=== PATIENT | male | born 1985 | race African-American/Black ===

== ENCOUNTER 2017-10-23 15:47 | Emergency (ER) | payer SELFPAY ==
[~2017-10-23] VITALS: Ht 177.8 cm; Wt 91.2 kg
[~2017-10-23 15:47] MED LIST: AMOXICILLIN500 MG ORAL; NKM; PROMETHAZINE-C118 M1 ORAL; PROMETHAZINE-D118 ML ORAL
[2017-10-23 16:15] VITALS: BP 130/87
[2017-10-23] MEDS ORDERED: COLACE100 MG ORAL (17:00)
[2017-10-23] MEDS ORDERED: FLEET ENEMA133 ML RECTAL (17:00)
[2017-10-23 17:07] VITALS: BP 130/87
--- NOTE | 2017-10-23 17:48 | Emergency Room Report ---
History of Present Illness General Chief Complaint: Abdominal Pain Source: Patient Present Illness HPI 32-year-old male presents ED complaining of abdominal pain. Started this morning. States that he has not been eating healthy for the last few days. 8. Take at carnival yesterday and then had pain takes this morning. States he has not had a bowel movement for the last few days. Pain is sharp, lower, 8 out of 10, nonradiating. Notes nausea, denies vomiting. Denies fevers or chills. No other aggravating relieving factors. Denies any other associated symptoms Allergies: Coded Allergies: No Known Allergies (Unverified , 04/25/16) Patient History Past Medical History: asthma Past Surgical History: none Pertinent Family History: none Social History: Denies: smoking, alcohol use, drug use Immunizations: UTD Reviewed Nursing Documentation: PMH: Agreed; PSxH: Agreed Nursing Documentation-PMH Past Medical History: No History, Except For Hx Asthma: Yes Review of Systems All Other Systems: negative except mentioned in HPI Physical Exam Vital Signs Date Time Temp Pulse Resp B/P (MAP) Pulse Ox O2 Delivery O2 Flow Rate FiO2 10/23/17 15:52 98.4 80 16 130/87 99 Room Air 98.4 Sp02 EP Interpretation: reviewed, normal General Appearance: no apparent distress, alert, GCS 15, non-toxic Head: normocephalic, atraumatic Eyes: bilateral eye normal inspection, bilateral eye PERRL ENT: hearing grossly normal, normal pharynx, no angioedema, normal voice Neck: full range of motion, supple/symm/no masses Respiratory: chest non-tender, lungs clear, normal breath sounds, speaking full sentences Cardiovascular #1: regular rate, rhythm, no edema Cardiovascular #2: 2+ carotid (R), 2+ carotid (L), 2+ radial (R), 2+ radial (L) , 2+ dorsalis pedis (R), 2+ dorsalis pedis (L) Gastrointestinal: normal bowel sounds, soft, non-distended, no guarding, no rebound, tenderness Rectal: deferred Genitourinary: normal inspection, no CVA tenderness Musculoskeletal: back normal, gait/station normal, normal range of motion, non- tender Neurologic: alert, oriented x3, responsive, motor strength/tone normal, sensory intact, speech normal Psychiatric: judgement/insight normal, memory normal, mood/affect normal, no suicidal/homicidal ideation Reflexes: 3+ bicep (R), 3+ bicep (L), 3+ tricep (R), 3+ tricep (L), 3+ knee (R) , 3+ knee (L) Skin: normal color, no rash, warm/dry, well hydrated Lymphatic: no adenopathy Medical Decision Making Diagnostic Impression: Primary Impression: Constipation Qualified Codes: K59.00 - Constipation, unspecified ER Course Hospital Course 32-year-old M presents to ED with abdominal pain Differential diagnosis includes-appendicitis, cholecystitis, small bowel obstruction, gastritis, Clinical course Patient placed on stretcher. After initial history, physical exam reveals male in no acute distress. Abdomen soft with some tenderness to lower abdomen. No guarding or rebound. KUB - copious stool noted Discussed findings with patient. Clinical presentation consistent with constipation. We'll prescribe stool softeners and enema I feel this is a highly complex case requiring extensive working including EKG/ Rhythm strip, Xray/CT/US, Blood/urine lab work, repeat exams while in ED, and administration of strong opiates/narcotics for pain control, admission to hospital or close patient follow up. Diagnosis - constipation Stable and discharged to home with Rx enema, Colace. instructed on high-fiber diet. Followup with PMD. Return to ED if symptoms recur or worsen Other X-Ray Diagnostic Results Other X-Ray Diagnostic Results : X-Ray ordered: KUB # of Views/Limited Vs Complete: 1 View Indication: Pain EP Interpretation: Yes Interpretation: nonspecific bowel gas, no sbo, other - fecal impaction Impression: Other - constipation Electronically Signed by: Electronically signed by Dionicio Hall MD Last Vital Signs Date Time Temp Pulse Resp B/P (MAP) Pulse Ox O2 Delivery O2 Flow Rate FiO2 10/23/17 17:07 98.4 89 16 130/87 99 Room Air 98.4 Status: improved Disposition: HOME, SELF-CARE Condition: Stable Scripts Na Phos,M-B/Na Phos,Di-Ba* (FLEET ENEMA*) 133 Ml Enema 133 ML RECTAL DAILY, #133 ML 0 Refills Prov: Dionicio Hall MD 10/23/17 Docusate Sodium* (COLACE*) 100 Mg Capsule 100 MG ORAL THREE TIMES A DAY, #30 CAP Prov: Dionicio Hall MD 10/23/17 Referrals: NOT CHOSEN IPA/,REFERRING (PCP) Patient Instructions: Constipation, Adult, [id number] Dionicio Hall MD October 23, 2017 17:48
--- NOTE | 2017-10-24 13:49 | Diagnostic Imaging Report ---
Indication: Abdominal pain Technique: XRAY Abdomen 1v Comparison: None Findings: Bowel gas pattern is nonobstructive. No evidence to suggest free intraperitoneal air. No acute osseous abnormality is seen. Imaged lung bases are clear. Impression: Nonobstructive bowel gas pattern.
== END 2017-10-23 17:15 | disposition home or self-care (01) ==
LOC: EMR 17:11
DX: K59.00 Constipation, unspecified (principal); R10.9 Unspecified abdominal pain; J45.909 Unspecified asthma, uncomplicated
CPT/HCPCS: 74018; 99284

== ENCOUNTER 2017-10-28 18:09 | Inpatient (IN) | payer MEDICAID ==
[~2017-10-28] VITALS: Ht 170.2 cm; Wt 84.8 kg
[~2017-10-28 18:09] MED LIST changes: +COLACE100 MG ORAL; +FLEET ENEMA133 ML RECTAL
[2017-10-28 18:27] VITALS: BP 127/82
[2017-10-28] MEDS ORDERED: Isovue-300 100ml vial INJ PRN (18:45)
[2017-10-28] MEDS ORDERED: Piperacillin/Tazobactam 3.375 GM in NS 110 ML IVPB ONE (18:45)
--- NOTE | 2017-10-28 18:56 | Emergency Room Report ---
History of Present Illness General Chief Complaint: Abdominal Pain Source: Patient Present Illness HPI Patient is a 32-year-old male who presented after increased abdominal pain. The patient reports having increased pain to the right lower abdomen. This had been present for approximately one week. The patient reports having initially been constipated. He had been using enemas without any improvement in the pain. The patient was noted to have onset of fever as well as worsening pain with ambulation. The patient also reported increased pain with cough. The patient was having decreased appetite as well as pain to the right side. The pain is constant and sharp in nature. The patient had previous epidural for lumbar disc disease Allergies: Coded Allergies: No Known Allergies (Unverified , 04/25/16) Patient History Past Medical History: see triage record Reviewed Nursing Documentation: PMH: Agreed; PSxH: Agreed Nursing Documentation-PMH Hx Asthma: Yes Review of Systems All Other Systems: negative except mentioned in HPI Physical Exam Vital Signs Date Time Temp Pulse Resp B/P (MAP) Pulse Ox O2 Delivery O2 Flow Rate FiO2 10/28/17 18:16 100.7 102 20 127/82 99 Room Air 100.8 Sp02 EP Interpretation: reviewed, normal General Appearance: normal inspection, well appearing, no apparent distress, alert, GCS 15 Head: atraumatic ENT: normal ENT inspection, hearing grossly normal, normal voice Neck: normal inspection, full range of motion, supple, no bony tend Respiratory: normal inspection, lungs clear, normal breath sounds, no respiratory distress, no retraction, no wheezing Cardiovascular #1: regular rate, rhythm, no edema Gastrointestinal: normal inspection, normal bowel sounds, soft, no hernia, guarding, rebound, tenderness - right lower abdomen Genitourinary: no CVA tenderness Musculoskeletal: normal inspection, back normal, normal range of motion Neurologic: normal inspection, alert, oriented x3, responsive, child care centre director III-XII nml as tested, motor strength/tone normal, speech normal Psychiatric: normal inspection, judgement/insight normal, mood/affect normal Skin: normal inspection, normal color, no rash Medical Decision Making Diagnostic Impression: Primary Impression: Acute abdominal pain Additional Impression: Intra-abdominal abscess ER Course Patient presented for abdominal pain. Differential diagnoses included ischemic bowel, appendicitis, perforated viscus, abdominal aortic aneurysm, inferior myocardial infarction, viral gastroenteritis Because of complexity of patient's case laboratory testing and imaging studies were ordered.The laboratory testing is notable for markedly elevated white blood count. The patient was started on IV antibiotics as well as IV fluids. CT imaging of the abdomen pelvis showed approximately 5.5 cm right lower quadrant fluid collection which could be from perforated appendicitis small amount of fluid was noted in the pelvis. Patient was given IV pain medications. Dr. Elías Seals was contacted for inpatient management. Labs Test 10/28/17 18:20 10/28/17 18:23 Urine Color Yellow Urine Appearance Clear Urine pH 6 (4.5-8.0) Urine Specific [place] 1.015 (1.005-1.035) Urine Protein 2+ (NEGATIVE) Urine Glucose (UA) Negative (NEGATIVE) Urine Ketones Negative (NEGATIVE) Urine Occult Blood 4+ (NEGATIVE) Urine Nitrite Negative (NEGATIVE) Urine Bilirubin Negative (NEGATIVE) Urine Urobilinogen Normal MG/DL (0.0-1.0) Urine Leukocyte Esterase 1+ (NEGATIVE) Urine RBC 10-15 /HPF (0 - 0) Urine WBC 2-4 /HPF (0 - 0) Urine Squamous Epithelial Cells None /LPF (NONE/OCC) Urine Amorphous Sediment Few /LPF (NONE) Urine Bacteria Few /HPF (NONE) White Blood Count 20.3 K/UL (4.8-10.8) Red Blood Count 5.44 M/UL (4.70-6.10) Hemoglobin 14.7 G/DL (14.2-18.0) Hematocrit 43.9 % (42.0-52.0) Mean Corpuscular Volume 81 FL (80-99) Mean Corpuscular Hemoglobin 27.1 PG (27.0-31.0) Mean Corpuscular Hemoglobin Concent 33.6 G/DL (32.0-36.0) Red Cell Distribution Width 12.2 % (11.6-14.8) Platelet Count 323 K/UL (150-450) Mean Platelet Volume 6.4 FL (6.5-10.1) Neutrophils (%) (Auto) % (45.0-75.0) Lymphocytes (%) (Auto) % (20.0-45.0) Monocytes (%) (Auto) % (1.0-10.0) Eosinophils (%) (Auto) % (0.0-3.0) Basophils (%) (Auto) % (0.0-2.0) Differential Total Cells Counted 100 Neutrophils % (Manual) 76 % (45-75) Lymphocytes % (Manual) 12 % (20-45) Monocytes % (Manual) 9 % (1-10) Eosinophils % (Manual) 0 % (0-3) Basophils % (Manual) 1 % (0-2) Band Neutrophils 2 % (0-8) Platelet Estimate Adequate Platelet Morphology Normal Red Blood Cell Morphology Normal Prothrombin Time 11.3 SEC (9.30-11.50) Prothromb Time International Ratio 1.1 (0.9-1.1) Activated Partial Thromboplast Time 27 SEC (23-33) Sodium Level 132 MMOL/L (136-145) Potassium Level 3.3 MMOL/L (3.5-5.1) Chloride Level 94 MMOL/L (98-107) Carbon Dioxide Level 28 MMOL/L (21-32) Anion Gap 10 mmol/L (5-15) Blood Urea Nitrogen 15 mg/dL (7-18) Creatinine 1.2 MG/DL (0.55-1.30) Estimat Glomerular Filtration Rate > 60 mL/min (>60) Glucose Level 129 MG/DL (74-106) Calcium Level 9.2 MG/DL (8.5-10.1) Total Bilirubin 0.5 MG/DL (0.2-1.0) Aspartate Amino Transf (AST/SGOT) 24 U/L (15-37) Alanine Aminotransferase (ALT/SGPT) 37 U/L (12-78) Alkaline Phosphatase 96 U/L (46-116) Total Protein 8.6 G/DL (6.4-8.2) Albumin 3.2 G/DL (3.4-5.0) Globulin 5.4 g/dL Albumin/Globulin Ratio 0.6 (1.0-2.7) Lipase 115 U/L (73-393) Last Vital Signs Date Time Temp Pulse Resp B/P (MAP) Pulse Ox O2 Delivery O2 Flow Rate FiO2 10/28/17 18:27 100.8 20 127/82 99 Room Air 100.8 10/28/17 18:16 102 Status: unchanged Disposition: ADMITTED INPATIENT Condition: Serious Referrals: NOT CHOSEN IPA/,REFERRING (PCP) Tyler Tang MD October 28, 2017 18:56
[2017-10-28 19:26] LABS: APPEARANCE,URINE CLEAR; BILIRUBIN, URINE NEGATIVE (NEGATIVE); GLUCOSE, URINE (UA) NEGATIVE (NEGATIVE); KETONES,URINE NEGATIVE (NEGATIVE); LEUKOCYTE ESTERASE ,URINE 1+ (NEGATIVE); NITRITE,URINE NEGATIVE (NEGATIVE); PH,URINE 6 (4.5-8.0); PROTEIN,URINE 2+ (NEGATIVE); UROBILINOGEN,URINE NORMAL MG/DL (0.0-1.0)
[2017-10-28 19:28] LABS: COLOR,URINE YELLOW
[2017-10-28 19:29] LABS: ANION GAP 10 mmol/L (5-15); BLOOD UREA NITROGEN 15 mg/dL (7-18); CALCIUM 9.2 MG/DL (8.5-10.1); CARBON DIOXIDE 28 MMOL/L (21-32); CHLORIDE 94 MMOL/L (98-107); CREATININE 1.2 MG/DL (0.55-1.30); HEMATOCRIT 43.9 % (42.0-52.0); HEMOGLOBIN 14.7 G/DL (14.2-18.0); MEAN CORPUSCULAR VOLUME 81 FL (80-99); PLATELET COUNT 323 K/UL (150-450); POTASSIUM 3.3 MMOL/L (3.5-5.1); RED BLOOD COUNT 5.44 M/UL (4.70-6.10); RED CELL DISTRIBUTION WIDTH 12.2 % (11.6-14.8); SODIUM 132 MMOL/L (136-145); WHITE BLOOD COUNT 20.3 K/UL (4.8-10.8)
[2017-10-28 19:31] LABS: INR 1.1 (0.9-1.1)
[2017-10-28 19:34] LABS: ALANINE AMINOTRANSFERASE 37 U/L (12-78); ALBUMIN 3.2 G/DL (3.4-5.0); ALBUMIN/GLOBULIN RATIO 0.6 (1.0-2.7); ALKALINE PHOSPHATASE 96 U/L (46-116); ASPARTATE AMINO TRANSFERASE 24 U/L (15-37); BILIRUBIN,TOTAL 0.5 MG/DL (0.2-1.0)
[2017-10-28 20:07] VITALS: BP 128/72
[2017-10-28] MEDS ORDERED: IBUPROFEN600 MG ORAL (20:21)
--- NOTE | 2017-10-28 20:37 | Diagnostic Imaging Report ---
EXAM: CT Abdomen and Pelvis With Intravenous Contrast CLINICAL HISTORY: PAIN TECHNIQUE: Axial computed tomography images of the abdomen and pelvis with intravenous contrast. CTDI is 0.15 + 12.57 mGy and DLP is 7.47 + 647.36 mGy-cm. One or more of the following dose reduction techniques were used: automated exposure control, adjustment of the mA and/or kV according to patient size, use of iterative reconstruction technique. COMPARISON: No relevant prior studies available. FINDINGS: Lung bases: Unremarkable. ABDOMEN: Liver: Unremarkable. Gallbladder and bile ducts: No calcified stones. No ductal dilation. Pancreas: Unremarkable. Spleen: Unremarkable. Adrenals: Unremarkable. Kidneys and ureters: Unremarkable. No hydronephrosis. Stomach and bowel: No shannan mural thickening. Nonobstructive bowel gas pattern. PELVIS: Appendix: Abscess in the right lower quadrant measuring approximately 5.5 cm. Could be from perforated to appendicitis. A normal appendix is not identified. Cannot exclude other etiologies for the abscess. Bladder: Unremarkable. Reproductive: Unremarkable. ABDOMEN and PELVIS: Intraperitoneal space: Small amount of fluid in the pelvis. Bones/joints: No acute fracture. Soft tissues: Unremarkable. Vasculature: Unremarkable. No abdominal aortic aneurysm. Lymph nodes: Mesenteric nodes. IMPRESSION: Abscess in the right lower quadrant measuring approximately 5.5 cm. Could be from perforated to appendicitis. A normal appendix is not identified. Cannot exclude other etiologies for the abscess. [employer] 10/28/17 20:40 Verify Receipt Verified receipt with TUCKER Dia in ER for [place] PATRICIA on 10/28 20:40 (-07:00)
[2017-10-28] MEDS ORDERED: Morphine Sulfate 4mg/ml Inj IVP ONE ×2 (21:15→23:00)
[2017-10-28 22:44] VITALS: BP 121/63
--- NOTE | 2017-10-28 22:45 | Diagnostic Imaging Report ---
EXAM: XR Chest, 1 View CLINICAL HISTORY: PREOP TECHNIQUE: Frontal view of the chest. COMPARISON: No relevant prior studies available. FINDINGS: Lungs: No consolidation. Pleural space: Unremarkable. No pneumothorax. Heart: Unremarkable. No cardiomegaly. Mediastinum: Unremarkable. Bones/joints: No acute fracture. IMPRESSION: No acute cardiopulmonary disease.
[2017-10-28] MEDS ORDERED: Ketorolac 30mg Inj IV ONE (23:00)
[2017-10-28] MEDS ORDERED: Propofol 200mg/20ml IV ONE ×2 (23:53→23:54)
[2017-10-28] MEDS ORDERED: fentaNYL 100 mcg/2 mL IV ONE (23:54)
[2017-10-28] MEDS ORDERED: Midazolam 2mg/2ml Inj ONE (23:54)
--- NOTE | 2017-10-28 23:54 | Pre-Procedure Note/Attestation ---
Pre-Procedure Note/Attestation Complete Prior to Procedure Planned Procedure: not applicable Procedure Narrative: laparoscopic appendectomy possible open appendectomy Indications for Procedure Pre-Operative Diagnosis: perfed appy with intra-abdominal abscess Attestation I attest that I discussed the nature of the procedure; its benefits; risks and complications; and alternatives (and the risks and benefits of such alternatives ), prior to the procedure, with the patient (or the patient's legal kiosk sales representative). I attest that, if there was a reasonable possibility of needing a blood transfusion, the patient (or the patient's legal kiosk sales representative) was given the [facility] standardized written summary, pursuant to the Alec Stephanie Blood Safety Act ([place] Health and Safety Code # 1645, as amended). I attest that I re-evaluated the patient just prior to the surgery and that there has been no change in the patient's H&P, except as documented below: Sarah Richardson MD October 28, 2017 23:54
[2017-10-28] MEDS ORDERED: Bupivacaine 0.25% Inj 30ml INJ ONE (23:57)
[2017-10-28] MEDS ORDERED: Bacitracin 50000 Units Vial ONE (23:57)
[2017-10-28] MEDS ORDERED: Zemuron 50mg/5ml Inj IV ONE (23:58)
[2017-10-28] MEDS ORDERED: Succinylcholine 20mg/ml 10ml vial ONE (23:58)
[2017-10-29] VITALS (11 sets, daily range): BP systolic 118–151; BP diastolic 63–87
[2017-10-29] MEDS ORDERED: Morphine Sulfate 10mg/ml Inj ONE (00:58)
[2017-10-29] MEDS ORDERED: Glycopyrrolate 0.2mg/ml 1ml Vial ONE (01:00)
[2017-10-29] MEDS ORDERED: Ketorolac 30mg Inj ONE (01:01)
--- NOTE | 2017-10-29 01:01 | Pre-op HX & Phy Repo 2 SIG ---
DATE OF ADMISSION: 10/28/2017 PREOPERATIVE CONSULTATION REASON FOR CONSULTATION: Abdominal pain. REQUESTING PHYSICIAN: Emergency room physician. HISTORY OF PRESENT ILLNESS: This is a 32-year-old male, who presented to emergency room complaining of abdominal pain. The pain is located at right lower quadrant and he stated that the pain started 1 week ago and was located at the same right lower quadrant. He stated that as the pain persisted, he was seen in our emergency room two to three days later, but apparently diagnosis of constipation was made. He was prescribed laxative and enema. He stated that the pain persisted and in the last two days, he had been having the fever and chills. He denies any cough, dysuria, or frequency. He denies any previous history of similar pain. PAST MEDICAL HISTORY: He denies allergies, diabetes, hypertension, cardiac and renal diseases. As a child, he had history of asthma but he did not have it in adulthood. SURGERIES: None. MEDICATIONS: None. SOCIAL HISTORY: The patient is a 32-year-old male, who is single with two children. Denies smoking and drinking. REVIEW OF SYSTEMS: He complains of back pain. PHYSICAL EXAMINATION: GENERAL: The patient appeared to be a well-developed, well-nourished, 32-year-old male, lying on the gurney, complaining of abdominal pain. HEENT: Head is normocephalic and atraumatic. Eyes, pupils are equal, round, and reactive to light. Mouth is clear but dry. NECK: There is no palpable thyromegaly or adenopathy. CHEST: Clear to auscultation and percussion. HEART: There is no gallop or murmur. S1 and S2 are within normal limits. ABDOMEN: Soft and flat with severe tenderness, rebound tenderness, and guarding at right lower quadrant and a mass can be felt in this area. GENITAL: Normal. EXTREMITIES: Within normal limits. LABORATORY DATA: CBC has shown WBC of 20,300 with left shift. Chemistry is within normal limits except for the creatinine which is 1.2. CAT scan of the abdomen as interpreted by the radiologist as a 5.5-cm abscess at the right lower quadrant of the abdomen and apparently the appendix had not been seen. ASSESSMENT: Acute abdomen due to the intra-abdominal abscess. PLAN: The patient requires an emergency surgery. It had been explained to the patient that there is a possibility of appendix. He has been scheduled for laparoscopy, appendectomy, possible open appendectomy, but the final decision is going to be with physical examination under general anesthesia. Sarah Richardson M.D. DR: Nima JOB#: [id number] CC: DASHA
[2017-10-29] MEDS ORDERED: LR 1000ml 1,000 ML IVLG SCH (01:10)
--- NOTE | 2017-10-29 01:10 | Anethesia Preoperative Eval ---
Anesthesia Pre-op PMH/ROS General Date of Evaluation: October 29, 2017 Time of Evaluation: 23:55 Anesthesiologist: Stanley ASA Score: ASA 2 Mallampati Score Class I : Soft palate, uvula, fauces, pillars visible Class II: Soft palate, uvula, fauces visible Class III: Soft palate, base of uvula visible Class IV: Only hard plate visible Mallampati Classification: Class II Surgeon: Debra Diagnosis: Intraabdominal abscess Surgical Procedure: Ex. laparotomy Anesthesia History: none Family History: no anesthesia problems Allergies: Coded Allergies: No Known Allergies (Unverified , 04/25/16) Medications: see eMAR Past Medical History Cardiovascular: Denies: HTN, CAD, ND, valve dz, arrhythmia, other Pulmonary: Denies: asthma, COPD, ALFREDA, other Gastrointestinal/Genitourinary: Reports: GERD - mild; Denies: CRI, ESRD, other Neurologic/Psychiatric: Denies: dementia, CVA, depression/anxiety, TIA, other Endocrine: Denies: DM, hypothyroidism, steroids, other HEENT: Denies: cataract (L), cataract (R), glaucoma, METLAKATLA (L), METLAKATLA (R), other Hematology/Immune: Denies: anemia, DVT, bleeding disorder, other Musculoskeletal/Integumentary: Denies: OA, RA, DJD, DDD, edema, other PMH Narrative: recurrent abdominal pain worth in last two days fever, N and V Intraabdominal abscess on CT scan. PSxH Narrative: Epidural injections Anesthesia Pre-op Phys. Exam Physician Exam Last Vital Signs Date Time Temp Pulse Resp B/P (MAP) Pulse Ox O2 Delivery O2 Flow Rate FiO2 10/29/17 00:10 98.7 90 16 121/63 100 Room Air 98.7 Constitutional: NAD Neurologic: CN 2-12 intact Cardiovascular: RRR, no M/R/G Respiratory: other - painfull and distended on palpation Airway Exam Mallampati Score: Class II MO: full Neck: flexible ROM: full Teeth: intact Dentures: no upper, no lower Anesthesia Pre-op A/P Labs Hematology Test 10/28/17 18:23 White Blood Count 20.3 K/UL (4.8-10.8) H Red Blood Count 5.44 M/UL (4.70-6.10) Hemoglobin 14.7 G/DL (14.2-18.0) Hematocrit 43.9 % (42.0-52.0) Mean Corpuscular Volume 81 FL (80-99) Mean Corpuscular Hemoglobin 27.1 PG (27.0-31.0) Mean Corpuscular Hemoglobin Concent 33.6 G/DL (32.0-36.0) Red Cell Distribution Width 12.2 % (11.6-14.8) Platelet Count 323 K/UL (150-450) Mean Platelet Volume 6.4 FL (6.5-10.1) L Neutrophils (%) (Auto) % (45.0-75.0) Lymphocytes (%) (Auto) % (20.0-45.0) Monocytes (%) (Auto) % (1.0-10.0) Eosinophils (%) (Auto) % (0.0-3.0) Basophils (%) (Auto) % (0.0-2.0) Differential Total Cells Counted 100 Neutrophils % (Manual) 76 % (45-75) H Lymphocytes % (Manual) 12 % (20-45) L Monocytes % (Manual) 9 % (1-10) Eosinophils % (Manual) 0 % (0-3) Basophils % (Manual) 1 % (0-2) Band Neutrophils 2 % (0-8) Platelet Estimate Adequate Platelet Morphology Normal Red Blood Cell Morphology Normal Coagulation Test 10/28/17 18:23 Prothrombin Time 11.3 SEC (9.30-11.50) Prothromb Time International Ratio 1.1 (0.9-1.1) Activated Partial Thromboplast Time 27 SEC (23-33) Chemistry Test 10/28/17 18:23 Sodium Level 132 MMOL/L (136-145) L Potassium Level 3.3 MMOL/L (3.5-5.1) L Chloride Level 94 MMOL/L (98-107) L Carbon Dioxide Level 28 MMOL/L (21-32) Anion Gap 10 mmol/L (5-15) Blood Urea Nitrogen 15 mg/dL (7-18) Creatinine 1.2 MG/DL (0.55-1.30) Estimat Glomerular Filtration Rate > 60 mL/min (>60) Glucose Level 129 MG/DL (74-106) H Calcium Level 9.2 MG/DL (8.5-10.1) Total Bilirubin 0.5 MG/DL (0.2-1.0) Aspartate Amino Transf (AST/SGOT) 24 U/L (15-37) Alanine Aminotransferase (ALT/SGPT) 37 U/L (12-78) Alkaline Phosphatase 96 U/L (46-116) Total Protein 8.6 G/DL (6.4-8.2) H Albumin 3.2 G/DL (3.4-5.0) L Globulin 5.4 g/dL Albumin/Globulin Ratio 0.6 (1.0-2.7) L Lipase 115 U/L (73-393) Risk Assessment & Plan Assessment: ASA 2 E Plan: GA with ETT Status Change Before Surgery: No Pre-Antibiotics Drug: as scheduled Trino Angel MD October 29, 2017 01:10
[2017-10-29] MEDS ORDERED: fentaNYL 100 mcg/2 mL IV PRN (01:15)
[2017-10-29] MEDS ORDERED: DiphenhydrAMINE 50mg/ml Inj IVP PRN (01:15)
[2017-10-29] MEDS ORDERED: Meperidine 50mg/ml Inj(FOR RIGORS ONLY) IV PRN (01:15)
[2017-10-29] MEDS ORDERED: Ketorolac 30mg Inj IV PRN (01:15)
[2017-10-29] MEDS ORDERED: Metoclopramide 10mg/2ml Inj IVP PRN ×2 (01:15→02:00)
[2017-10-29] MEDS ORDERED: Midazolam 2mg/2ml Inj IVP PRN (01:15)
[2017-10-29] MEDS ORDERED: Betadine 4oz Bottle TOPIC ONE (01:30)
--- NOTE | 2017-10-29 01:51 | Brief Operative Note ---
Immediate Post Operative Note Operative Note Pre-op Diagnosis: perfed appy with intra-abdominal abscess Procedure: open appendectomy , drainage of per-appendiceal abscess and partial omentectomy Post-op Diagnosis: perfed appy with abscess Post-op Diagnosis: same as pre-op Findings: consistent w/pre-op dx studies Surgeon: MD Neelam Hand I Thermal Cutter: none Anesthesiologist: Dr. Angel Anesthesia: general Specimen: yes Complications: none Condition: stable Fluids: per anesthesialogist Estimated Blood Loss: volume - 20 ml Drains: other - rukhsana Implant(s) used?: No Sarah Richardson MD October 29, 2017 01:51
[2017-10-29] MEDS ORDERED: Acetaminophen 650 MG SUPP RECTAL PRN (02:00)
--- NOTE | 2017-10-29 02:07 | Immediate Post-Op Evaluation ---
Immediate Post-Op Evalulation Immediate Post-Op Evalulation Procedure: Ex lap drainage of abscess appendectomy Date of Evaluation: October 29, 2017 Time of Evaluation: 02:06 IV Fluids: 1600 Blood Products: none Estimated Blood Loss: 50 Urinary Output: 100 Blood Pressure Systolic: 135 Blood Pressure Diastolic: 68 Pulse Rate: 86 Respiratory Rate: 22 O2 Sat by Pulse Oximetry: 99 Temperature (Fahrenheit): 98.6 Pain Score (1-10): 3 Nausea: No Vomiting: No Complications none Patient Status: awake, patent, extubated, none Hydration Status: adequate Trino Angel MD October 29, 2017 02:07
[2017-10-29] MEDS ORDERED: NS IVPB SCH (04:00)
[2017-10-29] MEDS ORDERED: GENTAMICIN IVPB SCH (04:00)
[2017-10-29] MEDS: Piperacillin/Tazobactam 4.5 GM in D5W 110 ML IVPB SCH ×3 (04:07→19:57)
[2017-10-29] MEDS: D5 1/2NS w/KCl 20mEq 1,000 ML IV SCH ×3 (04:07→20:05)
--- NOTE | 2017-10-29 05:16 | Operative Note - Dictated ---
DATE OF OPERATION: 10/29/2017 PREOPERATIVE DIAGNOSIS: Perforated appendicitis with abscess. POSTOPERATIVE DIAGNOSIS: Perforated appendicitis with abscess. OPERATION: 1. Open appendectomy and drainage of the periappendiceal abscess. 2. Partial omentectomy. COMPLICATIONS: None. SURGEON: Sarah Richardson M.D. NEEDLE PUNCH OPERATOR: None. ANESTHESIA: General with endotracheal tube. ANESTHESIOLOGIST: Trino Angel M.D. INDICATIONS: This is a 32-year-old -[place] male, who presented to emergency room complaining of one-week history of abdominal pain. The pain was located at the right lower quadrant and he had two to three episodes of vomiting. She stated that she was seen at our emergency room two to three days after the onset of the pain, but apparently was diagnosed with constipation and was discharged home with laxative. He stated the pain has increased and in the last two days he has been having fever and chills. Physical examination showed severe tenderness at the right lower quadrant of the abdomen and a large mass in this area. The patient had rebound tenderness and guarding. The CBC showed a WBC of 20,000 with a left shift. CT scan of the abdomen was interpreted as intraabdominal abscess about 5.5 cm in diameter in the right lower quadrant of the abdomen. DESCRIPTION OF PROCEDURE: The patient was placed supine on the operating table and after general anesthesia with endotracheal tube, initially a physical examination under general anesthesia was performed, which showed a very large mass at the right lower quadrant of the abdomen, which extended into the pelvis and obviously this was appendiceal abscess and I felt that the laparoscopy surgery will not be successful, so decision was made for an open appendectomy. A midline incision was given below the umbilicus and was carried sharply through subcutaneous tissue, fascia, and peritoneum. The intraperitoneal cavity was entered. Immediately, we were over the palpable mass. This mass was a combination of the cecum, small bowel, and omentum. Very gradually, the blunt dissection was performed and a very large abscess containing yellowish foul-smelling pus was drained. Large amount of pus was suctioned and culture was obtained. After the pus was completely drained and the adhesions were gradually released and the cavity of the abscess was entered, as I mentioned this cavity was between the cecum, small bowel, and the omentum. The omentum was gradually released and it was noticed that it had adhesion to the appendix. The appendix was basically evulsed from the proximal part, but then he still had the attachment with the mesoappendix, and so initially the mesoappendix was ligated with a stapler and the distal part of the appendix was removed. Further exploration was performed and the proximal part of the appendix was identified, which was attached to the cecum and this was gradually dissected and isolated and then it was ligated with #0 Vicryl suture and the distal part was transected and removed. At the next step, the attention was given to the omentum, which was very inflamed and contained abscess, so the decision was made for partial omentectomy. This was performed with multiple ligation of the area with 0 silk tie and the infected part of the omentum was resected and removed. After this, the lower abdomen was copiously irrigated with antibiotic solution and Betadine. The pelvis was irrigated. The area was completely irrigated and a Jimenez drain was placed at the abscess cavity and this was extended to the pelvis and then was brought out from a separate stab wound at the left lower quadrant of the abdomen. The incision was approximated with a running suture of 0 Vicryl for the posterior fascia and peritoneum, #1 Prolene for anterior fascia, and the skin berto for the skin. The wound was packed with iodoform new gauze in between the skin berto. The patient tolerated the procedure well and was transferred to recovery room in stable condition and extubated. The sponge and needle count correct. Estimated blood loss was 20 mL. Condition of the patient at the end of procedure is stable. Sarah Richardson M.D. DR: JORGE LUIS JOB#: [id number] CC: DASHA
[2017-10-29] MEDS ORDERED: Sterile Water Irrig 1000ml IRRIG ONE (08:00)
[2017-10-29] MEDS ORDERED: NS Irrig 1000ml ONE (08:00)
[2017-10-29] MEDS ORDERED: LR 1000ml ONE (08:00)
[2017-10-29] MEDS: Morphine Sulfate 4mg/ml Inj IVP PRN ×3 (08:25→21:37)
[2017-10-29] MEDS: Pantoprazole Inj IVP SCH (09:06)
[2017-10-29] MEDS: Enoxaparin 40mg Inj SUBQ SCH (09:08)
--- NOTE | 2017-10-29 10:41 | History & Physical ---
History and Physical History & Physicial 32-year-old male, who presented to emergency room complaining of abdominal pain. He stated that as the pain persisted, he was seen in our emergency room two to three days later, and was discharged with constipation. He was taken to the OR and I was called to assist PAST MEDICAL HISTORY: history of asthma as a child SURGERIES: None. MEDICATIONS: None. SOCIAL HISTORY: ; Denies smoking and drinking. REVIEW OF SYSTEMS: essentially negative PHYSICAL EXAMINATION: GENERAL: The patient appeared to be a well-developed, well-nourished, HEENT: Head is normocephalic and atraumatic. Eyes, pupils are equal, round, and reactive to light. Mouth is clear but dry. NECK: There is no palpable thyromegaly or adenopathy. CHEST: Clear to auscultation and percussion. HEART: RRR. S1 and S2 are within normal limits. ABDOMEN: tender EXTREMITIES: Within normal limits. LABORATORY DATA: Laboratory Tests Test 10/28/17 18:20 10/28/17 18:23 Urine Color Yellow Urine Appearance Clear Urine pH 6 (4.5-8.0) Urine Specific [place] 1.015 (1.005-1.035) Urine Protein 2+ (NEGATIVE) H Urine Glucose (UA) Negative (NEGATIVE) Urine Ketones Negative (NEGATIVE) Urine Occult Blood 4+ (NEGATIVE) H Urine Nitrite Negative (NEGATIVE) Urine Bilirubin Negative (NEGATIVE) Urine Urobilinogen Normal MG/DL (0.0-1.0) Urine Leukocyte Esterase 1+ (NEGATIVE) H Urine RBC 10-15 /HPF (0 - 0) H Urine WBC 2-4 /HPF (0 - 0) Urine Squamous Epithelial Cells None /LPF (NONE/OCC) Urine Amorphous Sediment Few /LPF (NONE) H Urine Bacteria Few /HPF (NONE) White Blood Count 20.3 K/UL (4.8-10.8) H Red Blood Count 5.44 M/UL (4.70-6.10) Hemoglobin 14.7 G/DL (14.2-18.0) Hematocrit 43.9 % (42.0-52.0) Mean Corpuscular Volume 81 FL (80-99) Mean Corpuscular Hemoglobin 27.1 PG (27.0-31.0) Mean Corpuscular Hemoglobin Concent 33.6 G/DL (32.0-36.0) Red Cell Distribution Width 12.2 % (11.6-14.8) Platelet Count 323 K/UL (150-450) Mean Platelet Volume 6.4 FL (6.5-10.1) L Neutrophils (%) (Auto) % (45.0-75.0) Lymphocytes (%) (Auto) % (20.0-45.0) Monocytes (%) (Auto) % (1.0-10.0) Eosinophils (%) (Auto) % (0.0-3.0) Basophils (%) (Auto) % (0.0-2.0) Differential Total Cells Counted 100 Neutrophils % (Manual) 76 % (45-75) H Lymphocytes % (Manual) 12 % (20-45) L Monocytes % (Manual) 9 % (1-10) Eosinophils % (Manual) 0 % (0-3) Basophils % (Manual) 1 % (0-2) Band Neutrophils 2 % (0-8) Platelet Estimate Adequate Platelet Morphology Normal Red Blood Cell Morphology Normal Prothrombin Time 11.3 SEC (9.30-11.50) Prothromb Time International Ratio 1.1 (0.9-1.1) Activated Partial Thromboplast Time 27 SEC (23-33) Sodium Level 132 MMOL/L (136-145) L Potassium Level 3.3 MMOL/L (3.5-5.1) L Chloride Level 94 MMOL/L (98-107) L Carbon Dioxide Level 28 MMOL/L (21-32) Anion Gap 10 mmol/L (5-15) Blood Urea Nitrogen 15 mg/dL (7-18) Creatinine 1.2 MG/DL (0.55-1.30) Estimat Glomerular Filtration Rate > 60 mL/min (>60) Glucose Level 129 MG/DL (74-106) H Calcium Level 9.2 MG/DL (8.5-10.1) Total Bilirubin 0.5 MG/DL (0.2-1.0) Aspartate Amino Transf (AST/SGOT) 24 U/L (15-37) Alanine Aminotransferase (ALT/SGPT) 37 U/L (12-78) Alkaline Phosphatase 96 U/L (46-116) Total Protein 8.6 G/DL (6.4-8.2) H Albumin 3.2 G/DL (3.4-5.0) L Globulin 5.4 g/dL Albumin/Globulin Ratio 0.6 (1.0-2.7) L Lipase 115 U/L (73-393) IMPRESSION appendicitis open appy leukocytosis postop PLAN iv hydration iv antibiotics post op care ID evaluation Elías Seals MD October 29, 2017 10:41
--- NOTE | 2017-10-29 10:42 | 48 Hour Post Anesthesia Eval ---
Post Anesthesia Evaluation Procedure: Ex lap drainage of abscess appendectomy Date of Evaluation: October 29, 2017 Time of Evaluation: 10:41 Blood Pressure Systolic: 124 0: 72 Pulse Rate: 86 Respiratory Rate: 22 Temperature (Fahrenheit): 97.6 O2 Sat by Pulse Oximetry: 98 Airway: patent Nausea: No Vomiting: No Pain Intensity: 3 Hydration Status: adequate Cardiopulmonary Status: stable Mental Status/LOC: patient returned to baseline Follow-up Care/Observations: n/a Post-Anesthesia Complications: none Follow-up care needed: N/A Trino Angel MD October 29, 2017 10:42
[2017-10-29 13:37] LABS: HEMATOCRIT 42.3 % (42.0-52.0); HEMOGLOBIN 13.7 G/DL (14.2-18.0); MEAN CORPUSCULAR VOLUME 82 FL (80-99); PLATELET COUNT 295 K/UL (150-450); RED BLOOD COUNT 5.17 M/UL (4.70-6.10); RED CELL DISTRIBUTION WIDTH 12.1 % (11.6-14.8); WHITE BLOOD COUNT 18.6 K/UL (4.8-10.8)
[2017-10-29 13:39] LABS: ANION GAP 8 mmol/L (5-15); BLOOD UREA NITROGEN 13 mg/dL (7-18); CARBON DIOXIDE 29 MMOL/L (21-32); CHLORIDE 98 MMOL/L (98-107); CREATININE 1.2 MG/DL (0.55-1.30); POTASSIUM 3.7 MMOL/L (3.5-5.1); SODIUM 134 MMOL/L (136-145)
--- NOTE | 2017-10-29 14:57 | General Surgery Progress Note ---
General Surgery-Progress Note Subjective Procedure Performed open appendectomy , drainage of per-appendiceal abscess and partial omentectomy Symptoms: improved Objective Last 24 Hour Vital Signs Date Time Temp Pulse Resp B/P (MAP) Pulse Ox O2 Delivery O2 Flow Rate FiO2 10/29/17 12:00 98.2 86 18 118/68 96 Room Air 98.2 10/29/17 10:42 207.7 86 22 98 10/29/17 09:37 98.6 10/29/17 09:07 101.7 10/29/17 08:00 101.7 104 18 124/78 97 Room Air 101.7 10/29/17 03:47 96.8 85 20 133/74 96 Nasal Cannula 3.0 96.8 10/29/17 02:32 70 22 127/63 100 Nasal Cannula 3.0 10/29/17 02:28 98.9 10/29/17 02:28 98.9 10/29/17 02:23 67 22 140/66 100 Nasal Cannula 3.0 10/29/17 02:23 98.9 10/29/17 02:12 98.9 10/29/17 02:12 74 22 149/73 100 Nasal Cannula 3.0 10/29/17 02:07 209.5 86 22 99 10/29/17 02:05 100 22 135/68 100 Simple Mask 8.0 10/29/17 02:00 89 22 151/72 100 Simple Mask 8.0 10/29/17 01:55 98.9 76 22 146/87 100 Simple Mask 8.0 98.9 10/29/17 00:10 98.7 90 16 121/63 100 Room Air 98.7 10/28/17 23:26 98.7 10/28/17 23:26 98.7 10/28/17 22:56 101.9 10/28/17 22:56 101.9 10/28/17 22:44 101.9 90 16 121/63 100 Room Air 101.9 10/28/17 21:47 99.3 10/28/17 21:17 99.3 10/28/17 20:07 99.3 86 16 128/72 100 Room Air 99.3 10/28/17 18:27 100.8 20 127/82 99 Room Air 100.8 10/28/17 18:16 100.7 102 20 127/82 99 Room Air 100.8 I&O Intake and Output 10/28/17 10/29/17 19:00 07:00 Intake Total 0 ml 2784.625 ml Output Total 320 ml Balance 0 ml 2464.625 ml Intake Oral 0 ml 0 ml IV Total 2784.625 ml Output Urine Total 100 ml Drainage Total 170 ml Estimated Blood Loss 50 ml # Voids 3 Drains: rukhsana Respiratory: clear Abdomen: soft, flat, tenderness, absent bowel sounds Extremities: no tenderness Laboratory Tests Test 10/28/17 18:20 10/28/17 18:23 10/29/17 13:15 Urine Color Yellow Urine Appearance Clear Urine pH 6 (4.5-8.0) Urine Specific [place] 1.015 (1.005-1.035) Urine Protein 2+ (NEGATIVE) H Urine Glucose (UA) Negative (NEGATIVE) Urine Ketones Negative (NEGATIVE) Urine Occult Blood 4+ (NEGATIVE) H Urine Nitrite Negative (NEGATIVE) Urine Bilirubin Negative (NEGATIVE) Urine Urobilinogen Normal MG/DL (0.0-1.0) Urine Leukocyte Esterase 1+ (NEGATIVE) H Urine RBC 10-15 /HPF (0 - 0) H Urine WBC 2-4 /HPF (0 - 0) Urine Squamous Epithelial Cells None /LPF (NONE/OCC) Urine Amorphous Sediment Few /LPF (NONE) H Urine Bacteria Few /HPF (NONE) White Blood Count 20.3 K/UL (4.8-10.8) H 18.6 K/UL (4.8-10.8) H Red Blood Count 5.44 M/UL (4.70-6.10) 5.17 M/UL (4.70-6.10) Hemoglobin 14.7 G/DL (14.2-18.0) 13.7 G/DL (14.2-18.0) L Hematocrit 43.9 % (42.0-52.0) 42.3 % (42.0-52.0) Mean Corpuscular Volume 81 FL (80-99) 82 FL (80-99) Mean Corpuscular Hemoglobin 27.1 PG (27.0-31.0) 26.6 PG (27.0-31.0) L Mean Corpuscular Hemoglobin Concent 33.6 G/DL (32.0-36.0) 32.4 G/DL (32.0-36.0) Red Cell Distribution Width 12.2 % (11.6-14.8) 12.1 % (11.6-14.8) Platelet Count 323 K/UL (150-450) 295 K/UL (150-450) Mean Platelet Volume 6.4 FL (6.5-10.1) L 6.3 FL (6.5-10.1) L Neutrophils (%) (Auto) % (45.0-75.0) % (45.0-75.0) Lymphocytes (%) (Auto) % (20.0-45.0) % (20.0-45.0) Monocytes (%) (Auto) % (1.0-10.0) % (1.0-10.0) Eosinophils (%) (Auto) % (0.0-3.0) % (0.0-3.0) Basophils (%) (Auto) % (0.0-2.0) % (0.0-2.0) Differential Total Cells Counted 100 100 Neutrophils % (Manual) 76 % (45-75) H 61 % (45-75) Lymphocytes % (Manual) 12 % (20-45) L 13 % (20-45) L Monocytes % (Manual) 9 % (1-10) 10 % (1-10) Eosinophils % (Manual) 0 % (0-3) 0 % (0-3) Basophils % (Manual) 1 % (0-2) 0 % (0-2) Band Neutrophils 2 % (0-8) 16 % (0-8) H Platelet Estimate Adequate Adequate Platelet Morphology Normal Normal Red Blood Cell Morphology Normal Normal Prothrombin Time 11.3 SEC (9.30-11.50) Prothromb Time International Ratio 1.1 (0.9-1.1) Activated Partial Thromboplast Time 27 SEC (23-33) Sodium Level 132 MMOL/L (136-145) L 134 MMOL/L (136-145) L Potassium Level 3.3 MMOL/L (3.5-5.1) L 3.7 MMOL/L (3.5-5.1) Chloride Level 94 MMOL/L (98-107) L 98 MMOL/L (98-107) Carbon Dioxide Level 28 MMOL/L (21-32) 29 MMOL/L (21-32) Anion Gap 10 mmol/L (5-15) 8 mmol/L (5-15) Blood Urea Nitrogen 15 mg/dL (7-18) 13 mg/dL (7-18) Creatinine 1.2 MG/DL (0.55-1.30) 1.2 MG/DL (0.55-1.30) Estimat Glomerular Filtration Rate > 60 mL/min (>60) > 60 mL/min (>60) Glucose Level 129 MG/DL (74-106) H 153 MG/DL (74-106) H Calcium Level 9.2 MG/DL (8.5-10.1) 9.0 MG/DL (8.5-10.1) Total Bilirubin 0.5 MG/DL (0.2-1.0) Aspartate Amino Transf (AST/SGOT) 24 U/L (15-37) Alanine Aminotransferase (ALT/SGPT) 37 U/L (12-78) Alkaline Phosphatase 96 U/L (46-116) Total Protein 8.6 G/DL (6.4-8.2) H Albumin 3.2 G/DL (3.4-5.0) L Globulin 5.4 g/dL Albumin/Globulin Ratio 0.6 (1.0-2.7) L Lipase 115 U/L (73-393) Assessment Post-op Diagnosis perfed appy with abscess Plan Additional Comments continue IV antibiotics ID consult Sarah Richardson MD October 29, 2017 14:57
[2017-10-29] MEDS: Norco 5mg/325mg tab ORAL PRN (19:56)
[2017-10-30 00:17] VITALS: BP 124/71
[2017-10-30] MEDS: Morphine Sulfate 4mg/ml Inj IVP PRN ×4 (02:43→17:48)
[2017-10-30 04:00] VITALS: BP 115/62
[2017-10-30] MEDS: D5 1/2NS w/KCl 20mEq 1,000 ML IV SCH ×3 (04:55→21:40)
[2017-10-30] MEDS: Piperacillin/Tazobactam 4.5 GM in D5W 110 ML IVPB SCH ×3 (04:55→21:40)
[2017-10-30] MEDS: Norco 5mg/325mg tab ORAL PRN (06:04)
--- NOTE | 2017-10-30 07:28 | General Progress Note ---
Assessment/Plan Assessment/Plan IMPRESSION appendicitis open appy leukocytosis postop PLAN iv hydration iv antibiotics post op care ID evaluation Subjective Allergies: Coded Allergies: No Known Allergies (Unverified , 04/25/16) Subjective care noted ID called Objective Last 24 Hour Vital Signs Date Time Temp Pulse Resp B/P (MAP) Pulse Ox O2 Delivery O2 Flow Rate FiO2 10/30/17 04:00 100.0 63 20 115/62 95 Room Air 100.0 10/30/17 00:17 97.9 93 20 124/71 99 Room Air 97.9 10/29/17 19:42 96.8 85 20 121/72 98 Room Air 96.8 10/29/17 16:02 98.4 84 18 119/71 99 Room Air 98.4 10/29/17 12:00 98.2 86 18 118/68 96 Room Air 98.2 10/29/17 10:42 207.7 86 22 98 10/29/17 09:37 98.6 10/29/17 09:07 101.7 10/29/17 08:00 101.7 104 18 124/78 97 Room Air 101.7 Intake and Output 10/29/17 10/30/17 19:00 07:00 Intake Total 790.0 ml 1040.0 ml Output Total 245 ml 380 ml Balance 545.0 ml 660.0 ml IV Total 790.0 ml 1040.0 ml Output Urine Total 120 ml 300 ml Drainage Total 125 ml 80 ml # Voids 3 4 Laboratory Tests 10/29/17 13:15: White Blood Count 18.6H, Red Blood Count 5.17, Hemoglobin 13.7L, Hematocrit 42.3 , Mean Corpuscular Volume 82, Mean Corpuscular Hemoglobin 26.6L, Mean Corpuscular Hemoglobin Concent 32.4, Red Cell Distribution Width 12.1, Platelet Count 295, Mean Platelet Volume 6.3L, Neutrophils (%) (Auto) , Lymphocytes (%) ( Auto) , Monocytes (%) (Auto) , Eosinophils (%) (Auto) , Basophils (%) (Auto) , Differential Total Cells Counted 100, Neutrophils % (Manual) 61, Lymphocytes % ( Manual) 13L, Monocytes % (Manual) 10, Eosinophils % (Manual) 0, Basophils % ( Manual) 0, Band Neutrophils 16H, Platelet Estimate Adequate, Platelet Morphology Normal, Red Blood Cell Morphology Normal, Sodium Level 134L, Potassium Level 3.7, Chloride Level 98, Carbon Dioxide Level 29, Anion Gap 8, Blood Urea Nitrogen 13, Creatinine 1.2, Estimat Glomerular Filtration Rate > 60 , Glucose Level 153H, Calcium Level 9.0 Height (Feet): 5 Height (Inches): 7.00 Weight (Pounds): 204 Objective WDWN NAD clear breath sounds bilaterally without rhonchi or wheeze [id number] without MRG tender abdomen no CCE nonfocal Elías Seals MD October 30, 2017 07:28
[2017-10-30] MEDS: Pantoprazole Inj IVP SCH (07:51)
[2017-10-30 08:00] VITALS: BP 113/64
[2017-10-30 08:39] LABS: HEMATOCRIT 37.1 % (42.0-52.0); HEMOGLOBIN 12.6 G/DL (14.2-18.0); MEAN CORPUSCULAR VOLUME 82 FL (80-99); PLATELET COUNT 279 K/UL (150-450); RED BLOOD COUNT 4.52 M/UL (4.70-6.10); WHITE BLOOD COUNT 18.5 K/UL (4.8-10.8)
[2017-10-30 09:04] LABS: ANION GAP 8 mmol/L (5-15); BLOOD UREA NITROGEN 12 mg/dL (7-18); CARBON DIOXIDE 29 MMOL/L (21-32); CHLORIDE 97 MMOL/L (98-107); CREATININE 1.1 MG/DL (0.55-1.30); POTASSIUM 3.4 MMOL/L (3.5-5.1); SODIUM 134 MMOL/L (136-145)
[2017-10-30] MEDS: Enoxaparin 40mg Inj SUBQ SCH (09:24)
[2017-10-30] MEDS ORDERED: Tubing IV Secondary IV ONE (09:54)
[2017-10-30] MEDS ORDERED: NS 500ML ONE (09:54)
[2017-10-30 12:00] VITALS: BP 122/71
--- NOTE | 2017-10-30 12:18 | General Surgery Progress Note ---
General Surgery-Progress Note Subjective Procedure Performed open appendectomy , drainage of per-appendiceal abscess and partial omentectomy Symptoms: passing flatus Objective Last 24 Hour Vital Signs Date Time Temp Pulse Resp B/P (MAP) Pulse Ox O2 Delivery O2 Flow Rate FiO2 10/30/17 12:14 97.9 10/30/17 08:21 97.9 10/30/17 08:00 97.9 87 18 113/64 97 Room Air 97.9 10/30/17 07:51 100.0 10/30/17 04:00 100.0 63 20 115/62 95 Room Air 100.0 10/30/17 00:17 97.9 93 20 124/71 99 Room Air 97.9 10/29/17 19:42 96.8 85 20 121/72 98 Room Air 96.8 10/29/17 16:02 98.4 84 18 119/71 99 Room Air 98.4 I&O Intake and Output 10/29/17 10/30/17 19:00 07:00 Intake Total 790.0 ml 1040.0 ml Output Total 245 ml 380 ml Balance 545.0 ml 660.0 ml IV Total 790.0 ml 1040.0 ml Output Urine Total 120 ml 300 ml Drainage Total 125 ml 80 ml # Voids 3 4 Wound: other - packing was removed Drains: rukhsana Respiratory: clear Abdomen: distended, tenderness, absent bowel sounds Extremities: no tenderness Laboratory Tests Test 10/29/17 13:15 10/30/17 06:28 White Blood Count 18.6 K/UL (4.8-10.8) H 18.5 K/UL (4.8-10.8) H Red Blood Count 5.17 M/UL (4.70-6.10) 4.52 M/UL (4.70-6.10) L Hemoglobin 13.7 G/DL (14.2-18.0) L 12.6 G/DL (14.2-18.0) L Hematocrit 42.3 % (42.0-52.0) 37.1 % (42.0-52.0) L Mean Corpuscular Volume 82 FL (80-99) 82 FL (80-99) Mean Corpuscular Hemoglobin 26.6 PG (27.0-31.0) L 28.0 PG (27.0-31.0) Mean Corpuscular Hemoglobin Concent 32.4 G/DL (32.0-36.0) 34.0 G/DL (32.0-36.0) Red Cell Distribution Width 12.1 % (11.6-14.8) 12.0 % (11.6-14.8) Platelet Count 295 K/UL (150-450) 279 K/UL (150-450) Mean Platelet Volume 6.3 FL (6.5-10.1) L 6.2 FL (6.5-10.1) L Neutrophils (%) (Auto) % (45.0-75.0) % (45.0-75.0) Lymphocytes (%) (Auto) % (20.0-45.0) % (20.0-45.0) Monocytes (%) (Auto) % (1.0-10.0) % (1.0-10.0) Eosinophils (%) (Auto) % (0.0-3.0) % (0.0-3.0) Basophils (%) (Auto) % (0.0-2.0) % (0.0-2.0) Differential Total Cells Counted 100 100 Neutrophils % (Manual) 61 % (45-75) 83 % (45-75) H Lymphocytes % (Manual) 13 % (20-45) L 10 % (20-45) L Monocytes % (Manual) 10 % (1-10) 6 % (1-10) Eosinophils % (Manual) 0 % (0-3) 1 % (0-3) Basophils % (Manual) 0 % (0-2) 0 % (0-2) Band Neutrophils 16 % (0-8) H 0 % (0-8) Platelet Estimate Adequate Adequate Platelet Morphology Normal Normal Red Blood Cell Morphology Normal Normal Sodium Level 134 MMOL/L (136-145) L 134 MMOL/L (136-145) L Potassium Level 3.7 MMOL/L (3.5-5.1) 3.4 MMOL/L (3.5-5.1) L Chloride Level 98 MMOL/L (98-107) 97 MMOL/L (98-107) L Carbon Dioxide Level 29 MMOL/L (21-32) 29 MMOL/L (21-32) Anion Gap 8 mmol/L (5-15) 8 mmol/L (5-15) Blood Urea Nitrogen 13 mg/dL (7-18) 12 mg/dL (7-18) Creatinine 1.2 MG/DL (0.55-1.30) 1.1 MG/DL (0.55-1.30) Estimat Glomerular Filtration Rate > 60 mL/min (>60) > 60 mL/min (>60) Glucose Level 153 MG/DL (74-106) H 123 MG/DL (74-106) H Calcium Level 9.0 MG/DL (8.5-10.1) 9.0 MG/DL (8.5-10.1) Assessment Post-op Diagnosis perfed appy with abscess Plan Additional Comments continue IV Antibiotics Sarah Richardson MD October 30, 2017 12:18
--- NOTE | 2017-10-30 16:30 | Consultation ---
DATE OF CONSULTATION: 10/30/2017 INFECTIOUS DISEASE CONSULTATION CONSULTING PHYSICIAN: Bartolome Schaefer M.D. REFERRING PHYSICIAN: Elías Seals M.D. REASON FOR CONSULTATION: Abdominal abscess. HISTORY OF PRESENTING ILLNESS: This is a 32-year-old gentleman with history of asthma as a child who came in with abdominal pain, fevers and chills. He was found to have a perforated appendicitis with intra-abdominal abscess. He underwent open appendectomy with drainage of the periappendiceal abscess and partial omentectomy and an Infectious Diseases consultation has been obtained for antibiotics. PAST MEDICAL HISTORY: History of asthma. MEDICATIONS: As an inpatient, he is on [place], Lovenox, Protonix, Zosyn, morphine, Zofran, Reglan and Tylenol. ALLERGIES: No known drug allergies. SOCIAL HISTORY: He does not smoke. He drinks alcohol. He has history of marijuana use. FAMILY HISTORY: Noncontributory. REVIEW OF SYSTEMS: RESPIRATORY: He had fever and chills. No cough or shortness of breath. No chest pain. CARDIAC: No chest pain. No palpitations. No dizziness. No syncope. GASTROINTESTINAL: He does have nausea. No vomiting. He does have some abdominal pain. No diarrhea. PHYSICAL EXAMINATION: VITAL SIGNS: Temperature of 97.9 degrees, T-max of 101.7 degrees, pulse of 87, respiratory rate of 18, blood pressure 113/64 and O2 saturation of 97%. HEENT: Pupils are equally reactive to light and accommodation. Mouth appears clean without thrush. NECK: Supple. No adenopathy. No JVD. CARDIOVASCULAR: Regular rate and rhythm. No murmurs. LUNGS: Clear to auscultation bilaterally. No crackles. No wheezes. ABDOMEN: Soft, is in dressing. RADHA drain noted with drainage. EXTREMITIES: No cyanosis. No clubbing. No edema. LABORATORY AND DIAGNOSTIC DATA: White count 18.5, hemoglobin 12.6, hematocrit 37.1, MCV 82 and platelet count of 279 with neutrophils of 83%. Sodium 134, potassium 3.4, chloride 97, bicarbonate 29, BUN 12, creatinine 1.1 and glucose 123. Calcium of 9. On 10/28/2017, total bilirubin 0.5, AST 24, ALT 37, alkaline phosphatase 96, total protein 8.6, albumin 3.2, lipase of 115. UA showing 2 to 4 white cells. Abdominal fluid growing gram-negative rods. Chest x-ray was unremarkable. CT abdomen and pelvis showing absence in the right lower quadrant measuring 5.5 cm could be from perforated appendicitis. ASSESSMENT: 1. This is a 32-year-old gentleman with history of asthma who comes in with abdominal pain, fever and chills and is found to have a perforated appendicitis with abscess. He underwent open appendectomy with drainage of the periappendiceal abscess with partial omentectomy. Cultures are growing E. coli, would suspect E. coli peritonitis. 2. History of asthma. 3. Leukocytosis. PLAN: 1. Continue Zosyn for now. 2. We will follow up cultures and adjust antibiotics accordingly. I would like to thank, Dr. Seals, for this consultation. Bartolome Schaefer M.D. DR: SCARLETT JOB#: [id number] CC:
[2017-10-30 17:48] VITALS: BP 130/71
[2017-10-30] MEDS ORDERED: Acetaminophen 650 MG SUPP RECTAL PRN (18:30)
[2017-10-30 19:52] VITALS: BP 124/76
[2017-10-31 00:35] VITALS: BP 134/82
[2017-10-31] MEDS: Morphine Sulfate 4mg/ml Inj IVP PRN ×4 (01:50→18:05)
[2017-10-31] MEDS: D5 1/2NS w/KCl 20mEq 1,000 ML IV SCH ×3 (03:31→20:03)
[2017-10-31] MEDS: Piperacillin/Tazobactam 4.5 GM in D5W 110 ML IVPB SCH ×3 (03:32→20:03)
[2017-10-31 04:00] VITALS: BP 127/78
[2017-10-31 08:00] VITALS: BP 142/77
--- NOTE | 2017-10-31 08:28 | General Progress Note ---
Assessment/Plan Assessment/Plan IMPRESSION appendicitis open appy leukocytosis postop PLAN iv hydration iv antibiotics per ID post op care pain management dc once cleared by ID and GS Subjective Allergies: Coded Allergies: No Known Allergies (Unverified , 04/25/16) Subjective care noted ID appreciated Objective Last 24 Hour Vital Signs Date Time Temp Pulse Resp B/P (MAP) Pulse Ox O2 Delivery O2 Flow Rate FiO2 10/31/17 07:41 98.2 10/31/17 04:00 98.2 87 22 127/78 96 98.2 10/31/17 02:20 97.3 10/31/17 01:50 97.3 10/31/17 00:35 97.3 86 20 134/82 98 Room Air 97.3 10/30/17 19:52 98.2 79 20 124/76 98 Room Air 98.2 10/30/17 19:22 98.2 10/30/17 18:23 100.4 10/30/17 17:48 97.9 10/30/17 17:48 100.4 77 18 130/71 99 Room Air 100.4 10/30/17 12:14 97.9 10/30/17 12:00 99.0 84 18 122/71 99 Room Air 99.0 Intake and Output 10/30/17 10/31/17 19:00 07:00 Intake Total 1535.0 ml 250 ml Output Total 200 ml 240 ml Balance 1335.0 ml 10 ml Intake Oral 120 ml IV Total 1415.0 ml 250 ml Output Urine Total 200 ml 200 ml Drainage Total 40 ml # Voids 1 2 Laboratory Tests 10/31/17 05:30: White Blood Count [Pending], Red Blood Count [Pending], Hemoglobin [Pending], Hematocrit [Pending], Mean Corpuscular Volume [Pending], Mean Corpuscular Hemoglobin [Pending], Mean Corpuscular Hemoglobin Concent [Pending], Red Cell Distribution Width [Pending], Platelet Count [Pending], Mean Platelet Volume [ Pending], Neutrophils (%) (Auto) [Pending], Lymphocytes (%) (Auto) [Pending], Monocytes (%) (Auto) [Pending], Eosinophils (%) (Auto) [Pending], Basophils (%) (Auto) [Pending], Sodium Level [Pending], Potassium Level [Pending], Chloride Level [Pending], Carbon Dioxide Level [Pending], Blood Urea Nitrogen [Pending], Creatinine [Pending], Estimat Glomerular Filtration Rate [Pending], Glucose Level [Pending], Calcium Level [Pending] Height (Feet): 5 Height (Inches): 7.00 Weight (Pounds): 204 Objective WDWN NAD clear breath sounds bilaterally without rhonchi or wheeze [id number] without MRG tender abdomen but better no CCE nonfocal Elías Seals MD October 31, 2017 08:28
[2017-10-31 08:30] LABS: HEMATOCRIT 36.6 % (42.0-52.0); HEMOGLOBIN 12.4 G/DL (14.2-18.0); MEAN CORPUSCULAR VOLUME 82 FL (80-99); PLATELET COUNT 319 K/UL (150-450); RED BLOOD COUNT 4.45 M/UL (4.70-6.10); RED CELL DISTRIBUTION WIDTH 12.6 % (11.6-14.8)
[2017-10-31] MEDS: Pantoprazole Inj IVP SCH (08:31)
[2017-10-31 08:39] LABS: WHITE BLOOD COUNT 22.6 K/UL (4.8-10.8)
[2017-10-31 08:40] LABS: ANION GAP 10 mmol/L (5-15); BLOOD UREA NITROGEN 12 mg/dL (7-18); CALCIUM 8.8 MG/DL (8.5-10.1); CARBON DIOXIDE 27 MMOL/L (21-32); CHLORIDE 97 MMOL/L (98-107); SODIUM 134 MMOL/L (136-145)
[2017-10-31] MEDS: Enoxaparin 40mg Inj SUBQ SCH (09:25)
[2017-10-31 12:00] VITALS: BP 140/73
--- NOTE | 2017-10-31 13:57 | Cardiology Report ---
APPROVED REPORT EKG Measurement Heart [id number] CT [id number] Normal sinus rhythm Normal ECG
[2017-10-31 15:57] VITALS: BP 151/87
--- NOTE | 2017-10-31 16:22 | General Surgery Progress Note ---
General Surgery-Progress Note Subjective Procedure Performed open appendectomy , drainage of per-appendiceal abscess and partial omentectomy Symptoms: passing flatus Objective Last 24 Hour Vital Signs Date Time Temp Pulse Resp B/P (MAP) Pulse Ox O2 Delivery O2 Flow Rate FiO2 10/31/17 15:57 99.3 83 18 151/87 98 99.3 10/31/17 12:24 99.5 10/31/17 12:00 99.5 74 18 140/73 96 99.5 10/31/17 11:54 98.4 10/31/17 08:00 98.4 71 18 142/77 97 98.4 10/31/17 07:41 98.2 10/31/17 04:00 98.2 87 22 127/78 96 98.2 10/31/17 01:50 97.3 10/31/17 00:35 97.3 86 20 134/82 98 Room Air 97.3 10/30/17 19:52 98.2 79 20 124/76 98 Room Air 98.2 10/30/17 19:22 98.2 10/30/17 18:23 100.4 10/30/17 17:48 97.9 10/30/17 17:48 100.4 77 18 130/71 99 Room Air 100.4 I&O Intake and Output 10/30/17 10/31/17 19:00 07:00 Intake Total 1535.0 ml 250 ml Output Total 200 ml 240 ml Balance 1335.0 ml 10 ml Intake Oral 120 ml IV Total 1415.0 ml 250 ml Output Urine Total 200 ml 200 ml Drainage Total 40 ml # Voids 1 2 Drains: rukhsana Respiratory: clear Abdomen: soft, flat, tenderness, absent bowel sounds Extremities: no tenderness Laboratory Tests Test 10/31/17 05:30 White Blood Count 22.6 K/UL (4.8-10.8) *H Red Blood Count 4.45 M/UL (4.70-6.10) L Hemoglobin 12.4 G/DL (14.2-18.0) L Hematocrit 36.6 % (42.0-52.0) L Mean Corpuscular Volume 82 FL (80-99) Mean Corpuscular Hemoglobin 27.8 PG (27.0-31.0) Mean Corpuscular Hemoglobin Concent 33.7 G/DL (32.0-36.0) Red Cell Distribution Width 12.6 % (11.6-14.8) Platelet Count 319 K/UL (150-450) Mean Platelet Volume 6.4 FL (6.5-10.1) L Neutrophils (%) (Auto) % (45.0-75.0) Lymphocytes (%) (Auto) % (20.0-45.0) Monocytes (%) (Auto) % (1.0-10.0) Eosinophils (%) (Auto) % (0.0-3.0) Basophils (%) (Auto) % (0.0-2.0) Differential Total Cells Counted 100 Neutrophils % (Manual) 79 % (45-75) H Lymphocytes % (Manual) 10 % (20-45) L Monocytes % (Manual) 10 % (1-10) Eosinophils % (Manual) 0 % (0-3) Basophils % (Manual) 0 % (0-2) Band Neutrophils 1 % (0-8) Platelet Estimate Adequate Platelet Morphology Normal Red Blood Cell Morphology Normal Sodium Level 134 MMOL/L (136-145) L Potassium Level 4.0 MMOL/L (3.5-5.1) Chloride Level 97 MMOL/L (98-107) L Carbon Dioxide Level 27 MMOL/L (21-32) Anion Gap 10 mmol/L (5-15) Blood Urea Nitrogen 12 mg/dL (7-18) Creatinine 1.0 MG/DL (0.55-1.30) Estimat Glomerular Filtration Rate > 60 mL/min (>60) Glucose Level 92 MG/DL (74-106) Calcium Level 8.8 MG/DL (8.5-10.1) Assessment Post-op Diagnosis perfed appy with abscess Plan Additional Comments continue IV Antibiotics Sarah Richardson MD October 31, 2017 16:22
[2017-10-31] MEDS: Docusate Sod/Senna tab ORAL SCH (17:33)
[2017-10-31 19:51] VITALS: BP 138/84
[2017-11-01] MEDS: Norco 5mg/325mg tab ORAL PRN ×4 (01:22→18:30)
[2017-11-01] MEDS: Piperacillin/Tazobactam 4.5 GM in D5W 110 ML IVPB SCH ×3 (03:57→19:55)
[2017-11-01] MEDS: D5 1/2NS w/KCl 20mEq 1,000 ML IV SCH ×3 (03:57→19:55)
[2017-11-01 04:00] VITALS: BP 136/82
--- NOTE | 2017-11-01 07:48 | General Progress Note ---
Assessment/Plan Assessment/Plan IMPRESSION appendicitis open appy leukocytosis postop PLAN iv hydration iv antibiotics per ID and follow up on sensitivities post op care pain management as needed dc once cleared by ID and GS still requires acute care Subjective Allergies: Coded Allergies: No Known Allergies (Unverified , 04/25/16) Subjective care noted ID appreciated wbc rising Objective Last 24 Hour Vital Signs Date Time Temp Pulse Resp B/P (MAP) Pulse Ox O2 Delivery O2 Flow Rate FiO2 11/01/17 04:00 98.9 88 136/82 97 Room Air 98.9 11/01/17 02:21 99.0 11/01/17 01:22 99.0 10/31/17 19:51 99.0 76 18 138/84 98 Room Air 99.0 10/31/17 18:35 99.3 10/31/17 18:05 99.3 10/31/17 15:57 99.3 83 18 151/87 98 99.3 10/31/17 12:00 99.5 74 18 140/73 96 99.5 10/31/17 11:54 98.4 10/31/17 08:00 98.4 71 18 142/77 97 98.4 Intake and Output 10/31/17 11/01/17 19:00 07:00 Intake Total 1390.0 ml 1117.5 ml Output Total 550 ml 30 ml Balance 840.0 ml 1087.5 ml Intake Oral 520 ml 300 ml IV Total 870.0 ml 817.5 ml Output Urine Total 550 ml Drainage Total 30 ml # Voids 2 3 Height (Feet): 5 Height (Inches): 7.00 Weight (Pounds): 204 Objective WDWN NAD clear breath sounds bilaterally without rhonchi or wheeze [id number] without MRG tender abdomen but better no CCE nonfocal Elías Seals MD November 01, 2017 07:48
[2017-11-01 08:00] VITALS: BP 129/77
[2017-11-01] MEDS: Enoxaparin 40mg Inj SUBQ SCH (09:00)
[2017-11-01] MEDS: Pantoprazole Inj IVP SCH (09:00)
[2017-11-01] MEDS: Docusate Sod/Senna tab ORAL SCH ×2 (09:00→18:30)
[2017-11-01 12:00] VITALS: BP 132/84
--- NOTE | 2017-11-01 12:27 | Infectious Diseases Prog Note ---
Assessment/Plan Assessment/Plan A: Perforated appendicitis Intra abdominal abscess s/p open Appendectomy P: Continue Zosyn in hospital At time of discharge PO antibiotic Subjective ROS Limited/Unobtainable: Yes Constitutional: Reports: anorexia Respiratory: Reports: no symptoms Gastrointestinal/Abdominal: Reports: no symptoms Genitourinary: Reports: no symptoms Allergies: Coded Allergies: No Known Allergies (Unverified , 04/25/16) Objective Vital Signs Last 24 Hour Vital Signs Date Time Temp Pulse Resp B/P (MAP) Pulse Ox O2 Delivery O2 Flow Rate FiO2 11/01/17 04:00 98.9 88 136/82 97 Room Air 98.9 11/01/17 02:21 99.0 11/01/17 01:22 99.0 10/31/17 19:51 99.0 76 18 138/84 98 Room Air 99.0 10/31/17 18:35 99.3 10/31/17 18:05 99.3 10/31/17 15:57 99.3 83 18 151/87 98 99.3 Height (Feet): 5 Height (Inches): 7.00 Weight (Pounds): 204 General Appearance: no acute distress HEENT: mucous membranes moist Respiratory/Chest: lungs clear Cardiovascular: normal rate Abdomen: soft, non tender, other - midline surgical dressing, LLQ surgical drain Extremities: no edema Neurologic/Psychiatric: alert, oriented x 3, responsive Current Medications Medications (Trade) Dose Ordered Sig/Kelsea Route PRN Reason Start Time Stop Time Status Last Admin Dose Admin Acetaminophen (Tylenol) 650 mg Q4H PRN ORAL Mild Pain/Temp > 100.5 10/30/17 18:30 11/29/17 18:29 10/30/17 18:23 Acetaminophen (Tylenol) 650 mg Q4H PRN RECTAL Mild Pain/Temp > 100.5 10/30/17 18:30 11/28/17 18:29 Acetaminophen/ Hydrocodone Bitart ([place] 5/325) 1 tab Q4H PRN ORAL For Pain 10/29/17 19:45 11/05/17 19:44 11/01/17 10:35 Dextrose/ Electrolytes 1,000 ml @ 125 mls/hr Q8H IV 10/29/17 04:00 11/28/17 03:59 10/31/17 20:03 Enoxaparin Sodium (Lovenox) 40 mg DAILY SUBQ 10/29/17 09:00 11/28/17 08:59 10/31/17 09:25 Metoclopramide HCl (Reglan) 10 mg Q6H PRN IVP Nausea & Vomiting 10/29/17 02:00 11/28/17 01:59 Morphine Sulfate (Morphine Sulfate) 4 mg Q4H PRN IVP pain score 7-10 10/29/17 02:00 11/05/17 01:59 10/31/17 18:05 Ondansetron HCl (Zofran) 4 mg Q6H PRN IVP Nausea & Vomiting 10/29/17 02:00 11/28/17 01:59 11/01/17 10:35 Pantoprazole (Protonix) 40 mg DAILY IVP 10/29/17 09:00 11/28/17 08:59 10/31/17 08:31 Piperacillin Sod/ Tazobactam Sod 4.5 gm/Dextrose 110 ml @ 27.5 mls/hr Q8H IVPB 10/29/17 04:00 11/05/17 03:59 11/01/17 03:57 Senna/Docusate Sodium ([place]-Colace) 1 tab TWICE A DAY ORAL 10/31/17 18:00 11/30/17 17:59 10/31/17 17:33 GENET GUADARRAMA November 01, 2017 12:26
[2017-11-01 12:56] LABS: BASOPHILS % (AUTO) 0.4 % (0.0-2.0); EOSINOPHILS % (AUTO) 0.4 % (0.0-3.0); HEMATOCRIT 41.5 % (42.0-52.0); HEMOGLOBIN 13.3 G/DL (14.2-18.0); LYMPHOCYTES % (AUTO) 9.8 % (20.0-45.0); MEAN CORPUSCULAR VOLUME 83 FL (80-99); MONOCYTES % (AUTO) 7.1 % (1.0-10.0); NEUTROPHILS % (AUTO) 82.3 % (45.0-75.0); PLATELET COUNT 437 K/UL (150-450); RED BLOOD COUNT 5.01 M/UL (4.70-6.10); RED CELL DISTRIBUTION WIDTH 12.4 % (11.6-14.8); WHITE BLOOD COUNT 16.2 K/UL (4.8-10.8)
[2017-11-01 13:30] LABS: ANION GAP 7 mmol/L (5-15); BLOOD UREA NITROGEN 10 mg/dL (7-18); CALCIUM 8.9 MG/DL (8.5-10.1); CARBON DIOXIDE 31 MMOL/L (21-32); CHLORIDE 97 MMOL/L (98-107); CREATININE 0.9 MG/DL (0.55-1.30); SODIUM 135 MMOL/L (136-145)
--- NOTE | 2017-11-01 14:53 | General Surgery Progress Note ---
General Surgery-Progress Note Subjective Procedure Performed open appendectomy , drainage of per-appendiceal abscess and partial omentectomy Symptoms: improved, passing flatus Objective Last 24 Hour Vital Signs Date Time Temp Pulse Resp B/P (MAP) Pulse Ox O2 Delivery O2 Flow Rate FiO2 11/01/17 04:00 98.9 88 136/82 97 Room Air 98.9 11/01/17 02:21 99.0 11/01/17 01:22 99.0 10/31/17 19:51 99.0 76 18 138/84 98 Room Air 99.0 10/31/17 18:35 99.3 10/31/17 18:05 99.3 10/31/17 15:57 99.3 83 18 151/87 98 99.3 I&O Intake and Output 10/31/17 11/01/17 19:00 07:00 Intake Total 1390.0 ml 1117.5 ml Output Total 550 ml 30 ml Balance 840.0 ml 1087.5 ml Intake Oral 520 ml 300 ml IV Total 870.0 ml 817.5 ml Output Urine Total 550 ml Drainage Total 30 ml # Voids 2 3 Respiratory: clear Abdomen: soft, flat, tenderness, absent bowel sounds Extremities: no tenderness Laboratory Tests Test 11/01/17 12:40 White Blood Count 16.2 K/UL (4.8-10.8) H Red Blood Count 5.01 M/UL (4.70-6.10) Hemoglobin 13.3 G/DL (14.2-18.0) L Hematocrit 41.5 % (42.0-52.0) L Mean Corpuscular Volume 83 FL (80-99) Mean Corpuscular Hemoglobin 26.6 PG (27.0-31.0) L Mean Corpuscular Hemoglobin Concent 32.1 G/DL (32.0-36.0) Red Cell Distribution Width 12.4 % (11.6-14.8) Platelet Count 437 K/UL (150-450) Mean Platelet Volume 6.0 FL (6.5-10.1) L Neutrophils (%) (Auto) 82.3 % (45.0-75.0) H Lymphocytes (%) (Auto) 9.8 % (20.0-45.0) L Monocytes (%) (Auto) 7.1 % (1.0-10.0) Eosinophils (%) (Auto) 0.4 % (0.0-3.0) Basophils (%) (Auto) 0.4 % (0.0-2.0) Sodium Level 135 MMOL/L (136-145) L Potassium Level 4.0 MMOL/L (3.5-5.1) Chloride Level 97 MMOL/L (98-107) L Carbon Dioxide Level 31 MMOL/L (21-32) Anion Gap 7 mmol/L (5-15) Blood Urea Nitrogen 10 mg/dL (7-18) Creatinine 0.9 MG/DL (0.55-1.30) Estimat Glomerular Filtration Rate > 60 mL/min (>60) Glucose Level 123 MG/DL (74-106) H Calcium Level 8.9 MG/DL (8.5-10.1) Assessment Post-op Diagnosis perfed appy with abscess Plan Additional Comments continue IV antibiotics Sarah Richardson MD November 01, 2017 14:53
[2017-11-01 16:01] VITALS: BP 128/96
[2017-11-01 20:27] VITALS: BP 131/81
[2017-11-02 04:00] VITALS: BP 138/79
[2017-11-02] MEDS: D5 1/2NS w/KCl 20mEq 1,000 ML IV SCH (04:00)
[2017-11-02] MEDS: Piperacillin/Tazobactam 4.5 GM in D5W 110 ML IVPB SCH (04:01)
[2017-11-02 08:00] VITALS: BP 142/90
[2017-11-02] MEDS: Pantoprazole Inj IVP SCH (08:38)
[2017-11-02] MEDS: Docusate Sod/Senna tab ORAL SCH ×2 (08:53→18:00)
[2017-11-02] MEDS: Enoxaparin 40mg Inj SUBQ SCH (08:54)
--- NOTE | 2017-11-02 09:51 | General Progress Note ---
Assessment/Plan Assessment/Plan IMPRESSION appendicitis open appy leukocytosis postop PLAN iv hydration- dc iv antibiotics per ID and follow up for PO post op care increase diet pain management as needed dc once cleared by ID and GS still requires acute care Subjective Allergies: Coded Allergies: No Known Allergies (Unverified , 04/25/16) Subjective care noted ID appreciated wbc improved patient wants to go home Objective Last 24 Hour Vital Signs Date Time Temp Pulse Resp B/P (MAP) Pulse Ox O2 Delivery O2 Flow Rate FiO2 11/02/17 08:00 98.4 68 16 142/90 100 Room Air 98.4 11/02/17 04:00 98.9 85 18 138/79 99 98.9 11/01/17 20:27 99.4 75 18 131/81 98 99.4 11/01/17 20:27 98 Room Air 11/01/17 19:37 98.6 11/01/17 16:01 98.6 83 20 128/96 98 98.6 11/01/17 12:00 98.8 73 18 132/84 96 Room Air 98.8 Intake and Output 11/01/17 11/02/17 19:00 07:00 Intake Total 1570.0 ml 1297.5 ml Balance 1570.0 ml 1297.5 ml Intake Oral 960 ml 480 ml IV Total 610.0 ml 817.5 ml # Voids 2 2 Laboratory Tests 11/01/17 12:40: White Blood Count 16.2H, Red Blood Count 5.01, Hemoglobin 13.3L, Hematocrit 41.5L, Mean Corpuscular Volume 83, Mean Corpuscular Hemoglobin 26.6L, Mean Corpuscular Hemoglobin Concent 32.1, Red Cell Distribution Width 12.4, Platelet Count 437, Mean Platelet Volume 6.0L, Neutrophils (%) (Auto) 82.3H, Lymphocytes (%) (Auto) 9.8L, Monocytes (%) (Auto) 7.1, Eosinophils (%) (Auto) 0.4, Basophils (%) (Auto) 0.4, Sodium Level 135L, Potassium Level 4.0, Chloride Level 97L, Carbon Dioxide Level 31, Anion Gap 7, Blood Urea Nitrogen 10, Creatinine 0.9, Estimat Glomerular Filtration Rate > 60, Glucose Level 123H, Calcium Level 8.9 Height (Feet): 5 Height (Inches): 7.00 Weight (Pounds): 207 Objective WDWN NAD clear breath sounds bilaterally without rhonchi or wheeze [id number] without MRG improved exam of abdomen no CCE nonfocal Elías Seals MD November 02, 2017 09:51
[2017-11-02 10:55] LABS: BASOPHILS % (AUTO) 0.6 % (0.0-2.0); EOSINOPHILS % (AUTO) 0.6 % (0.0-3.0); HEMATOCRIT 39.4 % (42.0-52.0); HEMOGLOBIN 12.9 G/DL (14.2-18.0); LYMPHOCYTES % (AUTO) 9.5 % (20.0-45.0); MEAN CORPUSCULAR VOLUME 82 FL (80-99); MONOCYTES % (AUTO) 8.6 % (1.0-10.0); NEUTROPHILS % (AUTO) 80.7 % (45.0-75.0); PLATELET COUNT 432 K/UL (150-450); RED BLOOD COUNT 4.78 M/UL (4.70-6.10); RED CELL DISTRIBUTION WIDTH 12.3 % (11.6-14.8); WHITE BLOOD COUNT 17.1 K/UL (4.8-10.8)
--- NOTE | 2017-11-02 11:24 | Infectious Diseases Prog Note ---
"Assessment/Plan Assessment/Plan antibiotics : zosyn A 1. perforated appendicitis with abscess s/p appendectomy | drainage with e.coli | streptococcus 2. leucocytosis P 1. d/c zosyn 2. start ceftriaxone, flagyl 3. will follow up cultures Subjective Constitutional: Denies: fever, chills Respiratory: Denies: shortness of breath, dry cough Gastrointestinal/Abdominal: Reports: nausea; Denies: vomiting, diarrhea Musculoskeletal: Reports: pain - decreased pain Allergies: Coded Allergies: No Known Allergies (Unverified , 04/25/16) Objective Vital Signs Last 24 Hour Vital Signs Date Time Temp Pulse Resp B/P (MAP) Pulse Ox O2 Delivery O2 Flow Rate FiO2 11/02/17 08:00 98.4 68 16 142/90 100 Room Air 98.4 11/02/17 04:00 98.9 85 18 138/79 99 98.9 11/01/17 20:27 99.4 75 18 131/81 98 99.4 11/01/17 20:27 98 Room Air 11/01/17 19:37 98.6 11/01/17 16:01 98.6 83 20 128/96 98 98.6 11/01/17 12:00 98.8 73 18 132/84 96 Room Air 98.8 Height (Feet): 5 Height (Inches): 7.00 Weight (Pounds): 207 Respiratory/Chest: lungs clear Cardiovascular: normal rate, regular rhythm, no gallop/murmur Abdomen: soft, non tender, other - RADHA drain with drainage, wound clean Extremities: no edema Laboratory Tests Test 11/01/17 12:40 11/02/17 10:00 White Blood Count 16.2 K/UL (4.8-10.8) H 17.1 K/UL (4.8-10.8) H Red Blood Count 5.01 M/UL (4.70-6.10) 4.78 M/UL (4.70-6.10) Hemoglobin 13.3 G/DL (14.2-18.0) L 12.9 G/DL (14.2-18.0) L Hematocrit 41.5 % (42.0-52.0) L 39.4 % (42.0-52.0) L Mean Corpuscular Volume 83 FL (80-99) 82 FL (80-99) Mean Corpuscular Hemoglobin 26.6 PG (27.0-31.0) L 27.0 PG (27.0-31.0) Mean Corpuscular Hemoglobin Concent 32.1 G/DL (32.0-36.0) 32.8 G/DL (32.0-36.0) Red Cell Distribution Width 12.4 % (11.6-14.8) 12.3 % (11.6-14.8) Platelet Count 437 K/UL (150-450) 432 K/UL (150-450) Mean Platelet Volume 6.0 FL (6.5-10.1) L 5.7 FL (6.5-10.1) L Neutrophils (%) (Auto) 82.3 % (45.0-75.0) H 80.7 % (45.0-75.0) H Lymphocytes (%) (Auto) 9.8 % (20.0-45.0) L 9.5 % (20.0-45.0) L Monocytes (%) (Auto) 7.1 % (1.0-10.0) 8.6 % (1.0-10.0) Eosinophils (%) (Auto) 0.4 % (0.0-3.0) 0.6 % (0.0-3.0) Basophils (%) (Auto) 0.4 % (0.0-2.0) 0.6 % (0.0-2.0) Sodium Level 135 MMOL/L (136-145) L Potassium Level 4.0 MMOL/L (3.5-5.1) Chloride Level 97 MMOL/L (98-107) L Carbon Dioxide Level 31 MMOL/L (21-32) Anion Gap 7 mmol/L (5-15) Blood Urea Nitrogen 10 mg/dL (7-18) Creatinine 0.9 MG/DL (0.55-1.30) Estimat Glomerular Filtration Rate > 60 mL/min (>60) Glucose Level 123 MG/DL (74-106) H Calcium Level 8.9 MG/DL (8.5-10.1) Current Medications Medications (Trade) Dose Ordered Sig/Kelsea Route PRN Reason Start Time Stop Time Status Last Admin Dose Admin Acetaminophen (Tylenol) 650 mg Q4H PRN ORAL Mild Pain/Temp > 100.5 10/30/17 18:30 11/29/17 18:29 10/30/17 18:23 Acetaminophen (Tylenol) 650 mg Q4H PRN RECTAL Mild Pain/Temp > 100.5 10/30/17 18:30 11/28/17 18:29 Acetaminophen/ Hydrocodone Bitart ([place] 5/325) 1 tab Q4H PRN ORAL For Pain 10/29/17 19:45 11/05/17 19:44 11/01/17 18:30 Enoxaparin Sodium (Lovenox) 40 mg DAILY SUBQ 10/29/17 09:00 11/28/17 08:59 11/02/17 08:54 Metoclopramide HCl (Reglan) 10 mg Q6H PRN IVP Nausea & Vomiting 10/29/17 02:00 11/28/17 01:59 Morphine Sulfate (Morphine Sulfate) 4 mg Q4H PRN IVP pain score 7-10 10/29/17 02:00 11/05/17 01:59 10/31/17 18:05 Ondansetron HCl (Zofran) 4 mg Q6H PRN IVP Nausea & Vomiting 10/29/17 02:00 11/28/17 01:59 11/01/17 10:35 Pantoprazole (Protonix) 40 mg DAILY IVP 10/29/17 09:00 11/28/17 08:59 11/02/17 08:38 Piperacillin Sod/ Tazobactam Sod 4.5 gm/Dextrose 110 ml @ 27.5 mls/hr Q8H IVPB 10/29/17 04:00 11/05/17 03:59 11/02/17 04:01 Senna/Docusate Sodium ([place]-Colace) 1 tab TWICE A DAY ORAL 10/31/17 18:00 11/30/17 17:59 11/02/17 08:53 CHIDI GOLDSMITH November 02, 2017 11:24"
[2017-11-02 12:20] VITALS: BP 121/73
--- NOTE | 2017-11-02 12:52 | General Surgery Progress Note ---
General Surgery-Progress Note Subjective Procedure Performed open appendectomy , drainage of per-appendiceal abscess and partial omentectomy Symptoms: BM Additional Comments WBC is still high Objective Last 24 Hour Vital Signs Date Time Temp Pulse Resp B/P (MAP) Pulse Ox O2 Delivery O2 Flow Rate FiO2 11/02/17 08:00 98.4 68 16 142/90 100 Room Air 98.4 11/02/17 04:00 98.9 85 18 138/79 99 98.9 11/01/17 20:27 99.4 75 18 131/81 98 99.4 11/01/17 20:27 98 Room Air 11/01/17 19:37 98.6 11/01/17 16:01 98.6 83 20 128/96 98 98.6 I&O Intake and Output 11/01/17 11/02/17 19:00 07:00 Intake Total 1570.0 ml 1297.5 ml Balance 1570.0 ml 1297.5 ml Intake Oral 960 ml 480 ml IV Total 610.0 ml 817.5 ml # Voids 2 2 Wound: clean, intact Drains: rukhsana Respiratory: clear Abdomen: soft, flat, tenderness, present bowel sounds Extremities: no tenderness Laboratory Tests Test 11/02/17 10:00 White Blood Count 17.1 K/UL (4.8-10.8) H Red Blood Count 4.78 M/UL (4.70-6.10) Hemoglobin 12.9 G/DL (14.2-18.0) L Hematocrit 39.4 % (42.0-52.0) L Mean Corpuscular Volume 82 FL (80-99) Mean Corpuscular Hemoglobin 27.0 PG (27.0-31.0) Mean Corpuscular Hemoglobin Concent 32.8 G/DL (32.0-36.0) Red Cell Distribution Width 12.3 % (11.6-14.8) Platelet Count 432 K/UL (150-450) Mean Platelet Volume 5.7 FL (6.5-10.1) L Neutrophils (%) (Auto) 80.7 % (45.0-75.0) H Lymphocytes (%) (Auto) 9.5 % (20.0-45.0) L Monocytes (%) (Auto) 8.6 % (1.0-10.0) Eosinophils (%) (Auto) 0.6 % (0.0-3.0) Basophils (%) (Auto) 0.6 % (0.0-2.0) Assessment Post-op Diagnosis perfed appy with abscess Plan Additional Comments CT scan of abdomen & pelvis Sarah Richardson MD November 02, 2017 12:52
[2017-11-02] MEDS ORDERED: Gastrograffin 30ml ORAL PRN (13:00)
[2017-11-02] MEDS ORDERED: Isovue-300 100ml vial INJ PRN (13:00)
[2017-11-02] MEDS ORDERED: cefTRIAXone 1 GM in D5W 110 ML IVPB SCH (13:00)
[2017-11-02] MEDS: metroNIDAZOLE 500mg tab ORAL SCH ×2 (14:24→20:34)
[2017-11-02] MEDS: Norco 5mg/325mg tab ORAL PRN ×2 (14:39→22:53)
[2017-11-02 16:00] VITALS: BP 139/79
[2017-11-02 20:00] VITALS: BP 142/81
[2017-11-03] VITALS: BP 143/78
[2017-11-03 04:00] VITALS: BP 137/74
[2017-11-03] MEDS: metroNIDAZOLE 500mg tab ORAL SCH ×3 (05:51→21:01)
[2017-11-03 08:00] VITALS: BP 132/77
--- NOTE | 2017-11-03 08:20 | General Progress Note ---
Assessment/Plan Assessment/Plan IMPRESSION appendicitis open appy leukocytosis postop PLAN await CT abdomen repeat surgical follow up iv antibiotics per ID and follow up for PO post op care advance diet if able pain management as needed dc once cleared by ID and GS Subjective Allergies: Coded Allergies: No Known Allergies (Unverified , 04/25/16) Subjective care noted ID noted wbc improved CT abdomen pending Objective Last 24 Hour Vital Signs Date Time Temp Pulse Resp B/P (MAP) Pulse Ox O2 Delivery O2 Flow Rate FiO2 11/03/17 08:00 98.0 67 19 132/77 98 98.0 11/03/17 04:00 99 Room Air 11/03/17 04:00 98.4 70 17 137/74 99 Room Air 98.4 11/03/17 00:00 100.4 80 17 143/78 99 Room Air 100.4 11/03/17 00:00 99 Room Air 11/02/17 23:52 99.0 11/02/17 22:53 99.0 11/02/17 20:00 99 Room Air 11/02/17 20:00 99.0 74 19 142/81 99 Room Air 99.0 11/02/17 16:00 97.4 73 18 139/79 98 Room Air 97.4 11/02/17 12:20 96.2 77 16 121/73 Room Air 96.2 Intake and Output 11/02/17 11/03/17 19:00 07:00 Output Total 750 ml Balance -750 ml Output Urine Total 740 ml Drainage Total 10 ml # Voids 3 # Bowel Movements 2 1 Laboratory Tests 11/02/17 10:00: White Blood Count 17.1H, Red Blood Count 4.78, Hemoglobin 12.9L, Hematocrit 39.4L, Mean Corpuscular Volume 82, Mean Corpuscular Hemoglobin 27.0, Mean Corpuscular Hemoglobin Concent 32.8, Red Cell Distribution Width 12.3, Platelet Count 432, Mean Platelet Volume 5.7L, Neutrophils (%) (Auto) 80.7H, Lymphocytes (%) (Auto) 9.5L, Monocytes (%) (Auto) 8.6, Eosinophils (%) (Auto) 0.6, Basophils (%) (Auto) 0.6 Height (Feet): 5 Height (Inches): 7.00 Weight (Pounds): 207 Objective WDWN NAD clear breath sounds bilaterally without rhonchi or wheeze [id number] without MRG improved exam of abdomen no CCE nonfocal Elías Seals MD November 03, 2017 08:20
[2017-11-03] MEDS: Docusate Sod/Senna tab ORAL SCH ×2 (09:00→19:09)
[2017-11-03 09:05] LABS: BASOPHILS % (AUTO) 0.6 % (0.0-2.0); EOSINOPHILS % (AUTO) 0.8 % (0.0-3.0); HEMATOCRIT 40.8 % (42.0-52.0); HEMOGLOBIN 13.9 G/DL (14.2-18.0); LYMPHOCYTES % (AUTO) 12.1 % (20.0-45.0); MEAN CORPUSCULAR VOLUME 82 FL (80-99); NEUTROPHILS % (AUTO) 77.6 % (45.0-75.0); PLATELET COUNT 459 K/UL (150-450); RED BLOOD COUNT 4.97 M/UL (4.70-6.10); WHITE BLOOD COUNT 16.8 K/UL (4.8-10.8)
[2017-11-03] MEDS: Pantoprazole Inj IVP SCH (11:12)
[2017-11-03] MEDS: Enoxaparin 40mg Inj SUBQ SCH (11:13)
[2017-11-03 12:00] VITALS: BP 126/80
--- NOTE | 2017-11-03 12:17 | Infectious Diseases Prog Note ---
Assessment/Plan Assessment/Plan A: Perforated appendicitis Intra abdominal abscess s/p open Appendectomy P: Continue Levaquin & Flagyl will f/u CT scan of abdomen Case was D/W surgeon Subjective ROS Limited/Unobtainable: No Constitutional: Reports: fever, other - Msdo=[id number] Respiratory: Reports: no symptoms Cardiovascular: Reports: no symptoms Gastrointestinal/Abdominal: Reports: no symptoms, other - feels hungry Genitourinary: Reports: no symptoms Allergies: Coded Allergies: No Known Allergies (Unverified , 04/25/16) Objective Vital Signs Last 24 Hour Vital Signs Date Time Temp Pulse Resp B/P (MAP) Pulse Ox O2 Delivery O2 Flow Rate FiO2 11/03/17 08:00 98.0 67 19 132/77 98 98.0 11/03/17 04:00 99 Room Air 11/03/17 04:00 98.4 70 17 137/74 99 Room Air 98.4 11/03/17 00:00 100.4 80 17 143/78 99 Room Air 100.4 11/03/17 00:00 99 Room Air 11/02/17 23:52 99.0 11/02/17 22:53 99.0 11/02/17 20:00 99 Room Air 11/02/17 20:00 99.0 74 19 142/81 99 Room Air 99.0 11/02/17 16:00 97.4 73 18 139/79 98 Room Air 97.4 11/02/17 12:20 96.2 77 16 121/73 Room Air 96.2 Height (Feet): 5 Height (Inches): 7.00 Weight (Pounds): 207 General Appearance: no acute distress HEENT: mucous membranes moist Respiratory/Chest: lungs clear Cardiovascular: normal rate Abdomen: soft, non tender, other - LLQ drain Extremities: no edema Neurologic/Psychiatric: alert, oriented x 3, responsive Laboratory Tests Test 11/03/17 08:05 White Blood Count 16.8 K/UL (4.8-10.8) H Red Blood Count 4.97 M/UL (4.70-6.10) Hemoglobin 13.9 G/DL (14.2-18.0) L Hematocrit 40.8 % (42.0-52.0) L Mean Corpuscular Volume 82 FL (80-99) Mean Corpuscular Hemoglobin 27.9 PG (27.0-31.0) Mean Corpuscular Hemoglobin Concent 33.9 G/DL (32.0-36.0) Red Cell Distribution Width 12.0 % (11.6-14.8) Platelet Count 459 K/UL (150-450) H Mean Platelet Volume 5.5 FL (6.5-10.1) L Neutrophils (%) (Auto) 77.6 % (45.0-75.0) H Lymphocytes (%) (Auto) 12.1 % (20.0-45.0) L Monocytes (%) (Auto) 9.0 % (1.0-10.0) Eosinophils (%) (Auto) 0.8 % (0.0-3.0) Basophils (%) (Auto) 0.6 % (0.0-2.0) Current Medications Medications (Trade) Dose Ordered Sig/Kelsea Route PRN Reason Start Time Stop Time Status Last Admin Dose Admin Acetaminophen (Tylenol) 650 mg Q4H PRN ORAL Mild Pain/Temp > 100.5 10/30/17 18:30 11/29/17 18:29 10/30/17 18:23 Acetaminophen (Tylenol) 650 mg Q4H PRN RECTAL Mild Pain/Temp > 100.5 10/30/17 18:30 11/28/17 18:29 Acetaminophen/ Hydrocodone Bitart ([place] 5/325) 1 tab Q4H PRN ORAL For Pain 10/29/17 19:45 11/05/17 19:44 11/02/17 22:53 Diatrizoate Meglum/ Diatrizoate Sod (Gastrografin) 30 ml NOW PRN ORAL Radiology Procedure 11/02/17 13:00 11/04/17 12:59 Enoxaparin Sodium (Lovenox) 40 mg DAILY SUBQ 10/29/17 09:00 11/28/17 08:59 11/03/17 11:13 Iopamidol (Isovue-300 100ml) 100 ml NOW PRN INJ Radiology Procedure 11/02/17 13:00 11/04/17 12:59 Levofloxacin 150 ml @ 100 mls/hr Q24H IVPB 11/02/17 15:00 11/09/17 14:59 11/02/17 14:24 Metoclopramide HCl (Reglan) 10 mg Q6H PRN IVP Nausea & Vomiting 10/29/17 02:00 11/28/17 01:59 Metronidazole (Flagyl) 500 mg Q8HR ORAL 11/02/17 14:00 11/09/17 13:59 11/03/17 05:51 Morphine Sulfate (Morphine Sulfate) 4 mg Q4H PRN IVP pain score 7-10 10/29/17 02:00 11/05/17 01:59 10/31/17 18:05 Ondansetron HCl (Zofran) 4 mg Q6H PRN IVP Nausea & Vomiting 10/29/17 02:00 11/28/17 01:59 11/01/17 10:35 Pantoprazole (Protonix) 40 mg DAILY IVP 10/29/17 09:00 11/28/17 08:59 11/03/17 11:12 Senna/Docusate Sodium ([place]-Colace) 1 tab TWICE A DAY ORAL 10/31/17 18:00 11/30/17 17:59 11/02/17 08:53 GENET GUADARRAMA November 03, 2017 12:17
--- NOTE | 2017-11-03 12:18 | General Surgery Progress Note ---
General Surgery-Progress Note Subjective Procedure Performed open appendectomy , drainage of per-appendiceal abscess and partial omentectomy Symptoms: BM Objective Last 24 Hour Vital Signs Date Time Temp Pulse Resp B/P (MAP) Pulse Ox O2 Delivery O2 Flow Rate FiO2 11/03/17 08:00 98.0 67 19 132/77 98 98.0 11/03/17 04:00 99 Room Air 11/03/17 04:00 98.4 70 17 137/74 99 Room Air 98.4 11/03/17 00:00 100.4 80 17 143/78 99 Room Air 100.4 11/03/17 00:00 99 Room Air 11/02/17 23:52 99.0 11/02/17 22:53 99.0 11/02/17 20:00 99 Room Air 11/02/17 20:00 99.0 74 19 142/81 99 Room Air 99.0 11/02/17 16:00 97.4 73 18 139/79 98 Room Air 97.4 11/02/17 12:20 96.2 77 16 121/73 Room Air 96.2 I&O Intake and Output 11/02/17 11/03/17 19:00 07:00 Output Total 750 ml Balance -750 ml Output Urine Total 740 ml Drainage Total 10 ml # Voids 3 # Bowel Movements 2 1 Wound: clean, intact Drains: rukhsana Respiratory: clear Abdomen: soft, flat, tenderness, present bowel sounds Extremities: no tenderness Laboratory Tests Test 11/03/17 08:05 White Blood Count 16.8 K/UL (4.8-10.8) H Red Blood Count 4.97 M/UL (4.70-6.10) Hemoglobin 13.9 G/DL (14.2-18.0) L Hematocrit 40.8 % (42.0-52.0) L Mean Corpuscular Volume 82 FL (80-99) Mean Corpuscular Hemoglobin 27.9 PG (27.0-31.0) Mean Corpuscular Hemoglobin Concent 33.9 G/DL (32.0-36.0) Red Cell Distribution Width 12.0 % (11.6-14.8) Platelet Count 459 K/UL (150-450) H Mean Platelet Volume 5.5 FL (6.5-10.1) L Neutrophils (%) (Auto) 77.6 % (45.0-75.0) H Lymphocytes (%) (Auto) 12.1 % (20.0-45.0) L Monocytes (%) (Auto) 9.0 % (1.0-10.0) Eosinophils (%) (Auto) 0.8 % (0.0-3.0) Basophils (%) (Auto) 0.6 % (0.0-2.0) Assessment Post-op Diagnosis perfed appy with abscess Plan Additional Comments CT scan Sarah Richardson MD November 03, 2017 12:18
--- NOTE | 2017-11-03 14:17 | Diagnostic Imaging Report ---
Indication: Abdominal pain Technique: Continuous helical transaxial imaging of the abdomen and pelvis was obtained from the lung bases to the pubic symphysis during intravenous contrast administration. Coronal 2-D reformats were also obtained. Study obtained in a Siemens sensation [address] Automatic Exposure Control was utilized. Total Dose length Product (DLP): 922.[address] Dose Index Volume (CTDIvol): 16.58 mGy Comparison: 10/28/2017 Findings: Patient has had interval abdominal surgery for evacuation of a right lower quadrant abscess. Skin berto noted below the umbilicus. There is a drain placed within the pelvis with the tip situated in the right lower quadrant. There is a small residual pocket of fluid in the right lower quadrant measuring about 3.5 x 3.0 x 2.8 cm. This is consistent with a postoperative fluid collection. Obviously abscess is not excluded but this could be a seroma. Correlate clinically. Suggest follow-up. Mild distention of fluid-filled small bowel likely reactive ileus noted. Inflammatory changes from the recent surgery demonstrated in the right lower quadrant. Urinary bladder is nondistended. Solid organs appear normal. Trace basilar pleural effusions and atelectasis demonstrated. IMPRESSION: Status post recent appendectomy and evacuation of a right lower quadrant abscess. 3.5 x 3 x 2.8 cm residual fluid collection in the right lower quadrant noted. This may be a postoperative seroma. Infection/abscess are not excluded. Follow-up recommended. Drain noted in place. Trace basilar pleural effusions and atelectasis The CT scanner at [facility] is accredited by the [employer] and the scans are performed using dose optimization techniques as appropriate to a performed exam including Automatic Exposure control.
[2017-11-03 16:00] VITALS: BP 136/66
[2017-11-03 20:00] VITALS: BP 134/59
[2017-11-03] MEDS: Norco 5mg/325mg tab ORAL PRN (21:05)
[2017-11-04 04:00] VITALS: BP 127/73
[2017-11-04] MEDS: metroNIDAZOLE 500mg tab ORAL SCH ×3 (05:10→20:59)
[2017-11-04 08:00] VITALS: BP 129/69
--- NOTE | 2017-11-04 08:27 | General Progress Note ---
Assessment/Plan Assessment/Plan IMPRESSION appendicitis open appy leukocytosis postop seroma PLAN surgical follow up iv antibiotics per ID post op care advance diet to regular pain management as needed dc once cleared by ID and GS Subjective Allergies: Coded Allergies: No Known Allergies (Unverified , 04/25/16) Subjective care noted ID noted CT abdomen with seroma? Objective Last 24 Hour Vital Signs Date Time Temp Pulse Resp B/P (MAP) Pulse Ox O2 Delivery O2 Flow Rate FiO2 11/04/17 04:00 98.2 62 18 127/73 99 Room Air 98.2 11/03/17 22:04 99.3 11/03/17 21:05 99.3 11/03/17 20:00 99.3 73 18 134/59 97 Room Air 99.3 11/03/17 16:00 98.0 82 19 136/66 97 98.0 11/03/17 16:00 Room Air 11/03/17 12:00 97.8 71 19 126/80 97 97.8 11/03/17 12:00 Room Air Intake and Output 11/03/17 11/04/17 19:00 07:00 Intake Total 300 ml 300 ml Output Total 5 ml 365 ml Balance 295 ml -65 ml Intake Oral 300 ml 300 ml Output Urine Total 350 ml Drainage Total 5 ml 15 ml # Voids 3 # Bowel Movements 1 2 Height (Feet): 5 Height (Inches): 7.00 Weight (Pounds): 207 Objective WDWN NAD clear breath sounds bilaterally without rhonchi or wheeze [id number] without MRG improved exam of abdomen no CCE nonfocal Eílas Seals MD November 04, 2017 08:27
[2017-11-04] MEDS: Pantoprazole Inj IVP SCH (09:00)
[2017-11-04] MEDS: Docusate Sod/Senna tab ORAL SCH ×2 (09:00→18:00)
[2017-11-04] MEDS: Enoxaparin 40mg Inj SUBQ SCH (09:00)
[2017-11-04 10:05] LABS: HEMOGLOBIN 13.3 G/DL (14.2-18.0); MEAN CORPUSCULAR VOLUME 82 FL (80-99); PLATELET COUNT 491 K/UL (150-450); RED BLOOD COUNT 4.87 M/UL (4.70-6.10); WHITE BLOOD COUNT 18.2 K/UL (4.8-10.8)
[2017-11-04 11:06] LABS: ANION GAP 10 mmol/L (5-15); BLOOD UREA NITROGEN 13 mg/dL (7-18); CARBON DIOXIDE 26 MMOL/L (21-32); CHLORIDE 97 MMOL/L (98-107); CREATININE 0.9 MG/DL (0.55-1.30); POTASSIUM 4.2 MMOL/L (3.5-5.1); SODIUM 133 MMOL/L (136-145)
--- NOTE | 2017-11-04 11:22 | Infectious Diseases Prog Note ---
"Assessment/Plan Assessment/Plan antibiotics : levoquin, flagy; A 1. perforated appendicitis with abscess s/p appendectomy | drainage with e.coli | streptococcus | bacteroides | fusobacterium 2. leucocytosis P 1. continue levoquin, flagyl 2. will follow up cultures Subjective Constitutional: Denies: fever, chills Respiratory: Denies: shortness of breath, dry cough Gastrointestinal/Abdominal: Reports: nausea; Denies: vomiting, diarrhea Musculoskeletal: Reports: pain Allergies: Coded Allergies: No Known Allergies (Unverified , 04/25/16) Objective Vital Signs Last 24 Hour Vital Signs Date Time Temp Pulse Resp B/P (MAP) Pulse Ox O2 Delivery O2 Flow Rate FiO2 11/04/17 08:00 98.0 68 20 129/69 98 98.0 11/04/17 04:00 98.2 62 18 127/73 99 Room Air 98.2 11/03/17 22:04 99.3 11/03/17 21:05 99.3 11/03/17 20:00 99.3 73 18 134/59 97 Room Air 99.3 11/03/17 16:00 98.0 82 19 136/66 97 98.0 11/03/17 16:00 Room Air 11/03/17 12:00 97.8 71 19 126/80 97 97.8 11/03/17 12:00 Room Air Height (Feet): 5 Height (Inches): 7.00 Weight (Pounds): 207 Respiratory/Chest: lungs clear Cardiovascular: normal rate, regular rhythm, no gallop/murmur Abdomen: other - wound clean, RADHA drain Extremities: no edema Laboratory Tests Test 11/04/17 09:40 White Blood Count 18.2 K/UL (4.8-10.8) H Red Blood Count 4.87 M/UL (4.70-6.10) Hemoglobin 13.3 G/DL (14.2-18.0) L Hematocrit 40.0 % (42.0-52.0) L Mean Corpuscular Volume 82 FL (80-99) Mean Corpuscular Hemoglobin 27.4 PG (27.0-31.0) Mean Corpuscular Hemoglobin Concent 33.3 G/DL (32.0-36.0) Red Cell Distribution Width 12.0 % (11.6-14.8) Platelet Count 491 K/UL (150-450) H Mean Platelet Volume 5.2 FL (6.5-10.1) L Neutrophils (%) (Auto) % (45.0-75.0) Lymphocytes (%) (Auto) % (20.0-45.0) Monocytes (%) (Auto) % (1.0-10.0) Eosinophils (%) (Auto) % (0.0-3.0) Basophils (%) (Auto) % (0.0-2.0) Differential Total Cells Counted 100 Neutrophils % (Manual) 84 % (45-75) H Lymphocytes % (Manual) 9 % (20-45) L Monocytes % (Manual) 5 % (1-10) Eosinophils % (Manual) 0 % (0-3) Basophils % (Manual) 1 % (0-2) Band Neutrophils 1 % (0-8) Platelet Estimate Increased H Platelet Morphology Normal Hypochromasia 1+ Sodium Level 133 MMOL/L (136-145) L Potassium Level 4.2 MMOL/L (3.5-5.1) Chloride Level 97 MMOL/L (98-107) L Carbon Dioxide Level 26 MMOL/L (21-32) Anion Gap 10 mmol/L (5-15) Blood Urea Nitrogen 13 mg/dL (7-18) Creatinine 0.9 MG/DL (0.55-1.30) Estimat Glomerular Filtration Rate > 60 mL/min (>60) Glucose Level 117 MG/DL (74-106) H Calcium Level 9.0 MG/DL (8.5-10.1) Current Medications Medications (Trade) Dose Ordered Sig/Kelsea Route PRN Reason Start Time Stop Time Status Last Admin Dose Admin Acetaminophen (Tylenol) 650 mg Q4H PRN ORAL Mild Pain/Temp > 100.5 10/30/17 18:30 11/29/17 18:29 10/30/17 18:23 Acetaminophen (Tylenol) 650 mg Q4H PRN RECTAL Mild Pain/Temp > 100.5 10/30/17 18:30 11/28/17 18:29 Acetaminophen/ Hydrocodone Bitart ([place] 5/325) 1 tab Q4H PRN ORAL For Pain 10/29/17 19:45 11/05/17 19:44 11/03/17 21:05 Diatrizoate Meglum/ Diatrizoate Sod (Gastrografin) 30 ml NOW PRN ORAL Radiology Procedure 11/02/17 13:00 11/04/17 12:59 Enoxaparin Sodium (Lovenox) 40 mg DAILY SUBQ 10/29/17 09:00 11/28/17 08:59 11/03/17 11:13 Iopamidol (Isovue-300 100ml) 100 ml NOW PRN INJ Radiology Procedure 11/02/17 13:00 11/04/17 12:59 Levofloxacin 150 ml @ 100 mls/hr Q24H IVPB 11/02/17 15:00 11/09/17 14:59 11/03/17 17:03 Metoclopramide HCl (Reglan) 10 mg Q6H PRN IVP Nausea & Vomiting 10/29/17 02:00 11/28/17 01:59 Metronidazole (Flagyl) 500 mg Q8HR ORAL 11/02/17 14:00 11/09/17 13:59 11/04/17 05:10 Morphine Sulfate (Morphine Sulfate) 4 mg Q4H PRN IVP pain score 7-10 10/29/17 02:00 11/05/17 01:59 10/31/17 18:05 Ondansetron HCl (Zofran) 4 mg Q6H PRN IVP Nausea & Vomiting 10/29/17 02:00 11/28/17 01:59 11/01/17 10:35 Pantoprazole (Protonix) 40 mg DAILY IVP 10/29/17 09:00 11/28/17 08:59 11/03/17 11:12 Senna/Docusate Sodium ([place]-Colace) 1 tab TWICE A DAY ORAL 10/31/17 18:00 11/30/17 17:59 11/03/17 19:09 CHIDI GOLDSMITH November 04, 2017 11:22"
[2017-11-04 11:58] VITALS: BP 130/70
--- NOTE | 2017-11-04 13:52 | General Surgery Progress Note ---
General Surgery-Progress Note Subjective Procedure Performed open appendectomy , drainage of per-appendiceal abscess and partial omentectomy Additional Comments Ct scan has shown fluid collection next to cecum. With elevated WBC and pain this collection is probably an abscess Objective Last 24 Hour Vital Signs Date Time Temp Pulse Resp B/P (MAP) Pulse Ox O2 Delivery O2 Flow Rate FiO2 11/04/17 11:58 98.0 70 20 130/70 98 98.0 11/04/17 08:00 98.0 68 20 129/69 98 98.0 11/04/17 04:00 98.2 62 18 127/73 99 Room Air 98.2 11/03/17 22:04 99.3 11/03/17 21:05 99.3 11/03/17 20:00 99.3 73 18 134/59 97 Room Air 99.3 11/03/17 16:00 98.0 82 19 136/66 97 98.0 11/03/17 16:00 Room Air I&O Intake and Output 11/03/17 11/04/17 19:00 07:00 Intake Total 300 ml 300 ml Output Total 5 ml 365 ml Balance 295 ml -65 ml Intake Oral 300 ml 300 ml Output Urine Total 350 ml Drainage Total 5 ml 15 ml # Voids 3 # Bowel Movements 1 2 Wound: clean, intact Drains: rukhsana Respiratory: clear Abdomen: soft, flat, tenderness, present bowel sounds Extremities: no tenderness Laboratory Tests Test 11/04/17 09:40 White Blood Count 18.2 K/UL (4.8-10.8) H Red Blood Count 4.87 M/UL (4.70-6.10) Hemoglobin 13.3 G/DL (14.2-18.0) L Hematocrit 40.0 % (42.0-52.0) L Mean Corpuscular Volume 82 FL (80-99) Mean Corpuscular Hemoglobin 27.4 PG (27.0-31.0) Mean Corpuscular Hemoglobin Concent 33.3 G/DL (32.0-36.0) Red Cell Distribution Width 12.0 % (11.6-14.8) Platelet Count 491 K/UL (150-450) H Mean Platelet Volume 5.2 FL (6.5-10.1) L Neutrophils (%) (Auto) % (45.0-75.0) Lymphocytes (%) (Auto) % (20.0-45.0) Monocytes (%) (Auto) % (1.0-10.0) Eosinophils (%) (Auto) % (0.0-3.0) Basophils (%) (Auto) % (0.0-2.0) Differential Total Cells Counted 100 Neutrophils % (Manual) 84 % (45-75) H Lymphocytes % (Manual) 9 % (20-45) L Monocytes % (Manual) 5 % (1-10) Eosinophils % (Manual) 0 % (0-3) Basophils % (Manual) 1 % (0-2) Band Neutrophils 1 % (0-8) Platelet Estimate Increased H Platelet Morphology Normal Hypochromasia 1+ Sodium Level 133 MMOL/L (136-145) L Potassium Level 4.2 MMOL/L (3.5-5.1) Chloride Level 97 MMOL/L (98-107) L Carbon Dioxide Level 26 MMOL/L (21-32) Anion Gap 10 mmol/L (5-15) Blood Urea Nitrogen 13 mg/dL (7-18) Creatinine 0.9 MG/DL (0.55-1.30) Estimat Glomerular Filtration Rate > 60 mL/min (>60) Glucose Level 117 MG/DL (74-106) H Calcium Level 9.0 MG/DL (8.5-10.1) Assessment Post-op Diagnosis perfed appy with abscess Plan Additional Comments Drainage of collection by radiologist Sarah Richardson MD November 04, 2017 13:52
[2017-11-04] MEDS: Norco 5mg/325mg tab ORAL PRN ×2 (14:07→20:59)
[2017-11-04] MEDS ORDERED: Lidocaine 1% Plain 30 ml INJ SCH (14:30)
--- NOTE | 2017-11-04 15:49 | Pre-Procedure Note/Attestation ---
Pre-Procedure Note/Attestation Complete Prior to Procedure Planned Procedure: not applicable Procedure Narrative: CT guided aspiration and drainage abdominal collection Indications for Procedure Pre-Operative Diagnosis: abscess Attestation I attest that I discussed the nature of the procedure; its benefits; risks and complications; and alternatives (and the risks and benefits of such alternatives ), prior to the procedure, with the patient (or the patient's legal labor service representative). I attest that, if there was a reasonable possibility of needing a blood transfusion, the patient (or the patient's legal labor service representative) was given the [facility] standardized written summary, pursuant to the Alec Stephanie Blood Safety Act ([place] Health and Safety Code # 1645, as amended). I attest that I re-evaluated the patient just prior to the surgery and that there has been no change in the patient's H&P, except as documented below: KEITH VELASQUEZ M.D. November 04, 2017 15:49
--- NOTE | 2017-11-04 15:50 | Brief Operative Note ---
Immediate Post Operative Note Operative Note Pre-op Diagnosis: abscess Procedure: CT guided drainage Post-op Diagnosis: same as pre-op Findings: consistent w/pre-op dx studies Surgeon: Tacho VELASQUEZ Anesthesia: local Specimen: yes - 15 ml thin purulent fluid Complications: none Condition: stable Fluids: none Drains: other - 8F pigtail Implant(s) used?: No KEITH VELASQUEZ M.D. November 04, 2017 15:50
[2017-11-04 16:00] VITALS: BP 127/51
--- NOTE | 2017-11-04 16:20 | Diagnostic Imaging Report ---
Indication: Suspected pelvic abscess demonstrated on previous CT scan, postoperative patient status post appendectomy Technique: Informed consent obtained prior to commencement of the procedure. Prior imaging studies reviewed. Procedural timeout performed. Localizing acquisitions obtained through the upper pelvis. In venipuncture site sterilely prepped and draped. Local anesthesia with 1% lidocaine. A Yueh needle was directed into the targeted collection. Aspiration of the Yueh needle demonstrated thin but grossly purulent appearing fluid. A guidewire was inserted, over which was passed a dilator and then an 8 [place] pigtail catheter. This was placed to UreSil bag drainage. Total of about 15 mL of material aspirated. Specimen was sent to the lab for microbial analysis. The patient tolerated the procedure well, without immediate complication. Total dose length product 911 mGycm. CTDIvol(s) 13, 12 x 4 mGy. Radiation dose was minimized using automated exposure control Comparison: Reference made to abdomen pelvis CT 11/03/2017 Findings: As above Impression: Successful aspiration and drainage of small postoperative right lower quadrant abscess, as described. Procedure and findings discussed by phone with Dr. Richardson The CT scanner at [facility] is accredited by the [employer] and the scans are performed using protocols designed to limit radiation exposure to as low as reasonably achievable to attain images of sufficient resolution adequate for diagnostic evaluation.
[2017-11-04] MEDS ORDERED: NS 500ML ONE (17:48)
[2017-11-04] MEDS ORDERED: Tubing IV Secondary IV ONE (17:48)
[2017-11-04 20:06] VITALS: BP 153/78
[2017-11-05] VITALS: BP 131/81
[2017-11-05] MEDS: Norco 5mg/325mg tab ORAL PRN ×4 (03:04→22:26)
[2017-11-05 04:00] VITALS: BP 131/70
[2017-11-05] MEDS: metroNIDAZOLE 500mg tab ORAL SCH ×3 (05:10→20:39)
[2017-11-05 08:00] VITALS: BP 138/66
[2017-11-05] MEDS: Pantoprazole Inj IVP SCH (09:00)
[2017-11-05] MEDS: Enoxaparin 40mg Inj SUBQ SCH (09:00)
[2017-11-05] MEDS: Docusate Sod/Senna tab ORAL SCH ×2 (09:04→17:20)
[2017-11-05] MEDS ORDERED: Tubing IV Secondary IV ONE (10:48)
[2017-11-05 12:00] VITALS: BP 127/75
--- NOTE | 2017-11-05 14:24 | General Surgery Progress Note ---
General Surgery-Progress Note Subjective Procedure Performed open appendectomy , drainage of per-appendiceal abscess and partial omentectomy Symptoms: improved, BM Objective Last 24 Hour Vital Signs Date Time Temp Pulse Resp B/P (MAP) Pulse Ox O2 Delivery O2 Flow Rate FiO2 11/05/17 12:00 97.7 62 16 127/75 100 Room Air 97.7 11/05/17 08:00 97.9 65 20 138/66 98 Room Air 97.9 11/05/17 06:40 Room Air 11/05/17 06:05 98.2 11/05/17 05:06 100.2 11/05/17 04:03 99.0 11/05/17 04:00 98.2 71 18 131/70 98 98.2 11/05/17 03:04 99.0 11/05/17 00:48 Room Air 11/05/17 00:00 99.0 68 17 131/81 98 99.0 11/04/17 20:59 99.5 11/04/17 20:39 Room Air 11/04/17 20:06 99.5 67 20 153/78 96 99.5 11/04/17 16:00 97.8 69 19 127/51 98 Room Air 97.8 I&O Intake and Output 11/04/17 11/05/17 19:00 07:00 Intake Total 500 ml 360 ml Output Total 315 ml 408 ml Balance 185 ml -48 ml Intake Oral 500 ml 360 ml Output Urine Total 300 ml 400 ml Drainage Total 15 ml 8 ml Other 0 ml # Voids 3 2 # Bowel Movements 3 Respiratory: clear Abdomen: soft, flat, tenderness, present bowel sounds Assessment Post-op Diagnosis perfed appy with abscess Plan Additional Comments continue antibiotics Sarah Richardson MD November 05, 2017 14:24
[2017-11-05] MEDS: Levofloxacin 500mg tab ORAL SCH (15:31)
[2017-11-05 15:56] LABS: HEMATOCRIT 41.7 % (42.0-52.0); HEMOGLOBIN 13.9 G/DL (14.2-18.0); MEAN CORPUSCULAR VOLUME 82 FL (80-99); PLATELET COUNT 528 K/UL (150-450); RED CELL DISTRIBUTION WIDTH 12.4 % (11.6-14.8); WHITE BLOOD COUNT 18.8 K/UL (4.8-10.8)
[2017-11-05 16:00] VITALS: BP 126/81
--- NOTE | 2017-11-05 16:01 | General Progress Note ---
Assessment/Plan Assessment/Plan IMPRESSION appendicitis open appy leukocytosis postop seroma abcess PLAN surgical follow up drain iv antibiotics per ID post op care advance diet to regular pain management as needed dc once cleared by ID and GS Subjective Allergies: Coded Allergies: No Known Allergies (Unverified , 04/25/16) Subjective care noted ID noted CT abdomen with abcess and drain Objective Last 24 Hour Vital Signs Date Time Temp Pulse Resp B/P (MAP) Pulse Ox O2 Delivery O2 Flow Rate FiO2 11/05/17 12:00 97.7 62 16 127/75 100 Room Air 97.7 11/05/17 08:00 97.9 65 20 138/66 98 Room Air 97.9 11/05/17 06:40 Room Air 11/05/17 06:05 98.2 11/05/17 05:06 100.2 11/05/17 04:03 99.0 11/05/17 04:00 98.2 71 18 131/70 98 98.2 11/05/17 03:04 99.0 11/05/17 00:48 Room Air 11/05/17 00:00 99.0 68 17 131/81 98 99.0 11/04/17 20:59 99.5 11/04/17 20:39 Room Air 11/04/17 20:06 99.5 67 20 153/78 96 99.5 Intake and Output 11/04/17 11/05/17 19:00 07:00 Intake Total 500 ml 360 ml Output Total 315 ml 408 ml Balance 185 ml -48 ml Intake Oral 500 ml 360 ml Output Urine Total 300 ml 400 ml Drainage Total 15 ml 8 ml Other 0 ml # Voids 3 2 # Bowel Movements 3 Laboratory Tests 11/05/17 15:40: White Blood Count [Pending], Red Blood Count [Pending], Hemoglobin [Pending], Hematocrit [Pending], Mean Corpuscular Volume [Pending], Mean Corpuscular Hemoglobin [Pending], Mean Corpuscular Hemoglobin Concent [Pending], Red Cell Distribution Width [Pending], Platelet Count [Pending], Mean Platelet Volume [ Pending], Neutrophils (%) (Auto) [Pending], Lymphocytes (%) (Auto) [Pending], Monocytes (%) (Auto) [Pending], Eosinophils (%) (Auto) [Pending], Basophils (%) (Auto) [Pending], Sodium Level [Pending], Potassium Level [Pending], Chloride Level [Pending], Carbon Dioxide Level [Pending], Blood Urea Nitrogen [Pending], Creatinine [Pending], Estimat Glomerular Filtration Rate [Pending], Glucose Level [Pending], Calcium Level [Pending] Height (Feet): 5 Height (Inches): 7.00 Weight (Pounds): 207 Objective WDWN NAD clear breath sounds bilaterally without rhonchi or wheeze [id number] without MRG improved exam of abdomen no CCE nonfocal drain in place Elías Seals MD November 05, 2017 16:01
[2017-11-05 16:11] LABS: ANION GAP 10 mmol/L (5-15); BLOOD UREA NITROGEN 13 mg/dL (7-18); CALCIUM 9.3 MG/DL (8.5-10.1); CARBON DIOXIDE 26 MMOL/L (21-32); CHLORIDE 96 MMOL/L (98-107); SODIUM 132 MMOL/L (136-145)
[2017-11-05 20:00] VITALS: BP 123/65
[2017-11-05] MEDS ORDERED: Zolpidem 5mg tab ORAL PRN (22:00)
[2017-11-06 04:00] VITALS: BP 128/75
[2017-11-06] MEDS: metroNIDAZOLE 500mg tab ORAL SCH ×3 (05:42→21:09)
--- NOTE | 2017-11-06 07:03 | General Progress Note ---
Assessment/Plan Assessment/Plan IMPRESSION appendicitis open appy leukocytosis postop seroma abcess PLAN surgical follow up drain po antibiotics post op care diet to regular pain management as needed dc once cleared by ID and GS Subjective Allergies: Coded Allergies: No Known Allergies (Unverified , 04/25/16) Subjective care noted CT abdomen with abcess and drain in place Objective Last 24 Hour Vital Signs Date Time Temp Pulse Resp B/P (MAP) Pulse Ox O2 Delivery O2 Flow Rate FiO2 11/06/17 04:00 98 Room Air 11/06/17 04:00 97.8 62 20 128/75 98 97.8 11/05/17 23:25 98.2 11/05/17 22:26 98.2 11/05/17 20:00 98.2 89 19 123/65 98 98.2 11/05/17 20:00 98 Room Air 11/05/17 16:00 97.2 68 18 126/81 98 Room Air 97.2 11/05/17 12:00 97.7 62 16 127/75 100 Room Air 97.7 11/05/17 08:00 97.9 65 20 138/66 98 Room Air 97.9 Intake and Output 11/05/17 11/06/17 19:00 07:00 Intake Total 560 ml 800 ml Output Total 40 ml Balance 520 ml 800 ml Intake Oral 560 ml 800 ml Drainage Total 40 ml # Voids 4 3 # Bowel Movements 1 Laboratory Tests 11/05/17 15:40: White Blood Count 18.8H, Red Blood Count 5.10, Hemoglobin 13.9L, Hematocrit 41.7L, Mean Corpuscular Volume 82, Mean Corpuscular Hemoglobin 27.2, Mean Corpuscular Hemoglobin Concent 33.2, Red Cell Distribution Width 12.4, Platelet Count 528H, Mean Platelet Volume 4.9L, Neutrophils (%) (Auto) , Lymphocytes (%) (Auto) , Monocytes (%) (Auto) , Eosinophils (%) (Auto) , Basophils (%) (Auto) , Differential Total Cells Counted 100, Neutrophils % (Manual) 76H, Lymphocytes % (Manual) 17L, Monocytes % (Manual) 3, Eosinophils % (Manual) 1, Basophils % ( Manual) 2, Band Neutrophils 1, Platelet Estimate IncreasedH, Platelet Morphology Normal, Red Blood Cell Morphology Normal, Sodium Level 132L, Potassium Level 4.0, Chloride Level 96L, Carbon Dioxide Level 26, Anion Gap 10, Blood Urea Nitrogen 13, Creatinine 1.0, Estimat Glomerular Filtration Rate > 60 , Glucose Level 106, Calcium Level 9.3 Height (Feet): 5 Height (Inches): 7.00 Weight (Pounds): 207 Objective WDWN NAD clear breath sounds bilaterally without rhonchi or wheeze [id number] without MRG improved exam of abdomen no CCE nonfocal drain in place Elías Seals MD November 06, 2017 07:03
[2017-11-06 08:37] VITALS: BP 143/86
[2017-11-06] MEDS: Enoxaparin 40mg Inj SUBQ SCH ×3 (09:00→09:17)
[2017-11-06] MEDS: Levofloxacin 500mg tab ORAL SCH (09:10)
[2017-11-06] MEDS: Docusate Sod/Senna tab ORAL SCH ×2 (09:11→18:00)
[2017-11-06 09:14] LABS: EOSINOPHILS % (AUTO) 0.7 % (0.0-3.0); HEMATOCRIT 43.5 % (42.0-52.0); HEMOGLOBIN 14.1 G/DL (14.2-18.0); LYMPHOCYTES % (AUTO) 15.4 % (20.0-45.0); MEAN CORPUSCULAR VOLUME 81 FL (80-99); MONOCYTES % (AUTO) 5.7 % (1.0-10.0); NEUTROPHILS % (AUTO) 77.3 % (45.0-75.0); PLATELET COUNT 575 K/UL (150-450); RED BLOOD COUNT 5.39 M/UL (4.70-6.10); RED CELL DISTRIBUTION WIDTH 12.2 % (11.6-14.8); WHITE BLOOD COUNT 15.3 K/UL (4.8-10.8)
[2017-11-06 12:28] VITALS: BP 138/73
--- NOTE | 2017-11-06 12:33 | Infectious Diseases Prog Note ---
Assessment/Plan Assessment/Plan A: Perforated appendicitis Intra abdominal abscess s/p open Appendectomy s/p CT guided drainage of residual abscess P: Continue Levaquin & Flagyl X 5 days Clear for discharge Case was D/W RN Subjective ROS Limited/Unobtainable: No Constitutional: Reports: no symptoms Respiratory: Reports: no symptoms Cardiovascular: Reports: no symptoms Gastrointestinal/Abdominal: Reports: no symptoms Musculoskeletal: Reports: pain, other - in surgical site Allergies: Coded Allergies: No Known Allergies (Unverified , 04/25/16) Objective Vital Signs Last 24 Hour Vital Signs Date Time Temp Pulse Resp B/P (MAP) Pulse Ox O2 Delivery O2 Flow Rate FiO2 11/06/17 12:28 97.8 77 18 138/73 97 97.8 11/06/17 08:37 97.9 72 16 143/86 99 97.9 11/06/17 04:00 98 Room Air 11/06/17 04:00 97.8 62 20 128/75 98 97.8 11/05/17 23:25 98.2 11/05/17 22:26 98.2 11/05/17 20:00 98.2 89 19 123/65 98 98.2 11/05/17 20:00 98 Room Air 11/05/17 16:00 97.2 68 18 126/81 98 Room Air 97.2 Height (Feet): 5 Height (Inches): 7.00 Weight (Pounds): 207 General Appearance: no acute distress HEENT: mucous membranes moist Respiratory/Chest: lungs clear Cardiovascular: normal rate Abdomen: soft, non tender, other - midline surgical wound, bilateral lower quadrant drains Extremities: no edema Neurologic/Psychiatric: alert, oriented x 3, responsive Laboratory Tests Test 11/05/17 15:40 11/06/17 08:50 White Blood Count 18.8 K/UL (4.8-10.8) H 15.3 K/UL (4.8-10.8) H Red Blood Count 5.10 M/UL (4.70-6.10) 5.39 M/UL (4.70-6.10) Hemoglobin 13.9 G/DL (14.2-18.0) L 14.1 G/DL (14.2-18.0) L Hematocrit 41.7 % (42.0-52.0) L 43.5 % (42.0-52.0) Mean Corpuscular Volume 82 FL (80-99) 81 FL (80-99) Mean Corpuscular Hemoglobin 27.2 PG (27.0-31.0) 26.2 PG (27.0-31.0) L Mean Corpuscular Hemoglobin Concent 33.2 G/DL (32.0-36.0) 32.4 G/DL (32.0-36.0) Red Cell Distribution Width 12.4 % (11.6-14.8) 12.2 % (11.6-14.8) Platelet Count 528 K/UL (150-450) H 575 K/UL (150-450) H Mean Platelet Volume 4.9 FL (6.5-10.1) L 4.9 FL (6.5-10.1) L Neutrophils (%) (Auto) % (45.0-75.0) 77.3 % (45.0-75.0) H Lymphocytes (%) (Auto) % (20.0-45.0) 15.4 % (20.0-45.0) L Monocytes (%) (Auto) % (1.0-10.0) 5.7 % (1.0-10.0) Eosinophils (%) (Auto) % (0.0-3.0) 0.7 % (0.0-3.0) Basophils (%) (Auto) % (0.0-2.0) 1.0 % (0.0-2.0) Differential Total Cells Counted 100 Neutrophils % (Manual) 76 % (45-75) H Lymphocytes % (Manual) 17 % (20-45) L Monocytes % (Manual) 3 % (1-10) Eosinophils % (Manual) 1 % (0-3) Basophils % (Manual) 2 % (0-2) Band Neutrophils 1 % (0-8) Platelet Estimate Increased H Platelet Morphology Normal Red Blood Cell Morphology Normal Sodium Level 132 MMOL/L (136-145) L Potassium Level 4.0 MMOL/L (3.5-5.1) Chloride Level 96 MMOL/L (98-107) L Carbon Dioxide Level 26 MMOL/L (21-32) Anion Gap 10 mmol/L (5-15) Blood Urea Nitrogen 13 mg/dL (7-18) Creatinine 1.0 MG/DL (0.55-1.30) Estimat Glomerular Filtration Rate > 60 mL/min (>60) Glucose Level 106 MG/DL (74-106) Calcium Level 9.3 MG/DL (8.5-10.1) Current Medications Medications (Trade) Dose Ordered Sig/Kelsea Route PRN Reason Start Time Stop Time Status Last Admin Dose Admin Acetaminophen (Tylenol) 650 mg Q4H PRN ORAL Mild Pain/Temp > 100.5 10/30/17 18:30 11/29/17 18:29 11/05/17 05:06 Acetaminophen/ Hydrocodone Bitart ([place] 5/325) 1 tab Q4H PRN ORAL Moderate Pain (Pain Scale 4-6) 11/05/17 22:00 11/12/17 21:59 11/05/17 22:26 Enoxaparin Sodium (Lovenox) 40 mg DAILY SUBQ 10/29/17 09:00 11/28/17 08:59 11/03/17 11:13 Levofloxacin (Levaquin) 500 mg DAILY ORAL 11/05/17 16:00 11/12/17 15:59 11/06/17 09:10 Metronidazole (Flagyl) 500 mg Q8HR ORAL 11/02/17 14:00 11/09/17 13:59 11/06/17 05:42 Ondansetron HCl (Zofran ODT) 4 mg Q6H PRN ORAL Nausea & Vomiting 11/05/17 16:00 12/05/17 15:59 11/05/17 17:21 Pantoprazole (Protonix) 40 mg DAILY ORAL 11/06/17 09:00 12/06/17 08:59 11/06/17 09:10 Senna/Docusate Sodium ([place]-Colace) 1 tab TWICE A DAY ORAL 10/31/17 18:00 11/30/17 17:59 11/06/17 09:11 Zolpidem Tartrate (Ambien) 5 mg HSPRN PRN ORAL Insomnia 11/05/17 22:00 11/12/17 21:59 GENET GUADARRAMA November 06, 2017 12:33
--- NOTE | 2017-11-06 12:47 | General Surgery Progress Note ---
General Surgery-Progress Note Subjective Procedure Performed open appendectomy , drainage of per-appendiceal abscess and partial omentectomy Symptoms: improved, BM Objective Last 24 Hour Vital Signs Date Time Temp Pulse Resp B/P (MAP) Pulse Ox O2 Delivery O2 Flow Rate FiO2 11/06/17 12:28 97.8 77 18 138/73 97 97.8 11/06/17 08:37 97.9 72 16 143/86 99 97.9 11/06/17 04:00 98 Room Air 11/06/17 04:00 97.8 62 20 128/75 98 97.8 11/05/17 23:25 98.2 11/05/17 22:26 98.2 11/05/17 20:00 98.2 89 19 123/65 98 98.2 11/05/17 20:00 98 Room Air 11/05/17 16:00 97.2 68 18 126/81 98 Room Air 97.2 I&O Intake and Output 11/05/17 11/06/17 19:00 07:00 Intake Total 560 ml 800 ml Output Total 40 ml 35 ml Balance 520 ml 765 ml Intake Oral 560 ml 800 ml Drainage Total 40 ml 35 ml # Voids 4 3 # Bowel Movements 1 Wound: clean Drains: other - pig-tail Abdomen: soft, flat, non-tender, present bowel sounds Extremities: no tenderness Laboratory Tests Test 11/05/17 15:40 11/06/17 08:50 White Blood Count 18.8 K/UL (4.8-10.8) H 15.3 K/UL (4.8-10.8) H Red Blood Count 5.10 M/UL (4.70-6.10) 5.39 M/UL (4.70-6.10) Hemoglobin 13.9 G/DL (14.2-18.0) L 14.1 G/DL (14.2-18.0) L Hematocrit 41.7 % (42.0-52.0) L 43.5 % (42.0-52.0) Mean Corpuscular Volume 82 FL (80-99) 81 FL (80-99) Mean Corpuscular Hemoglobin 27.2 PG (27.0-31.0) 26.2 PG (27.0-31.0) L Mean Corpuscular Hemoglobin Concent 33.2 G/DL (32.0-36.0) 32.4 G/DL (32.0-36.0) Red Cell Distribution Width 12.4 % (11.6-14.8) 12.2 % (11.6-14.8) Platelet Count 528 K/UL (150-450) H 575 K/UL (150-450) H Mean Platelet Volume 4.9 FL (6.5-10.1) L 4.9 FL (6.5-10.1) L Neutrophils (%) (Auto) % (45.0-75.0) 77.3 % (45.0-75.0) H Lymphocytes (%) (Auto) % (20.0-45.0) 15.4 % (20.0-45.0) L Monocytes (%) (Auto) % (1.0-10.0) 5.7 % (1.0-10.0) Eosinophils (%) (Auto) % (0.0-3.0) 0.7 % (0.0-3.0) Basophils (%) (Auto) % (0.0-2.0) 1.0 % (0.0-2.0) Differential Total Cells Counted 100 Neutrophils % (Manual) 76 % (45-75) H Lymphocytes % (Manual) 17 % (20-45) L Monocytes % (Manual) 3 % (1-10) Eosinophils % (Manual) 1 % (0-3) Basophils % (Manual) 2 % (0-2) Band Neutrophils 1 % (0-8) Platelet Estimate Increased H Platelet Morphology Normal Red Blood Cell Morphology Normal Sodium Level 132 MMOL/L (136-145) L Potassium Level 4.0 MMOL/L (3.5-5.1) Chloride Level 96 MMOL/L (98-107) L Carbon Dioxide Level 26 MMOL/L (21-32) Anion Gap 10 mmol/L (5-15) Blood Urea Nitrogen 13 mg/dL (7-18) Creatinine 1.0 MG/DL (0.55-1.30) Estimat Glomerular Filtration Rate > 60 mL/min (>60) Glucose Level 106 MG/DL (74-106) Calcium Level 9.3 MG/DL (8.5-10.1) Assessment Post-op Diagnosis perfed appy with abscess Plan Additional Comments continue antibiotics Sarah Richardson MD November 06, 2017 12:47
[2017-11-06] MEDS: Norco 5mg/325mg tab ORAL PRN ×2 (15:11→21:09)
[2017-11-06 16:15] VITALS: BP 151/76
[2017-11-06 20:00] VITALS: BP 133/80
[2017-11-07] VITALS: BP 130/76
[2017-11-07] MEDS: metroNIDAZOLE 500mg tab ORAL SCH ×3 (05:33→21:45)
[2017-11-07 08:00] VITALS: BP 125/79
--- NOTE | 2017-11-07 08:26 | General Progress Note ---
Assessment/Plan Assessment/Plan IMPRESSION appendicitis open appy leukocytosis postop seroma abcess PLAN surgical follow up drain po antibiotics post op care diet to regular pain management as needed dc once cleared by GS cleared by ID Subjective Allergies: Coded Allergies: No Known Allergies (Unverified , 04/25/16) Subjective care noted CT abdomen with abcess and drain in place Objective Last 24 Hour Vital Signs Date Time Temp Pulse Resp B/P (MAP) Pulse Ox O2 Delivery O2 Flow Rate FiO2 11/07/17 08:00 97.8 71 19 125/79 97 97.8 11/07/17 00:31 Room Air 11/07/17 00:00 98.1 81 19 130/76 98 98.1 11/06/17 22:08 98.1 11/06/17 21:35 Room Air 11/06/17 21:09 98.1 11/06/17 20:00 98.1 78 18 133/80 97 98.1 11/06/17 16:15 98.2 71 18 151/76 98 98.2 11/06/17 16:15 Room Air 11/06/17 12:30 Room Air 11/06/17 12:28 97.8 77 18 138/73 97 97.8 11/06/17 08:40 Room Air 11/06/17 08:37 97.9 72 16 143/86 99 97.9 Intake and Output 11/06/17 11/07/17 19:00 07:00 Intake Total 360 ml Output Total 40 ml 9 ml Balance 320 ml -9 ml Intake Oral 360 ml Drainage Total 40 ml 9 ml # Voids 3 2 # Bowel Movements 1 Laboratory Tests 11/06/17 08:50: White Blood Count 15.3H, Red Blood Count 5.39, Hemoglobin 14.1L, Hematocrit 43.5 , Mean Corpuscular Volume 81, Mean Corpuscular Hemoglobin 26.2L, Mean Corpuscular Hemoglobin Concent 32.4, Red Cell Distribution Width 12.2, Platelet Count 575H, Mean Platelet Volume 4.9L, Neutrophils (%) (Auto) 77.3H, Lymphocytes (%) (Auto) 15.4L, Monocytes (%) (Auto) 5.7, Eosinophils (%) (Auto) 0.7, Basophils (%) (Auto) 1.0 Height (Feet): 5 Height (Inches): 7.00 Weight (Pounds): 207 Objective WDWN NAD clear breath sounds bilaterally without rhonchi or wheeze [id number] without MRG improved exam of abdomen no CCE nonfocal drain in place Elías Seals MD November 07, 2017 08:26
[2017-11-07] MEDS: Levofloxacin 500mg tab ORAL SCH (08:53)
[2017-11-07] MEDS: Docusate Sod/Senna tab ORAL SCH ×2 (08:57→18:00)
[2017-11-07] MEDS: Enoxaparin 40mg Inj SUBQ SCH (09:00)
[2017-11-07 09:32] LABS: BASOPHILS % (AUTO) 1.4 % (0.0-2.0); EOSINOPHILS % (AUTO) 1.4 % (0.0-3.0); HEMATOCRIT 42.8 % (42.0-52.0); LYMPHOCYTES % (AUTO) 21.3 % (20.0-45.0); MEAN CORPUSCULAR VOLUME 82 FL (80-99); MONOCYTES % (AUTO) 6.6 % (1.0-10.0); NEUTROPHILS % (AUTO) 69.3 % (45.0-75.0); PLATELET COUNT 597 K/UL (150-450); RED BLOOD COUNT 5.21 M/UL (4.70-6.10); RED CELL DISTRIBUTION WIDTH 12.5 % (11.6-14.8); WHITE BLOOD COUNT 14.6 K/UL (4.8-10.8)
[2017-11-07 12:00] VITALS: BP 135/71
--- NOTE | 2017-11-07 12:34 | Infectious Diseases Prog Note ---
Assessment/Plan Assessment/Plan A: Perforated appendicitis Intra abdominal abscess s/p open Appendectomy s/p CT guided drainage of residual abscess P: Continue Levaquin & Flagyl X 4 days Clear for discharge Subjective ROS Limited/Unobtainable: No Constitutional: Reports: no symptoms Respiratory: Reports: no symptoms Gastrointestinal/Abdominal: Reports: no symptoms Genitourinary: Reports: no symptoms Musculoskeletal: Reports: no symptoms Allergies: Coded Allergies: No Known Allergies (Unverified , 04/25/16) Objective Vital Signs Last 24 Hour Vital Signs Date Time Temp Pulse Resp B/P (MAP) Pulse Ox O2 Delivery O2 Flow Rate FiO2 11/07/17 12:00 98.0 79 19 135/71 97 98.0 11/07/17 08:00 97.8 71 19 125/79 97 97.8 11/07/17 00:31 Room Air 11/07/17 00:00 98.1 81 19 130/76 98 98.1 11/06/17 22:08 98.1 11/06/17 21:35 Room Air 11/06/17 21:09 98.1 11/06/17 20:00 98.1 78 18 133/80 97 98.1 11/06/17 16:15 98.2 71 18 151/76 98 98.2 11/06/17 16:15 Room Air Height (Feet): 5 Height (Inches): 7.00 Weight (Pounds): 207 General Appearance: no acute distress HEENT: mucous membranes moist Respiratory/Chest: lungs clear Cardiovascular: normal rate Abdomen: soft, non tender, other - drains in lower quadrants Extremities: no edema Neurologic/Psychiatric: alert, oriented x 3, responsive Laboratory Tests Test 11/07/17 09:05 White Blood Count 14.6 K/UL (4.8-10.8) H Red Blood Count 5.21 M/UL (4.70-6.10) Hemoglobin 14.0 G/DL (14.2-18.0) L Hematocrit 42.8 % (42.0-52.0) Mean Corpuscular Volume 82 FL (80-99) Mean Corpuscular Hemoglobin 26.9 PG (27.0-31.0) L Mean Corpuscular Hemoglobin Concent 32.8 G/DL (32.0-36.0) Red Cell Distribution Width 12.5 % (11.6-14.8) Platelet Count 597 K/UL (150-450) H Mean Platelet Volume 4.9 FL (6.5-10.1) L Neutrophils (%) (Auto) 69.3 % (45.0-75.0) Lymphocytes (%) (Auto) 21.3 % (20.0-45.0) Monocytes (%) (Auto) 6.6 % (1.0-10.0) Eosinophils (%) (Auto) 1.4 % (0.0-3.0) Basophils (%) (Auto) 1.4 % (0.0-2.0) Current Medications Medications (Trade) Dose Ordered Sig/Kelsea Route PRN Reason Start Time Stop Time Status Last Admin Dose Admin Acetaminophen (Tylenol) 650 mg Q4H PRN ORAL Mild Pain/Temp > 100.5 10/30/17 18:30 11/29/17 18:29 11/07/17 08:53 Acetaminophen/ Hydrocodone Bitart ([place] 5/325) 1 tab Q4H PRN ORAL Moderate Pain (Pain Scale 4-6) 11/05/17 22:00 11/12/17 21:59 11/06/17 21:09 Enoxaparin Sodium (Lovenox) 40 mg DAILY SUBQ 10/29/17 09:00 11/28/17 08:59 11/03/17 11:13 Levofloxacin (Levaquin) 500 mg DAILY ORAL 11/05/17 16:00 11/12/17 15:59 11/07/17 08:53 Metronidazole (Flagyl) 500 mg Q8HR ORAL 11/02/17 14:00 11/09/17 13:59 11/07/17 05:33 Ondansetron HCl (Zofran ODT) 4 mg Q6H PRN ORAL Nausea & Vomiting 11/05/17 16:00 12/05/17 15:59 11/06/17 15:11 Pantoprazole (Protonix) 40 mg DAILY ORAL 11/06/17 09:00 12/06/17 08:59 11/07/17 08:53 Senna/Docusate Sodium ([place]-Colace) 1 tab TWICE A DAY ORAL 10/31/17 18:00 11/30/17 17:59 11/06/17 09:11 Zolpidem Tartrate (Ambien) 5 mg HSPRN PRN ORAL Insomnia 11/05/17 22:00 11/12/17 21:59 11/07/17 01:30 GENET GUADARRAMA November 07, 2017 12:34
--- NOTE | 2017-11-07 13:17 | General Surgery Progress Note ---
General Surgery-Progress Note Subjective Procedure Performed open appendectomy , drainage of per-appendiceal abscess and partial omentectomy Symptoms: improved, BM Objective Last 24 Hour Vital Signs Date Time Temp Pulse Resp B/P (MAP) Pulse Ox O2 Delivery O2 Flow Rate FiO2 11/07/17 12:00 98.0 79 19 135/71 97 98.0 11/07/17 08:00 97.8 71 19 125/79 97 97.8 11/07/17 00:31 Room Air 11/07/17 00:00 98.1 81 19 130/76 98 98.1 11/06/17 22:08 98.1 11/06/17 21:35 Room Air 11/06/17 21:09 98.1 11/06/17 20:00 98.1 78 18 133/80 97 98.1 11/06/17 16:15 98.2 71 18 151/76 98 98.2 11/06/17 16:15 Room Air I&O Intake and Output 11/06/17 11/07/17 19:00 07:00 Intake Total 360 ml Output Total 40 ml 9 ml Balance 320 ml -9 ml Intake Oral 360 ml Drainage Total 40 ml 9 ml # Voids 3 2 # Bowel Movements 1 Wound: intact Respiratory: clear Abdomen: soft, flat, non-tender, present bowel sounds Extremities: no tenderness Laboratory Tests Test 11/07/17 09:05 White Blood Count 14.6 K/UL (4.8-10.8) H Red Blood Count 5.21 M/UL (4.70-6.10) Hemoglobin 14.0 G/DL (14.2-18.0) L Hematocrit 42.8 % (42.0-52.0) Mean Corpuscular Volume 82 FL (80-99) Mean Corpuscular Hemoglobin 26.9 PG (27.0-31.0) L Mean Corpuscular Hemoglobin Concent 32.8 G/DL (32.0-36.0) Red Cell Distribution Width 12.5 % (11.6-14.8) Platelet Count 597 K/UL (150-450) H Mean Platelet Volume 4.9 FL (6.5-10.1) L Neutrophils (%) (Auto) 69.3 % (45.0-75.0) Lymphocytes (%) (Auto) 21.3 % (20.0-45.0) Monocytes (%) (Auto) 6.6 % (1.0-10.0) Eosinophils (%) (Auto) 1.4 % (0.0-3.0) Basophils (%) (Auto) 1.4 % (0.0-2.0) Assessment Post-op Diagnosis perfed appy with abscess Plan Additional Comments continue antibiotics Sarah Richardson MD November 07, 2017 13:17
[2017-11-07 16:00] VITALS: BP 131/73
[2017-11-07] MEDS: Norco 5mg/325mg tab ORAL PRN (18:54)
[2017-11-07 20:00] VITALS: BP 139/82
[2017-11-08 04:00] VITALS: BP 116/75
[2017-11-08] MEDS: Norco 5mg/325mg tab ORAL PRN (05:07)
[2017-11-08] MEDS: metroNIDAZOLE 500mg tab ORAL SCH ×3 (05:52→22:00)
[2017-11-08] MEDS: Levofloxacin 500mg tab ORAL SCH (08:02)
[2017-11-08] MEDS: Docusate Sod/Senna tab ORAL SCH ×2 (08:03→17:02)
[2017-11-08] MEDS: Enoxaparin 40mg Inj SUBQ SCH (08:03)
[2017-11-08 08:10] VITALS: BP 130/82
--- NOTE | 2017-11-08 11:38 | Infectious Diseases Prog Note ---
"Assessment/Plan Assessment/Plan antibiotics : levoquin, flagy; A 1. perforated appendicitis with abscess s/p appendectomy | drainage with e.coli | streptococcus | bacteroides | fusobacterium 2. leucocytosis improving P 1. continue levoquin, flagyl 10 more days po 2. will follow up cultures Subjective Constitutional: Denies: fever, chills Respiratory: Denies: shortness of breath, dry cough Gastrointestinal/Abdominal: Denies: nausea, vomiting, diarrhea Musculoskeletal: Denies: pain Allergies: Coded Allergies: No Known Allergies (Unverified , 04/25/16) Objective Vital Signs Last 24 Hour Vital Signs Date Time Temp Pulse Resp B/P (MAP) Pulse Ox O2 Delivery O2 Flow Rate FiO2 11/08/17 08:10 98.2 83 18 130/82 97 98.2 11/08/17 04:00 98.8 79 18 116/75 100 Room Air 98.8 11/07/17 20:00 98.9 87 18 139/82 99 98.9 11/07/17 16:01 Room Air 11/07/17 16:00 98.6 75 19 131/73 99 98.6 11/07/17 12:01 Room Air 11/07/17 12:00 98.0 79 19 135/71 97 98.0 Height (Feet): 5 Height (Inches): 7.00 Weight (Pounds): 207 Respiratory/Chest: lungs clear Cardiovascular: normal rate, regular rhythm, no gallop/murmur Abdomen: other - wound in dressings, 2 RADHA drains Current Medications Medications (Trade) Dose Ordered Sig/Kelsea Route PRN Reason Start Time Stop Time Status Last Admin Dose Admin Acetaminophen (Tylenol) 650 mg Q4H PRN ORAL Mild Pain/Temp > 100.5 10/30/17 18:30 11/29/17 18:29 11/07/17 08:53 Acetaminophen/ Hydrocodone Bitart ([place] 5/325) 1 tab Q4H PRN ORAL Moderate Pain (Pain Scale 4-6) 11/05/17 22:00 11/12/17 21:59 11/08/17 05:07 Enoxaparin Sodium (Lovenox) 40 mg DAILY SUBQ 10/29/17 09:00 11/28/17 08:59 11/03/17 11:13 Levofloxacin (Levaquin) 500 mg DAILY ORAL 11/05/17 16:00 11/12/17 15:59 11/08/17 08:02 Metronidazole (Flagyl) 500 mg Q8HR ORAL 11/02/17 14:00 11/09/17 13:59 11/08/17 05:52 Ondansetron HCl (Zofran ODT) 4 mg Q6H PRN ORAL Nausea & Vomiting 11/05/17 16:00 12/05/17 15:59 11/06/17 15:11 Pantoprazole (Protonix) 40 mg DAILY ORAL 11/06/17 09:00 12/06/17 08:59 11/08/17 08:02 Senna/Docusate Sodium ([place]-Colace) 1 tab TWICE A DAY ORAL 10/31/17 18:00 11/30/17 17:59 11/06/17 09:11 Zolpidem Tartrate (Ambien) 5 mg HSPRN PRN ORAL Insomnia 11/05/17 22:00 11/12/17 21:59 11/07/17 01:30 CHIDI GOLDSMITH November 08, 2017 11:38"
[2017-11-08 11:49] VITALS: BP 124/68
--- NOTE | 2017-11-08 12:22 | General Progress Note ---
Assessment/Plan Assessment/Plan IMPRESSION appendicitis open appy leukocytosis postop seroma abcess PLAN surgical follow up drain ?dc po antibiotics post op care diet regular pain management as needed dc once cleared by GS cleared by ID Subjective Allergies: Coded Allergies: No Known Allergies (Unverified , 04/25/16) Subjective care noted drain in eating well Objective Last 24 Hour Vital Signs Date Time Temp Pulse Resp B/P (MAP) Pulse Ox O2 Delivery O2 Flow Rate FiO2 11/08/17 11:49 97.9 71 18 124/68 100 97.9 11/08/17 08:10 98.2 83 18 130/82 97 98.2 11/08/17 04:00 98.8 79 18 116/75 100 Room Air 98.8 11/07/17 20:00 98.9 87 18 139/82 99 98.9 11/07/17 16:01 Room Air 11/07/17 16:00 98.6 75 19 131/73 99 98.6 Intake and Output 11/07/17 11/08/17 19:00 07:00 Intake Total 200 ml Output Total 12 ml 10 ml Balance -12 ml 190 ml Intake Oral 200 ml Drainage Total 12 ml 10 ml # Voids 2 Height (Feet): 5 Height (Inches): 7.00 Weight (Pounds): 207 Objective WDWN NAD clear breath sounds bilaterally without rhonchi or wheeze [id number] without MRG improved exam of abdomen no CCE nonfocal drain in place Elías Seals MD November 08, 2017 12:22
--- NOTE | 2017-11-08 12:38 | General Surgery Progress Note ---
General Surgery-Progress Note Subjective Procedure Performed open appendectomy , drainage of per-appendiceal abscess and partial omentectomy Symptoms: improved, BM Objective Last 24 Hour Vital Signs Date Time Temp Pulse Resp B/P (MAP) Pulse Ox O2 Delivery O2 Flow Rate FiO2 11/08/17 11:49 97.9 71 18 124/68 100 97.9 11/08/17 08:10 98.2 83 18 130/82 97 98.2 11/08/17 04:00 98.8 79 18 116/75 100 Room Air 98.8 11/07/17 20:00 98.9 87 18 139/82 99 98.9 11/07/17 16:01 Room Air 11/07/17 16:00 98.6 75 19 131/73 99 98.6 I&O Intake and Output 11/07/17 11/08/17 19:00 07:00 Intake Total 200 ml Output Total 12 ml 10 ml Balance -12 ml 190 ml Intake Oral 200 ml Drainage Total 12 ml 10 ml # Voids 2 Wound: clean, intact Drains: other - pigtail Respiratory: clear Abdomen: soft, flat, non-tender, present bowel sounds Extremities: no tenderness Assessment Post-op Diagnosis perfed appy with abscess Plan Additional Comments CT scan in AM Sarah Richardson MD November 08, 2017 12:38
[2017-11-08] MEDS ORDERED: Gastrograffin 30ml ORAL PRN (12:45)
[2017-11-08] MEDS ORDERED: Isovue-300 100ml vial INJ PRN ×2 (12:45)
[2017-11-08 14:32] LABS: BASOPHILS % (AUTO) 1.4 % (0.0-2.0); EOSINOPHILS % (AUTO) 2.3 % (0.0-3.0); HEMATOCRIT 41.8 % (42.0-52.0); LYMPHOCYTES % (AUTO) 21.9 % (20.0-45.0); MEAN CORPUSCULAR VOLUME 83 FL (80-99); NEUTROPHILS % (AUTO) 70.4 % (45.0-75.0); PLATELET COUNT 558 K/UL (150-450); RED BLOOD COUNT 5.06 M/UL (4.70-6.10); RED CELL DISTRIBUTION WIDTH 12.9 % (11.6-14.8); WHITE BLOOD COUNT 14.7 K/UL (4.8-10.8)
[2017-11-08 15:53] VITALS: BP 119/68
[2017-11-08 20:00] VITALS: BP 133/66
[2017-11-09] VITALS: BP 126/72
[2017-11-09 04:00] VITALS: BP 126/70
[2017-11-09] MEDS: metroNIDAZOLE 500mg tab ORAL SCH ×2 (05:26→14:33)
[2017-11-09] MEDS: Norco 5mg/325mg tab ORAL PRN (05:27)
[2017-11-09 07:14] LABS: BASOPHILS % (AUTO) 1.2 % (0.0-2.0); EOSINOPHILS % (AUTO) 2.1 % (0.0-3.0); HEMATOCRIT 41.3 % (42.0-52.0); HEMOGLOBIN 13.7 G/DL (14.2-18.0); LYMPHOCYTES % (AUTO) 21.8 % (20.0-45.0); MEAN CORPUSCULAR VOLUME 83 FL (80-99); MONOCYTES % (AUTO) 6.4 % (1.0-10.0); NEUTROPHILS % (AUTO) 68.6 % (45.0-75.0); PLATELET COUNT 568 K/UL (150-450); RED BLOOD COUNT 4.98 M/UL (4.70-6.10); RED CELL DISTRIBUTION WIDTH 12.8 % (11.6-14.8); WHITE BLOOD COUNT 14.6 K/UL (4.8-10.8)
[2017-11-09 07:20] LABS: ANION GAP 9 mmol/L (5-15); BLOOD UREA NITROGEN 14 mg/dL (7-18); CALCIUM 9.1 MG/DL (8.5-10.1); CARBON DIOXIDE 26 MMOL/L (21-32); CHLORIDE 100 MMOL/L (98-107); CREATININE 1.2 MG/DL (0.55-1.30); POTASSIUM 4.4 MMOL/L (3.5-5.1); SODIUM 135 MMOL/L (136-145)
[2017-11-09 08:00] VITALS: BP 127/95
[2017-11-09] MEDS: Docusate Sod/Senna tab ORAL SCH ×2 (09:00→18:00)
[2017-11-09] MEDS: Enoxaparin 40mg Inj SUBQ SCH (09:00)
[2017-11-09] MEDS: Levofloxacin 500mg tab ORAL SCH (09:06)
--- NOTE | 2017-11-09 09:28 | General Progress Note ---
Assessment/Plan Assessment/Plan IMPRESSION appendicitis open appy leukocytosis postop seroma abcess PLAN surgical follow up after CT drain per GS po antibiotics x 9 more days post op care diet regular pain management as needed dc once cleared by GS wbc improving Subjective Allergies: Coded Allergies: No Known Allergies (Unverified , 04/25/16) Subjective care noted drain in eating well CT today Objective Last 24 Hour Vital Signs Date Time Temp Pulse Resp B/P (MAP) Pulse Ox O2 Delivery O2 Flow Rate FiO2 11/09/17 08:00 98.2 83 18 127/95 100 98.2 11/09/17 04:00 98.1 73 20 126/70 100 Room Air 98.1 11/09/17 00:00 98.6 81 19 126/72 98 Room Air 98.6 11/08/17 20:00 98.4 75 18 133/66 99 Room Air 98.4 11/08/17 15:53 98.2 71 18 119/68 99 98.2 11/08/17 11:49 97.9 71 18 124/68 100 97.9 Intake and Output 11/08/17 11/09/17 19:00 07:00 Intake Total 480 ml Balance 480 ml Intake Oral 480 ml # Voids 2 2 # Bowel Movements 1 Laboratory Tests 11/08/17 14:00: White Blood Count 14.7H, Red Blood Count 5.06, Hemoglobin 14.0L, Hematocrit 41.8L, Mean Corpuscular Volume 83, Mean Corpuscular Hemoglobin 27.7, Mean Corpuscular Hemoglobin Concent 33.5, Red Cell Distribution Width 12.9, Platelet Count 558H, Mean Platelet Volume 5.2L, Neutrophils (%) (Auto) 70.4, Lymphocytes (%) (Auto) 21.9, Monocytes (%) (Auto) 4.0, Eosinophils (%) (Auto) 2.3, Basophils (%) (Auto) 1.4 11/09/17 05:25: White Blood Count 14.6H, Red Blood Count 4.98, Hemoglobin 13.7L, Hematocrit 41.3L, Mean Corpuscular Volume 83, Mean Corpuscular Hemoglobin 27.6, Mean Corpuscular Hemoglobin Concent 33.3, Red Cell Distribution Width 12.8, Platelet Count 568H, Mean Platelet Volume 5.1L, Neutrophils (%) (Auto) 68.6, Lymphocytes (%) (Auto) 21.8, Monocytes (%) (Auto) 6.4, Eosinophils (%) (Auto) 2.1, Basophils (%) (Auto) 1.2, Sodium Level 135L, Potassium Level 4.4, Chloride Level 100, Carbon Dioxide Level 26, Anion Gap 9, Blood Urea Nitrogen 14, Creatinine 1.2, Estimat Glomerular Filtration Rate > 60, Glucose Level 118H, Calcium Level 9.1 Height (Feet): 5 Height (Inches): 7.00 Weight (Pounds): 187 Objective WDWN NAD clear breath sounds bilaterally without rhonchi or wheeze [id number] without MRG improved exam of abdomen no CCE nonfocal drain in place Elías Seals MD November 09, 2017 09:28
[2017-11-09 11:48] VITALS: BP 127/66
--- NOTE | 2017-11-09 12:48 | General Surgery Progress Note ---
General Surgery-Progress Note Subjective Procedure Performed open appendectomy , drainage of per-appendiceal abscess and partial omentectomy Objective Last 24 Hour Vital Signs Date Time Temp Pulse Resp B/P (MAP) Pulse Ox O2 Delivery O2 Flow Rate FiO2 11/09/17 11:48 96.3 82 18 127/66 100 96.3 11/09/17 08:00 98.2 83 18 127/95 100 98.2 11/09/17 04:00 98.1 73 20 126/70 100 Room Air 98.1 11/09/17 00:00 98.6 81 19 126/72 98 Room Air 98.6 11/08/17 20:00 98.4 75 18 133/66 99 Room Air 98.4 11/08/17 15:53 98.2 71 18 119/68 99 98.2 I&O Intake and Output 11/08/17 11/09/17 19:00 07:00 Intake Total 480 ml Balance 480 ml Intake Oral 480 ml # Voids 2 2 # Bowel Movements 1 Wound: clean, intact Drains: other - pigtail Respiratory: clear Abdomen: soft, flat, non-tender, present bowel sounds Laboratory Tests Test 11/08/17 14:00 11/09/17 05:25 White Blood Count 14.7 K/UL (4.8-10.8) H 14.6 K/UL (4.8-10.8) H Red Blood Count 5.06 M/UL (4.70-6.10) 4.98 M/UL (4.70-6.10) Hemoglobin 14.0 G/DL (14.2-18.0) L 13.7 G/DL (14.2-18.0) L Hematocrit 41.8 % (42.0-52.0) L 41.3 % (42.0-52.0) L Mean Corpuscular Volume 83 FL (80-99) 83 FL (80-99) Mean Corpuscular Hemoglobin 27.7 PG (27.0-31.0) 27.6 PG (27.0-31.0) Mean Corpuscular Hemoglobin Concent 33.5 G/DL (32.0-36.0) 33.3 G/DL (32.0-36.0) Red Cell Distribution Width 12.9 % (11.6-14.8) 12.8 % (11.6-14.8) Platelet Count 558 K/UL (150-450) H 568 K/UL (150-450) H Mean Platelet Volume 5.2 FL (6.5-10.1) L 5.1 FL (6.5-10.1) L Neutrophils (%) (Auto) 70.4 % (45.0-75.0) 68.6 % (45.0-75.0) Lymphocytes (%) (Auto) 21.9 % (20.0-45.0) 21.8 % (20.0-45.0) Monocytes (%) (Auto) 4.0 % (1.0-10.0) 6.4 % (1.0-10.0) Eosinophils (%) (Auto) 2.3 % (0.0-3.0) 2.1 % (0.0-3.0) Basophils (%) (Auto) 1.4 % (0.0-2.0) 1.2 % (0.0-2.0) Sodium Level 135 MMOL/L (136-145) L Potassium Level 4.4 MMOL/L (3.5-5.1) Chloride Level 100 MMOL/L (98-107) Carbon Dioxide Level 26 MMOL/L (21-32) Anion Gap 9 mmol/L (5-15) Blood Urea Nitrogen 14 mg/dL (7-18) Creatinine 1.2 MG/DL (0.55-1.30) Estimat Glomerular Filtration Rate > 60 mL/min (>60) Glucose Level 118 MG/DL (74-106) H Calcium Level 9.1 MG/DL (8.5-10.1) Assessment Post-op Diagnosis perfed appy with abscess Plan Additional Comments continue Antibiotics Sarah Richardson MD November 09, 2017 12:48
--- NOTE | 2017-11-09 13:50 | Diagnostic Imaging Report ---
Indication: Abdominal pain. History of abscess right lower quadrant status post percutaneous drain Technique: Continuous helical transaxial imaging of the abdomen and pelvis was obtained from the lung bases to the pubic symphysis during intravenous contrast administration. Coronal 2-D reformats were also obtained. Study obtained in a Siemens sensation [address] Automatic Exposure Control was utilized. Total Dose length Product (DLP): 770.[address] Dose Index Volume (CTDIvol): 13.68 mGy Comparison: 11/03/2017 CT Findings: Minimal atelectasis at the left lung base demonstrated. There is trace pericardial fluid present. The liver is unremarkable. The gallbladder is distended but unremarkable otherwise. There is nonspecific mesenteric stranding within the central part of the mesentery. Previous abscess collection in the right lower quadrant is resolved following percutaneous drainage. No residual abscess seen. The pigtail catheter is noted in good position. There is also a surgical drain present within the pelvis. Skin berto still present. No evidence of bowel obstruction, residual or new abscess. Urinary bladder is unremarkable. IMPRESSION: Interval resolution of right lower quadrant fluid collection presumably abscess. Percutaneous drain may be removed. Otherwise no change The CT scanner at [facility] is accredited by the [employer] and the scans are performed using dose optimization techniques as appropriate to a performed exam including Automatic Exposure control.
[2017-11-09 15:50] VITALS: BP 118/69
[2017-11-09] MEDS ORDERED: METRONIDAZOLE500 MG ORAL (17:28)
[2017-11-09] MEDS ORDERED: LEVAQUIN750 MG ORAL (17:28)
--- NOTE | 2017-11-10 18:30 | Discharge Summary ---
Discharge Summary Discharge Summary _ DATE OF ADMISSION: 10/28/2017 DATE OF DISCHARGE: 11/09/2017 CONSULTANTS: Dr. Sarah Schaefer BRIEF HOSPITAL COURSE: Patient is a 32-year-old -[place] male, who presented to ED complaining of abdominal pain. He was seen at the emergency room 2-3 days prior for constipation and was discharged home. He presented back to ED where he was noted to be febrile, WBC was elevated to 20 , CT imaging of the abdomen and pelvis showed 5.5 cm right lower quadrant fluid collection, possible perforated appendicitis. He was admitted for acute appendicitis. He was given pain management and was started on IV fluids and antibiotics. Surgical consultation was done. Patient required emergency surgery. He then underwent open appendectomy with drainage of periappendiceal abscess and partial omentectomy. He tolerated procedure well and postoperatively was given pain management and IV hydration. He was placed on Zosyn. He was passing flatus, awaiting return of bowel function. He had worsening leukocytosis. Repeat CT scan of the abdomen showed residual fluid collection in the right lower quadrant possible postoperative seroma. On 11/04/2017, he underwent successful aspiration and drainage of small postoperative right lower quadrant abscess. Abdominal fluid with growth of Escherichia coli, Streptococcus, bacteroid Branden , Fusobacterium. Antibiotic was switched to Levaquin and Flagyl. Diet was eventually advanced. Repeat CT scan on 11/09/2017 showed resolution of right lower quadrant fluid collection. Patient was eventually cleared for discharge. FINAL DIAGNOSES: Acute ruptured appendicitis status post open appendectomy Leukocytosis Postop seroma/abscess DISPOSITION: Patient was discharged home. DISCHARGE MEDICATIONS: Refer to Discharge Medication List. DISCHARGE INSTRUCTIONS: Follow up with in a week. I have been assigned to dictate discharge summary on this account, and I was not involved in the patient's management. Cris Jeffrey NP November 10, 2017 18:30
== END 2017-11-09 19:30 | disposition home or self-care (01) | DRG 225 ==
LOC: EMR 18:45 → 4W 20:52 → EDBEDREQ 22:10 → 4W 10-29 03:16
PROC: 0DTJ0ZZ Resection of Appendix, Open Approach (ICD-10-PCS; principal; 2017-10-29 23:45)
PROC: 0DBU0ZZ Excision of Omentum, Open Approach (ICD-10-PCS; principal; 2017-10-29 23:45)
PROC: 0W9G3ZZ Drainage of Peritoneal Cavity, Percutaneous Approach (ICD-10-PCS; 2017-11-04)
DX: K35.3 Acute appendicitis with localized peritonitis (principal); K91.872 Postprocedural seroma of a digestive system organ or structure following a digestive system procedure
CPT/HCPCS: 36415; 71045; 74177; 75989; 80048; 80053; 81003; 82962; 83690; 85007; 85025; 85610; 85730; 86850; 86900; 86901; 87070; 87075; 87181; 87205; 93005; 94003; 94150; 99285; A4246; C9399; J2250; J2405; J2765

== ENCOUNTER 2017-11-17 19:00 | Inpatient (IN) | payer MEDICAID ==
[~2017-11-17] VITALS: Ht 167.6 cm; Wt 83.5 kg
[~2017-11-17 19:00] MED LIST changes: +IBUPROFEN600 MG ORAL; +LEVAQUIN750 MG ORAL; +METRONIDAZOLE500 MG ORAL
[2017-11-17] MEDS ORDERED: Isovue-300 100ml vial INJ PRN (19:15)
[2017-11-17] MEDS ORDERED: Morphine Sulfate 4mg/ml Inj IVP ONE (19:15)
--- NOTE | 2017-11-17 19:20 | Emergency Room Report ---
History of Present Illness General Chief Complaint: To Be Triaged Source: Patient Present Illness HPI Patient present with complaints of lower abdominal pain reports that the pain started earlier today Patient has had vomiting and diarrhea Patient had appendectomy here on October 28 It appears that the patient also required tubes to be placed with abscess formation Patient had been doing well and again the symptoms started just recently unknown regarding fevers denies any rash Allergies: Coded Allergies: No Known Allergies (Unverified , 04/25/16) Patient History Past Medical History: see triage record Pertinent Family History: none Reviewed Nursing Documentation: PMH: Agreed; PSxH: Agreed Nursing Documentation-PMH Hx Asthma: Yes Review of Systems All Other Systems: negative except mentioned in HPI Physical Exam Sp02 EP Interpretation: reviewed, normal General Appearance: mild distress - Anxious Head: normocephalic, atraumatic Eyes: bilateral eye PERRL, bilateral eye EOMI ENT: hearing grossly normal, normal pharynx, TMs + canals normal, uvula midline Neck: full range of motion, supple, no meningismus, no bony tend Respiratory: lungs clear, normal breath sounds, no rhonchi, no respiratory distress, no retraction, no accessory muscle use Cardiovascular #1: normal peripheral pulses, regular rate, rhythm, no edema, no gallop, no JVD, no murmur Gastrointestinal: normal bowel sounds, soft, no mass, no organomegaly, non- distended, no guarding, no hernia, no pulsatile mass, no rebound, tenderness - Diffusely, difficult to obtain any appropriate examination Genitourinary: no CVA tenderness Musculoskeletal: normal inspection Neurologic: oriented x3, responsive, heading matcher and assembler III-XII nml as tested, motor strength/ tone normal, sensory intact Psychiatric: mood/affect normal Skin: other - Bandage in place in the lower abdomen initially the patient was in too much discomfort and very anxious did not allow evaluation Lymphatic: normal inspection, no adenopathy Medical Decision Making Diagnostic Impression: Primary Impression: Abdominal pain Additional Impressions: Vomiting Diarrhea ER Course With the history exam and presentation, multiple differentials considered, including but not limited to appendicitis, gastritis, cholecystitis, diverticulitis Patient had continued discomfort throughout his stay At this time has evidence of enteritis however given the recent antibiotic use increased concern for possible C. difficile colitis Patient initiated on antibiotics here cultures were ordered and patient admitted for further care Labs Test 11/17/17 19:35 11/19/17 09:15 White Blood Count 11.1 K/UL (4.8-10.8) 5.4 K/UL (4.8-10.8) Red Blood Count 5.10 M/UL (4.70-6.10) 4.91 M/UL (4.70-6.10) Hemoglobin 13.6 G/DL (14.2-18.0) 13.8 G/DL (14.2-18.0) Hematocrit 41.3 % (42.0-52.0) 40.4 % (42.0-52.0) Mean Corpuscular Volume 81 FL (80-99) 82 FL (80-99) Mean Corpuscular Hemoglobin 26.7 PG (27.0-31.0) 28.1 PG (27.0-31.0) Mean Corpuscular Hemoglobin Concent 32.9 G/DL (32.0-36.0) 34.1 G/DL (32.0-36.0) Red Cell Distribution Width 12.9 % (11.6-14.8) 12.9 % (11.6-14.8) Platelet Count 338 K/UL (150-450) 273 K/UL (150-450) Mean Platelet Volume 5.8 FL (6.5-10.1) 6.0 FL (6.5-10.1) Neutrophils (%) (Auto) 79.4 % (45.0-75.0) 47.1 % (45.0-75.0) Lymphocytes (%) (Auto) 14.5 % (20.0-45.0) 35.1 % (20.0-45.0) Monocytes (%) (Auto) 5.0 % (1.0-10.0) 12.2 % (1.0-10.0) Eosinophils (%) (Auto) 0.3 % (0.0-3.0) 4.2 % (0.0-3.0) Basophils (%) (Auto) 0.8 % (0.0-2.0) 1.3 % (0.0-2.0) Sodium Level 137 MMOL/L (136-145) 137 MMOL/L (136-145) Potassium Level 3.7 MMOL/L (3.5-5.1) 3.9 MMOL/L (3.5-5.1) Chloride Level 101 MMOL/L (98-107) 102 MMOL/L (98-107) Carbon Dioxide Level 27 MMOL/L (21-32) 25 MMOL/L (21-32) Anion Gap 9 mmol/L (5-15) 10 mmol/L (5-15) Blood Urea Nitrogen 10 mg/dL (7-18) 10 mg/dL (7-18) Creatinine 0.9 MG/DL (0.55-1.30) 0.9 MG/DL (0.55-1.30) Estimat Glomerular Filtration Rate > 60 mL/min (>60) > 60 mL/min (>60) Glucose Level 109 MG/DL (74-106) 105 MG/DL (74-106) Calcium Level 9.3 MG/DL (8.5-10.1) 9.3 MG/DL (8.5-10.1) Total Bilirubin 0.5 MG/DL (0.2-1.0) 0.3 MG/DL (0.2-1.0) Aspartate Amino Transf (AST/SGOT) 28 U/L (15-37) 26 U/L (15-37) Alanine Aminotransferase (ALT/SGPT) 44 U/L (12-78) 49 U/L (12-78) Alkaline Phosphatase 53 U/L (46-116) 52 U/L (46-116) Total Protein 7.9 G/DL (6.4-8.2) 7.7 G/DL (6.4-8.2) Albumin 3.3 G/DL (3.4-5.0) 3.1 G/DL (3.4-5.0) Globulin 4.6 g/dL 4.6 g/dL Albumin/Globulin Ratio 0.7 (1.0-2.7) 0.7 (1.0-2.7) Lipase 226 U/L (73-393) 333 U/L (73-393) Activated Partial Thromboplast Time 25 SEC (23-33) Amylase Level 80 U/L (25-115) CT/MRI/US Diagnostic Results CT/MRI/US Diagnostic Results : Impression CT abdomen pelvisIMPRESSION: Enterocolitis. No abscess. [facility] has communicated the preliminary results to the Emergency Department. Their findings are largely concordant with this report. Status: improved Disposition: ADMITTED INPATIENT Condition: Serious Hang Richardson DO Nov 17, 2017 19:20
[2017-11-17] MEDS ORDERED: LORazepam Inj 2mg/ml 1ml IV ONE (19:30)
[2017-11-17 19:51] LABS: BASOPHILS % (AUTO) 0.8 % (0.0-2.0); EOSINOPHILS % (AUTO) 0.3 % (0.0-3.0); HEMATOCRIT 41.3 % (42.0-52.0); HEMOGLOBIN 13.6 G/DL (14.2-18.0); LYMPHOCYTES % (AUTO) 14.5 % (20.0-45.0); MEAN CORPUSCULAR VOLUME 81 FL (80-99); NEUTROPHILS % (AUTO) 79.4 % (45.0-75.0); PLATELET COUNT 338 K/UL (150-450); RED CELL DISTRIBUTION WIDTH 12.9 % (11.6-14.8); WHITE BLOOD COUNT 11.1 K/UL (4.8-10.8)
[2017-11-17 20:00] LABS: ANION GAP 9 mmol/L (5-15); BLOOD UREA NITROGEN 10 mg/dL (7-18); CALCIUM 9.3 MG/DL (8.5-10.1); CARBON DIOXIDE 27 MMOL/L (21-32); CHLORIDE 101 MMOL/L (98-107); CREATININE 0.9 MG/DL (0.55-1.30); POTASSIUM 3.7 MMOL/L (3.5-5.1); SODIUM 137 MMOL/L (136-145)
[2017-11-17 20:05] LABS: ALANINE AMINOTRANSFERASE 44 U/L (12-78); ALBUMIN 3.3 G/DL (3.4-5.0); ALBUMIN/GLOBULIN RATIO 0.7 (1.0-2.7); ALKALINE PHOSPHATASE 53 U/L (46-116); ASPARTATE AMINO TRANSFERASE 28 U/L (15-37); BILIRUBIN,TOTAL 0.5 MG/DL (0.2-1.0)
[2017-11-17 22:16] VITALS: BP 133/74
[2017-11-18] VITALS (7 sets, daily range): BP systolic 118–136; BP diastolic 77–82
[2017-11-18] MEDS ORDERED: D5 1/2NS 1,000 ML IV SCH (07:26)
[2017-11-18] MEDS ORDERED: Nitroglycerin Subl 0.4mg tab SL PRN (07:30)
[2017-11-18] MEDS ORDERED: Mylanta II UD 30ml ORAL PRN (07:30)
[2017-11-18] MEDS ORDERED: LORazepam Inj 2mg/ml 1ml IV PRN (07:30)
[2017-11-18] MEDS ORDERED: Promethazine HCl 12.5 MG in NS 55 ML IV PRN (07:30)
[2017-11-18] MEDS ORDERED: Metoclopramide 10mg/2ml Inj IVP PRN (07:30)
[2017-11-18] MEDS ORDERED: Miralax 17gm pkt ORAL PRN (07:30)
[2017-11-18] MEDS: Pantoprazole Inj IV SCH (08:34)
[2017-11-18] MEDS: Heparin 5000 units/ml inj SUBQ SCH ×2 (08:35→20:44)
--- NOTE | 2017-11-18 09:10 | Diagnostic Imaging Report ---
Indication: Abdominal pain Technique: Continuous helical transaxial imaging of the abdomen and pelvis was obtained from the lung bases to the pubic symphysis during intravenous contrast administration. Coronal 2-D reformats were also obtained. Study obtained in a Siemens sensation [address] Automatic Exposure Control was utilized. Total Dose length Product (DLP): 895.[address] Dose Index Volume (CTDIvol): 15.91 mGy Comparison: None Findings: There is a thickening of the wall of multiple loops of small bowel which are also slightly distended and fluid-filled. This is most likely due to enteritis that is nonspecific. There is liquefied stool in the colon as well which shows mild thickening of the wall. There is no abscess or free fluid. There is no free air or evidence of a bowel obstruction. Appendectomy noted. Mild atelectasis noted at the left lung base. The gallbladder is unremarkable. Solid organs appear unremarkable. There is no hydronephrosis. IMPRESSION: Enterocolitis. No abscess. [facility] has communicated the preliminary results to the Emergency Department. Their findings are largely concordant with this report. The CT scanner at [facility] is accredited by the [employer] and the scans are performed using dose optimization techniques as appropriate to a performed exam including Automatic Exposure control.
--- NOTE | 2017-11-18 11:18 | Consultation ---
History of Present Illness General Date patient seen: Nov 18, 2017 Chief Complaint: Abdominal Pain Present Illness HPI 32 y/o M with hx of asthma as a child and recent rupture appendicitis and abscess formation s/p appendectomy 10/28 presents now to ED on 11/17 with 1 day lower abd pain, vomiting and diarrhea. Patietnt refers that after stopping abx he felt RUQ cramping abd discomfort, nausea. Vomiting and diarrhea starting yesterday. Has ahd several episodes of foul-smelling diarrhea since yesterday. Prior admission 10/28-11/09- perforated appendix with 5.5 cm right lower quadrant fluid collection -s/p emergent open appendectomy , I+D abscess and partial omentectomy 10/29; cx Chase S E.coli, Group C Strep; BACTEROIDES THETAIOTAOMICRON and FUSOBACTERIUM NECROPHORUM (both S to Unasyn and CLinda) -Repeat CT 11/04- residual fluid collection RLQ and s/p IR guided drainage -Treated with Zosyn x 6 days> Levaquin and Flagyl x 12 days (end date due to ) Tm 99.9, WBC 11.1 CT abd no abscess CDiff neg Allergies: Coded Allergies: No Known Allergies (Unverified , 04/25/16) Medication History Scheduled Levofloxacin* (Levaquin*), 750 MG ORAL DAILY, (Reported) Metronidazole* (Flagyl*), 500 MG ORAL EVERY 8 HOURS, (Reported) Na Phos,M-B/Na Phos,Di-Ba* (Fleet Enema*), 133 ML RECTAL DAILY Scheduled PRN Ibuprofen* (Motrin*), 600 MG ORAL Q8H PRN for For Pain, (Reported) Patient History Healthcare decision maker Resuscitation status Advanced Directive on File Patient History Narrative Pmhx: as above Shx: reviewed FHx: non contributory Review of Systems All Other Systems: negative except mentioned in HPI Physical Exam Physical Exam Narrative General Appearance: mild distress - Anxious HEENT: normocephalic, atraumatic, PERRL, normal pharynx Neck: full range of motion, supple, no meningismus, no bony tend Respiratory: lungs clear, normal breath sounds, no rhonchi, no respiratory distress, no retraction, no accessory muscle use Cardiovascular regular rate, rhythm, no edema, no gallop, no JVD, no murmur Gastrointestinal: normal bowel sounds, soft, no mass, no organomegaly, non- distended, no guarding, no hernia, no pulsatile mass, no rebound, tenderness - Diffusely,surgical incision healed, no signs of infection Genitourinary: no CVA tenderness Musculoskeletal: normal inspection Neurologic: oriented x3, responsive, core cutter and reamer III-XII nml as tested, motor strength/ tone normal, sensory intact SKIN: no cellulitis or rash Last 24 Hour Vital Signs Date Time Temp Pulse Resp B/P (MAP) Pulse Ox O2 Delivery O2 Flow Rate FiO2 11/18/17 09:00 98.2 80 18 130/77 98 98.2 11/18/17 08:00 98.2 80 18 130/77 98 Room Air 98.2 11/18/17 04:00 97.7 77 18 133/82 100 Room Air 97.7 11/18/17 00:50 98 11/18/17 00:50 99.9 84 18 136/80 Room Air 99.9 11/17/17 23:50 99.7 96 18 133/74 99 Room Air 99.7 11/17/17 22:16 99.7 96 18 133/74 99 Room Air 99.7 11/17/17 19:18 99.8 114 18 134/81 98 Room Air 99.9 Intake and Output 11/17/17 11/18/17 19:00 07:00 Intake Total 1200 ml Balance 1200 ml Intake Oral 200 ml IV Total 1000 ml # Voids 3 # Bowel Movements 7 Laboratory Tests Test 11/17/17 19:35 White Blood Count 11.1 K/UL (4.8-10.8) H Red Blood Count 5.10 M/UL (4.70-6.10) Hemoglobin 13.6 G/DL (14.2-18.0) L Hematocrit 41.3 % (42.0-52.0) L Mean Corpuscular Volume 81 FL (80-99) Mean Corpuscular Hemoglobin 26.7 PG (27.0-31.0) L Mean Corpuscular Hemoglobin Concent 32.9 G/DL (32.0-36.0) Red Cell Distribution Width 12.9 % (11.6-14.8) Platelet Count 338 K/UL (150-450) Mean Platelet Volume 5.8 FL (6.5-10.1) L Neutrophils (%) (Auto) 79.4 % (45.0-75.0) H Lymphocytes (%) (Auto) 14.5 % (20.0-45.0) L Monocytes (%) (Auto) 5.0 % (1.0-10.0) Eosinophils (%) (Auto) 0.3 % (0.0-3.0) Basophils (%) (Auto) 0.8 % (0.0-2.0) Sodium Level 137 MMOL/L (136-145) Potassium Level 3.7 MMOL/L (3.5-5.1) Chloride Level 101 MMOL/L (98-107) Carbon Dioxide Level 27 MMOL/L (21-32) Anion Gap 9 mmol/L (5-15) Blood Urea Nitrogen 10 mg/dL (7-18) Creatinine 0.9 MG/DL (0.55-1.30) Estimat Glomerular Filtration Rate > 60 mL/min (>60) Glucose Level 109 MG/DL (74-106) H Calcium Level 9.3 MG/DL (8.5-10.1) Total Bilirubin 0.5 MG/DL (0.2-1.0) Aspartate Amino Transf (AST/SGOT) 28 U/L (15-37) Alanine Aminotransferase (ALT/SGPT) 44 U/L (12-78) Alkaline Phosphatase 53 U/L (46-116) Total Protein 7.9 G/DL (6.4-8.2) Albumin 3.3 G/DL (3.4-5.0) L Globulin 4.6 g/dL Albumin/Globulin Ratio 0.7 (1.0-2.7) L Lipase 226 U/L (73-393) Microbiology Date/Time Source Procedure Growth Status 11/17/17 21:20 Stool Clostridium difficile Toxin Assay - Final Complete Height (Feet): 5 Height (Inches): 6.00 Weight (Pounds): 184 Medications Current Medications Medications (Trade) Dose Ordered Sig/Kelsea Route PRN Reason Start Time Stop Time Status Last Admin Dose Admin Acetaminophen (Tylenol) 650 mg Q4H PRN ORAL fever 11/18/17 07:30 12/18/17 07:29 Al Hydroxide/Mg Hydroxide (Mylanta II) 30 ml Q6H PRN ORAL dyspepsia 11/18/17 07:30 12/18/17 07:29 Dextrose (Dextrose 50%) 25 ml STAT PRN IV BS 60-69mg/dl 11/18/17 08:00 12/18/17 07:59 Dextrose (Dextrose 50%) 50 ml STAT PRN IV BS less than 60mg/dl 11/18/17 07:30 12/18/17 07:29 Dextrose/Sodium Chloride 1,000 ml @ 75 mls/hr [id number] IV 11/18/17 07:26 12/18/17 07:25 11/18/17 08:35 Diphenhydramine HCl (Benadryl) 25 mg Q6H PRN ORAL Itching/Pruritis 11/18/17 07:30 12/18/17 07:29 Heparin Sodium (Porcine) (Heparin 5000 units/ml) 5,000 units EVERY 12 HOURS SUBQ 11/18/17 09:00 12/18/17 08:59 Iopamidol (Isovue-300 100ml) 100 ml NOW PRN INJ Radiology Procedure 11/17/17 19:15 Lorazepam (Ativan 2mg/ml 1ml) 1 mg EVERY 4 HOURS PRN IV agitation 11/18/17 07:30 11/25/17 07:29 Metoclopramide HCl (Reglan) 10 mg EVERY 6 HOURS PRN IVP servere nauasea 11/18/17 07:30 12/18/17 07:29 Metronidazole (Flagyl) 500 mg EVERY 8 HOURS ORAL 11/18/17 14:00 11/25/17 23:59 Nitroglycerin (Ntg) 0.4 mg Q5M X 3 DOSES PRN SL Prn Chest Pain 11/18/17 07:30 12/18/17 07:29 Ondansetron HCl (Zofran) 4 mg Q6H PRN IVP Nausea & Vomiting 11/18/17 07:30 12/18/17 07:29 Pantoprazole (Protonix) 40 mg DAILY IV 11/18/17 09:00 12/18/17 08:59 11/18/17 08:34 Polyethylene Glycol (Miralax) 17 gm HSPRN PRN ORAL Constipation 11/18/17 07:30 12/18/17 07:29 Promethazine HCl 12.5 mg/Sodium Chloride 55.5 ml @ 110 mls/hr Q6H PRN IV Refractory N/V 11/18/17 07:30 12/18/17 07:29 UNV Promethazine HCl 25 mg/Sodium Chloride 56 ml @ 110 mls/hr Q6H PRN IV Refractory N/V 11/18/17 07:30 12/18/17 07:29 UNV Temazepam (Restoril) 15 mg HSPRN PRN ORAL Insomnia 11/18/17 07:30 11/25/17 07:29 Assessment/Plan Assessment/Plan Abx: Flagyl 11/17- Assessment: Likely Cdiff colitis ( despite neg test; this is Toxin A/B EIA which as poor sensitivity)- +recent abx and hospital admission, colitis in CT, multiple episodes of foul smelling diarrhea, leukocytosis Abd pain/n/v -CT abd/p w/: Enterocolitis. No abscess. Thickening of the wall of multiple loops of small bowel which are also slightly distended and fluid-filled. This is most likely due to enteritis that is nonspecific. There is liquefied stool in the colon as well which shows mild thickening of the wall. -C diff neg Leukocytosis, mild -afebrile Recent perforated appendix c/w RLQ abscess -s/p emergent open appendectomy , I+D abscess and partial omentectomy 10/29; cx Chase S E.coli, Group C Strep; BACTEROIDES THETAIOTAOMICRON and FUSOBACTERIUM NECROPHORUM (both S to Unasyn and CLinda) -Repeat CT 11/04- residual fluid collection RLQ and s/p IR guided drainage -Treated with Zosyn x 6 days> Levaquin and Flagyl x 17 days (end date due to ) Childhood Asthma NKDA Plan: -Switch Flagyl #07/27 to PO Vancomycin 125mg qid -stool cx -f/u cx -Monitor CBC/BMP, temperatures -f/u ABD us -wound care per hosp protocol -Cdiff precautions Thank you for this consultation. Will continue to follow along with you. Discussed with Manuela Cárdeans M.D. Nov 18, 2017 11:18
--- NOTE | 2017-11-18 11:34 | GI Initial Consult Note ---
History of Present Illness General Date patient seen: Nov 18, 2017 Time patient seen: 13:00 Reason for Hospitalization: Abdominal Pain Referring physician: MARLO HAINES Reason for Consultation: COLITIS Present Illness HPI Patient present with complaints of lower abdominal pain reports that the pain started earlier today Patient has had vomiting and diarrhea Patient had appendectomy here on October 28 It appears that the patient also required tubes to be placed with abscess formation Patient had been doing well and again the symptoms started just recently unknown regarding fevers denies any rash GI consulted for enterocolitis. Pt seen, awake A&Ox4 NAD with no active s/sx of N/V. Currently has complaint of diarrhea. States it is watery and very foul smelling. Had recently finished his course of abx for s/p appendectomy here at [place] last week. No history of endoscopy / colonoscopy. Home Meds Active Scripts Na Phos,M-B/Na Phos,Di-Ba* (FLEET ENEMA*) 133 Ml Enema, 133 ML RECTAL DAILY, # 133 ML 0 Refills Prov:Dionicio Hall MD 10/23/17 Reported Medications Metronidazole* (FLAGYL*) 500 Mg Tablet, 500 MG ORAL EVERY 8 HOURS, TAB 11/09/17 Levofloxacin* (LEVAQUIN*) 750 Mg Tablet, 750 MG ORAL DAILY, TAB 11/09/17 Ibuprofen* (MOTRIN*) 600 Mg Tablet, 600 MG ORAL Q8H PRN for For Pain, #30 TAB 0 Refills 10/28/17 Med list reviewed/reconciled: Yes Allergies: Coded Allergies: No Known Allergies (Unverified , 04/25/16) Patient History History Provided By: Patient, Medical Record PMH Narrative Past Medical History: see triage record Pertinent Family History: none Reviewed Nursing Documentation: PMH: Agreed; PSxH: Agreed Nursing Documentation-PMH Hx Asthma: Yes Social History: Denies: smoking, alcohol use, drug use, other Review of Systems All Other Systems: negative except mentioned in HPI Physical Exam Vital Signs Date Time Temp Pulse Resp B/P (MAP) Pulse Ox O2 Delivery O2 Flow Rate FiO2 11/17/17 19:18 99.8 114 18 134/81 98 Room Air 99.9 Sp02 EP Interpretation: reviewed, normal Labs Laboratory Tests Test 11/17/17 19:35 White Blood Count 11.1 K/UL (4.8-10.8) H Red Blood Count 5.10 M/UL (4.70-6.10) Hemoglobin 13.6 G/DL (14.2-18.0) L Hematocrit 41.3 % (42.0-52.0) L Mean Corpuscular Volume 81 FL (80-99) Mean Corpuscular Hemoglobin 26.7 PG (27.0-31.0) L Mean Corpuscular Hemoglobin Concent 32.9 G/DL (32.0-36.0) Red Cell Distribution Width 12.9 % (11.6-14.8) Platelet Count 338 K/UL (150-450) Mean Platelet Volume 5.8 FL (6.5-10.1) L Neutrophils (%) (Auto) 79.4 % (45.0-75.0) H Lymphocytes (%) (Auto) 14.5 % (20.0-45.0) L Monocytes (%) (Auto) 5.0 % (1.0-10.0) Eosinophils (%) (Auto) 0.3 % (0.0-3.0) Basophils (%) (Auto) 0.8 % (0.0-2.0) Sodium Level 137 MMOL/L (136-145) Potassium Level 3.7 MMOL/L (3.5-5.1) Chloride Level 101 MMOL/L (98-107) Carbon Dioxide Level 27 MMOL/L (21-32) Anion Gap 9 mmol/L (5-15) Blood Urea Nitrogen 10 mg/dL (7-18) Creatinine 0.9 MG/DL (0.55-1.30) Estimat Glomerular Filtration Rate > 60 mL/min (>60) Glucose Level 109 MG/DL (74-106) H Calcium Level 9.3 MG/DL (8.5-10.1) Total Bilirubin 0.5 MG/DL (0.2-1.0) Aspartate Amino Transf (AST/SGOT) 28 U/L (15-37) Alanine Aminotransferase (ALT/SGPT) 44 U/L (12-78) Alkaline Phosphatase 53 U/L (46-116) Total Protein 7.9 G/DL (6.4-8.2) Albumin 3.3 G/DL (3.4-5.0) L Globulin 4.6 g/dL Albumin/Globulin Ratio 0.7 (1.0-2.7) L Lipase 226 U/L (73-393) General Appearance: well appearing, no apparent distress, alert Head: normocephalic EENT: PERRL/EOMI, normal ENT inspection Neck: supple Respiratory: normal breath sounds, no respiratory distress Cardiovascular: normal rate Gastrointestinal: normal inspection, non tender, soft, normal bowel sounds, non -distended Rectal: deferred Genitourinary: deferred Musculoskeletal: normal inspection, back normal Neurologic: normal inspection, alert, oriented x3, responsive Psychiatric: normal inspection, judgement/insight normal, memory normal Skin: normal inspection, normal color, no rash, warm/dry, palpation normal, well hydrated Lymphatic: normal inspection, no adenopathy Current Medications Current Medications Medications (Trade) Dose Ordered Sig/Kelsea Route PRN Reason Start Time Stop Time Status Last Admin Dose Admin Acetaminophen (Tylenol) 650 mg Q4H PRN ORAL fever 11/18/17 07:30 12/18/17 07:29 Al Hydroxide/Mg Hydroxide (Mylanta II) 30 ml Q6H PRN ORAL dyspepsia 11/18/17 07:30 12/18/17 07:29 Dextrose (Dextrose 50%) 25 ml STAT PRN IV BS 60-69mg/dl 11/18/17 08:00 12/18/17 07:59 Dextrose (Dextrose 50%) 50 ml STAT PRN IV BS less than 60mg/dl 11/18/17 07:30 12/18/17 07:29 Dextrose/Sodium Chloride 1,000 ml @ 75 mls/hr [id number] IV 11/18/17 07:26 12/18/17 07:25 11/18/17 08:35 Diphenhydramine HCl (Benadryl) 25 mg Q6H PRN ORAL Itching/Pruritis 11/18/17 07:30 12/18/17 07:29 Heparin Sodium (Porcine) (Heparin 5000 units/ml) 5,000 units EVERY 12 HOURS SUBQ 11/18/17 09:00 12/18/17 08:59 Iopamidol (Isovue-300 100ml) 100 ml NOW PRN INJ Radiology Procedure 11/17/17 19:15 Lorazepam (Ativan 2mg/ml 1ml) 1 mg EVERY 4 HOURS PRN IV agitation 11/18/17 07:30 11/25/17 07:29 Metoclopramide HCl (Reglan) 10 mg EVERY 6 HOURS PRN IVP servere nauasea 11/18/17 07:30 12/18/17 07:29 Metronidazole (Flagyl) 500 mg EVERY 8 HOURS ORAL 11/18/17 14:00 11/25/17 23:59 Nitroglycerin (Ntg) 0.4 mg Q5M X 3 DOSES PRN SL Prn Chest Pain 11/18/17 07:30 12/18/17 07:29 Ondansetron HCl (Zofran) 4 mg Q6H PRN IVP Nausea & Vomiting 11/18/17 07:30 12/18/17 07:29 Pantoprazole (Protonix) 40 mg DAILY IV 11/18/17 09:00 12/18/17 08:59 11/18/17 08:34 Polyethylene Glycol (Miralax) 17 gm HSPRN PRN ORAL Constipation 11/18/17 07:30 12/18/17 07:29 Promethazine HCl 12.5 mg/Sodium Chloride 55.5 ml @ 110 mls/hr Q6H PRN IV Refractory N/V 11/18/17 07:30 12/18/17 07:29 UNV Promethazine HCl 25 mg/Sodium Chloride 56 ml @ 110 mls/hr Q6H PRN IV Refractory N/V 11/18/17 07:30 12/18/17 07:29 UNV Temazepam (Restoril) 15 mg HSPRN PRN ORAL Insomnia 11/18/17 07:30 11/25/17 07:29 GI: Plan Problems: (1) Colitis Plan CT AP reviewed >> enterocolitis cdiff negative CLD, adv as tolerated pain mgmt zofran prn abx fu labs Discussed with Dr. Goddard. Thank you for this patient referral, we will follow. The patient was seen and examined at bedside and all new and available data was reviewed in the patients chart. I agree with the above findings, impression and plan. (Patient seen earlier today. Signature stamp does not reflect patient encounter time.). - MD Elham Seo,[facility] DREDGE Nov 18, 2017 11:34
--- NOTE | 2017-11-18 11:49 | Consultation ---
History of Present Illness General Date patient seen: Nov 18, 2017 Chief Complaint: Abdominal Pain Reason for Consultation: abdominal pain, nausea, emesis, diarrhea Present Illness HPI 32 year old male with who was recently discharged 1 week ago after treatment for rupture appendicitis and abscess formation s/p appendectomy who returns to ED with 1 day lower abd pain, nausea, emesis and diarrhea. As per patient, he was doing well after discharge and completed his oral course of ABX yesterday when he began to have abdominal discomfort (ruq cramping), nausea, emesis, and episodes of foul smelling non bloody diarrhea. In ED found to have slight leukocytosis and CT with likely colitis. surgery called to evaluate for abdominal pain. Prior admission 10/28-11/09- perforated appendix with 5.5 cm right lower quadrant fluid collection -s/p emergent open appendectomy , I+D abscess and partial omentectomy 10/29; cx Chase S E.coli, Group C Strep; BACTEROIDES THETAIOTAOMICRON and FUSOBACTERIUM NECROPHORUM (both S to Unasyn and CLinda) -Repeat CT 11/04- residual fluid collection RLQ and s/p IR guided drainage -Treated with Zosyn x 6 days> Levaquin and Flagyl x 17 days (end date due to ) Allergies: Coded Allergies: No Known Allergies (Unverified , 04/25/16) Medication History Scheduled Levofloxacin* (Levaquin*), 750 MG ORAL DAILY, (Reported) Metronidazole* (Flagyl*), 500 MG ORAL EVERY 8 HOURS, (Reported) Na Phos,M-B/Na Phos,Di-Ba* (Fleet Enema*), 133 ML RECTAL DAILY Scheduled PRN Ibuprofen* (Motrin*), 600 MG ORAL Q8H PRN for For Pain, (Reported) Patient History History Provided By: Patient, Medical Record, PMD Healthcare decision maker Resuscitation status Advanced Directive on File Past Medical/Surgical History Past Medical/Surgical History: (1) H/O appendicitis (2) Pharyngitis (3) Constipation (4) Colitis Review of Systems All Other Systems: negative except mentioned in HPI Physical Exam General Appearance: no apparent distress Lines, tubes and drains: peripheral HEENT: atraumatic Neck: normal inspection Respiratory/Chest: normal breath sounds Cardiovascular/Chest: normal rate Abdomen: normal bowel sounds, soft, no organomegaly, no mass, tender - mild discomfort in RUQ Skin Exam: normal pigmentation Neurologic: alert, oriented x 3 Last 24 Hour Vital Signs Date Time Temp Pulse Resp B/P (MAP) Pulse Ox O2 Delivery O2 Flow Rate FiO2 11/18/17 09:00 98.2 80 18 130/77 98 98.2 11/18/17 08:00 98.2 80 18 130/77 98 Room Air 98.2 11/18/17 04:00 97.7 77 18 133/82 100 Room Air 97.7 11/18/17 00:50 98 11/18/17 00:50 99.9 84 18 136/80 Room Air 99.9 11/17/17 23:50 99.7 96 18 133/74 99 Room Air 99.7 11/17/17 22:16 99.7 96 18 133/74 99 Room Air 99.7 11/17/17 19:18 99.8 114 18 134/81 98 Room Air 99.9 Intake and Output 11/17/17 11/18/17 19:00 07:00 Intake Total 1200 ml Balance 1200 ml Intake Oral 200 ml IV Total 1000 ml # Voids 3 # Bowel Movements 7 Laboratory Tests Test 11/17/17 19:35 White Blood Count 11.1 K/UL (4.8-10.8) H Red Blood Count 5.10 M/UL (4.70-6.10) Hemoglobin 13.6 G/DL (14.2-18.0) L Hematocrit 41.3 % (42.0-52.0) L Mean Corpuscular Volume 81 FL (80-99) Mean Corpuscular Hemoglobin 26.7 PG (27.0-31.0) L Mean Corpuscular Hemoglobin Concent 32.9 G/DL (32.0-36.0) Red Cell Distribution Width 12.9 % (11.6-14.8) Platelet Count 338 K/UL (150-450) Mean Platelet Volume 5.8 FL (6.5-10.1) L Neutrophils (%) (Auto) 79.4 % (45.0-75.0) H Lymphocytes (%) (Auto) 14.5 % (20.0-45.0) L Monocytes (%) (Auto) 5.0 % (1.0-10.0) Eosinophils (%) (Auto) 0.3 % (0.0-3.0) Basophils (%) (Auto) 0.8 % (0.0-2.0) Sodium Level 137 MMOL/L (136-145) Potassium Level 3.7 MMOL/L (3.5-5.1) Chloride Level 101 MMOL/L (98-107) Carbon Dioxide Level 27 MMOL/L (21-32) Anion Gap 9 mmol/L (5-15) Blood Urea Nitrogen 10 mg/dL (7-18) Creatinine 0.9 MG/DL (0.55-1.30) Estimat Glomerular Filtration Rate > 60 mL/min (>60) Glucose Level 109 MG/DL (74-106) H Calcium Level 9.3 MG/DL (8.5-10.1) Total Bilirubin 0.5 MG/DL (0.2-1.0) Aspartate Amino Transf (AST/SGOT) 28 U/L (15-37) Alanine Aminotransferase (ALT/SGPT) 44 U/L (12-78) Alkaline Phosphatase 53 U/L (46-116) Total Protein 7.9 G/DL (6.4-8.2) Albumin 3.3 G/DL (3.4-5.0) L Globulin 4.6 g/dL Albumin/Globulin Ratio 0.7 (1.0-2.7) L Lipase 226 U/L (73-393) Microbiology Date/Time Source Procedure Growth Status 11/17/17 21:20 Stool Clostridium difficile Toxin Assay - Final Complete Height (Feet): 5 Height (Inches): 6.00 Weight (Pounds): 184 Medications Current Medications Medications (Trade) Dose Ordered Sig/Kelsea Route PRN Reason Start Time Stop Time Status Last Admin Dose Admin Acetaminophen (Tylenol) 650 mg Q4H PRN ORAL fever 11/18/17 07:30 12/18/17 07:29 Al Hydroxide/Mg Hydroxide (Mylanta II) 30 ml Q6H PRN ORAL dyspepsia 11/18/17 07:30 12/18/17 07:29 Dextrose (Dextrose 50%) 25 ml STAT PRN IV BS 60-69mg/dl 11/18/17 08:00 12/18/17 07:59 Dextrose (Dextrose 50%) 50 ml STAT PRN IV BS less than 60mg/dl 11/18/17 07:30 12/18/17 07:29 Dextrose/Sodium Chloride 1,000 ml @ 75 mls/hr [id number] IV 11/18/17 07:26 12/18/17 07:25 11/18/17 08:35 Diphenhydramine HCl (Benadryl) 25 mg Q6H PRN ORAL Itching/Pruritis 11/18/17 07:30 12/18/17 07:29 Heparin Sodium (Porcine) (Heparin 5000 units/ml) 5,000 units EVERY 12 HOURS SUBQ 11/18/17 09:00 12/18/17 08:59 Iopamidol (Isovue-300 100ml) 100 ml NOW PRN INJ Radiology Procedure 11/17/17 19:15 Lorazepam (Ativan 2mg/ml 1ml) 1 mg EVERY 4 HOURS PRN IV agitation 11/18/17 07:30 11/25/17 07:29 Metoclopramide HCl (Reglan) 10 mg EVERY 6 HOURS PRN IVP servere nauasea 11/18/17 07:30 12/18/17 07:29 Metronidazole (Flagyl) 500 mg EVERY 8 HOURS ORAL 11/18/17 14:00 11/25/17 23:59 Nitroglycerin (Ntg) 0.4 mg Q5M X 3 DOSES PRN SL Prn Chest Pain 11/18/17 07:30 12/18/17 07:29 Ondansetron HCl (Zofran) 4 mg Q6H PRN IVP Nausea & Vomiting 11/18/17 07:30 12/18/17 07:29 Pantoprazole (Protonix) 40 mg DAILY IV 11/18/17 09:00 12/18/17 08:59 11/18/17 08:34 Polyethylene Glycol (Miralax) 17 gm HSPRN PRN ORAL Constipation 11/18/17 07:30 12/18/17 07:29 Promethazine HCl 12.5 mg/Sodium Chloride 55.5 ml @ 110 mls/hr Q6H PRN IV Refractory N/V 11/18/17 07:30 12/18/17 07:29 UNV Promethazine HCl 25 mg/Sodium Chloride 56 ml @ 110 mls/hr Q6H PRN IV Refractory N/V 11/18/17 07:30 7/8/18 07:29 UNV Temazepam (Restoril) 15 mg HSPRN PRN ORAL Insomnia 11/18/17 07:30 11/25/17 07:29 Assessment/Plan Problem List: (1) Colitis Assessment & Plan: 32M with likely colitis/enteritis from abx. afebrile, HD stable, mild leukocytosis. CT reviewed and no abscess noted. mild enteritis. exam with mild ruq discomfort. hx of recent appy for perforated appendicitis with abscess. c diff negative. -okay for diet from surgical standpoint -abx as per ID -trend labs. will follow exam. thank you for this consultation. ICD Codes: K52.9 - Noninfective gastroenteritis and colitis, unspecified SNOMED: 82783344 Status: stable Constantin Monzon Nov 18, 2017 11:49
[2017-11-18] MEDS ORDERED: D5W IV PRN (13:00)
[2017-11-18] MEDS ORDERED: PROMETHAZINE HCL IV PRN (13:00)
--- NOTE | 2017-11-18 13:08 | Diagnostic Imaging Report ---
Indication:Abdominal pain Technique: Grayscale and duplex Doppler imaging of the abdomen performed. Comparison: None Findings: The liver, demonstrated part of the pancreas, gallbladder, aorta and IVC, both kidneys, spleen appear unremarkable. There is no biliary ductal dilatation identified. Doppler evaluation of the main portal vein shows patency. There is no ascites. No hydronephrosis seen. Impression: No acute findings.
[2017-11-18] MEDS: Vancomycin oral 125mg/2.5ml ORAL SCH ×3 (13:26→20:45)
[2017-11-18] MEDS ORDERED: metroNIDAZOLE 500mg tab ORAL SCH (14:00)
[2017-11-19] VITALS: BP 121/72
--- NOTE | 2017-11-19 01:15 | History and Physical Report ---
DATE OF ADMISSION: 11/17/2017 CONSULTANTS: 1. Jae Benavides M.D. 2. Jay Vogel M.D. 3. Constantin Monzon M.D. 4. Pillo Goddard M.D. CHIEF COMPLAINT: Abdominal pain, recent perforated appendectomy, colitis. BRIEF HISTORY: The patient is a 32-year-old male, who lives at home, presented with abdominal pain for three days, slight nausea. The patient does have recent perforated appendectomy surgery and came into [facility], diagnosed with the above, admitted to medical floor for further treatment. Currently calm in bed. No complaint. PAST MEDICAL HISTORY: Appendectomy. PAST SURGICAL HISTORY: Recent appendectomy. MEDICATIONS: Vancomycin, heparin, Protonix, Tylenol, Zofran, Restoril, Benadryl, nitroglycerin, and Reglan. ALLERGIES: Denies. SOCIAL HISTORY: No smoking. No alcohol. Positive marijuana use. REVIEW OF SYSTEMS: No chest pain. No shortness of breath. Slight nausea. No vomiting. No diarrhea. PHYSICAL EXAMINATION: GENERAL: Calm in bed, oriented x3, in no acute distress. VITAL SIGNS: Temperature is 98 degrees, pulse 66, respiratory rate 18, blood pressure 133/77. CARDIOVASCULAR: No murmur. LUNGS: Distant and clear. ABDOMEN: Bowel sound positive. Nontender. Nondistended. EXTREMITIES: No cyanosis, clubbing, or edema. NEUROLOGIC: The patient moves all extremities, slightly weak. LABORATORY AND DIAGNOSTIC DATA: White count 11, hemoglobin and hematocrit 13/41, and platelets 330, otherwise, CBC is normal. BMP shows glucose 109, albumin 3.3, otherwise BMP is normal. ASSESSMENT: 1. Abdominal pain. 2. Weakness. 3. Status post appendectomy. 4. Colitis. 5. Right leg slightly numb. 6. Diarrhea. PLAN: 1. Continue previous medications. 2. Pain control. 3. GI followup. 4. Antibiotics per Infectious Disease. 5. OT/PT. 6. Dietary evaluation. 7. CBC and BMP in the morning. 8. We will continue to follow the patient. Franklyn Neves D.O. DR: MARIE JOB#: [id number] CC:
[2017-11-19 04:00] VITALS: BP 128/80
[2017-11-19 08:00] VITALS: BP 149/66
[2017-11-19] MEDS: Heparin 5000 units/ml inj SUBQ SCH ×2 (09:00→21:00)
[2017-11-19] MEDS: Vancomycin oral 125mg/2.5ml ORAL SCH ×4 (09:05→21:01)
[2017-11-19] MEDS: Pantoprazole Inj IV SCH (09:05)
[2017-11-19 09:33] LABS: BASOPHILS % (AUTO) 1.3 % (0.0-2.0); EOSINOPHILS % (AUTO) 4.2 % (0.0-3.0); HEMATOCRIT 40.4 % (42.0-52.0); HEMOGLOBIN 13.8 G/DL (14.2-18.0); LYMPHOCYTES % (AUTO) 35.1 % (20.0-45.0); MEAN CORPUSCULAR VOLUME 82 FL (80-99); MONOCYTES % (AUTO) 12.2 % (1.0-10.0); NEUTROPHILS % (AUTO) 47.1 % (45.0-75.0); PLATELET COUNT 273 K/UL (150-450); RED BLOOD COUNT 4.91 M/UL (4.70-6.10); RED CELL DISTRIBUTION WIDTH 12.9 % (11.6-14.8); WHITE BLOOD COUNT 5.4 K/UL (4.8-10.8)
--- NOTE | 2017-11-19 09:35 | General Progress Note ---
Assessment/Plan Problem List: (1) Abdominal pain ICD Codes: R10.9 - Unspecified abdominal pain SNOMED: 75439629 (2) Diarrhea ICD Codes: R19.7 - Diarrhea, unspecified SNOMED: 00829113 (3) Colitis ICD Codes: K52.9 - Noninfective gastroenteritis and colitis, unspecified SNOMED: 09928328 (4) H/O appendicitis ICD Codes: Z87.19 - Personal history of other diseases of the digestive system SNOMED: 730606295 Status: stable, progressing Assessment/Plan diet f/u abx pain control gi sx f/u cbc bmp am Subjective Constitutional: Reports: weakness Allergies: Coded Allergies: No Known Allergies (Unverified , 04/25/16) All Systems: reviewed and negative except above Subjective calm in bed Objective Last 24 Hour Vital Signs Date Time Temp Pulse Resp B/P (MAP) Pulse Ox O2 Delivery O2 Flow Rate FiO2 11/19/17 08:00 98.2 73 18 149/66 100 Room Air 98.2 11/19/17 04:00 97.9 65 18 128/80 100 Room Air 97.9 11/19/17 04:00 97.7 58 18 128/80 100 97.7 11/19/17 00:00 97.8 77 18 121/72 100 Room Air 97.8 11/18/17 20:00 98.2 72 16 118/77 99 Room Air 98.2 11/18/17 16:00 97.0 67 18 123/79 100 Room Air 97.0 11/18/17 12:00 98.2 63 18 133/77 98 98.2 Intake and Output 11/18/17 11/19/17 19:00 07:00 Intake Total 1235 ml 500 ml Balance 1235 ml 500 ml Intake Oral 900 ml 500 ml IV Total 335 ml # Voids 3 2 # Bowel Movements 2 4 Laboratory Tests 11/19/17 09:15: White Blood Count [Pending], Red Blood Count [Pending], Hemoglobin [Pending], Hematocrit [Pending], Mean Corpuscular Volume [Pending], Mean Corpuscular Hemoglobin [Pending], Mean Corpuscular Hemoglobin Concent [Pending], Red Cell Distribution Width [Pending], Platelet Count [Pending], Mean Platelet Volume [ Pending], Neutrophils (%) (Auto) [Pending], Lymphocytes (%) (Auto) [Pending], Monocytes (%) (Auto) [Pending], Eosinophils (%) (Auto) [Pending], Basophils (%) (Auto) [Pending], Activated Partial Thromboplast Time [Pending], Sodium Level [ Pending], Potassium Level [Pending], Chloride Level [Pending], Carbon Dioxide Level [Pending], Blood Urea Nitrogen [Pending], Creatinine [Pending], Estimat Glomerular Filtration Rate [Pending], Glucose Level [Pending], Calcium Level [ Pending], Total Bilirubin [Pending], Aspartate Amino Transf (AST/SGOT) [Pending] , Alanine Aminotransferase (ALT/SGPT) [Pending], Alkaline Phosphatase [Pending] , Total Protein [Pending], Albumin [Pending], Globulin [Pending], Amylase Level [Pending], Lipase [Pending] Height (Feet): 5 Height (Inches): 6.00 Weight (Pounds): 184 General Appearance: alert EENT: normal ENT inspection Neck: normal alignment Cardiovascular: normal peripheral pulses, normal rate, regular rhythm Respiratory/Chest: chest wall non-tender, lungs clear, normal breath sounds Abdomen: normal bowel sounds, non tender, soft Extremities: normal inspection Edema: no edema noted Arm (L), no edema noted Arm (R), no edema noted Leg (L), no edema noted Leg (R), no edema noted Pedal (L), no edema noted Pedal (R), no edema noted Generalized Neurologic: responsive, motor weakness Skin: normal pigmentation, warm/dry Franklyn Neves DO Nov 19, 2017 09:35
--- NOTE | 2017-11-19 09:46 | General Progress Note ---
Assessment/Plan Problem List: (1) Abdominal pain ICD Codes: R10.9 - Unspecified abdominal pain SNOMED: 95107179 (2) Diarrhea ICD Codes: R19.7 - Diarrhea, unspecified SNOMED: 36092900 Assessment/Plan dc protonix and miralax fu labs diet possible dc Subjective ROS Limited/Unobtainable: Yes Allergies: Coded Allergies: No Known Allergies (Unverified , 04/25/16) Objective Last 24 Hour Vital Signs Date Time Temp Pulse Resp B/P (MAP) Pulse Ox O2 Delivery O2 Flow Rate FiO2 11/19/17 08:00 98.2 73 18 149/66 100 Room Air 98.2 11/19/17 04:00 97.9 65 18 128/80 100 Room Air 97.9 11/19/17 04:00 97.7 58 18 128/80 100 97.7 11/19/17 00:00 97.8 77 18 121/72 100 Room Air 97.8 11/18/17 20:00 98.2 72 16 118/77 99 Room Air 98.2 11/18/17 16:00 97.0 67 18 123/79 100 Room Air 97.0 11/18/17 12:00 98.2 63 18 133/77 98 98.2 Intake and Output 11/18/17 11/19/17 19:00 07:00 Intake Total 1235 ml 500 ml Balance 1235 ml 500 ml Intake Oral 900 ml 500 ml IV Total 335 ml # Voids 3 2 # Bowel Movements 2 4 Laboratory Tests 11/19/17 09:15: White Blood Count [Pending], Red Blood Count [Pending], Hemoglobin [Pending], Hematocrit [Pending], Mean Corpuscular Volume [Pending], Mean Corpuscular Hemoglobin [Pending], Mean Corpuscular Hemoglobin Concent [Pending], Red Cell Distribution Width [Pending], Platelet Count [Pending], Mean Platelet Volume [ Pending], Neutrophils (%) (Auto) [Pending], Lymphocytes (%) (Auto) [Pending], Monocytes (%) (Auto) [Pending], Eosinophils (%) (Auto) [Pending], Basophils (%) (Auto) [Pending], Activated Partial Thromboplast Time [Pending], Sodium Level [ Pending], Potassium Level [Pending], Chloride Level [Pending], Carbon Dioxide Level [Pending], Blood Urea Nitrogen [Pending], Creatinine [Pending], Estimat Glomerular Filtration Rate [Pending], Glucose Level [Pending], Calcium Level [ Pending], Total Bilirubin [Pending], Aspartate Amino Transf (AST/SGOT) [Pending] , Alanine Aminotransferase (ALT/SGPT) [Pending], Alkaline Phosphatase [Pending] , Total Protein [Pending], Albumin [Pending], Globulin [Pending], Amylase Level [Pending], Lipase [Pending] Height (Feet): 5 Height (Inches): 6.00 Weight (Pounds): 184 General Appearance: alert EENT: normal ENT inspection Neck: supple Cardiovascular: normal rate Respiratory/Chest: lungs clear Abdomen: normal bowel sounds, non tender, soft Extremities: non-tender Pillo Goddard MD Nov 19, 2017 09:46
[2017-11-19 09:53] LABS: ALANINE AMINOTRANSFERASE 49 U/L (12-78); ALBUMIN 3.1 G/DL (3.4-5.0); ALBUMIN/GLOBULIN RATIO 0.7 (1.0-2.7); ALKALINE PHOSPHATASE 52 U/L (46-116); AMYLASE 80 U/L (25-115); ANION GAP 10 mmol/L (5-15); ASPARTATE AMINO TRANSFERASE 26 U/L (15-37); BILIRUBIN,TOTAL 0.3 MG/DL (0.2-1.0); BLOOD UREA NITROGEN 10 mg/dL (7-18); CALCIUM 9.3 MG/DL (8.5-10.1); CARBON DIOXIDE 25 MMOL/L (21-32); CHLORIDE 102 MMOL/L (98-107); CREATININE 0.9 MG/DL (0.55-1.30); POTASSIUM 3.9 MMOL/L (3.5-5.1); SODIUM 137 MMOL/L (136-145)
[2017-11-19] MEDS ORDERED: D5 1/2NS 1000ml IV ONE (11:40)
[2017-11-19 12:00] VITALS: BP 134/80
--- NOTE | 2017-11-19 12:44 | General Surgery Progress Note ---
General Surgery-Progress Note Subjective Symptoms: improved, tolerating diet, passing flatus, BM Additional Comments pain improved. feels bloated. having BM's which are hardening up and not as loose. no n/v/f/c. Objective Last 24 Hour Vital Signs Date Time Temp Pulse Resp B/P (MAP) Pulse Ox O2 Delivery O2 Flow Rate FiO2 11/19/17 12:00 97.2 73 18 134/80 100 Room Air 97.2 11/19/17 08:00 98.2 73 18 149/66 100 Room Air 98.2 11/19/17 04:00 97.9 65 18 128/80 100 Room Air 97.9 11/19/17 04:00 97.7 58 18 128/80 100 97.7 11/19/17 00:00 97.8 77 18 121/72 100 Room Air 97.8 11/18/17 20:00 98.2 72 16 118/77 99 Room Air 98.2 11/18/17 16:00 97.0 67 18 123/79 100 Room Air 97.0 I&O Intake and Output 11/18/17 11/19/17 19:00 07:00 Intake Total 1235 ml 500 ml Balance 1235 ml 500 ml Intake Oral 900 ml 500 ml IV Total 335 ml # Voids 3 2 # Bowel Movements 2 4 Drains: none Cardiovascular: RSR Respiratory: clear Abdomen: soft, distended, non-tender, tenderness - mild RUQ tendeness , present bowel sounds Extremities: no edema, no tenderness, no cyanosis Laboratory Tests Test 11/19/17 09:15 White Blood Count 5.4 K/UL (4.8-10.8) Red Blood Count 4.91 M/UL (4.70-6.10) Hemoglobin 13.8 G/DL (14.2-18.0) L Hematocrit 40.4 % (42.0-52.0) L Mean Corpuscular Volume 82 FL (80-99) Mean Corpuscular Hemoglobin 28.1 PG (27.0-31.0) Mean Corpuscular Hemoglobin Concent 34.1 G/DL (32.0-36.0) Red Cell Distribution Width 12.9 % (11.6-14.8) Platelet Count 273 K/UL (150-450) Mean Platelet Volume 6.0 FL (6.5-10.1) L Neutrophils (%) (Auto) 47.1 % (45.0-75.0) Lymphocytes (%) (Auto) 35.1 % (20.0-45.0) Monocytes (%) (Auto) 12.2 % (1.0-10.0) H Eosinophils (%) (Auto) 4.2 % (0.0-3.0) H Basophils (%) (Auto) 1.3 % (0.0-2.0) Activated Partial Thromboplast Time 25 SEC (23-33) Sodium Level 137 MMOL/L (136-145) Potassium Level 3.9 MMOL/L (3.5-5.1) Chloride Level 102 MMOL/L (98-107) Carbon Dioxide Level 25 MMOL/L (21-32) Anion Gap 10 mmol/L (5-15) Blood Urea Nitrogen 10 mg/dL (7-18) Creatinine 0.9 MG/DL (0.55-1.30) Estimat Glomerular Filtration Rate > 60 mL/min (>60) Glucose Level 105 MG/DL (74-106) Calcium Level 9.3 MG/DL (8.5-10.1) Total Bilirubin 0.3 MG/DL (0.2-1.0) Aspartate Amino Transf (AST/SGOT) 26 U/L (15-37) Alanine Aminotransferase (ALT/SGPT) 49 U/L (12-78) Alkaline Phosphatase 52 U/L (46-116) Total Protein 7.7 G/DL (6.4-8.2) Albumin 3.1 G/DL (3.4-5.0) L Globulin 4.6 g/dL Albumin/Globulin Ratio 0.7 (1.0-2.7) L Amylase Level 80 U/L (25-115) Lipase 333 U/L (73-393) Plan Problems: (1) Colitis Assessment & Plan: 32M with likely colitis/enteritis from abx. afebrile, HD stable, mild leukocytosis. CT reviewed and no abscess noted. mild enteritis. exam with mild ruq discomfort. hx of recent appy for perforated appendicitis with abscess. c diff negative. -okay for diet from surgical standpoint -abx as per ID -trend labs. -colitis should resolve over the next few days. will follow exam. thank you for this consultation. Constantin Monzon Nov 19, 2017 12:44
[2017-11-19 16:00] VITALS: BP 126/59
[2017-11-19 20:00] VITALS: BP 124/67
[2017-11-20] VITALS: BP 136/84
[2017-11-20 04:00] VITALS: BP 119/79
[2017-11-20 08:00] VITALS: BP 125/78
[2017-11-20] MEDS ORDERED: Simethicone 80mg tab ORAL PRN (08:15)
--- NOTE | 2017-11-20 08:18 | General Progress Note ---
Assessment/Plan Problem List: (1) Abdominal pain ICD Codes: R10.9 - Unspecified abdominal pain SNOMED: 56594587 (2) Diarrhea ICD Codes: R19.7 - Diarrhea, unspecified SNOMED: 58299909 Assessment/Plan neg C.diff add lactobaccilus, simethicone and protonix patient was reassured about neg CT and us fu labs diet diarrhea is better Subjective ROS Limited/Unobtainable: Yes Allergies: Coded Allergies: No Known Allergies (Unverified , 04/25/16) Subjective c/o RUQ abd pain Objective Last 24 Hour Vital Signs Date Time Temp Pulse Resp B/P (MAP) Pulse Ox O2 Delivery O2 Flow Rate FiO2 11/20/17 04:00 98.4 75 18 119/79 100 Room Air 98.4 11/20/17 00:00 98.5 77 18 136/84 99 Room Air 98.5 11/19/17 20:00 98.1 78 18 124/67 99 Room Air 98.1 11/19/17 16:00 97.9 69 19 126/59 98 Room Air 97.9 11/19/17 15:21 97.2 11/19/17 14:22 97.2 11/19/17 12:00 97.2 73 18 134/80 100 Room Air 97.2 Intake and Output 11/19/17 11/20/17 19:00 07:00 Intake Total 620 ml Balance 620 ml Intake Oral 620 ml # Voids 3 4 Laboratory Tests 11/19/17 09:15: White Blood Count 5.4, Red Blood Count 4.91, Hemoglobin 13.8L, Hematocrit 40.4L , Mean Corpuscular Volume 82, Mean Corpuscular Hemoglobin 28.1, Mean Corpuscular Hemoglobin Concent 34.1, Red Cell Distribution Width 12.9, Platelet Count 273, Mean Platelet Volume 6.0L, Neutrophils (%) (Auto) 47.1, Lymphocytes ( %) (Auto) 35.1, Monocytes (%) (Auto) 12.2H, Eosinophils (%) (Auto) 4.2H, Basophils (%) (Auto) 1.3, Activated Partial Thromboplast Time 25, Sodium Level 137, Potassium Level 3.9, Chloride Level 102, Carbon Dioxide Level 25, Anion Gap 10, Blood Urea Nitrogen 10, Creatinine 0.9, Estimat Glomerular Filtration Rate > 60, Glucose Level 105, Calcium Level 9.3, Total Bilirubin 0.3, Aspartate Amino Transf (AST/SGOT) 26, Alanine Aminotransferase (ALT/SGPT) 49, Alkaline Phosphatase 52, Total Protein 7.7, Albumin 3.1L, Globulin 4.6, Albumin/Globulin Ratio 0.7L, Amylase Level 80, Lipase 333 Height (Feet): 5 Height (Inches): 6.00 Weight (Pounds): 184 General Appearance: alert EENT: normal ENT inspection Neck: supple Cardiovascular: normal rate Respiratory/Chest: lungs clear Abdomen: normal bowel sounds, soft, tender Extremities: non-tender Pillo Goddard MD Nov 20, 2017 08:18
--- NOTE | 2017-11-20 08:35 | General Progress Note ---
Assessment/Plan Problem List: (1) Abdominal pain ICD Codes: R10.9 - Unspecified abdominal pain SNOMED: 89514530 (2) Diarrhea ICD Codes: R19.7 - Diarrhea, unspecified SNOMED: 12843118 (3) Colitis ICD Codes: K52.9 - Noninfective gastroenteritis and colitis, unspecified SNOMED: 37873523 (4) H/O appendicitis ICD Codes: Z87.19 - Personal history of other diseases of the digestive system SNOMED: 663642486 Status: stable, progressing Assessment/Plan diet f/u abx pain control gi sx f/u cbc bmp am dc if clear by gi sx Subjective Constitutional: Reports: weakness Allergies: Coded Allergies: No Known Allergies (Unverified , 04/25/16) All Systems: reviewed and negative except above Subjective calm in bed sl abd pain Objective Last 24 Hour Vital Signs Date Time Temp Pulse Resp B/P (MAP) Pulse Ox O2 Delivery O2 Flow Rate FiO2 11/20/17 04:00 98.4 75 18 119/79 100 Room Air 98.4 11/20/17 00:00 98.5 77 18 136/84 99 Room Air 98.5 11/19/17 20:00 98.1 78 18 124/67 99 Room Air 98.1 11/19/17 16:00 97.9 69 19 126/59 98 Room Air 97.9 11/19/17 15:21 97.2 11/19/17 14:22 97.2 11/19/17 12:00 97.2 73 18 134/80 100 Room Air 97.2 Intake and Output 11/19/17 11/20/17 19:00 07:00 Intake Total 620 ml Balance 620 ml Intake Oral 620 ml # Voids 3 4 Laboratory Tests 11/19/17 09:15: White Blood Count 5.4, Red Blood Count 4.91, Hemoglobin 13.8L, Hematocrit 40.4L , Mean Corpuscular Volume 82, Mean Corpuscular Hemoglobin 28.1, Mean Corpuscular Hemoglobin Concent 34.1, Red Cell Distribution Width 12.9, Platelet Count 273, Mean Platelet Volume 6.0L, Neutrophils (%) (Auto) 47.1, Lymphocytes ( %) (Auto) 35.1, Monocytes (%) (Auto) 12.2H, Eosinophils (%) (Auto) 4.2H, Basophils (%) (Auto) 1.3, Activated Partial Thromboplast Time 25, Sodium Level 137, Potassium Level 3.9, Chloride Level 102, Carbon Dioxide Level 25, Anion Gap 10, Blood Urea Nitrogen 10, Creatinine 0.9, Estimat Glomerular Filtration Rate > 60, Glucose Level 105, Calcium Level 9.3, Total Bilirubin 0.3, Aspartate Amino Transf (AST/SGOT) 26, Alanine Aminotransferase (ALT/SGPT) 49, Alkaline Phosphatase 52, Total Protein 7.7, Albumin 3.1L, Globulin 4.6, Albumin/Globulin Ratio 0.7L, Amylase Level 80, Lipase 333 Height (Feet): 5 Height (Inches): 6.00 Weight (Pounds): 184 General Appearance: alert EENT: normal ENT inspection Neck: normal alignment Cardiovascular: normal peripheral pulses, normal rate, regular rhythm Respiratory/Chest: chest wall non-tender, lungs clear, normal breath sounds Abdomen: normal bowel sounds, non tender, soft Extremities: normal inspection Edema: no edema noted Arm (L), no edema noted Arm (R), no edema noted Leg (L), no edema noted Leg (R), no edema noted Pedal (L), no edema noted Pedal (R), no edema noted Generalized Neurologic: responsive, motor weakness Skin: normal pigmentation, warm/dry Franklyn Neves DO Nov 20, 2017 08:35
[2017-11-20] MEDS: Heparin 5000 units/ml inj SUBQ SCH (08:56)
[2017-11-20] MEDS: Lactobacillus-GG tablet ORAL SCH ×2 (08:57→13:00)
[2017-11-20] MEDS: Vancomycin oral 125mg/2.5ml ORAL SCH ×2 (08:57→13:00)
--- NOTE | 2017-11-20 10:35 | Infectious Diseases Prog Note ---
Assessment/Plan Assessment/Plan A: Diarrhea resolved Likely Cdiff colitis ( despite neg test; this is Toxin A/B EIA which as poor sensitivity)- +recent abx and hospital admission, colitis in CT, multiple episodes of foul smelling diarrhea, leukocytosis Abd pain/n/v ABD us : unremarkable -CT abd/p w/: Enterocolitis. No abscess. Thickening of the wall of multiple loops of small bowel which are also slightly distended and fluid-filled. This is most likely due to enteritis that is nonspecific. There is liquefied stool in the colon as well which shows mild thickening of the wall. -C diff neg Leukocytosis, mild Afebrile Recent perforated appendix c/w RLQ abscess -s/p emergent open appendectomy , I+D abscess and partial omentectomy 10/29; cx Chase S E.coli, Group C Strep; BACTEROIDES THETAIOTAOMICRON and FUSOBACTERIUM NECROPHORUM (both S to Unasyn and CLinda) -Repeat CT 11/04- residual fluid collection RLQ and s/p IR guided drainage -Treated with Zosyn x 6 days> Levaquin and Flagyl x 17 days (end date due to ) Childhood Asthma NKDA Plan: cont PO Vancomycin 125mg qid d# 11/18 SP Flagyl #2 -f/u cx -Monitor CBC/BMP, temperatures -wound care per hosp protocol -Cdiff precautions ok to DC pt w cont of treatment Subjective Allergies: Coded Allergies: No Known Allergies (Unverified , 04/25/16) Subjective Diarrhea improving Objective Vital Signs Last 24 Hour Vital Signs Date Time Temp Pulse Resp B/P (MAP) Pulse Ox O2 Delivery O2 Flow Rate FiO2 11/20/17 08:00 98.4 70 18 125/78 98 Room Air 98.4 11/20/17 04:00 98.4 75 18 119/79 100 Room Air 98.4 11/20/17 00:00 98.5 77 18 136/84 99 Room Air 98.5 11/19/17 20:00 98.1 78 18 124/67 99 Room Air 98.1 11/19/17 16:00 97.9 69 19 126/59 98 Room Air 97.9 11/19/17 15:21 97.2 11/19/17 14:22 97.2 11/19/17 12:00 97.2 73 18 134/80 100 Room Air 97.2 Height (Feet): 5 Height (Inches): 6.00 Weight (Pounds): 184 Respiratory/Chest: no respiratory distress Cardiovascular: regular rhythm Abdomen: no organomegaly Microbiology Date/Time Source Procedure Growth Status 11/17/17 21:20 Stool Clostridium difficile Toxin Assay - Final Complete Current Medications Medications (Trade) Dose Ordered Sig/Kelsea Route PRN Reason Start Time Stop Time Status Last Admin Dose Admin Acetaminophen (Tylenol) 650 mg Q4H PRN ORAL fever 11/18/17 07:30 12/18/17 07:29 11/19/17 14:22 Al Hydroxide/Mg Hydroxide (Mylanta II) 30 ml Q6H PRN ORAL dyspepsia 11/18/17 07:30 12/18/17 07:29 Dextrose (Dextrose 50%) 25 ml STAT PRN IV BS 60-69mg/dl 11/18/17 08:00 12/18/17 07:59 Dextrose (Dextrose 50%) 50 ml STAT PRN IV BS less than 60mg/dl 11/18/17 07:30 12/18/17 07:29 Diphenhydramine HCl (Benadryl) 25 mg Q6H PRN ORAL Itching/Pruritis 11/18/17 07:30 12/18/17 07:29 Heparin Sodium (Porcine) (Heparin 5000 units/ml) 5,000 units EVERY 12 HOURS SUBQ 11/18/17 09:00 12/18/17 08:59 Lactobacillus Acidophilus (Culturelle) 1 tab THREE TIMES A DAY ORAL 11/20/17 09:00 12/20/17 08:59 11/20/17 08:57 Lorazepam (Ativan 2mg/ml 1ml) 1 mg EVERY 4 HOURS PRN IV agitation 11/18/17 07:30 11/25/17 07:29 Metoclopramide HCl (Reglan) 10 mg EVERY 6 HOURS PRN IVP servere nauasea 11/18/17 07:30 12/18/17 07:29 Nitroglycerin (Ntg) 0.4 mg Q5M X 3 DOSES PRN SL Prn Chest Pain 11/18/17 07:30 12/18/17 07:29 Ondansetron HCl (Zofran) 4 mg Q6H PRN IVP Nausea & Vomiting 11/18/17 07:30 12/18/17 07:29 11/19/17 18:23 Pantoprazole (Protonix) 40 mg DAILY ORAL 11/20/17 09:00 12/20/17 08:59 11/20/17 08:57 Promethazine HCl 25 mg/Dextrose 111 ml @ 218.003 mls/hr Q6H PRN IV Refractory N/V 11/18/17 13:00 12/18/17 12:59 Simethicone (Mylicon) 80 mg QIDPRN PRN ORAL For Pain 11/20/17 08:15 12/20/17 08:14 Temazepam (Restoril) 15 mg HSPRN PRN ORAL Insomnia 11/18/17 07:30 11/25/17 07:29 Vancomycin HCl (Vancomycin) 125 mg FOUR TIMES A DAY ORAL 11/18/17 14:00 11/25/17 13:59 11/20/17 08:57 Jay Vogel MD Nov 20, 2017 10:34
[2017-11-20] MEDS ORDERED: BENADRYL25 MG ORAL (11:31)
[2017-11-20] MEDS ORDERED: ACETAMINOPHEN325 M1 ORAL (11:31)
[2017-11-20] MEDS ORDERED: MYLANTA30 M1 ORAL (11:32)
[2017-11-20] MEDS ORDERED: PROBIOTIC1 EAC2 PO (11:33)
[2017-11-20] MEDS ORDERED: PANTOPRAZOLE SO40 MG ORAL (11:35)
[2017-11-20] MEDS ORDERED: SIMETHICONE80 MG ORAL (11:36)
[2017-11-20] MEDS ORDERED: RESTORIL15 MG ORAL (11:36)
[2017-11-20] MEDS ORDERED: VANCOMYCIN HCL125 MG PO (11:37)
[2017-11-20 12:00] VITALS: BP 103/55
--- NOTE | 2017-11-20 12:29 | Consultation ---
History of Present Illness General Date patient seen: Nov 20, 2017 Chief Complaint: Abdominal Pain Referring physician: MARLO HAINES Reason for Consultation: COLITIS Present Illness Allergies: Coded Allergies: No Known Allergies (Unverified , 04/25/16) Medication History Scheduled Al Hydroxide/mg Hydroxide (Mag-Al Liquid), 30 ML ORAL Q6HR, (Reported) Lactobacillus Acidophilus (Probiotic), 1 EACH PO THREE TIMES A DAY, (Reported) Pantoprazole* (Pantoprazole*), 40 MG ORAL DAILY, (Reported) Simethicone* (Simethicone*), 80 MG ORAL QID, (Reported) Vancomycin Hcl (Vancomycin Hcl), 125 MG PO FOUR TIMES A DAY, (Reported) Scheduled PRN Acetaminophen* (Acetaminophen 325MG Tablet*), 650 MG ORAL Q4H PRN for Fever/ Headache/Mild Pain, (Reported) Diphenhydramine Hcl* (Benadryl*), 25 MG ORAL Q6H PRN for Itching, (Reported) Temazepam* (Restoril*), 15 MG ORAL BEDTIME PRN for Insomnia, (Reported) Discontinued Medications Ibuprofen* (Motrin*), 600 MG ORAL Q8H PRN for For Pain, (Reported) Discontinued Reason: MD discontinued med Levofloxacin* (Levaquin*), 750 MG ORAL DAILY, (Reported) Discontinued Reason: MD discontinued med Metronidazole* (Flagyl*), 500 MG ORAL EVERY 8 HOURS, (Reported) Discontinued Reason: MD discontinued med Na Phos,M-B/Na Phos,Di-Ba* (Fleet Enema*), 133 ML RECTAL DAILY Discontinued Reason: MD discontinued med Patient History Healthcare decision maker Resuscitation status Advanced Directive on File Physical Exam Last 24 Hour Vital Signs Date Time Temp Pulse Resp B/P (MAP) Pulse Ox O2 Delivery O2 Flow Rate FiO2 11/20/17 08:00 98.4 70 18 125/78 98 Room Air 98.4 11/20/17 04:00 98.4 75 18 119/79 100 Room Air 98.4 11/20/17 00:00 98.5 77 18 136/84 99 Room Air 98.5 11/19/17 20:00 98.1 78 18 124/67 99 Room Air 98.1 11/19/17 16:00 97.9 69 19 126/59 98 Room Air 97.9 11/19/17 15:21 97.2 11/19/17 14:22 97.2 Intake and Output 11/19/17 11/20/17 19:00 07:00 Intake Total 620 ml Balance 620 ml Intake Oral 620 ml # Voids 3 4 Height (Feet): 5 Height (Inches): 6.00 Weight (Pounds): 184 Medications Current Medications Medications (Trade) Dose Ordered Sig/Kelsea Route PRN Reason Start Time Stop Time Status Last Admin Dose Admin Acetaminophen (Tylenol) 650 mg Q4H PRN ORAL fever 11/18/17 07:30 12/18/17 07:29 11/19/17 14:22 Al Hydroxide/Mg Hydroxide (Mylanta II) 30 ml Q6H PRN ORAL dyspepsia 11/18/17 07:30 12/18/17 07:29 Dextrose (Dextrose 50%) 25 ml STAT PRN IV BS 60-69mg/dl 11/18/17 08:00 12/18/17 07:59 Dextrose (Dextrose 50%) 50 ml STAT PRN IV BS less than 60mg/dl 11/18/17 07:30 12/18/17 07:29 Diphenhydramine HCl (Benadryl) 25 mg Q6H PRN ORAL Itching/Pruritis 11/18/17 07:30 12/18/17 07:29 Heparin Sodium (Porcine) (Heparin 5000 units/ml) 5,000 units EVERY 12 HOURS SUBQ 11/18/17 09:00 12/18/17 08:59 Lactobacillus Acidophilus (Culturelle) 1 tab THREE TIMES A DAY ORAL 11/20/17 09:00 12/20/17 08:59 11/20/17 08:57 Lorazepam (Ativan 2mg/ml 1ml) 1 mg EVERY 4 HOURS PRN IV agitation 11/18/17 07:30 11/25/17 07:29 Metoclopramide HCl (Reglan) 10 mg EVERY 6 HOURS PRN IVP servere nauasea 11/18/17 07:30 12/18/17 07:29 Nitroglycerin (Ntg) 0.4 mg Q5M X 3 DOSES PRN SL Prn Chest Pain 11/18/17 07:30 12/18/17 07:29 Ondansetron HCl (Zofran) 4 mg Q6H PRN IVP Nausea & Vomiting 11/18/17 07:30 12/18/17 07:29 11/19/17 18:23 Pantoprazole (Protonix) 40 mg DAILY ORAL 11/20/17 09:00 12/20/17 08:59 11/20/17 08:57 Promethazine HCl 25 mg/Dextrose 111 ml @ 218.003 mls/hr Q6H PRN IV Refractory N/V 11/18/17 13:00 12/18/17 12:59 Simethicone (Mylicon) 80 mg QIDPRN PRN ORAL For Pain 11/20/17 08:15 12/20/17 08:14 Temazepam (Restoril) 15 mg HSPRN PRN ORAL Insomnia 11/18/17 07:30 11/25/17 07:29 Vancomycin HCl (Vancomycin) 125 mg FOUR TIMES A DAY ORAL 11/18/17 14:00 11/25/17 13:59 11/20/17 08:57 Assessment/Plan Assessment/Plan (1) Abdominal pain (2) Colitis (3) S/p Appendectomy (4) Appendicitis seen dictated. Alon Casarez Nov 20, 2017 12:29
--- NOTE | 2017-11-20 13:18 | General Surgery Progress Note ---
General Surgery-Progress Note Subjective Additional Comments no acute events. still with some right sided abdominal cramping. no n/v/f/c. tolerating diet. Objective Last 24 Hour Vital Signs Date Time Temp Pulse Resp B/P (MAP) Pulse Ox O2 Delivery O2 Flow Rate FiO2 11/20/17 12:00 98.2 68 18 103/55 98 Room Air 98.2 11/20/17 08:00 98.4 70 18 125/78 98 Room Air 98.4 11/20/17 04:00 98.4 75 18 119/79 100 Room Air 98.4 11/20/17 00:00 98.5 77 18 136/84 99 Room Air 98.5 11/19/17 20:00 98.1 78 18 124/67 99 Room Air 98.1 11/19/17 16:00 97.9 69 19 126/59 98 Room Air 97.9 11/19/17 15:21 97.2 11/19/17 14:22 97.2 I&O Intake and Output 11/19/17 11/20/17 19:00 07:00 Intake Total 620 ml Balance 620 ml Intake Oral 620 ml # Voids 3 4 Cardiovascular: RSR Respiratory: clear Abdomen: soft, flat, non-tender, present bowel sounds Extremities: no edema, no tenderness, no cyanosis Plan Problems: (1) Colitis Assessment & Plan: 32M with likely colitis/enteritis from abx. afebrile, HD stable, mild leukocytosis. CT reviewed and no abscess noted. mild enteritis. exam with mild ruq discomfort. hx of recent appy for perforated appendicitis with abscess. c diff negative. ultrasound without findings. exam improving. labs normal. -okay to dc from surgical standpoint -abx as per ID long discussion with patient about above findings and care plan. instructed to return if worsening condition. will follow exam. thank you for this consultation. Constantin Monzon Nov 20, 2017 13:17
--- NOTE | 2017-11-20 17:15 | Consultation ---
DATE OF CONSULTATION: 11/20/2017 PAIN MANAGEMENT CONSULTATION CONSULTING PHYSICIAN: Blas Jacobs M.D. REFERRING PHYSICIAN: Franklyn Neves D.O. PHYSICIAN WELDING MACHINE OPERATOR RESISTANCE: NADIA Boyd. CHIEF COMPLAINT: Abdominal pain. HISTORY OF PRESENT ILLNESS: This is a 32-year-old male, who is being seen on the Med/Surg floor of [facility] for initial comprehensive pain management consultation. The patient was admitted under the care of Dr. Neves due to abdominal pain and found to have colitis. He has history of appendicitis, status post appendectomy. He stopped the course of antibiotics. He has been having severe nausea, vomiting, abdominal pain with diarrhea, admitted to the hospital, receiving antibiotics at this time, and will be discharged home later today as per the public safety officer once cleared by the surgeon. We were consulted to help the patient to have adequate pain control while here in the hospital. PAST MEDICAL HISTORY: Appendicitis. PAST SURGICAL HISTORY: Appendectomy. SOCIAL HISTORY: Denies smoking, drinking alcohol, he smokes marijuana. ALLERGIES: No known drug allergies. MEDICATIONS: Vancomycin, heparin, Tylenol, Zofran, Restoril, Benadryl, nitroglycerin, Reglan. REVIEW OF SYSTEMS: Denies rash, fever, chills, sweating, dizziness, drowsiness, or change in weight. No shortness of breath or chest pain. No nausea, vomiting, or blood in the stool or urine. No bowel or bladder incontinence. No dysuria. The patient is complaining of abdominal pain. PHYSICAL EXAMINATION: GENERAL: Alert, awake, and oriented x3. VITAL SIGNS: Blood pressure 125/78, heart rate is 70, oxygen saturation 98%, respiratory rate 18, temperature 98.4 degrees Fahrenheit. HEENT: PERRLA. NECK: Range of motion is full in all directions. No tenderness to paracervical muscles. No adenopathy. LUNGS: Clear. HEART: Regular. ABDOMEN: Tenderness to palpation. BACK: Range of motion is decreased in flexion and extension. EXTREMITIES: Upper and lower extremity range of motion is full in all directions. No cyanosis. No clubbing. No edema. Sensory is intact. Reflexes are not obtainable. No adenopathy. ASSESSMENT AND PLAN: This is a 32-year-old male with abdominal pain, colitis, and appendicitis, status post appendectomy. The patient will continue on Tylenol 650 mg tablet every 4 hours as needed for pain. The patient was discussed with Dr. Jacobs and Dr. Jacobs concurred. We will follow the patient. Thank you very much for the courtesy of this consultation. Blas Jacobs M.D. NADIA Walker DR: Ruel JOB#: [id number] CC:
--- NOTE | 2017-11-22 08:07 | Discharge Summary ---
Discharge Summary Discharge Summary _ DATE OF ADMISSION: 11/17/2017 DATE OF DISCHARGE: 11/20/2017 REASON FOR ADMISSION: 32 years old male with past medical history of asthma, presented to emergency department with complaining of lower abdominal pain ,nausea, vomiting and diarrhea. Patient had recent perforated appendix which required open appendectomy and afterwards had drainage of abscess. Patient status post extensive treatment with antibiotics. Patient denied fever or chills. Upon evaluation in ED, no fever, mild leukocytosis- 11.1 otherwise stable laboratory data. CT of the abdomen and pelvis revealed enterocolitis , but no evidence of abscess. Patient admitted with diagnosis of colitis, abdominal pain, diarrhea. CONSULTANTS: ID specialist Dr. Vogel GI specialist Dr. Goddard surgery Dr. Monzon pain specialist Dr. Jacobs HOSPITAL COURSE: Patient admitted to medical surgical floor. Patient started on IV hydration. Stool cultures were done and revealed negative stool for C. difficile and negative stool culture. Abdominal ultrasound revealed no acute findings. Per infectious disease specialist, patient had colitis/enteritis secondary to antibiotics and probably C. difficile colitis, despite negative stool for C. difficile test. According to ID specialist , toxin A/B EIA had a poor sensitivity. Patient had a high clinical suspicion for C. difficile colitis, given recent hospital admission, recent antibiotic course along with multiply episodes of diarrhea and initial leukocytosis. Patient was empirically treated with oral vancomycin and to be continued oral vancomycin upon discharge for duration of time as specified by ID specialist. . Antiemetics provided as needed , diet slowly reintroduced, patient was able to tolerate diet. Diarrhea subsided. GI specialist closely followed. GI specialist added lactobacillus, simethicone and Protonix. General surgeon closely followed. According to general surgeon, patient had colitis/enterocolitis secondary to antibiotics. Abdominal ultrasound negative, no evidence of abscess. Surgeon cleared patient for discharge to continue antibiotics as per ID specialist. Patient had a long discussion with the surgeon regarding plan of care and instructed to return if condition worsened. Pain specialist closely followed. Pain management provided as per pain specialist. Patient stabilized: diarrhea resolved, pain controlled, no leukocytosis , patient was able to tolerate diet. Patient was discharged home FINAL DIAGNOSES: Colitis/enterocolitis likely secondary to medications Probable C difficile colitis( despite negative C. difficile test) Abdominal pain , secondary to colitis History of recent perforated appendix, status post open appendectomy and subsequent drainage of abscess DISCHARGE MEDICATIONS: See Medication Reconciliation list. DISCHARGE INSTRUCTIONS: Patient was discharged home. Patient was instructed to return if condition worsened. Patient to follow-up with primary care provider in one week. I have been assigned to dictate discharge summary for this account. I was not involved in the patient's management. Shilpi Reynoso NP Nov 22, 2017 08:07
== END 2017-11-20 15:48 | disposition home or self-care (01) | DRG 249 ==
LOC: EMR 19:20 → 4E 21:39 → EDBEDREQ 22:47 → 4W 23:47
DX: K52.89 Other specified noninfective gastroenteritis and colitis (principal); Z87.19 Personal history of other diseases of the digestive system; A04.72 Enterocolitis due to Clostridium difficile, not specified as recurrent
CPT/HCPCS: 36415; 74177; 76700; 80053; 82150; 83690; 85025; 85730; 87045; 87081; 87324; 99285; J2405

== ENCOUNTER 2017-12-23 13:15 | Inpatient (IN) | payer MEDICAID ==
[~2017-12-23] VITALS: Ht 172.7 cm; Wt 93.7 kg
[~2017-12-23 13:15] MED LIST changes: +ACETAMINOPHEN325 M1 ORAL; +BENADRYL25 MG ORAL; +MYLANTA30 M1 ORAL; +PANTOPRAZOLE SO40 MG ORAL; +PROBIOTIC1 EAC2 PO; +RESTORIL15 MG ORAL; +SIMETHICONE80 MG ORAL; +VANCOMYCIN HCL125 MG PO
[2017-12-23 13:22] VITALS: BP 125/62
[2017-12-23] MEDS ORDERED: Morphine Sulfate 4mg/ml Inj IVP ONE ×2 (13:45→16:00)
[2017-12-23] MEDS ORDERED: Ketorolac 30mg Inj IV ONE (13:45)
--- NOTE | 2017-12-23 13:48 | Emergency Room Report ---
History of Present Illness General Chief Complaint: Abdominal Pain Source: Patient Present Illness HPI Patient presents with abdominal pain. This been going on to 3 days. Started after he went to the beach. His stools have been decreased in caliber and size and he's not passed gas for 2 days. He denies any vomiting or diarrhea at this time. No documented fever at home. Pain worse with sitting up and standing. Otherwise constant. Rates pain at 7-10/10, not radiating. No meds taken. Moved bowels this AM, thinner caliber. Not pass gas for 24 hours. No blood. The patient underwent appendectomy 10/29 for ruptured appendix. On November [address] guided aspiration of a pelvic abscess. (Impression: Successful aspiration and drainage of small postoperative right lower quadrant abscess, as described. ) According to notes CT 11/09 showed resolution of abscess. Was treated with levaquin and flagyl. 4 days after discharge the patient needed to come back and be reevaluated and was told he had colitis. He was discharged 11/20 and prescribed antibiotics ( oral vancomycin) but did not fill them because they would cost $900. He has done relatively well until 3 days ago. No dysuria, vomiting. Slightly poor appetite. Allergies: Coded Allergies: No Known Allergies (Unverified , 04/25/16) Patient History Past Medical History: see triage record, asthma Past Surgical History: other - appendectomy, CT drainage of abscess Social History: Denies: smoking, alcohol use, drug use Social History Narrative Has 1 and 5 yo at home Reviewed Nursing Documentation: PMH: Agreed; PSxH: Agreed Nursing Documentation-PM Past Medical History: No Stated History Hx Cardiac Problems: No Hx Asthma: Yes Hx Cancer: No Hx Gastrointestinal Problems: Yes Hx Neurological Problems: No Review of Systems All Other Systems: negative except mentioned in HPI Physical Exam Vital Signs Date Time Temp Pulse Resp B/P (MAP) Pulse Ox O2 Delivery O2 Flow Rate FiO2 12/23/17 13:18 98.5 89 18 116/72 97 Room Air 98.4 Sp02 EP Interpretation: reviewed, normal General Appearance: well appearing, no apparent distress, GCS 15 Head: normocephalic, atraumatic Eyes: bilateral eye normal inspection, bilateral eye PERRL, bilateral eye EOMI ENT: moist mucus membranes Neck: supple Respiratory: lungs clear, normal breath sounds Cardiovascular #1: regular rate, rhythm Cardiovascular #2: 2+ radial (R) Gastrointestinal: normal bowel sounds, soft, no mass, non-distended, no rebound , tenderness - referred pain to LLQ, other - midline lower abdominal scar Musculoskeletal: back normal, gait/station normal, normal range of motion Neurologic: alert, oriented x3, grossly normal Psychiatric: mood/affect normal Skin: normal inspection, warm/dry Medical Decision Making Diagnostic Impression: Primary Impression: Abdominal pain Qualified Codes: R10.32 - Left lower quadrant pain Additional Impressions: Leukocytosis Qualified Codes: D72.829 - Elevated white blood cell count, unspecified Mesenteric mass Status post appendectomy ER Course Patient presents with 2-3 days of left lower quadrant pain is constant and fairlysevere one month post appendectomy. Differential includes colitis, small bowel obstruction, diverticulitis, UTI no surgical complication amongst others. The patient will be evaluated with labs and abdominal film. He may need to have a CT of the abdomen repeated. He will be receiving IV hydration and analgesia. He is at high risk for small bowel obstruction. KUB no SBO. Prior CTs reviewed (see history). WBC elevated and referred pain. Admission requested. Antibiotics ordered. Repeat pain medicine. Had to convince patient to undergo CT at this time (he did agree). Discussed with Dr. Richardson prior to CT. Signed out to Dr. Mondragon. Laboratory Tests Test 12/23/17 13:55 12/23/17 14:12 Urine Color Pale yellow Urine Appearance Clear Urine pH 5 (4.5-8.0) Urine Specific [place] 1.020 (1.005-1.035) Urine Protein Negative (NEGATIVE) Urine Glucose (UA) Negative (NEGATIVE) Urine Ketones Negative (NEGATIVE) Urine Occult Blood 3+ (NEGATIVE) H Urine Nitrite Negative (NEGATIVE) Urine Bilirubin Negative (NEGATIVE) Urine Urobilinogen Normal MG/DL (0.0-1.0) Urine Leukocyte Esterase 1+ (NEGATIVE) H Urine RBC 5-10 /HPF (0 - 0) H Urine WBC 0-2 /HPF (0 - 0) Urine Squamous Epithelial Cells Occasional /LPF Urine Bacteria Few /HPF (NONE) Urine Mucus Few /LPF (NONE/OCC) H White Blood Count 12.1 K/UL (4.8-10.8) H Red Blood Count 5.26 M/UL (4.70-6.10) Hemoglobin 13.6 G/DL (14.2-18.0) L Hematocrit 43.3 % (42.0-52.0) Mean Corpuscular Volume 82 FL (80-99) Mean Corpuscular Hemoglobin 25.8 PG (27.0-31.0) L Mean Corpuscular Hemoglobin Concent 31.4 G/DL (32.0-36.0) L Red Cell Distribution Width 12.7 % (11.6-14.8) Platelet Count 261 K/UL (150-450) Mean Platelet Volume 6.7 FL (6.5-10.1) Neutrophils (%) (Auto) 66.7 % (45.0-75.0) Lymphocytes (%) (Auto) 22.3 % (20.0-45.0) Monocytes (%) (Auto) 8.6 % (1.0-10.0) Eosinophils (%) (Auto) 1.4 % (0.0-3.0) Basophils (%) (Auto) 0.9 % (0.0-2.0) Prothrombin Time 10.1 SEC (9.30-11.50) Prothrombin Time INR 1.0 (0.9-1.1) PTT 28 SEC (23-33) Sodium Level 140 MMOL/L (136-145) Potassium Level 4.1 MMOL/L (3.5-5.1) Chloride Level 103 MMOL/L (98-107) Carbon Dioxide Level 29 MMOL/L (21-32) Anion Gap 8 mmol/L (5-15) Blood Urea Nitrogen 10 mg/dL (7-18) Creatinine 0.9 MG/DL (0.55-1.30) Estimate Glomerular Filtration Rate > 60 mL/min (>60) Glucose Level 127 MG/DL (74-106) H Calcium Level 9.2 MG/DL (8.5-10.1) Total Bilirubin 0.4 MG/DL (0.2-1.0) Aspartate Amino Transferase (AST) 11 U/L (15-37) L Alanine Aminotransferase (ALT) 25 U/L (12-78) Alkaline Phosphatase 67 U/L (46-116) Total Protein 7.7 G/DL (6.4-8.2) Albumin 3.4 G/DL (3.4-5.0) Globulin 4.3 g/dL Albumin/Globulin Ratio 0.8 (1.0-2.7) L Lipase 224 U/L (73-393) Other X-Ray Diagnostic Results Other X-Ray Diagnostic Results : X-Ray ordered: abd # of Views/Limited Vs Complete: 1 View Indication: Pain Interpretation: nonspecific bowel gas, no sbo, other - no masses Impression: Other Electronically Signed by: Joshua Mills MD CT/MRI/US Diagnostic Results CT/MRI/US Diagnostic Results : Imaging Test Ordered: abd/pelvis Impression IMPRESSION: There is a somewhat ill defined 3.2 x 4.2 cm masslike area with surrounding infiltration of the fat within the mesentery in the midline just above the level of the umbilicus. Some small adjacent lymph nodes are noted. This appears more prominent compared to the prior exam and may be related to an acute infectious/inflammatory process such as enteritis or mesenteric panniculitis. A metastatic process or neoplastic process such as lymphoma cannot be excluded. Follow-up exam after treatment is recommended to ensure resolution. Last Vital Signs Date Time Temp Pulse Resp B/P (MAP) Pulse Ox O2 Delivery O2 Flow Rate FiO2 12/23/17 20:14 96.3 68 20 132/86 (101) 100 96.3 12/23/17 20:04 Room Air Status: improved Disposition: ADMITTED INPATIENT Condition: Serious Joshua Mills M.D. Dec 23, 2017 13:48
[2017-12-23 14:25] LABS: APPEARANCE,URINE CLEAR; BILIRUBIN, URINE NEGATIVE (NEGATIVE); COLOR,URINE PALE YELLOW; GLUCOSE, URINE (UA) NEGATIVE (NEGATIVE); KETONES,URINE NEGATIVE (NEGATIVE); LEUKOCYTE ESTERASE ,URINE 1+ (NEGATIVE); NITRITE,URINE NEGATIVE (NEGATIVE); PH,URINE 5 (4.5-8.0); PROTEIN,URINE NEGATIVE (NEGATIVE); UROBILINOGEN,URINE NORMAL MG/DL (0.0-1.0)
[2017-12-23 14:27] LABS: BASOPHILS % (AUTO) 0.9 % (0.0-2.0); EOSINOPHILS % (AUTO) 1.4 % (0.0-3.0); HEMATOCRIT 43.3 % (42.0-52.0); HEMOGLOBIN 13.6 G/DL (14.2-18.0); LYMPHOCYTES % (AUTO) 22.3 % (20.0-45.0); MEAN CORPUSCULAR VOLUME 82 FL (80-99); MONOCYTES % (AUTO) 8.6 % (1.0-10.0); NEUTROPHILS % (AUTO) 66.7 % (45.0-75.0); PLATELET COUNT 261 K/UL (150-450); RED BLOOD COUNT 5.26 M/UL (4.70-6.10); RED CELL DISTRIBUTION WIDTH 12.7 % (11.6-14.8); WHITE BLOOD COUNT 12.1 K/UL (4.8-10.8)
[2017-12-23 14:40] LABS: ANION GAP 8 mmol/L (5-15); BLOOD UREA NITROGEN 10 mg/dL (7-18); CALCIUM 9.2 MG/DL (8.5-10.1); CARBON DIOXIDE 29 MMOL/L (21-32); CHLORIDE 103 MMOL/L (98-107); CREATININE 0.9 MG/DL (0.55-1.30); POTASSIUM 4.1 MMOL/L (3.5-5.1); SODIUM 140 MMOL/L (136-145)
[2017-12-23 14:44] LABS: ALANINE AMINOTRANSFERASE 25 U/L (12-78); ALBUMIN 3.4 G/DL (3.4-5.0); ALBUMIN/GLOBULIN RATIO 0.8 (1.0-2.7); ALKALINE PHOSPHATASE 67 U/L (46-116); ASPARTATE AMINO TRANSFERASE 11 U/L (15-37); BILIRUBIN,TOTAL 0.4 MG/DL (0.2-1.0)
[2017-12-23 15:00] VITALS: BP 109/59
--- NOTE | 2017-12-23 15:12 | Diagnostic Imaging Report ---
Indication: Abdominal pain Technique: XRAY Abdomen 1v Comparison: CT abdomen 11/17/2017 Findings: Nonobstructive bowel gas pattern. No evidence to suggest free intraperitoneal air however standing/erect exam would be more sensitive. No acute osseous abnormality identified. Imaged lung bases are clear. Impression: Nonobstructive bowel gas pattern.
[2017-12-23] MEDS ORDERED: Isovue-300 100ml vial INJ PRN (15:45)
[2017-12-23] MEDS ORDERED: NKM (15:59)
[2017-12-23] MEDS ORDERED: Cefepime HCl 1 GM in D5W 55 ML IVPB ONE (16:00)
[2017-12-23 17:00] VITALS: BP 123/71
[2017-12-23] MEDS ORDERED: Promethazine HCl 12.5 MG in NS 55 ML IV PRN (17:30)
[2017-12-23] MEDS ORDERED: Mylanta II UD 30ml ORAL PRN (17:30)
[2017-12-23] MEDS ORDERED: Nitroglycerin Subl 0.4mg tab SL PRN (17:30)
[2017-12-23] MEDS ORDERED: Promethazine HCl 25 MG in NS 55 ML IV PRN (17:30)
[2017-12-23] MEDS ORDERED: Metoclopramide 10mg/2ml Inj IVP PRN (17:30)
--- NOTE | 2017-12-23 18:37 | Diagnostic Imaging Report ---
EXAM: CT Abdomen and Pelvis With Intravenous Contrast CLINICAL HISTORY: ABD PAIN TECHNIQUE: Axial computed tomography images of the abdomen and pelvis with intravenous contrast. CTDI is 0.15, 18.16 mGy and DLP is 1040 mGy-cm. One or more of the following dose reduction techniques were used: automated exposure control, adjustment of the mA and/or kV according to patient size, use of iterative reconstruction technique. Coronal and sagittal reformatted images were created and reviewed. COMPARISON: 11/17/17 FINDINGS: Lung bases: Mild atelectasis at the lung bases. ABDOMEN: Liver: Very small nonspecific low-density lesion in the posterior segment of the right lobe of the liver which is too small to adequately characterize. Gallbladder and bile ducts: The gallbladder is unremarkable. No calcified stones. No ductal dilation. Pancreas: The pancreas is unremarkable. No ductal dilation. Spleen: The spleen is unremarkable. Adrenals: The adrenals are unremarkable. Kidneys and ureters: The kidneys are unremarkable. No hydronephrosis. Stomach and bowel: No evidence for significant bowel loop dilation to suggest an obstructive process. Question of some mild wall thickening of small bowel loops in the region of the ill-defined mesenteric masslike area. PELVIS: Appendix: An appendiceal stump is suspected in right lower quadrant. No evidence for surrounding inflammatory changes. Bladder: The bladder is grossly unremarkable. Reproductive: Unremarkable as visualized. ABDOMEN and PELVIS: Intraperitoneal space: There is a somewhat ill defined 3.2 x 4.2 cm masslike area with surrounding infiltration of the fat within the mesentery in the midline just above the level of the umbilicus. Some small adjacent lymph nodes are noted. This appears more prominent compared to the prior exam and may be related to an acute infectious/inflammatory process such as enteritis or mesenteric panniculitis. A metastatic process or neoplastic process such as lymphoma cannot be excluded. Follow-up exam after treatment is recommended to ensure resolution. Small amount of free fluid in the abdomen and pelvis. No evidence for free intraperitoneal gas. Bones/joints: Mild degenerative changes of the thoracolumbar spine. No acute fracture. No dislocation. Soft tissues: Scar in the subcutaneous tissues of the midline below the umbilicus. Small umbilical hernia containing fat only. Vasculature: Unremarkable. No abdominal aortic aneurysm. Lymph nodes: See above. IMPRESSION: There is a somewhat ill defined 3.2 x 4.2 cm masslike area with surrounding infiltration of the fat within the mesentery in the midline just above the level of the umbilicus. Some small adjacent lymph nodes are noted. This appears more prominent compared to the prior exam and may be related to an acute infectious/inflammatory process such as enteritis or mesenteric panniculitis. A metastatic process or neoplastic process such as lymphoma cannot be excluded. Follow-up exam after treatment is recommended to ensure resolution. [employer] 12/23/17 18:44 Verify Receipt Verified receipt with TUCKER Jon in ER for Dr. Mondragon on 12/23 18:43 (-07:00)
[2017-12-23 18:58] VITALS: BP 133/76
[2017-12-23 20:14] VITALS: BP 132/86
[2017-12-23] MEDS: Heparin 5000 units/ml inj SUBQ SCH (21:00)
[2017-12-23] MEDS ORDERED: Miralax 17gm pkt ORAL PRN (21:00)
[2017-12-23] MEDS: D5 1/2NS 1,000 ML IV SCH (21:41)
[2017-12-23] MEDS: Morphine Sulfate 2mg/ml Inj IVP PRN (22:13)
[2017-12-24] VITALS (7 sets, daily range): BP systolic 121–146; BP diastolic 68–97
[2017-12-24] MEDS: Morphine Sulfate 2mg/ml Inj IVP PRN ×3 (03:43→13:38)
[2017-12-24] MEDS: LORazepam Inj 2mg/ml 1ml IV PRN ×2 (05:21→23:31)
[2017-12-24] MEDS: D5 1/2NS 1,000 ML IV SCH ×2 (06:45→13:38)
[2017-12-24 06:49] LABS: EOSINOPHILS % (AUTO) 2.1 % (0.0-3.0); HEMATOCRIT 38.2 % (42.0-52.0); HEMOGLOBIN 12.5 G/DL (14.2-18.0); LYMPHOCYTES % (AUTO) 23.7 % (20.0-45.0); MEAN CORPUSCULAR VOLUME 83 FL (80-99); MONOCYTES % (AUTO) 8.6 % (1.0-10.0); NEUTROPHILS % (AUTO) 64.7 % (45.0-75.0); PLATELET COUNT 232 K/UL (150-450); RED BLOOD COUNT 4.63 M/UL (4.70-6.10); RED CELL DISTRIBUTION WIDTH 12.7 % (11.6-14.8); WHITE BLOOD COUNT 10.7 K/UL (4.8-10.8)
[2017-12-24 07:08] LABS: ALANINE AMINOTRANSFERASE 10 U/L (12-78); ALBUMIN 3.4 G/DL (3.4-5.0); ALBUMIN/GLOBULIN RATIO 0.8 (1.0-2.7); ALKALINE PHOSPHATASE 63 U/L (46-116); AMYLASE 80 U/L (25-115); ANION GAP 6 mmol/L (5-15); ASPARTATE AMINO TRANSFERASE 15 U/L (15-37); BILIRUBIN,TOTAL 0.5 MG/DL (0.2-1.0); BLOOD UREA NITROGEN 8 mg/dL (7-18); CALCIUM 9.1 MG/DL (8.5-10.1); CARBON DIOXIDE 29 MMOL/L (21-32); CHLORIDE 103 MMOL/L (98-107); CREATININE 0.9 MG/DL (0.55-1.30); POTASSIUM 3.6 MMOL/L (3.5-5.1); SODIUM 138 MMOL/L (136-145)
[2017-12-24] MEDS: Heparin 5000 units/ml inj SUBQ SCH ×2 (09:00→21:00)
[2017-12-24] MEDS: Pantoprazole Inj IV SCH (09:11)
--- NOTE | 2017-12-24 11:26 | General Progress Note ---
Assessment/Plan Assessment/Plan GI CONSULT Patient seen. Full note to follow. Recurrent abd pain with a 4 cm mass like abnormality - ? abscess/phlegmon. Rec surgical evaluation and broad spectrum antibiotics. Will follow Thank you Annemarie Garcia MD Subjective Allergies: Coded Allergies: No Known Allergies (Unverified , 04/25/16) Objective Last 24 Hour Vital Signs Date Time Temp Pulse Resp B/P (MAP) Pulse Ox O2 Delivery O2 Flow Rate FiO2 12/24/17 09:00 Room Air 12/24/17 08:00 97.0 86 18 123/87 (99) 99 97.0 12/24/17 04:13 97.9 12/24/17 04:00 97.9 77 20 122/75 (91) 100 97.9 12/24/17 03:57 97.9 77 20 122/75 (91) 99 97.9 12/24/17 00:25 98.1 80 20 123/68 (86) 98 98.1 12/23/17 21:00 Room Air 12/23/17 20:14 96.3 68 20 132/86 (101) 100 96.3 12/23/17 20:04 97.8 76 18 126/68 99 Room Air 12/23/17 18:58 67 20 133/76 100 Room Air 12/23/17 17:00 77 16 123/71 99 Room Air 12/23/17 16:50 98.9 12/23/17 16:50 98.9 12/23/17 16:49 98.9 12/23/17 16:12 98.9 12/23/17 15:00 75 25 109/59 99 Room Air 12/23/17 14:03 98.9 12/23/17 14:02 98.9 12/23/17 13:22 98.9 90 18 125/62 100 Room Air 98.9 12/23/17 13:18 98.5 89 18 116/72 97 Room Air 98.4 Intake and Output 12/23/17 12/24/17 19:00 07:00 Intake Total 1050 ml 795 ml Output Total 60 ml Balance 990 ml 795 ml Intake Oral 120 ml IV Total 1050 ml 675 ml Output Urine Total 60 ml # Voids 1 2 # Bowel Movements 1 Laboratory Tests 12/23/17 13:55: Urine Color Pale yellow, Urine Appearance Clear, Urine pH 5, Urine Specific Mcintosh 1.020, Urine Protein Negative, Urine Glucose (UA) Negative, Urine Ketones Negative, Urine Occult Blood 3+H, Urine Nitrite Negative, Urine Bilirubin Negative, Urine Urobilinogen Normal, Urine Leukocyte Esterase 1+H, Urine RBC 5-10H, Urine WBC 0-2, Urine Squamous Epithelial Cells Occasional, Urine Bacteria Few, Urine Mucus FewH 12/23/17 14:12: White Blood Count 12.1H, Red Blood Count 5.26, Hemoglobin 13.6L, Hematocrit 43.3 , Mean Corpuscular Volume 82, Mean Corpuscular Hemoglobin 25.8L, Mean Corpuscular Hemoglobin Concent 31.4L, Red Cell Distribution Width 12.7, Platelet Count 261, Mean Platelet Volume 6.7, Neutrophils (%) (Auto) 66.7, Lymphocytes (%) (Auto) 22.3, Monocytes (%) (Auto) 8.6, Eosinophils (%) (Auto) 1.4, Basophils (%) (Auto) 0.9, Prothrombin Time 10.1, Prothromb Time International Ratio 1.0, Activated Partial Thromboplast Time 28, Sodium Level 140, Potassium Level 4.1, Chloride Level 103, Carbon Dioxide Level 29, Anion Gap 8, Blood Urea Nitrogen 10, Creatinine 0.9, Estimat Glomerular Filtration Rate > 60, Glucose Level 127H, Calcium Level 9.2, Total Bilirubin 0.4, Aspartate Amino Transf (AST/SGOT) 11L, Alanine Aminotransferase (ALT/SGPT) 25, Alkaline Phosphatase 67, Total Protein 7.7, Albumin 3.4, Globulin 4.3, Albumin/ Globulin Ratio 0.8L, Lipase 224 12/24/17 05:00: White Blood Count 10.7, Red Blood Count 4.63L, Hemoglobin 12.5L, Hematocrit 38.2L, Mean Corpuscular Volume 83, Mean Corpuscular Hemoglobin 27.1, Mean Corpuscular Hemoglobin Concent 32.9, Red Cell Distribution Width 12.7, Platelet Count 232, Mean Platelet Volume 6.7, Neutrophils (%) (Auto) 64.7, Lymphocytes (% ) (Auto) 23.7, Monocytes (%) (Auto) 8.6, Eosinophils (%) (Auto) 2.1, Basophils ( %) (Auto) 1.0, Activated Partial Thromboplast Time 30, Sodium Level 138, Potassium Level 3.6, Chloride Level 103, Carbon Dioxide Level 29, Anion Gap 6, Blood Urea Nitrogen 8, Creatinine 0.9, Estimat Glomerular Filtration Rate > 60, Glucose Level 90, Calcium Level 9.1, Total Bilirubin 0.5, Aspartate Amino Transf (AST/SGOT) 15, Alanine Aminotransferase (ALT/SGPT) 10L, Alkaline Phosphatase 63, Total Protein 7.6, Albumin 3.4, Globulin 4.2, Albumin/Globulin Ratio 0.8L, Lipase 583H, Amylase Level 80 Height (Feet): 5 Height (Inches): 8.00 Weight (Pounds): 216 Annemarie Garcia MD Dec 24, 2017 11:26
--- NOTE | 2017-12-24 12:44 | Consultation ---
Consult Note Assessment/Plan [id number] Jay Vogel MD Dec 24, 2017 12:44
--- NOTE | 2017-12-24 12:53 | Diagnostic Imaging Report ---
EXAM: US Abdomen Complete CLINICAL HISTORY: ABD PAIN TECHNIQUE: Real-time ultrasound of the abdomen (complete) with image documentation. COMPARISON: Abdomen ultrasound 11/18/[address] abdomen and pelvis 12/23/17 FINDINGS: Liver: Slightly dense enlarged liver may be fatty. Liver measures 18 cm. No intrahepatic bile duct dilation. Gallbladder: Gallbladder wall is normal, 2.1 mm. No gallstones. Negative Escobar's sign. Common bile duct: CBD normal, 4 mm. No stones. No dilation. Pancreas: Unremarkable as visualized. Kidneys: Right kidney measures 11.9 x 5.3 x 7.6 cm. Left kidney measures 12.9 x 6.7 x 6.6 cm. No stones. No hydronephrosis. Spleen: Spleen measures 10.6 x 4.8 x 5.5 cm. Aorta: Unremarkable. No aneurysm. Inferior vena cava: Unremarkable. IMPRESSION: 1. Slightly dense enlarged liver may be fatty. 2. No cholelithiasis or acute cholecystitis.
--- NOTE | 2017-12-24 14:17 | Consultation ---
History of Present Illness General Date patient seen: Dec 24, 2017 Chief Complaint: Abdominal Pain Reason for Consultation: abdominal pain Present Illness HPI 32M history of appendectomy for appendicitis by Dr. Castillo. Developed intraabdominal abscess requiring drainage prior. was discharged and returned with colitis. was discharged but did not fill his Rx. since doing well until he went to the beach and noted some abdominal pain. came to ED for evaluation. mild leukocytosis. CT with mass like possible phlegmon around wound. surgery called to evaluate. patient seen, chart reviewed, patient examined Allergies: Coded Allergies: No Known Allergies (Unverified , 04/25/16) Medication History Scheduled Al Hydroxide/mg Hydroxide (Mag-Al Liquid), 30 ML ORAL Q6HR, (Reported) Lactobacillus Acidophilus (Probiotic), 1 EACH PO THREE TIMES A DAY, (Reported) No Known Medications* (NKM - No Known Medications*), 0 ., (Reported) Pantoprazole* (Pantoprazole*), 40 MG ORAL DAILY, (Reported) Simethicone* (Simethicone*), 80 MG ORAL QID, (Reported) Vancomycin Hcl (Vancomycin Hcl), 125 MG PO FOUR TIMES A DAY, (Reported) Scheduled PRN Acetaminophen* (Acetaminophen 325MG Tablet*), 650 MG ORAL Q4H PRN for Fever/ Headache/Mild Pain, (Reported) Diphenhydramine Hcl* (Benadryl*), 25 MG ORAL Q6H PRN for Itching, (Reported) Temazepam* (Restoril*), 15 MG ORAL BEDTIME PRN for Insomnia, (Reported) Patient History History Provided By: Patient, Medical Record, PMD Healthcare decision maker SELFDA WILLIAM Resuscitation status Full Code Advanced Directive on File No Past Medical/Surgical History Past Medical/Surgical History: (1) Colitis (2) Constipation (3) Pharyngitis (4) H/O appendicitis (5) Diarrhea (6) Leukocytosis (7) Mesenteric mass (8) Abdominal pain Review of Systems All Other Systems: negative except mentioned in HPI Physical Exam General Appearance: no apparent distress Lines, tubes and drains: peripheral HEENT: mucous membranes moist Neck: normal inspection Respiratory/Chest: normal breath sounds, no respiratory distress, no accessory muscle use Cardiovascular/Chest: normal rate Abdomen: normal bowel sounds, soft, no organomegaly, tender Extremities: normal inspection Skin Exam: normal pigmentation Neurologic: alert, oriented x 3 Last 24 Hour Vital Signs Date Time Temp Pulse Resp B/P (MAP) Pulse Ox O2 Delivery O2 Flow Rate FiO2 12/24/17 09:00 Room Air 12/24/17 08:00 97.0 86 18 123/87 (99) 99 97.0 12/24/17 04:13 97.9 12/24/17 04:00 97.9 77 20 122/75 (91) 100 97.9 12/24/17 03:57 97.9 77 20 122/75 (91) 99 97.9 12/24/17 00:25 98.1 80 20 123/68 (86) 98 98.1 12/23/17 21:00 Room Air 12/23/17 20:14 96.3 68 20 132/86 (101) 100 96.3 12/23/17 20:04 97.8 76 18 126/68 99 Room Air 12/23/17 18:58 67 20 133/76 100 Room Air 12/23/17 17:00 77 16 123/71 99 Room Air 12/23/17 16:50 98.9 12/23/17 16:50 98.9 12/23/17 16:49 98.9 12/23/17 16:12 98.9 12/23/17 15:00 75 25 109/59 99 Room Air Intake and Output 12/23/17 12/24/17 19:00 07:00 Intake Total 1050 ml 795 ml Output Total 60 ml Balance 990 ml 795 ml Intake Oral 120 ml IV Total 1050 ml 675 ml Output Urine Total 60 ml # Voids 1 2 # Bowel Movements 1 Laboratory Tests Test 12/24/17 05:00 White Blood Count 10.7 K/UL (4.8-10.8) Red Blood Count 4.63 M/UL (4.70-6.10) L Hemoglobin 12.5 G/DL (14.2-18.0) L Hematocrit 38.2 % (42.0-52.0) L Mean Corpuscular Volume 83 FL (80-99) Mean Corpuscular Hemoglobin 27.1 PG (27.0-31.0) Mean Corpuscular Hemoglobin Concent 32.9 G/DL (32.0-36.0) Red Cell Distribution Width 12.7 % (11.6-14.8) Platelet Count 232 K/UL (150-450) Mean Platelet Volume 6.7 FL (6.5-10.1) Neutrophils (%) (Auto) 64.7 % (45.0-75.0) Lymphocytes (%) (Auto) 23.7 % (20.0-45.0) Monocytes (%) (Auto) 8.6 % (1.0-10.0) Eosinophils (%) (Auto) 2.1 % (0.0-3.0) Basophils (%) (Auto) 1.0 % (0.0-2.0) Activated Partial Thromboplast Time 30 SEC (23-33) Sodium Level 138 MMOL/L (136-145) Potassium Level 3.6 MMOL/L (3.5-5.1) Chloride Level 103 MMOL/L (98-107) Carbon Dioxide Level 29 MMOL/L (21-32) Anion Gap 6 mmol/L (5-15) Blood Urea Nitrogen 8 mg/dL (7-18) Creatinine 0.9 MG/DL (0.55-1.30) Estimat Glomerular Filtration Rate > 60 mL/min (>60) Glucose Level 90 MG/DL (74-106) Calcium Level 9.1 MG/DL (8.5-10.1) Total Bilirubin 0.5 MG/DL (0.2-1.0) Aspartate Amino Transf (AST/SGOT) 15 U/L (15-37) Alanine Aminotransferase (ALT/SGPT) 10 U/L (12-78) L Alkaline Phosphatase 63 U/L (46-116) Total Protein 7.6 G/DL (6.4-8.2) Albumin 3.4 G/DL (3.4-5.0) Globulin 4.2 g/dL Albumin/Globulin Ratio 0.8 (1.0-2.7) L Amylase Level 80 U/L (25-115) Lipase 583 U/L (73-393) H Height (Feet): 5 Height (Inches): 8.00 Weight (Pounds): 216 Medications Current Medications Medications (Trade) Dose Ordered Sig/Kelsea Route PRN Reason Start Time Stop Time Status Last Admin Dose Admin Acetaminophen (Tylenol) 650 mg Q4H PRN ORAL fever 12/23/17 17:30 01/22/18 17:29 Al Hydroxide/Mg Hydroxide (Mylanta II) 30 ml Q6H PRN ORAL dyspepsia 12/23/17 17:30 01/22/18 17:29 Barium Sulfate (Readi-Cat 2) 450 ea NOW PRN ORAL Radiology Procedure 12/23/17 15:45 12/25/17 15:42 Dextrose (Dextrose 50%) 25 ml STAT PRN IV Hypoglycemia 12/23/17 17:30 01/22/18 17:29 Dextrose (Dextrose 50%) 50 ml STAT PRN IV Hypoglycemia 12/23/17 17:45 01/22/18 17:44 Dextrose/Sodium Chloride 1,000 ml @ 75 mls/hr [id number] IV 12/23/17 17:25 01/22/18 17:24 12/24/17 13:38 Diphenhydramine HCl (Benadryl) 25 mg Q6H PRN ORAL Itching/Pruritis 12/23/17 17:30 01/22/18 17:29 Heparin Sodium (Porcine) (Heparin 5000 units/ml) 5,000 units EVERY 12 HOURS SUBQ 12/23/17 21:00 01/22/18 20:59 Iopamidol (Isovue-300 100ml) 100 ml NOW PRN INJ Radiology Procedure 12/23/17 15:45 Lorazepam (Ativan 2mg/ml 1ml) 1 mg Q4H PRN IV agitation 12/23/17 17:30 12/30/17 17:29 12/24/17 05:21 Metoclopramide HCl (Reglan) 10 mg Q6H PRN IVP severe nausea 12/23/17 17:30 01/22/18 17:29 Morphine Sulfate (Morphine Sulfate) 2 mg Q4H PRN IVP severe Pain (Pain Scale 7-10) 12/23/17 17:30 12/30/17 17:29 12/24/17 13:38 Nitroglycerin (Ntg) 0.4 mg Q5M X 3 DOSES PRN SL Prn Chest Pain 12/23/17 17:30 01/22/18 17:29 Ondansetron HCl (Zofran) 4 mg Q6H PRN IVP Nausea & Vomiting 12/23/17 17:30 01/22/18 17:29 Pantoprazole (Protonix) 40 mg DAILY IV 12/24/17 09:00 01/23/18 08:59 12/24/17 09:11 Polyethylene Glycol (Miralax) 17 gm HSPRN PRN ORAL Constipation 12/23/17 21:00 01/22/18 20:59 Promethazine HCl (Phenergan) 12.5 mg Q6H PRN IM refractory nausea and vomiting 12/23/17 18:00 01/22/18 17:59 Temazepam (Restoril) 15 mg HSPRN PRN ORAL Insomnia 12/23/17 21:00 12/30/17 20:59 12/24/17 00:44 Assessment/Plan Problem List: (1) Abdominal pain Assessment & Plan: 3.2 x 4.2 cm masslike area with surrounding infiltration of the fat within the mesentery in the midline just above the level of the umbilicus. Some small adjacent lymph nodes are noted. This appears more prominent compared to the prior exam and may be related to an acute infectious/ inflammatory process such as enteritis or mesenteric panniculitis. No acute surgical intervention planned. will discuss with radiology about case. likely related to post surgical infectious process IV Abx as per ID will monitor exam okay for diet. ICD Codes: R10.9 - Unspecified abdominal pain SNOMED: 86528907 Qualifiers: Qualified Codes: R10.32 - Left lower quadrant pain Status: stable Constantin Monzon Dec 24, 2017 14:17
[2017-12-24] MEDS: Piperacillin/Tazobactam 3.375 GM in NS 110 ML IVPB SCH (17:27)
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
--- NOTE | 2017-12-25 00:16 | Consultation ---
DATE OF CONSULTATION: 12/24/2017 INFECTIOUS DISEASE CONSULTATION CONSULTING PHYSICIAN: Jay Vogel M.D. REFERRING PHYSICIAN: Franklyn Neves D.O. REASON FOR CONSULTATION: Evaluation of the patient for intra-abdominal abscess, antibiotic management. HISTORY OF PRESENT ILLNESS: The patient is a 32-year-old male with multiple medical problems, well known to our service from prior admissions came to the hospital with chief complaint of abdominal pain. CT scan showed evidence of possible intra-abdominal abscess. Infectious disease consultation has been requested for further evaluation of the patient's antibiotic management. The patient does not have nausea, vomiting, or diarrhea. He had chills prior to admission. PAST MEDICAL HISTORY: 1. History of recent perforated appendix, status post drainage of right lower quadrant abscess, partial omentectomy on 10/29/2017 (abscess grew E. coli Fusobacterium). 2. History of colitis (possible Clostridium difficile). 3. History of asthma. ALLERGIES: No known drug allergies. SOCIAL HISTORY: Negative for alcohol, drug abuse, or smoking except marijuana. FAMILY HISTORY: Not contributing. REVIEW OF SYSTEMS: A 10-point review was done and except what was mentioned above has been negative. MEDICATIONS: The patient received one dose of cefepime in the emergency room. PHYSICAL EXAMINATION: VITAL SIGNS: Temperature 97, pulse 86, respiratory rate 18, and blood pressure 123/87. HEENT: No pallor. No icterus. NECK: No lymphadenopathy. CHEST: Clear. HEART: S1 and S2. ABDOMEN: Soft. The patient has mild to moderate mid abdominal pain. NEUROLOGIC: Awake and alert. SKIN: No rash. Wound has healed. LABORATORY DATA: White blood cells 10, hemoglobin 12, and platelets 232. UA unremarkable. BUN 8 and creatinine 0.9. ALT, AST, and alkaline phosphatase unremarkable. Amylase 80 and lipase 583. Ultrasound of abdomen showed possible fatty liver, no evidence of acute cholecystitis. CT of the abdomen, one 3.2 x 4.2 centimeter mass like area surrounding infiltration of the fat within the mesentery in the midline, and there is ____ process such as lymphoma cannot be excluded. ASSESSMENT: The patient is a 32-year-old male with multiple medical problems as listed above who has: 1. Abdominal pain. 2. Afebrile. 3. Status post mild leukocytosis. 4. Possible intra-abdominal abscess. PLAN: 1. We will start the patient on IV Zosyn. 2. Monitor CBC. 3. Monitor BMP. 4. Monitor cultures (blood). 5. We will follow surgical recommendations regarding the drainage of the abscess. Jay Vogel M.D. DR: PETR JOB#: [id number] CC:
[2017-12-25] MEDS: Piperacillin/Tazobactam 3.375 GM in NS 110 ML IVPB SCH ×3 (03:34→17:51)
[2017-12-25 06:58] LABS: BASOPHILS % (AUTO) 1.4 % (0.0-2.0); EOSINOPHILS % (AUTO) 2.1 % (0.0-3.0); HEMATOCRIT 40.8 % (42.0-52.0); HEMOGLOBIN 13.4 G/DL (14.2-18.0); LYMPHOCYTES % (AUTO) 28.9 % (20.0-45.0); MEAN CORPUSCULAR VOLUME 82 FL (80-99); NEUTROPHILS % (AUTO) 57.5 % (45.0-75.0); PLATELET COUNT 258 K/UL (150-450); RED BLOOD COUNT 4.97 M/UL (4.70-6.10); RED CELL DISTRIBUTION WIDTH 12.2 % (11.6-14.8); WHITE BLOOD COUNT 9.2 K/UL (4.8-10.8)
[2017-12-25 07:01] LABS: ANION GAP 8 mmol/L (5-15); BLOOD UREA NITROGEN 11 mg/dL (7-18); CALCIUM 9.4 MG/DL (8.5-10.1); CARBON DIOXIDE 29 MMOL/L (21-32); CHLORIDE 101 MMOL/L (98-107); POTASSIUM 4.8 MMOL/L (3.5-5.1); SODIUM 138 MMOL/L (136-145)
[2017-12-25 07:46] VITALS: BP 129/84
--- NOTE | 2017-12-25 07:55 | General Progress Note ---
Assessment/Plan Problem List: (1) UTI (urinary tract infection) ICD Codes: N39.0 - Urinary tract infection, site not specified SNOMED: 58425136 (2) Anemia ICD Codes: D64.9 - Anemia, unspecified SNOMED: 852915197 (3) Leukocytosis ICD Codes: D72.829 - Elevated white blood cell count, unspecified SNOMED: 958517539, 109896985 Qualifiers: Qualified Codes: D72.829 - Elevated white blood cell count, unspecified (4) Abdominal pain ICD Codes: R10.9 - Unspecified abdominal pain SNOMED: 42802631 Qualifiers: Qualified Codes: R10.32 - Left lower quadrant pain (5) H/O appendicitis ICD Codes: Z87.19 - Personal history of other diseases of the digestive system SNOMED: 974030352 Status: stable, progressing Assessment/Plan gi sx f/u abx pain copntrol cbc bmp am Subjective Constitutional: Reports: weakness Allergies: Coded Allergies: No Known Allergies (Unverified , 04/25/16) All Systems: reviewed and negative except above Subjective sleepy calm Objective Last 24 Hour Vital Signs Date Time Temp Pulse Resp B/P (MAP) Pulse Ox O2 Delivery O2 Flow Rate FiO2 12/25/17 07:46 97.1 74 18 129/84 (99) 99 97.1 12/24/17 21:00 Room Air 12/24/17 20:20 97.3 83 20 121/73 (89) 100 97.3 12/24/17 16:25 98.1 84 18 132/82 (99) 100 98.1 12/24/17 12:00 97.9 77 16 146/97 (113) 98 97.9 12/24/17 09:00 Room Air 12/24/17 08:00 97.0 86 18 123/87 (99) 99 97.0 Intake and Output 12/24/17 12/25/17 19:00 07:00 Intake Total 400 ml Balance 400 ml Intake Oral 400 ml # Voids 2 3 # Bowel Movements 2 Laboratory Tests 12/25/17 05:30: White Blood Count 9.2, Red Blood Count 4.97, Hemoglobin 13.4L, Hematocrit 40.8L , Mean Corpuscular Volume 82, Mean Corpuscular Hemoglobin 26.8L, Mean Corpuscular Hemoglobin Concent 32.7, Red Cell Distribution Width 12.2, Platelet Count 258, Mean Platelet Volume 6.3L, Neutrophils (%) (Auto) 57.5, Lymphocytes ( %) (Auto) 28.9, Monocytes (%) (Auto) 10.0, Eosinophils (%) (Auto) 2.1, Basophils (%) (Auto) 1.4, Sodium Level 138, Potassium Level 4.8, Chloride Level 101, Carbon Dioxide Level 29, Anion Gap 8, Blood Urea Nitrogen 11, Creatinine 1.0, Estimat Glomerular Filtration Rate > 60, Glucose Level 83, Calcium Level 9.4 Height (Feet): 5 Height (Inches): 8.00 Weight (Pounds): 216 General Appearance: lethargic EENT: normal ENT inspection Neck: normal alignment Cardiovascular: normal peripheral pulses, normal rate, regular rhythm Respiratory/Chest: chest wall non-tender, lungs clear, normal breath sounds Abdomen: normal bowel sounds, non tender, soft Extremities: normal inspection Edema: no edema noted Arm (L), no edema noted Arm (R), no edema noted Leg (L), no edema noted Leg (R), no edema noted Pedal (L), no edema noted Pedal (R), no edema noted Generalized Neurologic: responsive, motor weakness Skin: normal pigmentation, warm/dry Franklyn Neves DO Dec 25, 2017 07:55
[2017-12-25] MEDS: Pantoprazole Inj IV SCH (08:43)
[2017-12-25] MEDS: Morphine Sulfate 2mg/ml Inj IVP PRN ×3 (08:44→17:52)
[2017-12-25] MEDS: Heparin 5000 units/ml inj SUBQ SCH ×2 (08:44→20:30)
[2017-12-25] MEDS: D5 1/2NS 1,000 ML IV SCH ×2 (09:25→23:30)
--- NOTE | 2017-12-25 12:27 | Consultation ---
History of Present Illness General Date patient seen: Dec 25, 2017 Present Illness Allergies: Coded Allergies: No Known Allergies (Unverified , 04/25/16) Medication History Scheduled Al Hydroxide/mg Hydroxide (Mag-Al Liquid), 30 ML ORAL Q6HR, (Reported) Lactobacillus Acidophilus (Probiotic), 1 EACH PO THREE TIMES A DAY, (Reported) No Known Medications* (NKM - No Known Medications*), 0 ., (Reported) Pantoprazole* (Pantoprazole*), 40 MG ORAL DAILY, (Reported) Simethicone* (Simethicone*), 80 MG ORAL QID, (Reported) Vancomycin Hcl (Vancomycin Hcl), 125 MG PO FOUR TIMES A DAY, (Reported) Scheduled PRN Acetaminophen* (Acetaminophen 325MG Tablet*), 650 MG ORAL Q4H PRN for Fever/ Headache/Mild Pain, (Reported) Diphenhydramine Hcl* (Benadryl*), 25 MG ORAL Q6H PRN for Itching, (Reported) Temazepam* (Restoril*), 15 MG ORAL BEDTIME PRN for Insomnia, (Reported) Patient History Healthcare decision maker DA DENNISON WILLIAM Resuscitation status Full Code Advanced Directive on File No Physical Exam Last 24 Hour Vital Signs Date Time Temp Pulse Resp B/P (MAP) Pulse Ox O2 Delivery O2 Flow Rate FiO2 12/25/17 09:00 Room Air 12/25/17 07:46 97.1 74 18 129/84 (99) 99 97.1 12/24/17 21:00 Room Air 12/24/17 20:20 97.3 83 20 121/73 (89) 100 97.3 12/24/17 16:25 98.1 84 18 132/82 (99) 100 98.1 Intake and Output 12/24/17 12/25/17 19:00 07:00 Intake Total 400 ml Balance 400 ml Intake Oral 400 ml # Voids 2 3 # Bowel Movements 2 Laboratory Tests Test 12/25/17 05:30 White Blood Count 9.2 K/UL (4.8-10.8) Red Blood Count 4.97 M/UL (4.70-6.10) Hemoglobin 13.4 G/DL (14.2-18.0) L Hematocrit 40.8 % (42.0-52.0) L Mean Corpuscular Volume 82 FL (80-99) Mean Corpuscular Hemoglobin 26.8 PG (27.0-31.0) L Mean Corpuscular Hemoglobin Concent 32.7 G/DL (32.0-36.0) Red Cell Distribution Width 12.2 % (11.6-14.8) Platelet Count 258 K/UL (150-450) Mean Platelet Volume 6.3 FL (6.5-10.1) L Neutrophils (%) (Auto) 57.5 % (45.0-75.0) Lymphocytes (%) (Auto) 28.9 % (20.0-45.0) Monocytes (%) (Auto) 10.0 % (1.0-10.0) Eosinophils (%) (Auto) 2.1 % (0.0-3.0) Basophils (%) (Auto) 1.4 % (0.0-2.0) Sodium Level 138 MMOL/L (136-145) Potassium Level 4.8 MMOL/L (3.5-5.1) Chloride Level 101 MMOL/L (98-107) Carbon Dioxide Level 29 MMOL/L (21-32) Anion Gap 8 mmol/L (5-15) Blood Urea Nitrogen 11 mg/dL (7-18) Creatinine 1.0 MG/DL (0.55-1.30) Estimat Glomerular Filtration Rate > 60 mL/min (>60) Glucose Level 83 MG/DL (74-106) Calcium Level 9.4 MG/DL (8.5-10.1) Microbiology Date/Time Source Procedure Growth Status 12/24/17 16:45 Blood Blood Culture - Preliminary Resulted Height (Feet): 5 Height (Inches): 8.00 Weight (Pounds): 216 Medications Current Medications Medications (Trade) Dose Ordered Sig/Kelsea Route PRN Reason Start Time Stop Time Status Last Admin Dose Admin Acetaminophen (Tylenol) 650 mg Q4H PRN ORAL fever 12/23/17 17:30 01/22/18 17:29 Al Hydroxide/Mg Hydroxide (Mylanta II) 30 ml Q6H PRN ORAL dyspepsia 12/23/17 17:30 01/22/18 17:29 Barium Sulfate (Readi-Cat 2) 450 ea NOW PRN ORAL Radiology Procedure 12/23/17 15:45 12/25/17 15:42 Dextrose (Dextrose 50%) 25 ml STAT PRN IV Hypoglycemia 12/23/17 17:30 01/22/18 17:29 Dextrose (Dextrose 50%) 50 ml STAT PRN IV Hypoglycemia 12/23/17 17:45 01/22/18 17:44 Dextrose/Sodium Chloride 1,000 ml @ 75 mls/hr [id number] IV 12/23/17 17:25 01/22/18 17:24 12/24/17 13:38 Diphenhydramine HCl (Benadryl) 25 mg Q6H PRN ORAL Itching/Pruritis 12/23/17 17:30 01/22/18 17:29 Heparin Sodium (Porcine) (Heparin 5000 units/ml) 5,000 units EVERY 12 HOURS SUBQ 12/23/17 21:00 01/22/18 20:59 Iopamidol (Isovue-300 100ml) 100 ml NOW PRN INJ Radiology Procedure 12/23/17 15:45 Lorazepam (Ativan 2mg/ml 1ml) 1 mg Q4H PRN IV agitation 12/23/17 17:30 12/30/17 17:29 12/24/17 23:31 Metoclopramide HCl (Reglan) 10 mg Q6H PRN IVP severe nausea 12/23/17 17:30 01/22/18 17:29 Morphine Sulfate (Morphine Sulfate) 2 mg Q4H PRN IVP severe Pain (Pain Scale 7-10) 12/23/17 17:30 12/30/17 17:29 12/25/17 08:44 Nitroglycerin (Ntg) 0.4 mg Q5M X 3 DOSES PRN SL Prn Chest Pain 12/23/17 17:30 01/22/18 17:29 Ondansetron HCl (Zofran) 4 mg Q6H PRN IVP Nausea & Vomiting 12/23/17 17:30 01/22/18 17:29 Pantoprazole (Protonix) 40 mg DAILY IV 12/24/17 09:00 01/23/18 08:59 12/25/17 08:43 Piperacillin Sod/ Tazobactam Sod 3.375 gm/Sodium Chloride 110 ml @ 27.5 mls/hr Q8H IVPB 12/24/17 17:00 12/31/17 16:59 12/25/17 08:43 Polyethylene Glycol (Miralax) 17 gm HSPRN PRN ORAL Constipation 12/23/17 21:00 01/22/18 20:59 Promethazine HCl (Phenergan) 12.5 mg Q6H PRN IM refractory nausea and vomiting 12/23/17 18:00 01/22/18 17:59 Temazepam (Restoril) 15 mg HSPRN PRN ORAL Insomnia 12/23/17 21:00 12/30/17 20:59 12/24/17 00:44 Assessment/Plan Assessment/Plan (1) Abdominal pain (2) Intraabdominal abscess (3) H/o appendectomy due to appendicitis seen dictated Alon Casarez Dec 25, 2017 12:27
--- NOTE | 2017-12-25 13:14 | General Surgery Progress Note ---
General Surgery-Progress Note Subjective Additional Comments no acute events. abd pain. no n/v/f/c. tolerating diet. normal BM's. Objective Last 24 Hour Vital Signs Date Time Temp Pulse Resp B/P (MAP) Pulse Ox O2 Delivery O2 Flow Rate FiO2 12/25/17 09:00 Room Air 12/25/17 07:46 97.1 74 18 129/84 (99) 99 97.1 12/24/17 21:00 Room Air 12/24/17 20:20 97.3 83 20 121/73 (89) 100 97.3 12/24/17 16:25 98.1 84 18 132/82 (99) 100 98.1 I&O Intake and Output 12/24/17 12/25/17 19:00 07:00 Intake Total 400 ml Balance 400 ml Intake Oral 400 ml # Voids 2 3 # Bowel Movements 2 Wound: clean, dry Drains: none Cardiovascular: RSR Respiratory: clear Abdomen: soft, flat, tenderness, present bowel sounds Extremities: no cyanosis Laboratory Tests Test 12/25/17 05:30 White Blood Count 9.2 K/UL (4.8-10.8) Red Blood Count 4.97 M/UL (4.70-6.10) Hemoglobin 13.4 G/DL (14.2-18.0) L Hematocrit 40.8 % (42.0-52.0) L Mean Corpuscular Volume 82 FL (80-99) Mean Corpuscular Hemoglobin 26.8 PG (27.0-31.0) L Mean Corpuscular Hemoglobin Concent 32.7 G/DL (32.0-36.0) Red Cell Distribution Width 12.2 % (11.6-14.8) Platelet Count 258 K/UL (150-450) Mean Platelet Volume 6.3 FL (6.5-10.1) L Neutrophils (%) (Auto) 57.5 % (45.0-75.0) Lymphocytes (%) (Auto) 28.9 % (20.0-45.0) Monocytes (%) (Auto) 10.0 % (1.0-10.0) Eosinophils (%) (Auto) 2.1 % (0.0-3.0) Basophils (%) (Auto) 1.4 % (0.0-2.0) Sodium Level 138 MMOL/L (136-145) Potassium Level 4.8 MMOL/L (3.5-5.1) Chloride Level 101 MMOL/L (98-107) Carbon Dioxide Level 29 MMOL/L (21-32) Anion Gap 8 mmol/L (5-15) Blood Urea Nitrogen 11 mg/dL (7-18) Creatinine 1.0 MG/DL (0.55-1.30) Estimat Glomerular Filtration Rate > 60 mL/min (>60) Glucose Level 83 MG/DL (74-106) Calcium Level 9.4 MG/DL (8.5-10.1) Plan Problems: (1) Abdominal pain Assessment & Plan: 3.2 x 4.2 cm masslike area with surrounding infiltration of the fat within the mesentery in the midline just above the level of the umbilicus. Some small adjacent lymph nodes are noted. This appears more prominent compared to the prior exam and may be related to an acute infectious/ inflammatory process such as enteritis or mesenteric panniculitis. No acute surgical intervention planned. will discuss with radiology about case. likely related to post surgical infectious process and patient did not fill Abx upon discharge for appropriate Abx course IV Abx as per ID will monitor exam okay for diet. Constantin Monzon Dec 25, 2017 13:14
[2017-12-25] MEDS ORDERED: Vancomycin 1.5 GM/D5W 250ML IVPB ONE (14:00)
[2017-12-25 15:48] VITALS: BP 136/87
[2017-12-25] MEDS ORDERED: guaiFENesin 100mg/5ml Liq ud ORAL PRN (16:05)
--- NOTE | 2017-12-25 19:30 | Consultation ---
DATE OF CONSULTATION: 12/25/2017 PAIN MANAGEMENT CONSULTATION CONSULTING PHYSICIAN: Blas Jacobs M.D. REFERRING PHYSICIAN: Franklyn Neves D.O. PHYSICIAN CELLOPHANE BATH MIXER: Keri Walker CHIEF COMPLAINT: Abdominal pain. HISTORY OF PRESENT ILLNESS: The patient is a 32-year-old male who is being seen on the Medical/Surgical floor of [facility] for initial comprehensive pain management consultation. The patient is a known patient from prior admission when he was status post appendectomy and colitis, readmitted due to possible intra-abdominal abscess, seen by a surgical team who would like to hold off drainage of the abscess at this time and we would like the patient to continue antibiotics as per Infectious Disease doctor. The patient is on morphine 2 mg IV every 4 hours as needed for pain, which has been reducing his pain from an 8/10 to 3/10. We were consulted to help the patient to have adequate pain control while here in the hospital. REVIEW OF SYSTEMS: Denies rash, fever, chills, sweating, dizziness, drowsiness, blurred vision, sore throat, or change in weight. No shortness of breath or chest pain. No nausea, vomiting, diarrhea, or blood in the stool or urine. No bowel or bladder incontinence. No dysuria. He is complaining of abdominal pain. PHYSICAL EXAMINATION: GENERAL: Alert, awake, oriented x3. VITAL SIGNS: Blood pressure 129/84, heart rate 75, oxygen saturation 99%, respirations 18, and temperature is 97.1 degrees Fahrenheit. HEENT: PERRLA. NECK: Range of motion is full in all directions. No tenderness to paracervical muscles. No adenopathy. LUNGS: Decreased breath sounds bilaterally. HEART: Regular. ABDOMEN: Tenderness to palpation. BACK: Range of motion is decreased in flexion and extension. EXTREMITIES: No cyanosis. No clubbing. No edema. NEUROLOGICAL: No focal deficit. ASSESSMENT AND PLAN: This is a 32-year-old male with abdominal pain, intra-abdominal abscess, history of appendectomy due to appendicitis. The patient will be continued on morphine 2 mg IV every 4 hours as needed for severe pain. The patient was discussed with Dr. Jacobs and Dr. Jacobs concurred. We will follow the patient. Thank you very much for the courtesy of this consultation. Blas Jacobs M.D. NADIA Walker DR: ADRIAN JOB#: [id number] CC:
--- NOTE | 2017-12-25 19:30 | Consultation ---
DATE OF CONSULTATION: 12/24/2017 GASTROENTEROLOGY CONSULTATION CONSULTING PHYSICIAN: Annemarie Garcia M.D. CHIEF COMPLAINT: I was asked to see this patient by Dr. Franklyn Neves for evaluation of abdominal pain. HISTORY OF PRESENT ILLNESS: The patient is a 32-year-old man, who apparently presented with abdominal pain to the emergency room and was discharged. Subsequently, he re-presented and at this time, he was found to have ruptured appendix and appendicitis. He was taken to the operating room and surgery was performed and a drain was placed. However, he did have persistent infectious presentation. He underwent imaging and a second drain was placed to drain the collection. He subsequently did well and was discharged home with apparently some type of antibiotic. He returned with some symptoms of colitis. Eventually, he was discharged home and he did very well for about a month, and about a week ago, he noticed development of recurrent abdominal pain and he came to the emergency room. There had been some chills, and CT scan showed a 4 cm density in the abdomen. PAST MEDICAL HISTORY: Otherwise negative. MEDICATIONS: None. ALLERGIES: None. SOCIAL HISTORY: The patient is single. He does not smoke or drink. FAMILY HISTORY: Noncontributory. REVIEW OF SYSTEMS: Otherwise negative. PHYSICAL EXAMINATION: GENERAL: A well-developed and well-nourished man, in no distress. HEENT: Normocephalic and atraumatic. Sclerae anicteric. Oropharynx clear. NECK: Supple. CHEST: Clear to auscultation. CARDIOVASCULAR: Revealed a regular rate. ABDOMEN: Soft with some mild periumbilical left-sided abdominal tenderness without guarding or rebound. EXTREMITIES: Revealed no edema. LABORATORY DATA: noted. ASSESSMENT: This patient presents with recurrent abdominal pain with the findings on the CT scan which is concerning for possible abscess. The patient will need to be seen both by Surgery and by Infectious Diseases. He should be placed on broad-spectrum antibiotics and we need to decide how to close this lesion. If the lesion is possibly liquid, then perhaps a CT-guided drainage can be provided. I will defer the management to surgery. In the meantime, the patient should be followed closely. RECOMMENDATIONS: Per above discussion and per orders written in the chart. Thank you for asking me to participate in the care of this patient. Annemarie Garcia M.D. DR: VITALY JOB#: [id number] CC: DASHA
--- NOTE | 2017-12-25 20:27 | General Progress Note ---
Assessment/Plan Assessment/Plan Assessment - abdominal pain - s/p recent perforated appendicitis and post op abscess - 4 cm abd collection/mass Recommendations - Abx per ID - IR drainage vs surgical Rx vs non-operative abx management per surgical consult - po diet Subjective Allergies: Coded Allergies: No Known Allergies (Unverified , 04/25/16) Subjective still with some abd pain ID and surgery noted Objective Last 24 Hour Vital Signs Date Time Temp Pulse Resp B/P (MAP) Pulse Ox O2 Delivery O2 Flow Rate FiO2 12/25/17 15:48 98.2 82 20 136/87 (103) 98 98.2 12/25/17 09:00 Room Air 12/25/17 07:46 97.1 74 18 129/84 (99) 99 97.1 12/24/17 21:00 Room Air Intake and Output 12/24/17 12/25/17 19:00 07:00 Intake Total 810 ml 75 ml Balance 810 ml 75 ml Intake Oral 400 ml IV Total 410 ml 75 ml # Voids 2 3 # Bowel Movements 2 Laboratory Tests 12/25/17 05:30: White Blood Count 9.2, Red Blood Count 4.97, Hemoglobin 13.4L, Hematocrit 40.8L , Mean Corpuscular Volume 82, Mean Corpuscular Hemoglobin 26.8L, Mean Corpuscular Hemoglobin Concent 32.7, Red Cell Distribution Width 12.2, Platelet Count 258, Mean Platelet Volume 6.3L, Neutrophils (%) (Auto) 57.5, Lymphocytes ( %) (Auto) 28.9, Monocytes (%) (Auto) 10.0, Eosinophils (%) (Auto) 2.1, Basophils (%) (Auto) 1.4, Sodium Level 138, Potassium Level 4.8, Chloride Level 101, Carbon Dioxide Level 29, Anion Gap 8, Blood Urea Nitrogen 11, Creatinine 1.0, Estimat Glomerular Filtration Rate > 60, Glucose Level 83, Calcium Level 9.4 Height (Feet): 5 Height (Inches): 8.00 Weight (Pounds): 216 Objective WDWN AA man NCAT supple CTA RRR abd soft, (+) central TTP no edema nonfocal Annemarie Garcia MD Dec 25, 2017 20:27
[2017-12-25 21:00] VITALS: BP 123/64
[2017-12-25] MEDS: Vancomycin 1gm/D5W 275ml IVPB SCH ×2 (23:30)
[2017-12-26] VITALS: BP 125/68
[2017-12-26] MEDS: LORazepam Inj 2mg/ml 1ml IV PRN (00:07)
[2017-12-26] MEDS: Piperacillin/Tazobactam 3.375 GM in NS 110 ML IVPB SCH ×3 (01:26→18:00)
[2017-12-26 04:00] VITALS: BP 122/65
[2017-12-26] MEDS: Vancomycin 1gm/D5W 275ml IVPB SCH ×6 (06:23→20:34)
[2017-12-26 08:00] VITALS: BP 105/52
[2017-12-26] MEDS: Heparin 5000 units/ml inj SUBQ SCH ×2 (09:00→20:14)
[2017-12-26] MEDS: Pantoprazole Inj IV SCH (10:27)
[2017-12-26 10:55] LABS: HEMATOCRIT 42.1 % (42.0-52.0); HEMOGLOBIN 13.8 G/DL (14.2-18.0); LYMPHOCYTES % (AUTO) 15.7 % (20.0-45.0); MEAN CORPUSCULAR VOLUME 82 FL (80-99); NEUTROPHILS % (AUTO) 71.3 % (45.0-75.0); PLATELET COUNT 275 K/UL (150-450); RED BLOOD COUNT 5.14 M/UL (4.70-6.10); RED CELL DISTRIBUTION WIDTH 12.3 % (11.6-14.8); WHITE BLOOD COUNT 12.3 K/UL (4.8-10.8)
--- NOTE | 2017-12-26 11:10 | General Progress Note ---
Assessment/Plan Problem List: (1) UTI (urinary tract infection) ICD Codes: N39.0 - Urinary tract infection, site not specified SNOMED: 81258795 (2) Anemia ICD Codes: D64.9 - Anemia, unspecified SNOMED: 799018892 (3) Leukocytosis ICD Codes: D72.829 - Elevated white blood cell count, unspecified SNOMED: 132492883, 930875046 Qualifiers: Qualified Codes: D72.829 - Elevated white blood cell count, unspecified (4) Abdominal pain ICD Codes: R10.9 - Unspecified abdominal pain SNOMED: 46522263 Qualifiers: Qualified Codes: R10.32 - Left lower quadrant pain (5) H/O appendicitis ICD Codes: Z87.19 - Personal history of other diseases of the digestive system SNOMED: 977081532 Status: stable, progressing Assessment/Plan gi sx f/u abx pain control cbc bmp am Subjective Constitutional: Reports: weakness Allergies: Coded Allergies: No Known Allergies (Unverified , 04/25/16) All Systems: reviewed and negative except above Subjective sl abd pain Objective Last 24 Hour Vital Signs Date Time Temp Pulse Resp B/P (MAP) Pulse Ox O2 Delivery O2 Flow Rate FiO2 12/26/17 08:00 98.5 92 18 105/52 (69) 98 98.5 12/26/17 04:00 98.9 72 20 122/65 (84) 100 98.9 12/26/17 00:00 99.3 78 20 125/68 (87) 98 99.3 12/25/17 21:00 Room Air 12/25/17 21:00 99.2 75 20 123/64 (83) 97 99.2 12/25/17 15:48 98.2 82 20 136/87 (103) 98 98.2 Intake and Output 12/25/17 12/26/17 19:00 07:00 Intake Total 1057.5 ml 1317.500 ml Balance 1057.5 ml 1317.500 ml Intake Oral 520 ml 400 ml IV Total 537.5 ml 917.500 ml # Voids 4 2 Laboratory Tests 12/26/17 10:35: White Blood Count 12.3H, Red Blood Count 5.14, Hemoglobin 13.8L, Hematocrit 42.1 , Mean Corpuscular Volume 82, Mean Corpuscular Hemoglobin 26.8L, Mean Corpuscular Hemoglobin Concent 32.7, Red Cell Distribution Width 12.3, Platelet Count 275, Mean Platelet Volume 6.4L, Neutrophils (%) (Auto) 71.3, Lymphocytes ( %) (Auto) 15.7L, Monocytes (%) (Auto) 10.0, Eosinophils (%) (Auto) 2.0, Basophils (%) (Auto) 1.0, Sodium Level [Pending], Potassium Level [Pending], Chloride Level [Pending], Carbon Dioxide Level [Pending], Blood Urea Nitrogen [ Pending], Creatinine [Pending], Estimat Glomerular Filtration Rate [Pending], Glucose Level [Pending], Calcium Level [Pending], Lipase [Pending] Height (Feet): 5 Height (Inches): 8.00 Weight (Pounds): 216 General Appearance: alert EENT: normal ENT inspection Neck: normal alignment Cardiovascular: normal peripheral pulses, normal rate, regular rhythm Respiratory/Chest: chest wall non-tender, lungs clear, normal breath sounds Abdomen: normal bowel sounds, non tender, soft Extremities: normal inspection Edema: no edema noted Arm (L), no edema noted Arm (R), no edema noted Leg (L), no edema noted Leg (R), no edema noted Pedal (L), no edema noted Pedal (R), no edema noted Generalized Neurologic: responsive, motor weakness Skin: normal pigmentation, warm/dry Franklyn Neves DO Dec 26, 2017 11:10
[2017-12-26 11:22] LABS: ANION GAP 7 mmol/L (5-15); BLOOD UREA NITROGEN 12 mg/dL (7-18); CALCIUM 9.4 MG/DL (8.5-10.1); CARBON DIOXIDE 30 MMOL/L (21-32); CHLORIDE 102 MMOL/L (98-107); CREATININE 1.1 MG/DL (0.55-1.30); POTASSIUM 4.5 MMOL/L (3.5-5.1); SODIUM 139 MMOL/L (136-145)
--- NOTE | 2017-12-26 11:58 | GI Progress Note ---
Assessment/Plan Problems: (1) Diarrhea ICD Codes: R19.7 - Diarrhea, unspecified SNOMED: 27171714 (2) Constipation ICD Codes: K59.00 - Constipation, unspecified SNOMED: 65926616 (3) Abdominal pain ICD Codes: R10.9 - Unspecified abdominal pain SNOMED: 12434276 Qualifiers: Qualified Codes: R10.32 - Left lower quadrant pain (4) Mesenteric mass ICD Codes: K63.9 - Disease of intestine, unspecified SNOMED: 504815023 (5) Leukocytosis ICD Codes: D72.829 - Elevated white blood cell count, unspecified SNOMED: 834573076, 512405517 Qualifiers: Qualified Codes: D72.829 - Elevated white blood cell count, unspecified (6) Colitis ICD Codes: K52.9 - Noninfective gastroenteritis and colitis, unspecified SNOMED: 56182738 (7) Anemia ICD Codes: D64.9 - Anemia, unspecified SNOMED: 732302385 (8) Status post appendectomy ICD Codes: Z90.49 - Acquired absence of other specified parts of digestive tract SNOMED: 479561427, 40537915, 79000127 Status: unchanged Status Narrative Discussed with Dr. Goddard. Assessment/Plan Assessment - abdominal pain - s/p recent perforated appendicitis and post op abscess - 4 cm abd collection/mass - elevated lipase >> normal now Recommendations - Abx per ID - IR drainage vs surgical Rx vs non-operative abx management per surgical consult - po diet - Cepacol prn - pain mgmt - fu labs Subjective Gastrointestinal/Abdominal: Reports: abdominal pain Objective Last 24 Hour Vital Signs Date Time Temp Pulse Resp B/P (MAP) Pulse Ox O2 Delivery O2 Flow Rate FiO2 12/26/17 08:40 Room Air 12/26/17 08:00 98.5 92 18 105/52 (69) 98 98.5 12/26/17 04:00 98.9 72 20 122/65 (84) 100 98.9 12/26/17 00:00 99.3 78 20 125/68 (87) 98 99.3 12/25/17 21:00 Room Air 12/25/17 21:00 99.2 75 20 123/64 (83) 97 99.2 12/25/17 15:48 98.2 82 20 136/87 (103) 98 98.2 Intake and Output 12/25/17 12/26/17 19:00 07:00 Intake Total 1057.5 ml 1317.500 ml Balance 1057.5 ml 1317.500 ml Intake Oral 520 ml 400 ml IV Total 537.5 ml 917.500 ml # Voids 4 2 Laboratory Tests Test 12/26/17 10:35 White Blood Count 12.3 K/UL (4.8-10.8) H Red Blood Count 5.14 M/UL (4.70-6.10) Hemoglobin 13.8 G/DL (14.2-18.0) L Hematocrit 42.1 % (42.0-52.0) Mean Corpuscular Volume 82 FL (80-99) Mean Corpuscular Hemoglobin 26.8 PG (27.0-31.0) L Mean Corpuscular Hemoglobin Concent 32.7 G/DL (32.0-36.0) Red Cell Distribution Width 12.3 % (11.6-14.8) Platelet Count 275 K/UL (150-450) Mean Platelet Volume 6.4 FL (6.5-10.1) L Neutrophils (%) (Auto) 71.3 % (45.0-75.0) Lymphocytes (%) (Auto) 15.7 % (20.0-45.0) L Monocytes (%) (Auto) 10.0 % (1.0-10.0) Eosinophils (%) (Auto) 2.0 % (0.0-3.0) Basophils (%) (Auto) 1.0 % (0.0-2.0) Sodium Level 139 MMOL/L (136-145) Potassium Level 4.5 MMOL/L (3.5-5.1) Chloride Level 102 MMOL/L (98-107) Carbon Dioxide Level 30 MMOL/L (21-32) Anion Gap 7 mmol/L (5-15) Blood Urea Nitrogen 12 mg/dL (7-18) Creatinine 1.1 MG/DL (0.55-1.30) Estimat Glomerular Filtration Rate > 60 mL/min (>60) Glucose Level 115 MG/DL (74-106) H Calcium Level 9.4 MG/DL (8.5-10.1) Lipase 188 U/L (73-393) Height (Feet): 5 Height (Inches): 8.00 Weight (Pounds): 216 General Appearance: WD/WN, no apparent distress, alert Cardiovascular: normal rate Respiratory/Chest: normal breath sounds, no respiratory distress Abdominal Exam: normal bowel sounds, non tender, soft Extremities: normal range of motion, non-tender Mayte Lizarraga NP Dec 26, 2017 11:58
[2017-12-26 12:00] VITALS: BP 126/73
[2017-12-26] MEDS: D5 1/2NS 1,000 ML IV SCH (12:05)
[2017-12-26] MEDS ORDERED: guaiFENesin 100mg/5ml Liq ud ORAL PRN (13:00)
--- NOTE | 2017-12-26 13:01 | General Surgery Progress Note ---
General Surgery-Progress Note Subjective Symptoms: tolerating diet, voiding well, passing flatus, BM Additional Comments still with abd pain. leukocytosis. Objective Last 24 Hour Vital Signs Date Time Temp Pulse Resp B/P (MAP) Pulse Ox O2 Delivery O2 Flow Rate FiO2 12/26/17 12:00 98.2 74 18 126/73 (90) 92 98.2 12/26/17 08:40 Room Air 12/26/17 08:00 98.5 92 18 105/52 (69) 98 98.5 12/26/17 04:00 98.9 72 20 122/65 (84) 100 98.9 12/26/17 00:00 99.3 78 20 125/68 (87) 98 99.3 12/25/17 21:00 Room Air 12/25/17 21:00 99.2 75 20 123/64 (83) 97 99.2 12/25/17 15:48 98.2 82 20 136/87 (103) 98 98.2 I&O Intake and Output 12/25/17 12/26/17 19:00 07:00 Intake Total 1057.5 ml 1317.500 ml Balance 1057.5 ml 1317.500 ml Intake Oral 520 ml 400 ml IV Total 537.5 ml 917.500 ml # Voids 4 2 Wound: clean, dry, intact Drains: none Cardiovascular: RSR Respiratory: clear Abdomen: soft, flat, tenderness, present bowel sounds Extremities: no edema, no tenderness, no cyanosis Laboratory Tests Test 12/26/17 10:35 White Blood Count 12.3 K/UL (4.8-10.8) H Red Blood Count 5.14 M/UL (4.70-6.10) Hemoglobin 13.8 G/DL (14.2-18.0) L Hematocrit 42.1 % (42.0-52.0) Mean Corpuscular Volume 82 FL (80-99) Mean Corpuscular Hemoglobin 26.8 PG (27.0-31.0) L Mean Corpuscular Hemoglobin Concent 32.7 G/DL (32.0-36.0) Red Cell Distribution Width 12.3 % (11.6-14.8) Platelet Count 275 K/UL (150-450) Mean Platelet Volume 6.4 FL (6.5-10.1) L Neutrophils (%) (Auto) 71.3 % (45.0-75.0) Lymphocytes (%) (Auto) 15.7 % (20.0-45.0) L Monocytes (%) (Auto) 10.0 % (1.0-10.0) Eosinophils (%) (Auto) 2.0 % (0.0-3.0) Basophils (%) (Auto) 1.0 % (0.0-2.0) Sodium Level 139 MMOL/L (136-145) Potassium Level 4.5 MMOL/L (3.5-5.1) Chloride Level 102 MMOL/L (98-107) Carbon Dioxide Level 30 MMOL/L (21-32) Anion Gap 7 mmol/L (5-15) Blood Urea Nitrogen 12 mg/dL (7-18) Creatinine 1.1 MG/DL (0.55-1.30) Estimat Glomerular Filtration Rate > 60 mL/min (>60) Glucose Level 115 MG/DL (74-106) H Calcium Level 9.4 MG/DL (8.5-10.1) Lipase 188 U/L (73-393) Plan Problems: (1) Abdominal pain Assessment & Plan: 3.2 x 4.2 cm masslike area with surrounding infiltration of the fat within the mesentery in the midline just above the level of the umbilicus. Some small adjacent lymph nodes are noted. This appears more prominent compared to the prior exam and may be related to an acute infectious/ inflammatory process such as enteritis or mesenteric panniculitis. No acute surgical intervention planned. will discuss with radiology about case. likely related to post surgical infectious process and patient did not fill Abx upon discharge for appropriate Abx course IV Abx as per ID will monitor exam okay for diet. Repeat CT scan later this week to ensure resolving Constantin Monzon Dec 26, 2017 13:01
--- NOTE | 2017-12-26 13:13 | Consultation ---
History of Present Illness General Date patient seen: Dec 26, 2017 Chief Complaint: Abdominal Pain Present Illness HPI 32 year old male with hx of recent appendectomy presented to ER with CC of abdominal pain for 3 days. He denies any vomiting or diarrhea at this time. No documented fever at home. Pain worse with sitting up and standing. Otherwise constant. Rates pain at 7-10/10, not radiating. Pt is admitted for further work up. Allergies: Coded Allergies: No Known Allergies (Unverified , 04/25/16) Medication History Scheduled Al Hydroxide/mg Hydroxide (Mag-Al Liquid), 30 ML ORAL Q6HR, (Reported) Lactobacillus Acidophilus (Probiotic), 1 EACH PO THREE TIMES A DAY, (Reported) No Known Medications* (NKM - No Known Medications*), 0 ., (Reported) Pantoprazole* (Pantoprazole*), 40 MG ORAL DAILY, (Reported) Simethicone* (Simethicone*), 80 MG ORAL QID, (Reported) Vancomycin Hcl (Vancomycin Hcl), 125 MG PO FOUR TIMES A DAY, (Reported) Scheduled PRN Acetaminophen* (Acetaminophen 325MG Tablet*), 650 MG ORAL Q4H PRN for Fever/ Headache/Mild Pain, (Reported) Diphenhydramine Hcl* (Benadryl*), 25 MG ORAL Q6H PRN for Itching, (Reported) Temazepam* (Restoril*), 15 MG ORAL BEDTIME PRN for Insomnia, (Reported) Patient History Healthcare decision maker DA DENNISON WILLIAM Resuscitation status Full Code Advanced Directive on File No Past Medical/Surgical History Past Medical/Surgical History: (1) H/O appendicitis (2) Colitis Review of Systems All Other Systems: negative except mentioned in HPI Physical Exam General Appearance: WD/WN Lines, tubes and drains: peripheral HEENT: normocephalic, atraumatic Neck: non-tender, normal alignment Respiratory/Chest: chest wall non-tender, lungs clear Breasts: no masses Cardiovascular/Chest: normal peripheral pulses Abdomen: normal bowel sounds, non tender Genitourinary/Rectal: normal genital exam, normal rectal exam Extremities: normal range of motion, non-tender Skin Exam: normal pigmentation 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 normal Lymphatic: anterior cervical Last 24 Hour Vital Signs Date Time Temp Pulse Resp B/P (MAP) Pulse Ox O2 Delivery O2 Flow Rate FiO2 7/16/18 12:00 98.2 74 18 126/73 (90) 92 98.2 12/26/17 08:40 Room Air 12/26/17 08:00 98.5 92 18 105/52 (69) 98 98.5 12/26/17 04:00 98.9 72 20 122/65 (84) 100 98.9 12/26/17 00:00 99.3 78 20 125/68 (87) 98 99.3 12/25/17 21:00 Room Air 12/25/17 21:00 99.2 75 20 123/64 (83) 97 99.2 12/25/17 15:48 98.2 82 20 136/87 (103) 98 98.2 Intake and Output 12/25/17 12/26/17 19:00 07:00 Intake Total 1057.5 ml 1317.500 ml Balance 1057.5 ml 1317.500 ml Intake Oral 520 ml 400 ml IV Total 537.5 ml 917.500 ml # Voids 4 2 Laboratory Tests Test 12/26/17 10:35 White Blood Count 12.3 K/UL (4.8-10.8) H Red Blood Count 5.14 M/UL (4.70-6.10) Hemoglobin 13.8 G/DL (14.2-18.0) L Hematocrit 42.1 % (42.0-52.0) Mean Corpuscular Volume 82 FL (80-99) Mean Corpuscular Hemoglobin 26.8 PG (27.0-31.0) L Mean Corpuscular Hemoglobin Concent 32.7 G/DL (32.0-36.0) Red Cell Distribution Width 12.3 % (11.6-14.8) Platelet Count 275 K/UL (150-450) Mean Platelet Volume 6.4 FL (6.5-10.1) L Neutrophils (%) (Auto) 71.3 % (45.0-75.0) Lymphocytes (%) (Auto) 15.7 % (20.0-45.0) L Monocytes (%) (Auto) 10.0 % (1.0-10.0) Eosinophils (%) (Auto) 2.0 % (0.0-3.0) Basophils (%) (Auto) 1.0 % (0.0-2.0) Sodium Level 139 MMOL/L (136-145) Potassium Level 4.5 MMOL/L (3.5-5.1) Chloride Level 102 MMOL/L (98-107) Carbon Dioxide Level 30 MMOL/L (21-32) Anion Gap 7 mmol/L (5-15) Blood Urea Nitrogen 12 mg/dL (7-18) Creatinine 1.1 MG/DL (0.55-1.30) Estimat Glomerular Filtration Rate > 60 mL/min (>60) Glucose Level 115 MG/DL (74-106) H Calcium Level 9.4 MG/DL (8.5-10.1) Lipase 188 U/L (73-393) Height (Feet): 5 Height (Inches): 8.00 Weight (Pounds): 216 Medications Current Medications Medications (Trade) Dose Ordered Sig/Kelsea Route PRN Reason Start Time Stop Time Status Last Admin Dose Admin Acetaminophen (Tylenol) 650 mg Q4H PRN ORAL fever 12/23/17 17:30 01/22/18 17:29 Al Hydroxide/Mg Hydroxide (Mylanta II) 30 ml Q6H PRN ORAL dyspepsia 12/23/17 17:30 01/22/18 17:29 Cetylpyridinium Chloride (Cepacol) 1 lozg Q2H PRN SHARONA THROAT IRRITATION 12/26/17 10:45 01/25/18 10:44 Dextrose (Dextrose 50%) 25 ml STAT PRN IV Hypoglycemia 12/23/17 17:30 01/22/18 17:29 Dextrose (Dextrose 50%) 50 ml STAT PRN IV Hypoglycemia 12/23/17 17:45 01/22/18 17:44 Dextrose/Sodium Chloride 1,000 ml @ 75 mls/hr Q16P44H IV 12/23/17 17:25 01/22/18 17:24 12/25/17 23:30 Diphenhydramine HCl (Benadryl) 25 mg Q6H PRN ORAL Itching/Pruritis 12/23/17 17:30 01/22/18 17:29 Guaifenesin (Robitussin) 200 mg Q4H PRN ORAL For Cough 12/25/17 16:05 01/24/18 16:04 Heparin Sodium (Porcine) (Heparin 5000 units/ml) 5,000 units EVERY 12 HOURS SUBQ 12/23/17 21:00 01/22/18 20:59 Iopamidol (Isovue-300 100ml) 100 ml NOW PRN INJ Radiology Procedure 12/23/17 15:45 Lorazepam (Ativan 2mg/ml 1ml) 1 mg Q4H PRN IV agitation 12/23/17 17:30 12/30/17 17:29 12/26/17 00:07 Metoclopramide HCl (Reglan) 10 mg Q6H PRN IVP severe nausea 12/23/17 17:30 01/22/18 17:29 Morphine Sulfate (Morphine Sulfate) 2 mg Q4H PRN IVP severe Pain (Pain Scale 7-10) 12/23/17 17:30 12/30/17 17:29 12/25/17 17:52 Nitroglycerin (Ntg) 0.4 mg Q5M X 3 DOSES PRN SL Prn Chest Pain 12/23/17 17:30 01/22/18 17:29 Ondansetron HCl (Zofran) 4 mg Q6H PRN IVP Nausea & Vomiting 12/23/17 17:30 01/22/18 17:29 Pantoprazole (Protonix) 40 mg DAILY IV 12/24/17 09:00 01/23/18 08:59 12/26/17 10:27 Piperacillin Sod/ Tazobactam Sod 3.375 gm/Sodium Chloride 110 ml @ 27.5 mls/hr Q8H IVPB 12/24/17 17:00 12/31/17 16:59 12/26/17 10:27 Polyethylene Glycol (Miralax) 17 gm HSPRN PRN ORAL Constipation 12/23/17 21:00 01/22/18 20:59 Promethazine HCl (Phenergan) 12.5 mg Q6H PRN IM refractory nausea and vomiting 12/23/17 18:00 01/22/18 17:59 Temazepam (Restoril) 15 mg HSPRN PRN ORAL Insomnia 12/23/17 21:00 12/30/17 20:59 12/24/17 00:44 Vancomycin HCl (Vanco rx to dose) 1 ea DAILY PRN MISC Per rx protocol 12/25/17 12:45 01/24/18 12:44 Vancomycin HCl 1 gm/Dextrose 275 ml @ 183.708 mls/hr Q8HR IVPB 12/25/17 22:00 12/30/17 21:59 12/26/17 06:23 Assessment/Plan Problem List: (1) Colitis ICD Codes: K52.9 - Noninfective gastroenteritis and colitis, unspecified SNOMED: 51542267 (2) Mesenteric mass ICD Codes: K63.9 - Disease of intestine, unspecified SNOMED: 310297827 (3) Abdominal pain ICD Codes: R10.9 - Unspecified abdominal pain SNOMED: 39511459 Qualifiers: Qualified Codes: R10.32 - Left lower quadrant pain (4) Leukocytosis ICD Codes: D72.829 - Elevated white blood cell count, unspecified SNOMED: 597519601, 110102842 Qualifiers: Qualified Codes: D72.829 - Elevated white blood cell count, unspecified (5) Status post appendectomy ICD Codes: Z90.49 - Acquired absence of other specified parts of digestive tract SNOMED: 025692806, [id number], 83078597 Assessment/Plan continue abx, check cultures symptomatic treatment check electrolytes surgery and GI evaluation are ongoing. Jae Benavides MD Dec 26, 2017 13:13
[2017-12-26] MEDS: Morphine Sulfate 2mg/ml Inj IVP PRN ×2 (13:39→20:35)
--- NOTE | 2017-12-26 13:55 | Infectious Diseases Prog Note ---
Assessment/Plan Assessment/Plan ASSESSMENT: The patient is a 32-year-old male with multiple medical problems as listed above who has: 1. Abdominal pain. -abd US: no cholelithiasis or cholecystitis -Abx xray: Nonobstructive bowel gas pattern. 2. Afebrile. 3. mild leukocytosis, recurrent 4. Possible intra-abdominal abscess. -CT abd/p w/ 12/23: There is a somewhat ill defined 3.2 x 4.2 cm masslike area with surrounding infiltration of the fat within the mesentery in the midline just above the level of the umbilicus. Some small adjacent lymph nodes are noted. This appears more prominent compared to the prior exam and may be related to an acute infectious/inflammatory process such as enteritis or mesenteric panniculitis. A metastatic process or neoplastic process such as lymphoma cannot be excluded. Follow-up exam after treatment is recommended to ensure resolution. 5. CONS bacteremia, likely contaminant -Recent perforated appendix c/w RLQ abscess 10/2017, s/p I+D and abx tx -s/p emergent open appendectomy , I+D abscess and partial omentectomy 10/29; cx Chase S E.coli, Group C Strep; BACTEROIDES THETAIOTAOMICRON and FUSOBACTERIUM NECROPHORUM (both S to Unasyn and CLinda) -Repeat CT 11/04- residual fluid collection RLQ and s/p IR guided drainage -Treated with Zosyn x 6 days> Levaquin and Flagyl x 17 days (end date due to ) - History of colitis (possible Clostridium difficile) 11/2017, s/p Rx ( did not completed entire treatment as patient didnt refilled Rx upon discharge) 11/2017: -CT abd/p w/: Enterocolitis. No abscess. Thickening of the wall of multiple loops of small bowel which are also slightly distended and fluid- filled. This is most likely due to enteritis that is nonspecific. There is liquefied stool in the colon as well which shows mild thickening of the wall. - History of asthma. PLAN: 1.Continue IV Zosyn #3 and IV Vancomycin #2 for now pending repeat Bcx -12/23 SP Cefepime and Flagyl x1 2. Monitor CBC. 3. Monitor BMP. 4. Monitor cultures (blood). 5. We will follow surgical recommendations regarding the drainage of the abscess. 6. monitor for development of diarrhea Subjective Allergies: Coded Allergies: No Known Allergies (Unverified , 04/25/16) Subjective afebrile mild leukocytosis repeat Bc xp Objective Vital Signs Last 24 Hour Vital Signs Date Time Temp Pulse Resp B/P (MAP) Pulse Ox O2 Delivery O2 Flow Rate FiO2 12/26/17 13:39 98.2 12/26/17 12:00 98.2 74 18 126/73 (90) 92 98.2 12/26/17 08:40 Room Air 12/26/17 08:00 98.5 92 18 105/52 (69) 98 98.5 12/26/17 04:00 98.9 72 20 122/65 (84) 100 98.9 12/26/17 00:00 99.3 78 20 125/68 (87) 98 99.3 12/25/17 21:00 Room Air 12/25/17 21:00 99.2 75 20 123/64 (83) 97 99.2 12/25/17 15:48 98.2 82 20 136/87 (103) 98 98.2 Height (Feet): 5 Height (Inches): 8.00 Weight (Pounds): 216 Objective HEENT: No pallor. No icterus. NECK: No lymphadenopathy. CHEST: Clear. HEART: S1 and S2. ABDOMEN: Soft. The patient has mild to moderate mid abdominal pain. NEUROLOGIC: Awake and alert. SKIN: No rash. Wound has healed. Microbiology Date/Time Source Procedure Growth Status 12/24/17 17:00 Blood Blood Culture - Preliminary NO GROWTH AFTER 24 HOURS Resulted 12/24/17 16:45 Blood Blood Culture - Preliminary Staphylococcus Sp Coag Neg Resulted Laboratory Tests Test 12/26/17 10:35 12/26/17 13:07 White Blood Count 12.3 K/UL (4.8-10.8) H Red Blood Count 5.14 M/UL (4.70-6.10) Hemoglobin 13.8 G/DL (14.2-18.0) L Hematocrit 42.1 % (42.0-52.0) Mean Corpuscular Volume 82 FL (80-99) Mean Corpuscular Hemoglobin 26.8 PG (27.0-31.0) L Mean Corpuscular Hemoglobin Concent 32.7 G/DL (32.0-36.0) Red Cell Distribution Width 12.3 % (11.6-14.8) Platelet Count 275 K/UL (150-450) Mean Platelet Volume 6.4 FL (6.5-10.1) L Neutrophils (%) (Auto) 71.3 % (45.0-75.0) Lymphocytes (%) (Auto) 15.7 % (20.0-45.0) L Monocytes (%) (Auto) 10.0 % (1.0-10.0) Eosinophils (%) (Auto) 2.0 % (0.0-3.0) Basophils (%) (Auto) 1.0 % (0.0-2.0) Sodium Level 139 MMOL/L (136-145) Potassium Level 4.5 MMOL/L (3.5-5.1) Chloride Level 102 MMOL/L (98-107) Carbon Dioxide Level 30 MMOL/L (21-32) Anion Gap 7 mmol/L (5-15) Blood Urea Nitrogen 12 mg/dL (7-18) Creatinine 1.1 MG/DL (0.55-1.30) Estimat Glomerular Filtration Rate > 60 mL/min (>60) Glucose Level 115 MG/DL (74-106) H Calcium Level 9.4 MG/DL (8.5-10.1) Lipase 188 U/L (73-393) Vancomycin Level Trough Pending Current Medications Medications (Trade) Dose Ordered Sig/Kelsea Route PRN Reason Start Time Stop Time Status Last Admin Dose Admin Acetaminophen (Tylenol) 650 mg Q4H PRN ORAL fever 12/23/17 17:30 01/22/18 17:29 Al Hydroxide/Mg Hydroxide (Mylanta II) 30 ml Q6H PRN ORAL dyspepsia 12/23/17 17:30 01/22/18 17:29 Cetylpyridinium Chloride (Cepacol) 1 lozg Q2H PRN SHARONA THROAT IRRITATION 12/26/17 10:45 01/25/18 10:44 Dextrose (Dextrose 50%) 25 ml STAT PRN IV Hypoglycemia 12/23/17 17:30 01/22/18 17:29 Dextrose (Dextrose 50%) 50 ml STAT PRN IV Hypoglycemia 12/23/17 17:45 01/22/18 17:44 Dextrose/Sodium Chloride 1,000 ml @ 75 mls/hr [id number] IV 12/23/17 17:25 01/22/18 17:24 12/25/17 23:30 Diphenhydramine HCl (Benadryl) 25 mg Q6H PRN ORAL Itching/Pruritis 12/23/17 17:30 01/22/18 17:29 Guaifenesin (Robitussin) 200 mg Q4H PRN ORAL For Cough 12/25/17 16:05 01/24/18 16:04 Heparin Sodium (Porcine) (Heparin 5000 units/ml) 5,000 units EVERY 12 HOURS SUBQ 12/23/17 21:00 01/22/18 20:59 Iopamidol (Isovue-300 100ml) 100 ml NOW PRN INJ Radiology Procedure 12/23/17 15:45 Lorazepam (Ativan 2mg/ml 1ml) 1 mg Q4H PRN IV agitation 12/23/17 17:30 12/30/17 17:29 12/26/17 00:07 Metoclopramide HCl (Reglan) 10 mg Q6H PRN IVP severe nausea 12/23/17 17:30 01/22/18 17:29 Morphine Sulfate (Morphine Sulfate) 2 mg Q4H PRN IVP severe Pain (Pain Scale 7-10) 12/23/17 17:30 12/30/17 17:29 12/26/17 13:39 Nitroglycerin (Ntg) 0.4 mg Q5M X 3 DOSES PRN SL Prn Chest Pain 12/23/17 17:30 01/22/18 17:29 Ondansetron HCl (Zofran) 4 mg Q6H PRN IVP Nausea & Vomiting 12/23/17 17:30 01/22/18 17:29 Pantoprazole (Protonix) 40 mg DAILY IV 12/24/17 09:00 01/23/18 08:59 12/26/17 10:27 Piperacillin Sod/ Tazobactam Sod 3.375 gm/Sodium Chloride 110 ml @ 27.5 mls/hr Q8H IVPB 12/24/17 17:00 12/31/17 16:59 12/26/17 10:27 Polyethylene Glycol (Miralax) 17 gm HSPRN PRN ORAL Constipation 12/23/17 21:00 01/22/18 20:59 Promethazine HCl (Phenergan) 12.5 mg Q6H PRN IM refractory nausea and vomiting 12/23/17 18:00 01/22/18 17:59 Temazepam (Restoril) 15 mg HSPRN PRN ORAL Insomnia 12/23/17 21:00 12/30/17 20:59 12/24/17 00:44 Vancomycin HCl (Vanco rx to dose) 1 ea DAILY PRN MISC Per rx protocol 12/25/17 12:45 01/24/18 12:44 Vancomycin HCl 1 gm/Dextrose 275 ml @ 183.708 mls/hr Q8HR IVPB 12/25/17 22:00 12/30/17 21:59 12/26/17 06:23 Manuela Alonzo M.D. Dec 26, 2017 13:55
[2017-12-26 16:00] VITALS: BP 142/63
[2017-12-26 20:00] VITALS: BP 143/88
[2017-12-27] VITALS (7 sets, daily range): BP systolic 120–138; BP diastolic 62–99
[2017-12-27] MEDS: LORazepam Inj 2mg/ml 1ml IV PRN ×2 (01:18→23:58)
[2017-12-27] MEDS: Piperacillin/Tazobactam 3.375 GM in NS 110 ML IVPB SCH ×3 (01:19→17:29)
[2017-12-27] MEDS: D5 1/2NS 1,000 ML IV SCH ×2 (01:29→14:45)
[2017-12-27] MEDS: Vancomycin 1gm/D5W 275ml IVPB SCH ×6 (05:48→22:00)
[2017-12-27 07:20] LABS: ANION GAP 10 mmol/L (5-15); BLOOD UREA NITROGEN 11 mg/dL (7-18); CALCIUM 9.3 MG/DL (8.5-10.1); CARBON DIOXIDE 29 MMOL/L (21-32); CHLORIDE 101 MMOL/L (98-107); CREATININE 1.3 MG/DL (0.55-1.30); POTASSIUM 3.8 MMOL/L (3.5-5.1); SODIUM 139 MMOL/L (136-145)
[2017-12-27 07:23] LABS: EOSINOPHILS % (AUTO) 2.5 % (0.0-3.0); HEMATOCRIT 38.9 % (42.0-52.0); HEMOGLOBIN 12.9 G/DL (14.2-18.0); LYMPHOCYTES % (AUTO) 17.2 % (20.0-45.0); MEAN CORPUSCULAR VOLUME 81 FL (80-99); MONOCYTES % (AUTO) 12.7 % (1.0-10.0); NEUTROPHILS % (AUTO) 66.6 % (45.0-75.0); PLATELET COUNT 273 K/UL (150-450); RED BLOOD COUNT 4.79 M/UL (4.70-6.10); RED CELL DISTRIBUTION WIDTH 12.1 % (11.6-14.8); WHITE BLOOD COUNT 11.3 K/UL (4.8-10.8)
[2017-12-27] MEDS: Heparin 5000 units/ml inj SUBQ SCH ×2 (09:00→20:00)
[2017-12-27] MEDS: Pantoprazole Inj IV SCH (09:44)
--- NOTE | 2017-12-27 10:55 | General Surgery Progress Note ---
General Surgery-Progress Note Subjective Additional Comments leukocytosis improved. still w/ abd pain Objective Last 24 Hour Vital Signs Date Time Temp Pulse Resp B/P (MAP) Pulse Ox O2 Delivery O2 Flow Rate FiO2 12/27/17 08:30 Room Air 12/27/17 08:00 98.1 95 22 138/68 (91) 100 98.1 12/27/17 04:00 97.7 77 18 120/62 (81) 100 97.7 12/27/17 00:00 99.9 86 18 129/63 (85) 98 99.9 12/26/17 21:00 Room Air 12/26/17 20:00 100.5 74 17 143/88 (106) 97 100.5 12/26/17 16:00 98.1 78 24 142/63 (89) 98 98.1 12/26/17 14:09 98.2 12/26/17 13:39 98.2 12/26/17 12:00 98.2 74 18 126/73 (90) 92 98.2 I&O Intake and Output 12/26/17 12/27/17 19:00 07:00 Intake Total 1711.208 ml 1926.208 ml Balance 1711.208 ml 1926.208 ml Intake Oral 1500 ml 1200 ml IV Total 211.208 ml 726.208 ml # Voids 3 2 Drains: none Cardiovascular: RSR Respiratory: clear Abdomen: soft, non-tender, present bowel sounds Extremities: no edema Laboratory Tests Test 12/26/17 13:07 12/26/17 14:32 12/27/17 06:10 Vancomycin Level Trough 11.8 ug/mL (5.0-12.0) Urine Opiates Screen Negative (NEGATIVE) Urine Barbiturates Screen Negative (NEGATIVE) Phencyclidine (PCP) Screen Negative (NEGATIVE) Urine Amphetamines Screen Negative (NEGATIVE) Urine Benzodiazepines Screen Negative (NEGATIVE) Urine Cocaine Screen Negative (NEGATIVE) Urine Marijuana (THC) Screen Positive (NEGATIVE) H White Blood Count 11.3 K/UL (4.8-10.8) H Red Blood Count 4.79 M/UL (4.70-6.10) Hemoglobin 12.9 G/DL (14.2-18.0) L Hematocrit 38.9 % (42.0-52.0) L Mean Corpuscular Volume 81 FL (80-99) Mean Corpuscular Hemoglobin 26.9 PG (27.0-31.0) L Mean Corpuscular Hemoglobin Concent 33.1 G/DL (32.0-36.0) Red Cell Distribution Width 12.1 % (11.6-14.8) Platelet Count 273 K/UL (150-450) Mean Platelet Volume 6.4 FL (6.5-10.1) L Neutrophils (%) (Auto) 66.6 % (45.0-75.0) Lymphocytes (%) (Auto) 17.2 % (20.0-45.0) L Monocytes (%) (Auto) 12.7 % (1.0-10.0) H Eosinophils (%) (Auto) 2.5 % (0.0-3.0) Basophils (%) (Auto) 1.0 % (0.0-2.0) Sodium Level 139 MMOL/L (136-145) Potassium Level 3.8 MMOL/L (3.5-5.1) Chloride Level 101 MMOL/L (98-107) Carbon Dioxide Level 29 MMOL/L (21-32) Anion Gap 10 mmol/L (5-15) Blood Urea Nitrogen 11 mg/dL (7-18) Creatinine 1.3 MG/DL (0.55-1.30) Estimat Glomerular Filtration Rate > 60 mL/min (>60) Glucose Level 126 MG/DL (74-106) H Calcium Level 9.3 MG/DL (8.5-10.1) Plan Problems: (1) Abdominal pain Assessment & Plan: 3.2 x 4.2 cm masslike area with surrounding infiltration of the fat within the mesentery in the midline just above the level of the umbilicus. Some small adjacent lymph nodes are noted. This appears more prominent compared to the prior exam and may be related to an acute infectious/ inflammatory process such as enteritis or mesenteric panniculitis. No acute surgical intervention planned. will discuss with radiology about case. likely related to post surgical infectious process and patient did not fill Abx upon discharge for appropriate Abx course IV Abx as per ID will monitor exam okay for diet. Repeat CT scan tomorrow Constantin Monzon Dec 27, 2017 10:55
[2017-12-27] MEDS ORDERED: Isovue-300 100ml vial INJ PRN (11:00)
[2017-12-27] MEDS ORDERED: Gastrograffin 30ml ORAL PRN (11:00)
--- NOTE | 2017-12-27 12:38 | Pulmonology Progress Note ---
Assessment/Plan Problems: (1) Colitis (2) Mesenteric mass (3) Abdominal pain (4) Leukocytosis (5) Status post appendectomy Assessment/Plan improving walking in the hallway doing better all reviewed bc noticed, might be contaminated dvt prophylaxis symptomatic treatment Subjective ROS Limited/Unobtainable: No Constitutional: Reports: no symptoms HEENT: Repors: no symptoms Respiratory: Reports: no symptoms Allergies: Coded Allergies: No Known Allergies (Unverified , 04/25/16) Objective Last 24 Hour Vital Signs Date Time Temp Pulse Resp B/P (MAP) Pulse Ox O2 Delivery O2 Flow Rate FiO2 12/27/17 08:30 Room Air 12/27/17 08:00 98.1 95 22 138/68 (91) 100 98.1 12/27/17 04:00 97.7 77 18 120/62 (81) 100 97.7 12/27/17 00:00 99.9 86 18 129/63 (85) 98 99.9 12/26/17 21:00 Room Air 12/26/17 20:00 100.5 74 17 143/88 (106) 97 100.5 12/26/17 16:00 98.1 78 24 142/63 (89) 98 98.1 12/26/17 14:09 98.2 12/26/17 13:39 98.2 Intake and Output 12/26/17 12/27/17 19:00 07:00 Intake Total 1711.208 ml 1926.208 ml Balance 1711.208 ml 1926.208 ml Intake Oral 1500 ml 1200 ml IV Total 211.208 ml 726.208 ml # Voids 3 2 General Appearance: WD/WN Respiratory/Chest: chest wall non-tender, lungs clear Cardiovascular: normal peripheral pulses, regular rhythm Abdomen: normal bowel sounds, soft, non tender Extremities: no cyanosis Skin: no ulcers Microbiology Date/Time Source Procedure Growth Status 12/25/17 13:05 Blood Blood Culture - Preliminary NO GROWTH AFTER 24 HOURS Resulted 12/25/17 12:55 Blood Blood Culture - Preliminary NO GROWTH AFTER 24 HOURS Resulted 12/24/17 17:00 Blood Blood Culture - Preliminary NO GROWTH AFTER 48 HOURS Resulted 12/24/17 16:45 Blood Blood Culture - Final Staphylococcus Sp Coag Neg Complete Laboratory Tests 12/26/17 13:07: Vancomycin Level Trough 11.8 12/26/17 14:32: Urine Opiates Screen Negative, Urine Barbiturates Screen Negative, Phencyclidine (PCP) Screen Negative, Urine Amphetamines Screen Negative, Urine Benzodiazepines Screen Negative, Urine Cocaine Screen Negative, Urine Marijuana (THC) Screen PositiveH 12/27/17 06:10: White Blood Count 11.3H, Red Blood Count 4.79, Hemoglobin 12.9L, Hematocrit 38.9L, Mean Corpuscular Volume 81, Mean Corpuscular Hemoglobin 26.9L, Mean Corpuscular Hemoglobin Concent 33.1, Red Cell Distribution Width 12.1, Platelet Count 273, Mean Platelet Volume 6.4L, Neutrophils (%) (Auto) 66.6, Lymphocytes ( %) (Auto) 17.2L, Monocytes (%) (Auto) 12.7H, Eosinophils (%) (Auto) 2.5, Basophils (%) (Auto) 1.0, Sodium Level 139, Potassium Level 3.8, Chloride Level 101, Carbon Dioxide Level 29, Anion Gap 10, Blood Urea Nitrogen 11, Creatinine 1.3, Estimat Glomerular Filtration Rate > 60, Glucose Level 126H, Calcium Level 9.3 Current Medications Medications (Trade) Dose Ordered Sig/Kelsea Route PRN Reason Start Time Stop Time Status Last Admin Dose Admin Acetaminophen (Tylenol) 650 mg Q4H PRN ORAL fever 12/23/17 17:30 01/22/18 17:29 Al Hydroxide/Mg Hydroxide (Mylanta II) 30 ml Q6H PRN ORAL dyspepsia 12/23/17 17:30 01/22/18 17:29 Cetylpyridinium Chloride (Cepacol) 1 lozg Q2H PRN SHARONA THROAT IRRITATION 12/26/17 10:45 01/25/18 10:44 Dextrose (Dextrose 50%) 25 ml STAT PRN IV Hypoglycemia 12/23/17 17:30 01/22/18 17:29 Dextrose (Dextrose 50%) 50 ml STAT PRN IV Hypoglycemia 12/23/17 17:45 01/22/18 17:44 Dextrose/Sodium Chloride 1,000 ml @ 75 mls/hr [id number] IV 12/23/17 17:25 01/22/18 17:24 12/27/17 01:29 Diatrizoate Meglum/ Diatrizoate Sod (Gastrografin) 30 ml NOW PRN ORAL Radiology Procedure 12/27/17 11:00 12/28/17 10:59 Diphenhydramine HCl (Benadryl) 25 mg Q6H PRN ORAL Itching/Pruritis 12/23/17 17:30 01/22/18 17:29 Guaifenesin (Robitussin) 200 mg Q4H PRN ORAL For Cough 12/25/17 16:05 01/24/18 16:04 Heparin Sodium (Porcine) (Heparin 5000 units/ml) 5,000 units EVERY 12 HOURS SUBQ 12/23/17 21:00 01/22/18 20:59 Iopamidol (Isovue-300 100ml) 100 ml NOW PRN INJ Radiology Procedure 12/23/17 15:45 Iopamidol (Isovue-300 100ml) 100 ml NOW PRN INJ Radiology Procedure 12/27/17 11:00 12/28/17 10:59 Lorazepam (Ativan 2mg/ml 1ml) 1 mg Q4H PRN IV agitation 12/23/17 17:30 12/30/17 17:29 12/27/17 01:18 Metoclopramide HCl (Reglan) 10 mg Q6H PRN IVP severe nausea 12/23/17 17:30 01/22/18 17:29 Morphine Sulfate (Morphine Sulfate) 2 mg Q4H PRN IVP severe Pain (Pain Scale 7-10) 12/23/17 17:30 12/30/17 17:29 12/26/17 20:35 Nitroglycerin (Ntg) 0.4 mg Q5M X 3 DOSES PRN SL Prn Chest Pain 12/23/17 17:30 01/22/18 17:29 Ondansetron HCl (Zofran) 4 mg Q6H PRN IVP Nausea & Vomiting 12/23/17 17:30 01/22/18 17:29 Pantoprazole (Protonix) 40 mg DAILY IV 12/24/17 09:00 01/23/18 08:59 12/27/17 09:44 Piperacillin Sod/ Tazobactam Sod 3.375 gm/Sodium Chloride 110 ml @ 27.5 mls/hr Q8H IVPB 12/24/17 17:00 12/31/17 16:59 12/27/17 09:44 Polyethylene Glycol (Miralax) 17 gm HSPRN PRN ORAL Constipation 12/23/17 21:00 01/22/18 20:59 Promethazine HCl (Phenergan) 12.5 mg Q6H PRN IM refractory nausea and vomiting 12/23/17 18:00 01/22/18 17:59 Temazepam (Restoril) 15 mg HSPRN PRN ORAL Insomnia 12/23/17 21:00 12/30/17 20:59 12/24/17 00:44 Vancomycin HCl (Vanco rx to dose) 1 ea DAILY PRN MISC Per rx protocol 12/25/17 12:45 01/24/18 12:44 Vancomycin HCl 1 gm/Dextrose 275 ml @ 183.708 mls/hr Q8HR IVPB 12/25/17 22:00 12/30/17 21:59 12/27/17 05:48 Jae Benavides MD Dec 27, 2017 12:38
--- NOTE | 2017-12-27 13:09 | Infectious Diseases Prog Note ---
Assessment/Plan Assessment/Plan ASSESSMENT: The patient is a 32-year-old male with multiple medical problems as listed above who has: 1. Abdominal pain. -abd US: no cholelithiasis or cholecystitis -Abx xray: Nonobstructive bowel gas pattern. 2. Afebrile. 3. mild leukocytosis, recurrent; improving 4. Possible intra-abdominal abscess. -CT abd/p w/ 12/23: There is a somewhat ill defined 3.2 x 4.2 cm masslike area with surrounding infiltration of the fat within the mesentery in the midline just above the level of the umbilicus. Some small adjacent lymph nodes are noted. This appears more prominent compared to the prior exam and may be related to an acute infectious/inflammatory process such as enteritis or mesenteric panniculitis. A metastatic process or neoplastic process such as lymphoma cannot be excluded. Follow-up exam after treatment is recommended to ensure resolution. 5. CONS bacteremia, likely contaminant -repeat Bcx 12/25 NTD -Recent perforated appendix c/w RLQ abscess 10/2017, s/p I+D and abx tx -s/p emergent open appendectomy , I+D abscess and partial omentectomy 10/29; cx Chase S E.coli, Group C Strep; BACTEROIDES THETAIOTAOMICRON and FUSOBACTERIUM NECROPHORUM (both S to Unasyn and CLinda) -Repeat CT 11/04- residual fluid collection RLQ and s/p IR guided drainage -Treated with Zosyn x 6 days> Levaquin and Flagyl x 17 days (end date due to ) - History of colitis (possible Clostridium difficile) 11/2017, s/p Rx ( did not completed entire treatment as patient didnt refilled Rx upon discharge) 11/2017: -CT abd/p w/: Enterocolitis. No abscess. Thickening of the wall of multiple loops of small bowel which are also slightly distended and fluid- filled. This is most likely due to enteritis that is nonspecific. There is liquefied stool in the colon as well which shows mild thickening of the wall. - History of asthma. PLAN: 1.Continue empiric IV Zosyn #4 and IV Vancomycin #3 for intrabdominal abscess -if worsenign sepsis, may switch IV Vanco to Dapto and Zosyn to Meropenem and +/- Micafungin -12/23 SP Cefepime and Flagyl x1 2. Monitor CBC. 3. Monitor BMP. 4. Monitor cultures (blood). 5. We will follow surgical recommendations regarding the drainage of the abscess. -F/u repeat CT abd/o tomorrow 6. monitor for development of diarrhea Subjective Allergies: Coded Allergies: No Known Allergies (Unverified , 04/25/16) Subjective Tm 100.5 CR increasing mild leukocytosis; improving repeat Bc NTD Objective Vital Signs Last 24 Hour Vital Signs Date Time Temp Pulse Resp B/P (MAP) Pulse Ox O2 Delivery O2 Flow Rate FiO2 12/27/17 12:00 97.9 88 20 128/64 (85) 100 97.9 12/27/17 08:30 Room Air 12/27/17 08:00 98.1 95 22 138/68 (91) 100 98.1 12/27/17 04:00 97.7 77 18 120/62 (81) 100 97.7 12/27/17 00:00 99.9 86 18 129/63 (85) 98 99.9 12/26/17 21:00 Room Air 12/26/17 20:00 100.5 74 17 143/88 (106) 97 100.5 12/26/17 16:00 98.1 78 24 142/63 (89) 98 98.1 12/26/17 14:09 98.2 12/26/17 13:39 98.2 Height (Feet): 5 Height (Inches): 8.00 Weight (Pounds): 216 Objective HEENT: No pallor. No icterus. NECK: No lymphadenopathy. CHEST: Clear. HEART: S1 and S2. ABDOMEN: Soft. The patient has mild to moderate mid abdominal pain. NEUROLOGIC: Awake and alert. SKIN: No rash. Wound has healed. Microbiology Date/Time Source Procedure Growth Status 12/25/17 13:05 Blood Blood Culture - Preliminary NO GROWTH AFTER 24 HOURS Resulted 12/25/17 12:55 Blood Blood Culture - Preliminary NO GROWTH AFTER 24 HOURS Resulted 12/24/17 17:00 Blood Blood Culture - Preliminary NO GROWTH AFTER 48 HOURS Resulted 12/24/17 16:45 Blood Blood Culture - Final Staphylococcus Sp Coag Neg Complete Laboratory Tests Test 12/26/17 13:07 12/26/17 14:32 12/27/17 06:10 Vancomycin Level Trough 11.8 ug/mL (5.0-12.0) Urine Opiates Screen Negative (NEGATIVE) Urine Barbiturates Screen Negative (NEGATIVE) Phencyclidine (PCP) Screen Negative (NEGATIVE) Urine Amphetamines Screen Negative (NEGATIVE) Urine Benzodiazepines Screen Negative (NEGATIVE) Urine Cocaine Screen Negative (NEGATIVE) Urine Marijuana (THC) Screen Positive (NEGATIVE) H White Blood Count 11.3 K/UL (4.8-10.8) H Red Blood Count 4.79 M/UL (4.70-6.10) Hemoglobin 12.9 G/DL (14.2-18.0) L Hematocrit 38.9 % (42.0-52.0) L Mean Corpuscular Volume 81 FL (80-99) Mean Corpuscular Hemoglobin 26.9 PG (27.0-31.0) L Mean Corpuscular Hemoglobin Concent 33.1 G/DL (32.0-36.0) Red Cell Distribution Width 12.1 % (11.6-14.8) Platelet Count 273 K/UL (150-450) Mean Platelet Volume 6.4 FL (6.5-10.1) L Neutrophils (%) (Auto) 66.6 % (45.0-75.0) Lymphocytes (%) (Auto) 17.2 % (20.0-45.0) L Monocytes (%) (Auto) 12.7 % (1.0-10.0) H Eosinophils (%) (Auto) 2.5 % (0.0-3.0) Basophils (%) (Auto) 1.0 % (0.0-2.0) Sodium Level 139 MMOL/L (136-145) Potassium Level 3.8 MMOL/L (3.5-5.1) Chloride Level 101 MMOL/L (98-107) Carbon Dioxide Level 29 MMOL/L (21-32) Anion Gap 10 mmol/L (5-15) Blood Urea Nitrogen 11 mg/dL (7-18) Creatinine 1.3 MG/DL (0.55-1.30) Estimat Glomerular Filtration Rate > 60 mL/min (>60) Glucose Level 126 MG/DL (74-106) H Calcium Level 9.3 MG/DL (8.5-10.1) Current Medications Medications (Trade) Dose Ordered Sig/Kelsea Route PRN Reason Start Time Stop Time Status Last Admin Dose Admin Acetaminophen (Tylenol) 650 mg Q4H PRN ORAL fever 12/23/17 17:30 01/22/18 17:29 Al Hydroxide/Mg Hydroxide (Mylanta II) 30 ml Q6H PRN ORAL dyspepsia 12/23/17 17:30 01/22/18 17:29 Cetylpyridinium Chloride (Cepacol) 1 lozg Q2H PRN SHARONA THROAT IRRITATION 12/26/17 10:45 01/25/18 10:44 Dextrose (Dextrose 50%) 25 ml STAT PRN IV Hypoglycemia 12/23/17 17:30 01/22/18 17:29 Dextrose (Dextrose 50%) 50 ml STAT PRN IV Hypoglycemia 12/23/17 17:45 01/22/18 17:44 Dextrose/Sodium Chloride 1,000 ml @ 75 mls/hr [id number] IV 12/23/17 17:25 01/22/18 17:24 12/27/17 01:29 Diatrizoate Meglum/ Diatrizoate Sod (Gastrografin) 30 ml NOW PRN ORAL Radiology Procedure 12/27/17 11:00 12/28/17 10:59 Diphenhydramine HCl (Benadryl) 25 mg Q6H PRN ORAL Itching/Pruritis 12/23/17 17:30 01/22/18 17:29 Guaifenesin (Robitussin) 200 mg Q4H PRN ORAL For Cough 12/25/17 16:05 01/24/18 16:04 Heparin Sodium (Porcine) (Heparin 5000 units/ml) 5,000 units EVERY 12 HOURS SUBQ 12/23/17 21:00 01/22/18 20:59 Iopamidol (Isovue-300 100ml) 100 ml NOW PRN INJ Radiology Procedure 12/23/17 15:45 Iopamidol (Isovue-300 100ml) 100 ml NOW PRN INJ Radiology Procedure 12/27/17 11:00 12/28/17 10:59 Lorazepam (Ativan 2mg/ml 1ml) 1 mg Q4H PRN IV agitation 12/23/17 17:30 12/30/17 17:29 12/27/17 01:18 Metoclopramide HCl (Reglan) 10 mg Q6H PRN IVP severe nausea 12/23/17 17:30 01/22/18 17:29 Morphine Sulfate (Morphine Sulfate) 2 mg Q4H PRN IVP severe Pain (Pain Scale 7-10) 12/23/17 17:30 12/30/17 17:29 12/26/17 20:35 Nitroglycerin (Ntg) 0.4 mg Q5M X 3 DOSES PRN SL Prn Chest Pain 12/23/17 17:30 01/22/18 17:29 Ondansetron HCl (Zofran) 4 mg Q6H PRN IVP Nausea & Vomiting 12/23/17 17:30 01/22/18 17:29 Pantoprazole (Protonix) 40 mg DAILY IV 12/24/17 09:00 01/23/18 08:59 12/27/17 09:44 Piperacillin Sod/ Tazobactam Sod 3.375 gm/Sodium Chloride 110 ml @ 27.5 mls/hr Q8H IVPB 12/24/17 17:00 12/31/17 16:59 12/27/17 09:44 Polyethylene Glycol (Miralax) 17 gm HSPRN PRN ORAL Constipation 12/23/17 21:00 01/22/18 20:59 Promethazine HCl (Phenergan) 12.5 mg Q6H PRN IM refractory nausea and vomiting 12/23/17 18:00 01/22/18 17:59 Temazepam (Restoril) 15 mg HSPRN PRN ORAL Insomnia 12/23/17 21:00 12/30/17 20:59 12/24/17 00:44 Vancomycin HCl (Vanco rx to dose) 1 ea DAILY PRN MISC Per rx protocol 12/25/17 12:45 01/24/18 12:44 Vancomycin HCl 1 gm/Dextrose 275 ml @ 183.708 mls/hr Q8HR IVPB 12/25/17 22:00 12/30/17 21:59 12/27/17 05:48 Manuela Alonzo M.D. Dec 27, 2017 13:09
--- NOTE | 2017-12-27 14:55 | General Progress Note ---
Assessment/Plan Problem List: (1) UTI (urinary tract infection) ICD Codes: N39.0 - Urinary tract infection, site not specified SNOMED: 30734166 (2) Anemia ICD Codes: D64.9 - Anemia, unspecified SNOMED: 956534090 (3) Leukocytosis ICD Codes: D72.829 - Elevated white blood cell count, unspecified SNOMED: 452701739, 327558344 Qualifiers: Qualified Codes: D72.829 - Elevated white blood cell count, unspecified (4) Abdominal pain ICD Codes: R10.9 - Unspecified abdominal pain SNOMED: 53213404 Qualifiers: Qualified Codes: R10.32 - Left lower quadrant pain (5) H/O appendicitis ICD Codes: Z87.19 - Personal history of other diseases of the digestive system SNOMED: 714093890 Status: stable, progressing Assessment/Plan gi sx f/u abx pain control cbc bmp am Subjective Constitutional: Reports: weakness Allergies: Coded Allergies: No Known Allergies (Unverified , 04/25/16) All Systems: reviewed and negative except above Subjective sleepy calm Objective Last 24 Hour Vital Signs Date Time Temp Pulse Resp B/P (MAP) Pulse Ox O2 Delivery O2 Flow Rate FiO2 12/27/17 12:00 97.9 88 20 128/64 (85) 100 97.9 12/27/17 08:30 Room Air 12/27/17 08:00 98.1 95 22 138/68 (91) 100 98.1 12/27/17 04:00 97.7 77 18 120/62 (81) 100 97.7 12/27/17 00:00 99.9 86 18 129/63 (85) 98 99.9 12/26/17 21:00 Room Air 12/26/17 20:00 100.5 74 17 143/88 (106) 97 100.5 12/26/17 16:00 98.1 78 24 142/63 (89) 98 98.1 Intake and Output 12/26/17 12/27/17 19:00 07:00 Intake Total 1711.208 ml 1926.208 ml Balance 1711.208 ml 1926.208 ml Intake Oral 1500 ml 1200 ml IV Total 211.208 ml 726.208 ml # Voids 3 2 Laboratory Tests 12/27/17 06:10: White Blood Count 11.3H, Red Blood Count 4.79, Hemoglobin 12.9L, Hematocrit 38.9L, Mean Corpuscular Volume 81, Mean Corpuscular Hemoglobin 26.9L, Mean Corpuscular Hemoglobin Concent 33.1, Red Cell Distribution Width 12.1, Platelet Count 273, Mean Platelet Volume 6.4L, Neutrophils (%) (Auto) 66.6, Lymphocytes ( %) (Auto) 17.2L, Monocytes (%) (Auto) 12.7H, Eosinophils (%) (Auto) 2.5, Basophils (%) (Auto) 1.0, Sodium Level 139, Potassium Level 3.8, Chloride Level 101, Carbon Dioxide Level 29, Anion Gap 10, Blood Urea Nitrogen 11, Creatinine 1.3, Estimat Glomerular Filtration Rate > 60, Glucose Level 126H, Calcium Level 9.3 Height (Feet): 5 Height (Inches): 8.00 Weight (Pounds): 216 General Appearance: lethargic EENT: normal ENT inspection Neck: normal alignment Cardiovascular: normal peripheral pulses, normal rate, regular rhythm Respiratory/Chest: chest wall non-tender, lungs clear, normal breath sounds Abdomen: normal bowel sounds, non tender, soft Extremities: normal inspection Edema: no edema noted Arm (L), no edema noted Arm (R), no edema noted Leg (L), no edema noted Leg (R), no edema noted Pedal (L), no edema noted Pedal (R), no edema noted Generalized Neurologic: responsive, motor weakness Skin: normal pigmentation, warm/dry Franklyn Neves DO Dec 27, 2017 14:55
--- NOTE | 2017-12-27 15:20 | GI Progress Note ---
Assessment/Plan Problems: (1) Diarrhea ICD Codes: R19.7 - Diarrhea, unspecified SNOMED: 56709417 (2) Constipation ICD Codes: K59.00 - Constipation, unspecified SNOMED: 75843727 (3) Abdominal pain ICD Codes: R10.9 - Unspecified abdominal pain SNOMED: 89017938 Qualifiers: Qualified Codes: R10.32 - Left lower quadrant pain (4) Mesenteric mass ICD Codes: K63.9 - Disease of intestine, unspecified SNOMED: 465583649 (5) Leukocytosis ICD Codes: D72.829 - Elevated white blood cell count, unspecified SNOMED: 727432951, 753357878 Qualifiers: Qualified Codes: D72.829 - Elevated white blood cell count, unspecified (6) Colitis ICD Codes: K52.9 - Noninfective gastroenteritis and colitis, unspecified SNOMED: 17581782 (7) Anemia ICD Codes: D64.9 - Anemia, unspecified SNOMED: 065527285 (8) Status post appendectomy ICD Codes: Z90.49 - Acquired absence of other specified parts of digestive tract SNOMED: 905928212, 78841896, 49051789 Status: unchanged Status Narrative Discussed with Dr. Goddard. Assessment/Plan Assessment - abdominal pain - s/p recent perforated appendicitis and post op abscess - 4 cm mesenteric mass - elevated lipase >> normal now Recommendations - Abx per ID - IR drainage vs surgical Rx vs non-operative abx management per surgical consult - po diet - Cepacol prn - pain mgmt - fu labs Subjective Gastrointestinal/Abdominal: Reports: abdominal pain Objective Last 24 Hour Vital Signs Date Time Temp Pulse Resp B/P (MAP) Pulse Ox O2 Delivery O2 Flow Rate FiO2 12/27/17 12:00 97.9 88 20 128/64 (85) 100 97.9 12/27/17 08:30 Room Air 12/27/17 08:00 98.1 95 22 138/68 (91) 100 98.1 12/27/17 04:00 97.7 77 18 120/62 (81) 100 97.7 12/27/17 00:00 99.9 86 18 129/63 (85) 98 99.9 12/26/17 21:00 Room Air 12/26/17 20:00 100.5 74 17 143/88 (106) 97 100.5 12/26/17 16:00 98.1 78 24 142/63 (89) 98 98.1 Intake and Output 12/26/17 12/27/17 19:00 07:00 Intake Total 1711.208 ml 1926.208 ml Balance 1711.208 ml 1926.208 ml Intake Oral 1500 ml 1200 ml IV Total 211.208 ml 726.208 ml # Voids 3 2 Laboratory Tests Test 12/27/17 06:10 White Blood Count 11.3 K/UL (4.8-10.8) H Red Blood Count 4.79 M/UL (4.70-6.10) Hemoglobin 12.9 G/DL (14.2-18.0) L Hematocrit 38.9 % (42.0-52.0) L Mean Corpuscular Volume 81 FL (80-99) Mean Corpuscular Hemoglobin 26.9 PG (27.0-31.0) L Mean Corpuscular Hemoglobin Concent 33.1 G/DL (32.0-36.0) Red Cell Distribution Width 12.1 % (11.6-14.8) Platelet Count 273 K/UL (150-450) Mean Platelet Volume 6.4 FL (6.5-10.1) L Neutrophils (%) (Auto) 66.6 % (45.0-75.0) Lymphocytes (%) (Auto) 17.2 % (20.0-45.0) L Monocytes (%) (Auto) 12.7 % (1.0-10.0) H Eosinophils (%) (Auto) 2.5 % (0.0-3.0) Basophils (%) (Auto) 1.0 % (0.0-2.0) Sodium Level 139 MMOL/L (136-145) Potassium Level 3.8 MMOL/L (3.5-5.1) Chloride Level 101 MMOL/L (98-107) Carbon Dioxide Level 29 MMOL/L (21-32) Anion Gap 10 mmol/L (5-15) Blood Urea Nitrogen 11 mg/dL (7-18) Creatinine 1.3 MG/DL (0.55-1.30) Estimat Glomerular Filtration Rate > 60 mL/min (>60) Glucose Level 126 MG/DL (74-106) H Calcium Level 9.3 MG/DL (8.5-10.1) Height (Feet): 5 Height (Inches): 8.00 Weight (Pounds): 216 General Appearance: WD/WN, no apparent distress, alert Cardiovascular: normal rate Respiratory/Chest: normal breath sounds, no respiratory distress Abdominal Exam: normal bowel sounds, non tender, soft Extremities: normal range of motion, non-tender Mayte Lizarraga NP Dec 27, 2017 15:20
[2017-12-27] MEDS: Morphine Sulfate 2mg/ml Inj IVP PRN (17:28)
[2017-12-28] MEDS: Piperacillin/Tazobactam 3.375 GM in NS 110 ML IVPB SCH ×3 (01:00→17:04)
[2017-12-28] MEDS: D5 1/2NS 1,000 ML IV SCH ×2 (04:05→17:05)
[2017-12-28] MEDS: Vancomycin 1gm/D5W 275ml IVPB SCH ×6 (06:06→22:29)
[2017-12-28 08:00] VITALS: BP 131/79
[2017-12-28] MEDS ORDERED: Tubing IV Secondary IV ONE (08:53)
[2017-12-28] MEDS ORDERED: D5 1/2NS 1000ml IV ONE (08:53)
[2017-12-28] MEDS: Heparin 5000 units/ml inj SUBQ SCH ×2 (09:00→21:00)
[2017-12-28] MEDS: Pantoprazole Inj IV SCH (09:56)
--- NOTE | 2017-12-28 11:23 | GI Progress Note ---
Assessment/Plan Problems: (1) Diarrhea ICD Codes: R19.7 - Diarrhea, unspecified SNOMED: 31451056 (2) Constipation ICD Codes: K59.00 - Constipation, unspecified SNOMED: 93798440 (3) Abdominal pain ICD Codes: R10.9 - Unspecified abdominal pain SNOMED: 17411317 Qualifiers: Qualified Codes: R10.32 - Left lower quadrant pain (4) Mesenteric mass ICD Codes: K63.9 - Disease of intestine, unspecified SNOMED: 907095573 (5) Leukocytosis ICD Codes: D72.829 - Elevated white blood cell count, unspecified SNOMED: 909371046, 295051890 Qualifiers: Qualified Codes: D72.829 - Elevated white blood cell count, unspecified (6) Colitis ICD Codes: K52.9 - Noninfective gastroenteritis and colitis, unspecified SNOMED: 26669222 (7) Anemia ICD Codes: D64.9 - Anemia, unspecified SNOMED: 212986847 (8) Status post appendectomy ICD Codes: Z90.49 - Acquired absence of other specified parts of digestive tract SNOMED: 693569630, 46940952, 10137278 Status: unchanged Status Narrative Discussed with Dr. Goddard. Assessment/Plan Assessment - abdominal pain - s/p recent perforated appendicitis and post op abscess - 4 cm mesenteric mass - elevated lipase >> normal now Recommendations - Abx per ID - IR drainage vs surgical Rx vs non-operative abx management per surgical consult - po diet - Cepacol prn - pain mgmt - fu labs - fu repeat CT Subjective Gastrointestinal/Abdominal: Reports: abdominal pain Objective Last 24 Hour Vital Signs Date Time Temp Pulse Resp B/P (MAP) Pulse Ox O2 Delivery O2 Flow Rate FiO2 12/28/17 09:00 Room Air 12/27/17 23:54 98.1 93 20 126/91 (103) 100 98.1 12/27/17 21:00 Room Air 12/27/17 20:00 98.2 77 20 121/68 (85) 97 98.2 12/27/17 17:58 97.0 12/27/17 17:28 97.0 12/27/17 16:00 97.0 86 20 137/99 (112) 100 97.0 12/27/17 12:00 97.9 88 20 128/64 (85) 100 97.9 Intake and Output 12/27/17 12/28/17 19:00 07:00 Intake Total 1000 ml 504.416 ml Balance 1000 ml 504.416 ml Intake Oral 1000 ml IV Total 504.416 ml # Voids 2 Height (Feet): 5 Height (Inches): 8.00 Weight (Pounds): 206 General Appearance: WD/WN, no apparent distress, alert Cardiovascular: normal rate Respiratory/Chest: normal breath sounds, no respiratory distress Abdominal Exam: normal bowel sounds, non tender, soft Extremities: normal range of motion, non-tender Mayte Lizarraga NP Dec 28, 2017 11:23
[2017-12-28 12:00] VITALS: BP 127/92
--- NOTE | 2017-12-28 12:52 | Infectious Diseases Prog Note ---
Assessment/Plan Assessment/Plan ASSESSMENT: The patient is a 32-year-old male with multiple medical problems as listed above who has: 1. Abdominal pain. -abd US: no cholelithiasis or cholecystitis -Abx xray: Nonobstructive bowel gas pattern. 2. Afebrile. 3. mild leukocytosis, recurrent; improving 4. Possible intra-abdominal abscess. -CT abd/p w/ 12/23: There is a somewhat ill defined 3.2 x 4.2 cm masslike area with surrounding infiltration of the fat within the mesentery in the midline just above the level of the umbilicus. Some small adjacent lymph nodes are noted. This appears more prominent compared to the prior exam and may be related to an acute infectious/inflammatory process such as enteritis or mesenteric panniculitis. A metastatic process or neoplastic process such as lymphoma cannot be excluded. Follow-up exam after treatment is recommended to ensure resolution. 5. CONS bacteremia, likely contaminant -repeat Bcx 12/25 NTD -Recent perforated appendix c/w RLQ abscess 10/2017, s/p I+D and abx tx -s/p emergent open appendectomy , I+D abscess and partial omentectomy 10/29; cx Chase S E.coli, Group C Strep; BACTEROIDES THETAIOTAOMICRON and FUSOBACTERIUM NECROPHORUM (both S to Unasyn and CLinda) -Repeat CT 11/04- residual fluid collection RLQ and s/p IR guided drainage -Treated with Zosyn x 6 days> Levaquin and Flagyl x 17 days (end date due to ) - History of colitis (possible Clostridium difficile) 11/2017, s/p Rx ( did not completed entire treatment as patient didnt refilled Rx upon discharge) 11/2017: -CT abd/p w/: Enterocolitis. No abscess. Thickening of the wall of multiple loops of small bowel which are also slightly distended and fluid- filled. This is most likely due to enteritis that is nonspecific. There is liquefied stool in the colon as well which shows mild thickening of the wall. - History of asthma. PLAN: 1.Continue empiric IV Zosyn #5 and IV Vancomycin #4 for intrabdominal abscess -if worsenign sepsis, may switch IV Vanco to Dapto and Zosyn to Meropenem and +/- Micafungin -12/23 SP Cefepime and Flagyl x1 2. Monitor CBC. 3. Monitor BMP. 4. Monitor cultures (blood). 5. We will follow surgical recommendations regarding the drainage of the abscess. -F/u repeat CT abd/o today 6. monitor for development of diarrhea Subjective Allergies: Coded Allergies: No Known Allergies (Unverified , 04/25/16) Subjective afebrile in >24hrs mild leukocytosis;mildly incrased repeta CT pending repeat Bc NTD Objective Vital Signs Last 24 Hour Vital Signs Date Time Temp Pulse Resp B/P (MAP) Pulse Ox O2 Delivery O2 Flow Rate FiO2 12/28/17 09:00 Room Air 12/28/17 08:00 98.2 93 19 131/79 (96) 99 98.2 12/27/17 23:54 98.1 93 20 126/91 (103) 100 98.1 12/27/17 21:00 Room Air 12/27/17 20:00 98.2 77 20 121/68 (85) 97 98.2 12/27/17 17:58 97.0 12/27/17 17:28 97.0 12/27/17 16:00 97.0 86 20 137/99 (112) 100 97.0 Height (Feet): 5 Height (Inches): 8.00 Weight (Pounds): 206 Objective HEENT: No pallor. No icterus. NECK: No lymphadenopathy. CHEST: Clear. HEART: S1 and S2. ABDOMEN: Soft. The patient has mild to moderate mid abdominal pain. NEUROLOGIC: Awake and alert. SKIN: No rash. Wound has healed. Microbiology Date/Time Source Procedure Growth Status 12/25/17 13:05 Blood Blood Culture - Preliminary NO GROWTH AFTER 48 HOURS Resulted 12/25/17 12:55 Blood Blood Culture - Preliminary NO GROWTH AFTER 48 HOURS Resulted Current Medications Medications (Trade) Dose Ordered Sig/Kelsea Route PRN Reason Start Time Stop Time Status Last Admin Dose Admin Acetaminophen (Tylenol) 650 mg Q4H PRN ORAL fever 12/23/17 17:30 01/22/18 17:29 Al Hydroxide/Mg Hydroxide (Mylanta II) 30 ml Q6H PRN ORAL dyspepsia 12/23/17 17:30 01/22/18 17:29 Cetylpyridinium Chloride (Cepacol) 1 lozg Q2H PRN SHARONA THROAT IRRITATION 12/26/17 10:45 01/25/18 10:44 Dextrose (Dextrose 50%) 25 ml STAT PRN IV Hypoglycemia 12/23/17 17:30 01/22/18 17:29 Dextrose (Dextrose 50%) 50 ml STAT PRN IV Hypoglycemia 12/23/17 17:45 01/22/18 17:44 Dextrose/Sodium Chloride 1,000 ml @ 75 mls/hr [id number] IV 12/23/17 17:25 01/22/18 17:24 12/27/17 01:29 Diphenhydramine HCl (Benadryl) 25 mg Q6H PRN ORAL Itching/Pruritis 12/23/17 17:30 01/22/18 17:29 Guaifenesin (Robitussin) 200 mg Q4H PRN ORAL For Cough 12/25/17 16:05 01/24/18 16:04 Heparin Sodium (Porcine) (Heparin 5000 units/ml) 5,000 units EVERY 12 HOURS SUBQ 12/23/17 21:00 01/22/18 20:59 Lorazepam (Ativan 2mg/ml 1ml) 1 mg Q4H PRN IV agitation 12/23/17 17:30 12/30/17 17:29 12/27/17 23:58 Metoclopramide HCl (Reglan) 10 mg Q6H PRN IVP severe nausea 12/23/17 17:30 01/22/18 17:29 12/27/17 17:28 Morphine Sulfate (Morphine Sulfate) 2 mg Q4H PRN IVP severe Pain (Pain Scale 7-10) 12/23/17 17:30 12/30/17 17:29 12/27/17 17:28 Nitroglycerin (Ntg) 0.4 mg Q5M X 3 DOSES PRN SL Prn Chest Pain 12/23/17 17:30 01/22/18 17:29 Ondansetron HCl (Zofran) 4 mg Q6H PRN IVP Nausea & Vomiting 12/23/17 17:30 01/22/18 17:29 12/27/17 14:40 Pantoprazole (Protonix) 40 mg DAILY IV 12/24/17 09:00 01/23/18 08:59 12/28/17 09:56 Piperacillin Sod/ Tazobactam Sod 3.375 gm/Sodium Chloride 110 ml @ 27.5 mls/hr Q8H IVPB 12/24/17 17:00 12/31/17 16:59 12/28/17 09:56 Polyethylene Glycol (Miralax) 17 gm HSPRN PRN ORAL Constipation 12/23/17 21:00 01/22/18 20:59 Promethazine HCl (Phenergan) 12.5 mg Q6H PRN IM refractory nausea and vomiting 12/23/17 18:00 01/22/18 17:59 Temazepam (Restoril) 15 mg HSPRN PRN ORAL Insomnia 12/23/17 21:00 12/30/17 20:59 12/24/17 00:44 Vancomycin HCl (Vanco rx to dose) 1 ea DAILY PRN MISC Per rx protocol 12/25/17 12:45 01/24/18 12:44 Vancomycin HCl 1 gm/Dextrose 275 ml @ 183.708 mls/hr Q8HR IVPB 12/25/17 22:00 12/30/17 21:59 12/28/17 06:06 Manuela Alonzo M.D. Dec 28, 2017 12:52
[2017-12-28 13:50] LABS: EOSINOPHILS % (AUTO) 0.8 % (0.0-3.0); HEMATOCRIT 40.2 % (42.0-52.0); HEMOGLOBIN 13.1 G/DL (14.2-18.0); LYMPHOCYTES % (AUTO) 19.6 % (20.0-45.0); MEAN CORPUSCULAR VOLUME 81 FL (80-99); NEUTROPHILS % (AUTO) 69.6 % (45.0-75.0); PLATELET COUNT 306 K/UL (150-450); RED BLOOD COUNT 4.97 M/UL (4.70-6.10); RED CELL DISTRIBUTION WIDTH 12.3 % (11.6-14.8); WHITE BLOOD COUNT 13.9 K/UL (4.8-10.8)
[2017-12-28 14:05] LABS: ALANINE AMINOTRANSFERASE 20 U/L (12-78); ALBUMIN 3.3 G/DL (3.4-5.0); ALBUMIN/GLOBULIN RATIO 0.6 (1.0-2.7); ALKALINE PHOSPHATASE 62 U/L (46-116); ANION GAP 11 mmol/L (5-15); ASPARTATE AMINO TRANSFERASE 45 U/L (15-37); BILIRUBIN,TOTAL 0.8 MG/DL (0.2-1.0); BLOOD UREA NITROGEN 12 mg/dL (7-18); CALCIUM 9.5 MG/DL (8.5-10.1); CARBON DIOXIDE 26 MMOL/L (21-32); CHLORIDE 99 MMOL/L (98-107); CREATININE 1.1 MG/DL (0.55-1.30); POTASSIUM 5.8 MMOL/L (3.5-5.1); SODIUM 136 MMOL/L (136-145)
--- NOTE | 2017-12-28 14:36 | General Progress Note ---
Assessment/Plan Problem List: (1) UTI (urinary tract infection) ICD Codes: N39.0 - Urinary tract infection, site not specified SNOMED: 71191793 (2) Anemia ICD Codes: D64.9 - Anemia, unspecified SNOMED: 516037230 (3) Leukocytosis ICD Codes: D72.829 - Elevated white blood cell count, unspecified SNOMED: 928992472, 822613073 Qualifiers: Qualified Codes: D72.829 - Elevated white blood cell count, unspecified (4) Abdominal pain ICD Codes: R10.9 - Unspecified abdominal pain SNOMED: 98657700 Qualifiers: Qualified Codes: R10.32 - Left lower quadrant pain (5) H/O appendicitis ICD Codes: Z87.19 - Personal history of other diseases of the digestive system SNOMED: 454341980 Status: stable, progressing Assessment/Plan gi sx f/u abx pain control cbc bmp am Subjective Constitutional: Reports: weakness Allergies: Coded Allergies: No Known Allergies (Unverified , 04/25/16) All Systems: reviewed and negative except above Subjective sl abd pain Objective Last 24 Hour Vital Signs Date Time Temp Pulse Resp B/P (MAP) Pulse Ox O2 Delivery O2 Flow Rate FiO2 12/28/17 09:00 Room Air 12/28/17 08:00 98.2 93 19 131/79 (96) 99 98.2 12/27/17 23:54 98.1 93 20 126/91 (103) 100 98.1 12/27/17 21:00 Room Air 12/27/17 20:00 98.2 77 20 121/68 (85) 97 98.2 12/27/17 17:58 97.0 12/27/17 17:28 97.0 12/27/17 16:00 97.0 86 20 137/99 (112) 100 97.0 Intake and Output 12/27/17 12/28/17 19:00 07:00 Intake Total 1000 ml 504.416 ml Balance 1000 ml 504.416 ml Intake Oral 1000 ml IV Total 504.416 ml # Voids 2 Laboratory Tests 12/28/17 13:10: White Blood Count 13.9H, Red Blood Count 4.97, Hemoglobin 13.1L, Hematocrit 40.2L, Mean Corpuscular Volume 81, Mean Corpuscular Hemoglobin 26.3L, Mean Corpuscular Hemoglobin Concent 32.5, Red Cell Distribution Width 12.3, Platelet Count 306, Mean Platelet Volume 6.6, Neutrophils (%) (Auto) 69.6, Lymphocytes (% ) (Auto) 19.6L, Monocytes (%) (Auto) 9.0, Eosinophils (%) (Auto) 0.8, Basophils (%) (Auto) 1.0, Sodium Level 136, Potassium Level 5.8#H, Chloride Level 99, Carbon Dioxide Level 26, Anion Gap 11, Blood Urea Nitrogen 12, Creatinine 1.1, Estimat Glomerular Filtration Rate > 60, Glucose Level 84, Calcium Level 9.5, Total Bilirubin 0.8, Aspartate Amino Transf (AST/SGOT) 45H, Alanine Aminotransferase (ALT/SGPT) 20, Alkaline Phosphatase 62, Total Protein 8.5H, Albumin 3.3L, Globulin 5.2, Albumin/Globulin Ratio 0.6L, Vancomycin Level Trough 17.8H Height (Feet): 5 Height (Inches): 8.00 Weight (Pounds): 206 General Appearance: alert EENT: normal ENT inspection Neck: normal alignment Cardiovascular: normal peripheral pulses, normal rate, regular rhythm Respiratory/Chest: chest wall non-tender, lungs clear, normal breath sounds Abdomen: normal bowel sounds, non tender, soft Extremities: normal inspection Edema: no edema noted Arm (L), no edema noted Arm (R), no edema noted Leg (L), no edema noted Leg (R), no edema noted Pedal (L), no edema noted Pedal (R), no edema noted Generalized Neurologic: responsive, motor weakness Skin: normal pigmentation, warm/dry Franklyn Neves DO Dec 28, 2017 14:36
--- NOTE | 2017-12-28 15:41 | Pulmonology Progress Note ---
Assessment/Plan Problems: (1) Colitis (2) Mesenteric mass (3) Abdominal pain (4) Leukocytosis (5) Status post appendectomy Assessment/Plan improving walking in the hallway doing better all reviewed bc noticed, might be contaminated dvt prophylaxis symptomatic treatment Subjective ROS Limited/Unobtainable: No Allergies: Coded Allergies: No Known Allergies (Unverified , 04/25/16) Objective Last 24 Hour Vital Signs Date Time Temp Pulse Resp B/P (MAP) Pulse Ox O2 Delivery O2 Flow Rate FiO2 12/28/17 12:00 98.5 77 18 127/92 (104) 99 98.5 12/28/17 09:00 Room Air 12/28/17 08:00 98.2 93 19 131/79 (96) 99 98.2 12/27/17 23:54 98.1 93 20 126/91 (103) 100 98.1 12/27/17 21:00 Room Air 12/27/17 20:00 98.2 77 20 121/68 (85) 97 98.2 12/27/17 17:58 97.0 12/27/17 17:28 97.0 12/27/17 16:00 97.0 86 20 137/99 (112) 100 97.0 Intake and Output 12/27/17 12/28/17 19:00 07:00 Intake Total 1000 ml 504.416 ml Balance 1000 ml 504.416 ml Intake Oral 1000 ml IV Total 504.416 ml # Voids 2 Objective General Appearance: WN/WD HEENT: normocephalic Respiratory/Chest: chest wall non-tender, lungs clear Cardiovascular: normal peripheral pulses, normal rate Abdomen: normal bowel sounds, soft, non tender Genitourinary: normal external genitalia Extremities: no clubbing Laboratory Tests 12/28/17 13:10: White Blood Count 13.9H, Red Blood Count 4.97, Hemoglobin 13.1L, Hematocrit 40.2L, Mean Corpuscular Volume 81, Mean Corpuscular Hemoglobin 26.3L, Mean Corpuscular Hemoglobin Concent 32.5, Red Cell Distribution Width 12.3, Platelet Count 306, Mean Platelet Volume 6.6, Neutrophils (%) (Auto) 69.6, Lymphocytes (% ) (Auto) 19.6L, Monocytes (%) (Auto) 9.0, Eosinophils (%) (Auto) 0.8, Basophils (%) (Auto) 1.0, Sodium Level 136, Potassium Level [Pending], Chloride Level 99, Carbon Dioxide Level 26, Anion Gap 11, Blood Urea Nitrogen 12, Creatinine 1.1, Estimat Glomerular Filtration Rate > 60, Glucose Level 84, Calcium Level 9.5, Total Bilirubin 0.8, Aspartate Amino Transf (AST/SGOT) 45H, Alanine Aminotransferase (ALT/SGPT) 20, Alkaline Phosphatase 62, Total Protein 8.5H, Albumin 3.3L, Globulin 5.2, Albumin/Globulin Ratio 0.6L, Vancomycin Level Trough 17.8H Current Medications Medications (Trade) Dose Ordered Sig/Kelsea Route PRN Reason Start Time Stop Time Status Last Admin Dose Admin Acetaminophen (Tylenol) 650 mg Q4H PRN ORAL fever 12/23/17 17:30 01/22/18 17:29 Al Hydroxide/Mg Hydroxide (Mylanta II) 30 ml Q6H PRN ORAL dyspepsia 12/23/17 17:30 01/22/18 17:29 Cetylpyridinium Chloride (Cepacol) 1 lozg Q2H PRN SHARONA THROAT IRRITATION 12/26/17 10:45 01/25/18 10:44 Dextrose (Dextrose 50%) 25 ml STAT PRN IV Hypoglycemia 12/23/17 17:30 01/22/18 17:29 Dextrose (Dextrose 50%) 50 ml STAT PRN IV Hypoglycemia 12/23/17 17:45 01/22/18 17:44 Dextrose/Sodium Chloride 1,000 ml @ 75 mls/hr [id number] IV 12/23/17 17:25 01/22/18 17:24 12/27/17 01:29 Diphenhydramine HCl (Benadryl) 25 mg Q6H PRN ORAL Itching/Pruritis 12/23/17 17:30 01/22/18 17:29 Guaifenesin (Robitussin) 200 mg Q4H PRN ORAL For Cough 12/25/17 16:05 01/24/18 16:04 Heparin Sodium (Porcine) (Heparin 5000 units/ml) 5,000 units EVERY 12 HOURS SUBQ 12/23/17 21:00 01/22/18 20:59 Lorazepam (Ativan 2mg/ml 1ml) 1 mg Q4H PRN IV agitation 12/23/17 17:30 12/30/17 17:29 12/27/17 23:58 Metoclopramide HCl (Reglan) 10 mg Q6H PRN IVP severe nausea 12/23/17 17:30 01/22/18 17:29 12/27/17 17:28 Morphine Sulfate (Morphine Sulfate) 2 mg Q4H PRN IVP severe Pain (Pain Scale 7-10) 12/23/17 17:30 12/30/17 17:29 12/27/17 17:28 Nitroglycerin (Ntg) 0.4 mg Q5M X 3 DOSES PRN SL Prn Chest Pain 12/23/17 17:30 01/22/18 17:29 Ondansetron HCl (Zofran) 4 mg Q6H PRN IVP Nausea & Vomiting 12/23/17 17:30 01/22/18 17:29 12/27/17 14:40 Pantoprazole (Protonix) 40 mg DAILY IV 12/24/17 09:00 01/23/18 08:59 12/28/17 09:56 Piperacillin Sod/ Tazobactam Sod 3.375 gm/Sodium Chloride 110 ml @ 27.5 mls/hr Q8H IVPB 12/24/17 17:00 12/31/17 16:59 12/28/17 09:56 Polyethylene Glycol (Miralax) 17 gm HSPRN PRN ORAL Constipation 12/23/17 21:00 01/22/18 20:59 Promethazine HCl (Phenergan) 12.5 mg Q6H PRN IM refractory nausea and vomiting 12/23/17 18:00 01/22/18 17:59 Temazepam (Restoril) 15 mg HSPRN PRN ORAL Insomnia 12/23/17 21:00 12/30/17 20:59 12/24/17 00:44 Vancomycin HCl (Vanco rx to dose) 1 ea DAILY PRN MISC Per rx protocol 12/25/17 12:45 01/24/18 12:44 Vancomycin HCl 1 gm/Dextrose 275 ml @ 183.708 mls/hr Q8HR IVPB 12/25/17 22:00 12/30/17 21:59 12/28/17 14:39 Jae Benavides MD Dec 28, 2017 15:41
[2017-12-28 16:00] VITALS: BP 139/81
--- NOTE | 2017-12-28 16:15 | Diagnostic Imaging Report ---
Clinical Indication: Abdominal pain Technique: Patient given oral contrast. IV administration nonionic contrast. Venous phase spiral acquisition obtained through the abdomen and pelvis. Multiplanar reconstructions were generated. Total dose length product 813.26 mGycm. CTDIvol(s) 15.23 mGy. Dose reduction achieved using automated exposure control Comparison: 12/23/2017 Findings: Irregular reticular opacity with infiltration of the surrounding fat is again demonstrated in the midline in the mesenteric root, measuring 4.8 cm in length by 5.5 cm transverse, appearing similar to the previous exam. Immediately cephalad to this is a fluid collection measuring 3 x 1.9 cm. This appears to be intramural within a loop of adjacent thick-walled ileum. Although some focal eccentric mural thickening in this area was present previously, this is overall not clearly evident previously. Contrast is seen throughout the entirety of the large and small bowel. There are a few colonic diverticula. No evidence of diverticulitis. The appendix is not visualized. Ricki in the region of the appendix suggests prior appendectomy. No evidence of appendicitis. No small bowel distention. No free or loculated intraperitoneal air or fluid otherwise. There is a tiny fat-containing umbilical hernia again demonstrated. The gallbladder, liver, bile ducts, pancreas, spleen, adrenals, kidneys are all unremarkable. No retroperitoneal or mesenteric mass or adenopathy. No pelvic mass or adenopathy. The included lung bases demonstrate minimal lingular subsegmental atelectasis and a focal subpleural density in the posterior left lung. The bones are unremarkable. Impression: Irregular reticular opacity in the mesenteric root appears unchanged from 12/23/2017. However, there is been interim development of a 3 x 1.9 cm fluid collection which appears to be within the wall of an adjacent thick-walled small bowel loop. Suspect findings represent focal enteritis, with development of an intramural abscess and inflammation of the adjacent mesenteric root fat. Incidental findings as noted, including minimal lingular subsegmental atelectasis, left lower lobe subpleural probable postinflammatory lesion, tiny fat-containing umbilical hernia Findings were discussed by phone with Dr. Monzon at the time of interpretation The CT scanner at [facility] is accredited by the [employer] and the scans are performed using protocols designed to limit radiation exposure to as low as reasonably achievable to attain images of sufficient resolution adequate for diagnostic evaluation.
[2017-12-28 19:55] VITALS: BP 139/94
--- NOTE | 2017-12-28 20:21 | General Surgery Progress Note ---
General Surgery-Progress Note Subjective Additional Comments still with abdominal pain. CT reviewed Objective Last 24 Hour Vital Signs Date Time Temp Pulse Resp B/P (MAP) Pulse Ox O2 Delivery O2 Flow Rate FiO2 12/28/17 19:55 98.2 92 20 139/94 (109) 100 98.2 12/28/17 16:00 98.1 76 20 139/81 (100) 98 98.1 12/28/17 12:00 98.5 77 18 127/92 (104) 99 98.5 12/28/17 09:00 Room Air 12/28/17 08:00 98.2 93 19 131/79 (96) 99 98.2 12/27/17 23:54 98.1 93 20 126/91 (103) 100 98.1 12/27/17 21:00 Room Air I&O Intake and Output 12/27/17 12/28/17 19:00 07:00 Intake Total 1000 ml 504.416 ml Balance 1000 ml 504.416 ml Intake Oral 1000 ml IV Total 504.416 ml # Voids 2 Cardiovascular: RSR Respiratory: clear Abdomen: soft, tenderness, present bowel sounds Extremities: no cyanosis Laboratory Tests Test 12/28/17 13:10 12/28/17 18:00 White Blood Count 13.9 K/UL (4.8-10.8) H Red Blood Count 4.97 M/UL (4.70-6.10) Hemoglobin 13.1 G/DL (14.2-18.0) L Hematocrit 40.2 % (42.0-52.0) L Mean Corpuscular Volume 81 FL (80-99) Mean Corpuscular Hemoglobin 26.3 PG (27.0-31.0) L Mean Corpuscular Hemoglobin Concent 32.5 G/DL (32.0-36.0) Red Cell Distribution Width 12.3 % (11.6-14.8) Platelet Count 306 K/UL (150-450) Mean Platelet Volume 6.6 FL (6.5-10.1) Neutrophils (%) (Auto) 69.6 % (45.0-75.0) Lymphocytes (%) (Auto) 19.6 % (20.0-45.0) L Monocytes (%) (Auto) 9.0 % (1.0-10.0) Eosinophils (%) (Auto) 0.8 % (0.0-3.0) Basophils (%) (Auto) 1.0 % (0.0-2.0) Sodium Level 136 MMOL/L (136-145) Potassium Level 5.8 MMOL/L (3.5-5.1) #H 3.8 MMOL/L (3.5-5.1) Chloride Level 99 MMOL/L (98-107) Carbon Dioxide Level 26 MMOL/L (21-32) Anion Gap 11 mmol/L (5-15) Blood Urea Nitrogen 12 mg/dL (7-18) Creatinine 1.1 MG/DL (0.55-1.30) Estimat Glomerular Filtration Rate > 60 mL/min (>60) Glucose Level 84 MG/DL (74-106) Calcium Level 9.5 MG/DL (8.5-10.1) Total Bilirubin 0.8 MG/DL (0.2-1.0) Aspartate Amino Transf (AST/SGOT) 45 U/L (15-37) H Alanine Aminotransferase (ALT/SGPT) 20 U/L (12-78) Alkaline Phosphatase 62 U/L (46-116) Total Protein 8.5 G/DL (6.4-8.2) H Albumin 3.3 G/DL (3.4-5.0) L Globulin 5.2 g/dL Albumin/Globulin Ratio 0.6 (1.0-2.7) L Vancomycin Level Trough 17.8 ug/mL (5.0-12.0) H Plan Problems: (1) Abdominal pain Assessment & Plan: 3.2 x 4.2 cm masslike area with surrounding infiltration of the fat within the mesentery in the midline just above the level of the umbilicus. Some small adjacent lymph nodes are noted. This appears more prominent compared to the prior exam and may be related to an acute infectious/ inflammatory process such as enteritis or mesenteric panniculitis. No acute surgical intervention planned. will discuss with radiology about case. likely related to post surgical infectious process and patient did not fill Abx upon discharge for appropriate Abx course IV Abx as per ID will monitor exam okay for diet. Repeat CT with new findings as per radiology read. discussed with radiologist. will discuss with patient possible surgery if desired Constantin Monzon Dec 28, 2017 20:21
[2017-12-29] VITALS (15 sets, daily range): BP systolic 108–185; BP diastolic 70–105
[2017-12-29] MEDS: Piperacillin/Tazobactam 3.375 GM in NS 110 ML IVPB SCH ×2 (01:04→09:59)
[2017-12-29] MEDS: LORazepam Inj 2mg/ml 1ml IV PRN (01:05)
[2017-12-29] MEDS: D5 1/2NS 1,000 ML IV SCH ×2 (05:37→17:25)
[2017-12-29] MEDS: Vancomycin 1gm/D5W 275ml IVPB SCH ×6 (05:40→21:51)
[2017-12-29 07:17] LABS: BASOPHILS % (AUTO) 1.1 % (0.0-2.0); EOSINOPHILS % (AUTO) 1.9 % (0.0-3.0); HEMATOCRIT 39.2 % (42.0-52.0); HEMOGLOBIN 12.8 G/DL (14.2-18.0); LYMPHOCYTES % (AUTO) 22.4 % (20.0-45.0); MEAN CORPUSCULAR VOLUME 81 FL (80-99); MONOCYTES % (AUTO) 12.4 % (1.0-10.0); NEUTROPHILS % (AUTO) 62.2 % (45.0-75.0); PLATELET COUNT 299 K/UL (150-450); RED BLOOD COUNT 4.87 M/UL (4.70-6.10); RED CELL DISTRIBUTION WIDTH 11.8 % (11.6-14.8); WHITE BLOOD COUNT 12.4 K/UL (4.8-10.8)
[2017-12-29 07:22] LABS: ANION GAP 10 mmol/L (5-15); BLOOD UREA NITROGEN 12 mg/dL (7-18); CALCIUM 9.5 MG/DL (8.5-10.1); CARBON DIOXIDE 26 MMOL/L (21-32); CHLORIDE 101 MMOL/L (98-107); CREATININE 1.3 MG/DL (0.55-1.30); POTASSIUM 3.5 MMOL/L (3.5-5.1); SODIUM 137 MMOL/L (136-145)
[2017-12-29] MEDS: Pantoprazole Inj IV SCH (09:00)
[2017-12-29] MEDS: Heparin 5000 units/ml inj SUBQ SCH ×2 (09:00→21:00)
--- NOTE | 2017-12-29 10:38 | Pre-Procedure Note/Attestation ---
Pre-Procedure Note/Attestation Complete Prior to Procedure Planned Procedure: not applicable Procedure Narrative: Diagnostic laparoscopy, possible exploratory laparotomy, possible bowel resection, abdominal washout, possible drain placement Indications for Procedure Pre-Operative Diagnosis: intraabdominal abscess Attestation I attest that I discussed the nature of the procedure; its benefits; risks and complications; and alternatives (and the risks and benefits of such alternatives ), prior to the procedure, with the patient (or the patient's legal retention representative). I attest that, if there was a reasonable possibility of needing a blood transfusion, the patient (or the patient's legal retention representative) was given the [place] [employer] standardized written summary, pursuant to the Alec Stephanie Blood Safety Act ([place] Health and Safety Code # 1645, as amended). I attest that I re-evaluated the patient just prior to the surgery and that there has been no change in the patient's H&P, except as documented below: Constantin Monzon Dec 29, 2017 10:38
--- NOTE | 2017-12-29 11:11 | GI Progress Note ---
Assessment/Plan Problems: (1) Diarrhea ICD Codes: R19.7 - Diarrhea, unspecified SNOMED: 51595373 (2) Constipation ICD Codes: K59.00 - Constipation, unspecified SNOMED: 10458936 (3) Abdominal pain ICD Codes: R10.9 - Unspecified abdominal pain SNOMED: 49096539 Qualifiers: Qualified Codes: R10.32 - Left lower quadrant pain (4) Mesenteric mass ICD Codes: K63.9 - Disease of intestine, unspecified SNOMED: 313914592 (5) Leukocytosis ICD Codes: D72.829 - Elevated white blood cell count, unspecified SNOMED: 937682917, 575493474 Qualifiers: Qualified Codes: D72.829 - Elevated white blood cell count, unspecified (6) Colitis ICD Codes: K52.9 - Noninfective gastroenteritis and colitis, unspecified SNOMED: 97750624 (7) Anemia ICD Codes: D64.9 - Anemia, unspecified SNOMED: 311459219 (8) Status post appendectomy ICD Codes: Z90.49 - Acquired absence of other specified parts of digestive tract SNOMED: 510998782, 96297424, 64784794 Status: stable Status Narrative Discussed with Dr. Goddard. Assessment/Plan Assessment - abdominal pain - s/p recent perforated appendicitis and post op abscess - 4 cm mesenteric mass - elevated lipase >> normal now CTAP reviewed >> interim development of a 3 x 1.9 cm fluid collection which appears to be within the wall of an adjacent thick-walled small bowel loop. Recommendations - Abdominal washout per surgery - Abx per ID - IR drainage vs surgical Rx vs non-operative abx management per surgical consult - po diet - Cepacol prn - pain mgmt - fu labs Subjective Gastrointestinal/Abdominal: Reports: abdominal pain Objective Last 24 Hour Vital Signs Date Time Temp Pulse Resp B/P (MAP) Pulse Ox O2 Delivery O2 Flow Rate FiO2 12/29/17 09:00 Room Air 12/29/17 08:00 99.3 79 20 108/76 (87) 99 99.3 12/29/17 00:00 98.4 78 20 130/71 (90) 100 98.4 12/28/17 21:00 Room Air 12/28/17 19:55 98.2 92 20 139/94 (109) 100 98.2 12/28/17 16:00 98.1 76 20 139/81 (100) 98 98.1 12/28/17 12:00 98.5 77 18 127/92 (104) 99 98.5 Intake and Output 12/28/17 12/29/17 19:00 07:00 Intake Total 477.416 ml 879.916 ml Balance 477.416 ml 879.916 ml IV Total 477.416 ml 879.916 ml # Voids 5 5 # Bowel Movements 1 Laboratory Tests Test 12/28/17 13:10 12/28/17 18:00 12/29/17 06:40 White Blood Count 13.9 K/UL (4.8-10.8) H 12.4 K/UL (4.8-10.8) H Red Blood Count 4.97 M/UL (4.70-6.10) 4.87 M/UL (4.70-6.10) Hemoglobin 13.1 G/DL (14.2-18.0) L 12.8 G/DL (14.2-18.0) L Hematocrit 40.2 % (42.0-52.0) L 39.2 % (42.0-52.0) L Mean Corpuscular Volume 81 FL (80-99) 81 FL (80-99) Mean Corpuscular Hemoglobin 26.3 PG (27.0-31.0) L 26.2 PG (27.0-31.0) L Mean Corpuscular Hemoglobin Concent 32.5 G/DL (32.0-36.0) 32.5 G/DL (32.0-36.0) Red Cell Distribution Width 12.3 % (11.6-14.8) 11.8 % (11.6-14.8) Platelet Count 306 K/UL (150-450) 299 K/UL (150-450) Mean Platelet Volume 6.6 FL (6.5-10.1) 6.4 FL (6.5-10.1) L Neutrophils (%) (Auto) 69.6 % (45.0-75.0) 62.2 % (45.0-75.0) Lymphocytes (%) (Auto) 19.6 % (20.0-45.0) L 22.4 % (20.0-45.0) Monocytes (%) (Auto) 9.0 % (1.0-10.0) 12.4 % (1.0-10.0) H Eosinophils (%) (Auto) 0.8 % (0.0-3.0) 1.9 % (0.0-3.0) Basophils (%) (Auto) 1.0 % (0.0-2.0) 1.1 % (0.0-2.0) Sodium Level 136 MMOL/L (136-145) 137 MMOL/L (136-145) Potassium Level 5.8 MMOL/L (3.5-5.1) #H 3.8 MMOL/L (3.5-5.1) 3.5 MMOL/L (3.5-5.1) Chloride Level 99 MMOL/L (98-107) 101 MMOL/L (98-107) Carbon Dioxide Level 26 MMOL/L (21-32) 26 MMOL/L (21-32) Anion Gap 11 mmol/L (5-15) 10 mmol/L (5-15) Blood Urea Nitrogen 12 mg/dL (7-18) 12 mg/dL (7-18) Creatinine 1.1 MG/DL (0.55-1.30) 1.3 MG/DL (0.55-1.30) Estimat Glomerular Filtration Rate > 60 mL/min (>60) > 60 mL/min (>60) Glucose Level 84 MG/DL (74-106) 121 MG/DL (74-106) H Calcium Level 9.5 MG/DL (8.5-10.1) 9.5 MG/DL (8.5-10.1) Total Bilirubin 0.8 MG/DL (0.2-1.0) Aspartate Amino Transf (AST/SGOT) 45 U/L (15-37) H Alanine Aminotransferase (ALT/SGPT) 20 U/L (12-78) Alkaline Phosphatase 62 U/L (46-116) Total Protein 8.5 G/DL (6.4-8.2) H Albumin 3.3 G/DL (3.4-5.0) L Globulin 5.2 g/dL Albumin/Globulin Ratio 0.6 (1.0-2.7) L Vancomycin Level Trough 17.8 ug/mL (5.0-12.0) H Height (Feet): 5 Height (Inches): 8.00 Weight (Pounds): 206 General Appearance: WD/WN, no apparent distress, alert Cardiovascular: normal rate Respiratory/Chest: normal breath sounds, no respiratory distress Abdominal Exam: normal bowel sounds, non tender, soft Extremities: normal range of motion, non-tender Mayte Lizarraga NP Dec 29, 2017 11:11
--- NOTE | 2017-12-29 11:38 | General Surgery Progress Note ---
General Surgery-Progress Note Subjective Additional Comments still with pain. leukocytosis. CT reviewed. Objective Last 24 Hour Vital Signs Date Time Temp Pulse Resp B/P (MAP) Pulse Ox O2 Delivery O2 Flow Rate FiO2 12/29/17 09:00 Room Air 12/29/17 08:00 99.3 79 20 108/76 (87) 99 99.3 12/29/17 00:00 98.4 78 20 130/71 (90) 100 98.4 12/28/17 21:00 Room Air 12/28/17 19:55 98.2 92 20 139/94 (109) 100 98.2 12/28/17 16:00 98.1 76 20 139/81 (100) 98 98.1 12/28/17 12:00 98.5 77 18 127/92 (104) 99 98.5 I&O Intake and Output 12/28/17 12/29/17 19:00 07:00 Intake Total 477.416 ml 879.916 ml Balance 477.416 ml 879.916 ml IV Total 477.416 ml 879.916 ml # Voids 5 5 # Bowel Movements 1 Cardiovascular: RSR Respiratory: clear Abdomen: soft, tenderness Extremities: no cyanosis Laboratory Tests Test 12/28/17 13:10 12/28/17 18:00 12/29/17 06:40 White Blood Count 13.9 K/UL (4.8-10.8) H 12.4 K/UL (4.8-10.8) H Red Blood Count 4.97 M/UL (4.70-6.10) 4.87 M/UL (4.70-6.10) Hemoglobin 13.1 G/DL (14.2-18.0) L 12.8 G/DL (14.2-18.0) L Hematocrit 40.2 % (42.0-52.0) L 39.2 % (42.0-52.0) L Mean Corpuscular Volume 81 FL (80-99) 81 FL (80-99) Mean Corpuscular Hemoglobin 26.3 PG (27.0-31.0) L 26.2 PG (27.0-31.0) L Mean Corpuscular Hemoglobin Concent 32.5 G/DL (32.0-36.0) 32.5 G/DL (32.0-36.0) Red Cell Distribution Width 12.3 % (11.6-14.8) 11.8 % (11.6-14.8) Platelet Count 306 K/UL (150-450) 299 K/UL (150-450) Mean Platelet Volume 6.6 FL (6.5-10.1) 6.4 FL (6.5-10.1) L Neutrophils (%) (Auto) 69.6 % (45.0-75.0) 62.2 % (45.0-75.0) Lymphocytes (%) (Auto) 19.6 % (20.0-45.0) L 22.4 % (20.0-45.0) Monocytes (%) (Auto) 9.0 % (1.0-10.0) 12.4 % (1.0-10.0) H Eosinophils (%) (Auto) 0.8 % (0.0-3.0) 1.9 % (0.0-3.0) Basophils (%) (Auto) 1.0 % (0.0-2.0) 1.1 % (0.0-2.0) Sodium Level 136 MMOL/L (136-145) 137 MMOL/L (136-145) Potassium Level 5.8 MMOL/L (3.5-5.1) #H 3.8 MMOL/L (3.5-5.1) 3.5 MMOL/L (3.5-5.1) Chloride Level 99 MMOL/L (98-107) 101 MMOL/L (98-107) Carbon Dioxide Level 26 MMOL/L (21-32) 26 MMOL/L (21-32) Anion Gap 11 mmol/L (5-15) 10 mmol/L (5-15) Blood Urea Nitrogen 12 mg/dL (7-18) 12 mg/dL (7-18) Creatinine 1.1 MG/DL (0.55-1.30) 1.3 MG/DL (0.55-1.30) Estimat Glomerular Filtration Rate > 60 mL/min (>60) > 60 mL/min (>60) Glucose Level 84 MG/DL (74-106) 121 MG/DL (74-106) H Calcium Level 9.5 MG/DL (8.5-10.1) 9.5 MG/DL (8.5-10.1) Total Bilirubin 0.8 MG/DL (0.2-1.0) Aspartate Amino Transf (AST/SGOT) 45 U/L (15-37) H Alanine Aminotransferase (ALT/SGPT) 20 U/L (12-78) Alkaline Phosphatase 62 U/L (46-116) Total Protein 8.5 G/DL (6.4-8.2) H Albumin 3.3 G/DL (3.4-5.0) L Globulin 5.2 g/dL Albumin/Globulin Ratio 0.6 (1.0-2.7) L Vancomycin Level Trough 17.8 ug/mL (5.0-12.0) H Plan Problems: (1) Abdominal pain Assessment & Plan: 3.2 x 4.2 cm masslike area with surrounding infiltration of the fat within the mesentery in the midline just above the level of the umbilicus. Some small adjacent lymph nodes are noted. This appears more prominent compared to the prior exam and may be related to an acute infectious/ inflammatory process such as enteritis or mesenteric panniculitis. No acute surgical intervention planned. will discuss with radiology about case. likely related to post surgical infectious process and patient did not fill Abx upon discharge for appropriate Abx course IV Abx as per ID will monitor exam okay for diet. Repeat CT with new findings as per radiology read. discussed with radiologist. will discuss with patient possible surgery if desired Diagnostic lap, possible open. need to explore abd findings given not improving npo iv fluids OR soon consent Constantin Monzon Dec 29, 2017 11:38
--- NOTE | 2017-12-29 11:46 | Pulmonology Progress Note ---
Assessment/Plan Problems: (1) Colitis (2) Mesenteric mass (3) Abdominal pain (4) Leukocytosis (5) Status post appendectomy Assessment/Plan will need lapratomy all reviewed dvt prophylaxis symptomatic treatment Subjective ROS Limited/Unobtainable: No Constitutional: Reports: no symptoms HEENT: Repors: no symptoms Respiratory: Reports: no symptoms Cardiovascular: Reports: no symptoms Allergies: Coded Allergies: No Known Allergies (Unverified , 04/25/16) Objective Last 24 Hour Vital Signs Date Time Temp Pulse Resp B/P (MAP) Pulse Ox O2 Delivery O2 Flow Rate FiO2 12/29/17 09:00 Room Air 12/29/17 08:00 99.3 79 20 108/76 (87) 99 99.3 12/29/17 00:00 98.4 78 20 130/71 (90) 100 98.4 12/28/17 21:00 Room Air 12/28/17 19:55 98.2 92 20 139/94 (109) 100 98.2 12/28/17 16:00 98.1 76 20 139/81 (100) 98 98.1 12/28/17 12:00 98.5 77 18 127/92 (104) 99 98.5 Intake and Output 12/28/17 12/29/17 19:00 07:00 Intake Total 477.416 ml 879.916 ml Balance 477.416 ml 879.916 ml IV Total 477.416 ml 879.916 ml # Voids 5 5 # Bowel Movements 1 Objective General Appearance: WN/WD HEENT: normocephalic Respiratory/Chest: chest wall non-tender, lungs clear Cardiovascular: normal peripheral pulses, normal rate Abdomen: normal bowel sounds, soft, non tender Genitourinary: normal external genitalia Extremities: no clubbing Laboratory Tests 12/28/17 13:10: White Blood Count 13.9H, Red Blood Count 4.97, Hemoglobin 13.1L, Hematocrit 40.2L, Mean Corpuscular Volume 81, Mean Corpuscular Hemoglobin 26.3L, Mean Corpuscular Hemoglobin Concent 32.5, Red Cell Distribution Width 12.3, Platelet Count 306, Mean Platelet Volume 6.6, Neutrophils (%) (Auto) 69.6, Lymphocytes (% ) (Auto) 19.6L, Monocytes (%) (Auto) 9.0, Eosinophils (%) (Auto) 0.8, Basophils (%) (Auto) 1.0, Sodium Level 136, Potassium Level 5.8#H, Chloride Level 99, Carbon Dioxide Level 26, Anion Gap 11, Blood Urea Nitrogen 12, Creatinine 1.1, Estimat Glomerular Filtration Rate > 60, Glucose Level 84, Calcium Level 9.5, Total Bilirubin 0.8, Aspartate Amino Transf (AST/SGOT) 45H, Alanine Aminotransferase (ALT/SGPT) 20, Alkaline Phosphatase 62, Total Protein 8.5H, Albumin 3.3L, Globulin 5.2, Albumin/Globulin Ratio 0.6L, Vancomycin Level Trough 17.8H 12/28/17 18:00: Potassium Level 3.8 12/29/17 06:40: White Blood Count 12.4H, Red Blood Count 4.87, Hemoglobin 12.8L, Hematocrit 39.2L, Mean Corpuscular Volume 81, Mean Corpuscular Hemoglobin 26.2L, Mean Corpuscular Hemoglobin Concent 32.5, Red Cell Distribution Width 11.8, Platelet Count 299, Mean Platelet Volume 6.4L, Neutrophils (%) (Auto) 62.2, Lymphocytes ( %) (Auto) 22.4, Monocytes (%) (Auto) 12.4H, Eosinophils (%) (Auto) 1.9, Basophils (%) (Auto) 1.1, Sodium Level 137, Potassium Level 3.5, Chloride Level 101, Carbon Dioxide Level 26, Anion Gap 10, Blood Urea Nitrogen 12, Creatinine 1.3, Estimat Glomerular Filtration Rate > 60, Glucose Level 121H, Calcium Level 9.5 Current Medications Medications (Trade) Dose Ordered Sig/Kelsea Route PRN Reason Start Time Stop Time Status Last Admin Dose Admin Acetaminophen (Tylenol) 650 mg Q4H PRN ORAL fever 12/23/17 17:30 01/22/18 17:29 Al Hydroxide/Mg Hydroxide (Mylanta II) 30 ml Q6H PRN ORAL dyspepsia 12/23/17 17:30 01/22/18 17:29 Cetylpyridinium Chloride (Cepacol) 1 lozg Q2H PRN SHARONA THROAT IRRITATION 12/26/17 10:45 01/25/18 10:44 Dextrose (Dextrose 50%) 25 ml STAT PRN IV Hypoglycemia 12/23/17 17:30 01/22/18 17:29 Dextrose (Dextrose 50%) 50 ml STAT PRN IV Hypoglycemia 12/23/17 17:45 01/22/18 17:44 Dextrose/Sodium Chloride 1,000 ml @ 125 mls/hr Q8H IV 12/29/17 17:25 01/28/18 17:24 Diphenhydramine HCl (Benadryl) 25 mg Q6H PRN ORAL Itching/Pruritis 12/23/17 17:30 01/22/18 17:29 Guaifenesin (Robitussin) 200 mg Q4H PRN ORAL For Cough 12/25/17 16:05 01/24/18 16:04 Heparin Sodium (Porcine) (Heparin 5000 units/ml) 5,000 units EVERY 12 HOURS SUBQ 12/23/17 21:00 01/22/18 20:59 Lorazepam (Ativan 2mg/ml 1ml) 1 mg Q4H PRN IV agitation 12/23/17 17:30 12/30/17 17:29 12/29/17 01:05 Metoclopramide HCl (Reglan) 10 mg Q6H PRN IVP severe nausea 12/23/17 17:30 01/22/18 17:29 12/27/17 17:28 Morphine Sulfate (Morphine Sulfate) 2 mg Q4H PRN IVP severe Pain (Pain Scale 7-10) 12/23/17 17:30 12/30/17 17:29 12/27/17 17:28 Nitroglycerin (Ntg) 0.4 mg Q5M X 3 DOSES PRN SL Prn Chest Pain 12/23/17 17:30 01/22/18 17:29 Ondansetron HCl (Zofran) 4 mg Q6H PRN IVP Nausea & Vomiting 12/23/17 17:30 01/22/18 17:29 12/27/17 14:40 Pantoprazole (Protonix) 40 mg DAILY IV 12/24/17 09:00 01/23/18 08:59 12/28/17 09:56 Piperacillin Sod/ Tazobactam Sod 3.375 gm/Sodium Chloride 110 ml @ 27.5 mls/hr Q8H IVPB 12/24/17 17:00 12/31/17 16:59 12/29/17 09:59 Polyethylene Glycol (Miralax) 17 gm HSPRN PRN ORAL Constipation 12/23/17 21:00 01/22/18 20:59 Promethazine HCl (Phenergan) 12.5 mg Q6H PRN IM refractory nausea and vomiting 12/23/17 18:00 01/22/18 17:59 Temazepam (Restoril) 15 mg HSPRN PRN ORAL Insomnia 12/23/17 21:00 12/30/17 20:59 12/24/17 00:44 Vancomycin HCl (Vanco rx to dose) 1 ea DAILY PRN MISC Per rx protocol 12/25/17 12:45 01/24/18 12:44 Vancomycin HCl 1 gm/Dextrose 275 ml @ 183.708 mls/hr Q8HR IVPB 12/25/17 22:00 01/03/18 21:59 12/29/17 05:40 Jae Benavides MD Dec 29, 2017 11:46
--- NOTE | 2017-12-29 16:15 | Infectious Diseases Prog Note ---
Assessment/Plan Assessment/Plan ASSESSMENT: The patient is a 32-year-old male with multiple medical problems as listed above who has: 1. Abdominal pain. -abd US: no cholelithiasis or cholecystitis -Abx xray: Nonobstructive bowel gas pattern. 2. Low grade fever, improving 3. Leukocytosis, persistent 4. intra-abdominal abscess/enteritis. -CT abd/p w/ 12/28 : Irregular reticular opacity in the mesenteric root appears unchanged from 12/23/2017. However, there is been interim development of a 3 x 1.9 cm fluid collection which appears to be within the wall of an adjacent thick-walled small bowel loop. Suspect findings represent focal enteritis, with development of an intramural abscess and inflammation of the adjacent mesenteric root fat. Incidental findings as noted, including minimal lingular subsegmental atelectasis, left lower lobe subpleural probable postinflammatory lesion, tiny fat-containing umbilical hernia -CT abd/p w/ 12/23: There is a somewhat ill defined 3.2 x 4.2 cm masslike area with surrounding infiltration of the fat within the mesentery in the midline just above the level of the umbilicus. Some small adjacent lymph nodes are noted. This appears more prominent compared to the prior exam and may be related to an acute infectious/inflammatory process such as enteritis or mesenteric panniculitis. A metastatic process or neoplastic process such as lymphoma cannot be excluded. Follow-up exam after treatment is recommended to ensure resolution. 5. CONS bacteremia, likely contaminant -repeat Bcx 12/25 NTD -Recent perforated appendix c/w RLQ abscess 10/2017, s/p I+D and abx tx -s/p emergent open appendectomy , I+D abscess and partial omentectomy 10/29; cx Chase S E.coli, Group C Strep; BACTEROIDES THETAIOTAOMICRON and FUSOBACTERIUM NECROPHORUM (both S to Unasyn and CLinda) -Repeat CT 11/04- residual fluid collection RLQ and s/p IR guided drainage -Treated with Zosyn x 6 days> Levaquin and Flagyl x 17 days (end date due to ) - History of colitis (possible Clostridium difficile) 11/2017, s/p Rx ( did not completed entire treatment as patient didnt refilled Rx upon discharge) 11/2017: -CT abd/p w/: Enterocolitis. No abscess. Thickening of the wall of multiple loops of small bowel which are also slightly distended and fluid- filled. This is most likely due to enteritis that is nonspecific. There is liquefied stool in the colon as well which shows mild thickening of the wall. - History of asthma. PLAN: 1.Switch empiric IV Zosyn #6 to Meropenem for ESBL coverage given worsening fluid collection and exposure to antibiotics (this admission and prior admissions) Continue empiric IV Vancomycin #5 for enterococcal coverage -if worsenign sepsis, may switch IV Vanco to Dapto and +/- Micafungin -12/23 SP Cefepime and Flagyl x1 2. Monitor CBC. 3. Monitor BMP. 4. Monitor cultures (blood). 5. Surgery f/u -plan for exploratory laparatomy soon 6. monitor for development of diarrhea Dsicussed with Dr Monzon, Dr Benavides, Dr Neves. Subjective Allergies: Coded Allergies: No Known Allergies (Unverified , 04/25/16) Subjective afebrile in >48 hrs leukocytosis persisent new abscess on repeat CT plan for surgiacl exploration repeat Bc NTD Objective Vital Signs Last 24 Hour Vital Signs Date Time Temp Pulse Resp B/P (MAP) Pulse Ox O2 Delivery O2 Flow Rate FiO2 12/29/17 12:00 99.0 73 20 123/70 (87) 99 99.0 12/29/17 09:00 Room Air 12/29/17 08:00 99.3 79 20 108/76 (87) 99 99.3 12/29/17 00:00 98.4 78 20 130/71 (90) 100 98.4 12/28/17 21:00 Room Air 12/28/17 19:55 98.2 92 20 139/94 (109) 100 98.2 Height (Feet): 5 Height (Inches): 8.00 Weight (Pounds): 206 Objective HEENT: No pallor. No icterus. NECK: No lymphadenopathy. CHEST: Clear. HEART: S1 and S2. ABDOMEN: Soft. The patient has mild to moderate mid abdominal pain. NEUROLOGIC: Awake and alert. SKIN: No rash. Wound has healed. Laboratory Tests Test 12/28/17 18:00 12/29/17 06:40 Potassium Level 3.8 MMOL/L (3.5-5.1) 3.5 MMOL/L (3.5-5.1) White Blood Count 12.4 K/UL (4.8-10.8) H Red Blood Count 4.87 M/UL (4.70-6.10) Hemoglobin 12.8 G/DL (14.2-18.0) L Hematocrit 39.2 % (42.0-52.0) L Mean Corpuscular Volume 81 FL (80-99) Mean Corpuscular Hemoglobin 26.2 PG (27.0-31.0) L Mean Corpuscular Hemoglobin Concent 32.5 G/DL (32.0-36.0) Red Cell Distribution Width 11.8 % (11.6-14.8) Platelet Count 299 K/UL (150-450) Mean Platelet Volume 6.4 FL (6.5-10.1) L Neutrophils (%) (Auto) 62.2 % (45.0-75.0) Lymphocytes (%) (Auto) 22.4 % (20.0-45.0) Monocytes (%) (Auto) 12.4 % (1.0-10.0) H Eosinophils (%) (Auto) 1.9 % (0.0-3.0) Basophils (%) (Auto) 1.1 % (0.0-2.0) Sodium Level 137 MMOL/L (136-145) Chloride Level 101 MMOL/L (98-107) Carbon Dioxide Level 26 MMOL/L (21-32) Anion Gap 10 mmol/L (5-15) Blood Urea Nitrogen 12 mg/dL (7-18) Creatinine 1.3 MG/DL (0.55-1.30) Estimat Glomerular Filtration Rate > 60 mL/min (>60) Glucose Level 121 MG/DL (74-106) H Calcium Level 9.5 MG/DL (8.5-10.1) Current Medications Medications (Trade) Dose Ordered Sig/Kelsea Route PRN Reason Start Time Stop Time Status Last Admin Dose Admin Acetaminophen (Tylenol) 650 mg Q4H PRN ORAL fever 12/23/17 17:30 01/22/18 17:29 Al Hydroxide/Mg Hydroxide (Mylanta II) 30 ml Q6H PRN ORAL dyspepsia 12/23/17 17:30 01/22/18 17:29 Cetylpyridinium Chloride (Cepacol) 1 lozg Q2H PRN SHARONA THROAT IRRITATION 12/26/17 10:45 01/25/18 10:44 Dextrose (Dextrose 50%) 25 ml STAT PRN IV Hypoglycemia 12/23/17 17:30 01/22/18 17:29 Dextrose (Dextrose 50%) 50 ml STAT PRN IV Hypoglycemia 12/23/17 17:45 01/22/18 17:44 Dextrose/Sodium Chloride 1,000 ml @ 125 mls/hr Q8H IV 12/29/17 17:25 01/28/18 17:24 Diphenhydramine HCl (Benadryl) 25 mg Q6H PRN ORAL Itching/Pruritis 12/23/17 17:30 01/22/18 17:29 Guaifenesin (Robitussin) 200 mg Q4H PRN ORAL For Cough 12/25/17 16:05 01/24/18 16:04 Heparin Sodium (Porcine) (Heparin 5000 units/ml) 5,000 units EVERY 12 HOURS SUBQ 12/23/17 21:00 01/22/18 20:59 Lorazepam (Ativan 2mg/ml 1ml) 1 mg Q4H PRN IV agitation 12/23/17 17:30 12/30/17 17:29 12/29/17 01:05 Metoclopramide HCl (Reglan) 10 mg Q6H PRN IVP severe nausea 12/23/17 17:30 01/22/18 17:29 12/27/17 17:28 Morphine Sulfate (Morphine Sulfate) 2 mg Q4H PRN IVP severe Pain (Pain Scale 7-10) 12/23/17 17:30 12/30/17 17:29 12/27/17 17:28 Nitroglycerin (Ntg) 0.4 mg Q5M X 3 DOSES PRN SL Prn Chest Pain 12/23/17 17:30 01/22/18 17:29 Ondansetron HCl (Zofran) 4 mg Q6H PRN IVP Nausea & Vomiting 12/23/17 17:30 01/22/18 17:29 12/27/17 14:40 Pantoprazole (Protonix) 40 mg DAILY IV 12/24/17 09:00 01/23/18 08:59 12/28/17 09:56 Piperacillin Sod/ Tazobactam Sod 3.375 gm/Sodium Chloride 110 ml @ 27.5 mls/hr Q8H IVPB 12/24/17 17:00 12/31/17 16:59 12/29/17 09:59 Polyethylene Glycol (Miralax) 17 gm HSPRN PRN ORAL Constipation 12/23/17 21:00 01/22/18 20:59 Promethazine HCl (Phenergan) 12.5 mg Q6H PRN IM refractory nausea and vomiting 12/23/17 18:00 01/22/18 17:59 Temazepam (Restoril) 15 mg HSPRN PRN ORAL Insomnia 12/23/17 21:00 12/30/17 20:59 12/24/17 00:44 Vancomycin HCl (Vanco rx to dose) 1 ea DAILY PRN MISC Per rx protocol 12/25/17 12:45 01/24/18 12:44 Vancomycin HCl 1 gm/Dextrose 275 ml @ 183.708 mls/hr Q8HR IVPB 12/25/17 22:00 01/03/18 21:59 12/29/17 05:40 Manuela Alonzo M.D. Dec 29, 2017 16:15
--- NOTE | 2017-12-29 16:20 | General Progress Note ---
Assessment/Plan Problem List: (1) UTI (urinary tract infection) ICD Codes: N39.0 - Urinary tract infection, site not specified SNOMED: 00546883 (2) Anemia ICD Codes: D64.9 - Anemia, unspecified SNOMED: 438480003 (3) Leukocytosis ICD Codes: D72.829 - Elevated white blood cell count, unspecified SNOMED: 700357097, 851947017 Qualifiers: Qualified Codes: D72.829 - Elevated white blood cell count, unspecified (4) Abdominal pain ICD Codes: R10.9 - Unspecified abdominal pain SNOMED: 31900025 Qualifiers: Qualified Codes: R10.32 - Left lower quadrant pain (5) H/O appendicitis ICD Codes: Z87.19 - Personal history of other diseases of the digestive system SNOMED: 051756403 Status: unchanged Assessment/Plan gi sx f/u abx pain control pending abx sx cbc bmp am Subjective Constitutional: Reports: weakness Allergies: Coded Allergies: No Known Allergies (Unverified , 04/25/16) All Systems: reviewed and negative except above Subjective sleepy in bed Objective Last 24 Hour Vital Signs Date Time Temp Pulse Resp B/P (MAP) Pulse Ox O2 Delivery O2 Flow Rate FiO2 12/29/17 12:00 99.0 73 20 123/70 (87) 99 99.0 12/29/17 09:00 Room Air 12/29/17 08:00 99.3 79 20 108/76 (87) 99 99.3 12/29/17 00:00 98.4 78 20 130/71 (90) 100 98.4 12/28/17 21:00 Room Air 12/28/17 19:55 98.2 92 20 139/94 (109) 100 98.2 Intake and Output 12/28/17 12/29/17 19:00 07:00 Intake Total 477.416 ml 879.916 ml Balance 477.416 ml 879.916 ml IV Total 477.416 ml 879.916 ml # Voids 5 5 # Bowel Movements 1 Laboratory Tests 12/28/17 18:00: Potassium Level 3.8 12/29/17 06:40: Potassium Level 3.5, White Blood Count 12.4H, Red Blood Count 4.87, Hemoglobin 12.8L, Hematocrit 39.2L, Mean Corpuscular Volume 81, Mean Corpuscular Hemoglobin 26.2L, Mean Corpuscular Hemoglobin Concent 32.5, Red Cell Distribution Width 11.8, Platelet Count 299, Mean Platelet Volume 6.4L, Neutrophils (%) (Auto) 62.2, Lymphocytes (%) (Auto) 22.4, Monocytes (%) (Auto) 12.4H, Eosinophils (%) (Auto) 1.9, Basophils (%) (Auto) 1.1, Sodium Level 137, Chloride Level 101, Carbon Dioxide Level 26, Anion Gap 10, Blood Urea Nitrogen 12, Creatinine 1.3, Estimat Glomerular Filtration Rate > 60, Glucose Level 121H , Calcium Level 9.5 Height (Feet): 5 Height (Inches): 8.00 Weight (Pounds): 206 General Appearance: lethargic EENT: normal ENT inspection Neck: normal alignment Cardiovascular: normal peripheral pulses, normal rate, regular rhythm Respiratory/Chest: chest wall non-tender, lungs clear, normal breath sounds Abdomen: normal bowel sounds, non tender, soft Extremities: normal inspection Edema: no edema noted Arm (L), no edema noted Arm (R), no edema noted Leg (L), no edema noted Leg (R), no edema noted Pedal (L), no edema noted Pedal (R), no edema noted Generalized Neurologic: responsive, motor weakness Skin: normal pigmentation, warm/dry Franklyn Neves DO Dec 29, 2017 16:20
[2017-12-29] MEDS ORDERED: Bacitracin 50000 Units Vial ONE (16:30)
[2017-12-29] MEDS ORDERED: Lidocaine 1% 10mg/ml/Epi 0.005mg/ml 30ml vial INJ ONE (16:30)
[2017-12-29] MEDS ORDERED: Dexamethasone 4mg/ml vial ONE (16:39)
[2017-12-29] MEDS ORDERED: Lidocaine 1% MPF 10mg/ml 5ml ONE (16:39)
[2017-12-29] MEDS ORDERED: Sodium Chloride 10ml vial INJ ONE (16:39)
[2017-12-29] MEDS: Meropenem 1 GM in NS 55 ML IVPB SCH (17:00)
[2017-12-29] MEDS ORDERED: fentaNYL 100 mcg/2 mL IV ONE ×2 (17:14→18:40)
[2017-12-29] MEDS ORDERED: LR 1000ml 1,000 ML IVLG SCH (17:28)
--- NOTE | 2017-12-29 17:29 | Anethesia Preoperative Eval ---
Anesthesia Pre-op PMH/ROS General Date of Evaluation: Dec 29, 2017 Time of Evaluation: 17:19 Anesthesiologist: Saad ASA Score: ASA 3 - Emergency Mallampati Score Class I : Soft palate, uvula, fauces, pillars visible Class II: Soft palate, uvula, fauces visible Class III: Soft palate, base of uvula visible Class IV: Only hard plate visible Mallampati Classification: Class II Surgeon: Nicolás Diagnosis: Abd Pain Surgical Procedure: Exploatory Laparotomy Anesthesia History: none Family History: no anesthesia problems Allergies: Coded Allergies: No Known Allergies (Unverified , 04/25/16) Medications: see eMAR Past Medical History Cardiovascular: Reports: HTN Pulmonary: Reports: asthma Gastrointestinal/Genitourinary: Reports: other - Colitis Hematology/Immune: Reports: anemia PSxH Narrative: Appendectomy, October 28, 2017 Anesthesia Pre-op Phys. Exam Physician Exam Last Vital Signs Date Time Temp Pulse Resp B/P (MAP) Pulse Ox O2 Delivery O2 Flow Rate FiO2 12/29/17 12:00 99.0 73 20 123/70 (87) 99 99.0 12/29/17 09:00 Room Air Constitutional: NAD Neurologic: CN 2-12 intact Cardiovascular: RRR Respiratory: CTA Gastrointestinal: S/NT/ND Airway Exam Mallampati Score: Class II MO: full ROM: full Teeth: intact Anesthesia Pre-op A/P Labs Hematology Test 12/29/17 06:40 White Blood Count 12.4 K/UL (4.8-10.8) H Red Blood Count 4.87 M/UL (4.70-6.10) Hemoglobin 12.8 G/DL (14.2-18.0) L Hematocrit 39.2 % (42.0-52.0) L Mean Corpuscular Volume 81 FL (80-99) Mean Corpuscular Hemoglobin 26.2 PG (27.0-31.0) L Mean Corpuscular Hemoglobin Concent 32.5 G/DL (32.0-36.0) Red Cell Distribution Width 11.8 % (11.6-14.8) Platelet Count 299 K/UL (150-450) Mean Platelet Volume 6.4 FL (6.5-10.1) L Neutrophils (%) (Auto) 62.2 % (45.0-75.0) Lymphocytes (%) (Auto) 22.4 % (20.0-45.0) Monocytes (%) (Auto) 12.4 % (1.0-10.0) H Eosinophils (%) (Auto) 1.9 % (0.0-3.0) Basophils (%) (Auto) 1.1 % (0.0-2.0) Chemistry Test 12/28/17 18:00 12/29/17 06:40 Potassium Level 3.8 MMOL/L (3.5-5.1) 3.5 MMOL/L (3.5-5.1) Sodium Level 137 MMOL/L (136-145) Chloride Level 101 MMOL/L (98-107) Carbon Dioxide Level 26 MMOL/L (21-32) Anion Gap 10 mmol/L (5-15) Blood Urea Nitrogen 12 mg/dL (7-18) Creatinine 1.3 MG/DL (0.55-1.30) Estimat Glomerular Filtration Rate > 60 mL/min (>60) Glucose Level 121 MG/DL (74-106) H Calcium Level 9.5 MG/DL (8.5-10.1) Risk Assessment & Plan Assessment: ASA 3E Plan: GA, BIS, GlideScope Go Status Change Before Surgery: No Pre-Antibiotics Drug: Already On Leif Nash MD Dec 29, 2017 17:29
[2017-12-29] MEDS ORDERED: Ketorolac 30mg Inj IV PRN ×3 (17:30→20:00)
[2017-12-29] MEDS ORDERED: LR 1000ml ONE (17:30)
[2017-12-29] MEDS ORDERED: DiphenhydrAMINE 50mg/ml Inj IVP PRN ×2 (17:30→20:00)
[2017-12-29] MEDS ORDERED: Zemuron 50mg/5ml Inj IV ONE (17:30)
[2017-12-29] MEDS ORDERED: NS Irrig 1000ml ONE (17:30)
[2017-12-29] MEDS ORDERED: Propofol 1,000mg/ 100ml btl IV ONE (17:30)
[2017-12-29] MEDS ORDERED: LORazepam Inj 2mg/ml 1ml IV PRN (17:30)
[2017-12-29] MEDS ORDERED: NS Irrig 1000ml IRRIG ONE (17:30)
[2017-12-29] MEDS ORDERED: HYDROcodone/Acetamin 7.5/325 tab ORAL PRN (17:30)
[2017-12-29] MEDS ORDERED: Sterile Water Irrig 1000ml IRRIG ONE (17:30)
[2017-12-29] MEDS ORDERED: Norco 5mg/325mg tab ORAL PRN (17:30)
[2017-12-29] MEDS ORDERED: Atropine Inj 1mg/10ml Syr IV PRN (17:30)
[2017-12-29] MEDS ORDERED: fentaNYL 100 mcg/2 mL IV PRN (17:30)
[2017-12-29] MEDS ORDERED: oxyCODONE HCL/Acetaminophen 5/325mg ORAL PRN (17:30)
[2017-12-29] MEDS ORDERED: Hydromorphone 0.5mg/0.5ml inj IVP PRN ×2 (17:30→20:00)
[2017-12-29] MEDS ORDERED: Midazolam 2mg/2ml Inj IVP PRN (17:30)
--- NOTE | 2017-12-29 17:57 | Immediate Post-Op Evaluation ---
Immediate Post-Op Evalulation Immediate Post-Op Evalulation Procedure: Exploratory Laparotomy Date of Evaluation: Dec 29, 2017 Time of Evaluation: 07:54 IV Fluids: 1000 LR Blood Products: 0 Estimated Blood Loss: 75 Urinary Output: 100 Blood Pressure Systolic: 155 Blood Pressure Diastolic: 100 Pulse Rate: 96 Respiratory Rate: 16 O2 Sat by Pulse Oximetry: 100 Temperature (Fahrenheit): 97.2 Pain Score (1-10): 2 Nausea: No Vomiting: No Complications 0 Patient Status: awake, reacts, patent, extubated, none Hydration Status: adequate Drug: On Leif Nash MD Dec 29, 2017 17:57
--- NOTE | 2017-12-29 18:06 | 48 Hour Post Anesthesia Eval ---
Post Anesthesia Evaluation Procedure: Exploratory Laparotomy Date of Evaluation: Dec 29, 2017 Time of Evaluation: 21:56 Blood Pressure Systolic: 145 0: 89 Pulse Rate: 92 Respiratory Rate: 18 Temperature (Fahrenheit): 98.2 O2 Sat by Pulse Oximetry: 99 Airway: patent Nausea: No Vomiting: No Pain Intensity: 3 Hydration Status: adequate Cardiopulmonary Status: table Mental Status/LOC: patient returned to baseline Follow-up Care/Observations: 0 Post-Anesthesia Complications: 0 Follow-up care needed: N/A Leif Nash MD Dec 29, 2017 18:06
[2017-12-29] MEDS ORDERED: Acetaminophen (Non formulary) 100 ML IV ONE (19:30)
[2017-12-29] MEDS ORDERED: Naloxone 0.4mg/ml Inj ONE (19:31)
--- NOTE | 2017-12-29 19:49 | Brief Operative Note ---
Immediate Post Operative Note Operative Note Pre-op Diagnosis: intraabdominal abscess Procedure: diagnostic laparoscopy laparoscopic lysis of adhesions exploratory laparotomy small bowel resection evacuation of mesenteric abscess Findings: consistent w/pre-op dx studies Surgeon: monico Anesthesiologist: keisha Anesthesia: general Specimen: yes - 1. small bowel, 2. abscess cavity, 3. scar revision Complications: none Condition: stable Fluids: see records Estimated Blood Loss: volume - 50 Drains: none Implant(s) used?: No Constantin Monzon Dec 29, 2017 19:49
[2017-12-29] MEDS ORDERED: Milk of Magnesia 30ml Ud ORAL PRN (20:00)
[2017-12-29] MEDS ORDERED: Metoclopramide 10mg/2ml Inj IVP PRN (20:00)
[2017-12-29] MEDS ORDERED: Labetalol 5mg/ml 20ml vial IV ONE (20:26)
[2017-12-29] MEDS: Labetalol 5mg/ml 20ml vial IV PRN ×2 (20:30→21:01)
[2017-12-29] MEDS ORDERED: Labetalol 5mg/ml 20ml vial IV SCH (21:15)
[2017-12-30] VITALS: BP 158/93
[2017-12-30] MEDS: D5 1/2NS 1,000 ML IV SCH ×3 (01:32→19:50)
[2017-12-30 04:29] VITALS: BP 157/87
[2017-12-30] MEDS: Meropenem 1 GM in NS 55 ML IVPB SCH ×3 (05:11→21:19)
[2017-12-30] MEDS: Vancomycin 1gm/D5W 275ml IVPB SCH ×6 (05:53→22:29)
--- NOTE | 2017-12-30 06:45 | Operative Note - Dictated ---
DATE OF OPERATION: 12/29/2017 PREOPERATIVE DIAGNOSIS: Deep intra-abdominal abscess with persistent worsening abdominal pain POSTOPERATIVE DIAGNOSES: Large intra-abdominal phlegmon / abscess around the mesentery with communication to the wall of the small bowel OPERATION PERFORMED: 1. Diagnostic laparoscopy. 2. Laparoscopic lysis of adhesions. 3. Exploratory laparotomy. 4. Small bowel resection. 5. Evacuation of mesenteric abscess. ATTENDING SURGEON: Constantin Monzon M.D. RN DOCUMENTATION: None. ANESTHESIOLOGIST: Leif Nash M.D. 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 SPECIMENS: 1. Cultures. 2. Small bowel. 3. Abscess cavity. 4. Scar revision. COMPLICATIONS: None. CONDITION: Stable. FLUIDS: Please see anesthesia record. ESTIMATED BLOOD LOSS: A 50 mL. DRAINS: None. INDICATIONS FOR PROCEDURE: This is a 32-year-old male, who a few weeks back had laparotomy for acute appendicitis which was complicated by intra-abdominal abscess requiring drain placement. Fortunately after some time in the hospital, the patient recovered and was discharged. The patient returned a few weeks later with worsening abdominal pain and was found to have colitis for which he was admitted and managed. After that episode, he had been doing well and discharged until recently when he presented with worsening abdominal pain. The patient states that he was out and suddenly noted worsening abdominal cramping and came to the ED for evaluation at which time he was noted to have a leukocytosis and a CT scan demonstrating a mesenteric phlegmon. The patient was admitted for IV antibiotics and monitored. His pain did not improve and initially was stable until day of operation when pain was worsening. A repeat CT scan was done on 12/28/2017 which identified a mesenteric root phlegmon as well as interim development of a 3 cm x 2 cm fluid collection within the wall adjacent thick walled small bowel loops likely representing intramural abscess next to the adjacent mesenteric fat which was inflamed. The patient was more tender and with leukocytosis and therefore surgery was indicated and recommended. The risks, benefits, and alternatives of surgery were discussed with the patient in in detail preoperatively including laparoscopy, laparotomy, and bowel resection. The patient expressed understanding and consented to surgery. OPERATIVE NOTE: The patient was taken to the operating room and placed on the operating table in supine position with bilateral arms out. All bony prominences were well padded. SCDs were placed. Preoperative time-out was taken identifying the patient, procedure, operative site, and surgical staff. General anesthesia was induced and the patient was intubated. The patient was already on scheduled IV antibiotics for acute active inflammatory process. The Jules catheter was inserted under standard sterile technique. The abdomen was clipped, prepped, draped in standard surgical fashion. The prior infraumbilical midline scar was identified from the patient's initial surgery and did have a keloid. At this time, given the prior surgical incision and decision made to go in oglesby's point in the left upper quadrant. Local anesthetic was infiltrated to the proposed skin incision and a 5 mm port site incision was made below the subcostal margin on the left side. A 5 mm laparoscopic camera and trocar using FiOS tip was used to enter the abdomen safely without complication under visualization. The abdomen was then insufflated to 12 to 15 mmHg. Laparoscope was inserted and the abdomen inspected. There was significant amount of filmy adhesions of the small bowel to the anterior abdominal wall from the prior surgery and inflammatory process. A two 5 mm trocars were placed in the left lateral, mid and lower abdominal wall under direct visualization without complication. Laparoscopic scissors and graspers were used to perform lysis of adhesions of all the bowel loops until the anterior abdominal wall was freed. Once all the bowel loops were freed, the cecum was identified and as well as the prior appendectomy staple line which is intact and otherwise normal. The terminal ileum was identified and the small bowel from the terminal ilium was run proximally. From proxmial to the ileocecal valve, there was an area of significant thickening in the mesentery with a large phlegmon and dense adhesions. The bowel proximal to this was all normal, but there was some bowel in this area that was with dense adhesions and inflammatory tissue. The omentum was draped over this area and tethered down. At this time given these findings, decision made to abort the laparoscopic procedure and proceed with exploratory laparotomy to ensure safety of bowel and the patient. The laparoscope was removed as well the trocar sites. The prior surgical scar keloid was excised in elliptical fashion and sent to pathology for review. The subcutaneous fat and scar were dissected down to the midline of the prior surgical fascial closure. Prolene was identified and cut. Entry into the abdomen was obtained without complication. The prior incision was extended around the left side of the umbilicus to just above the umbilicus. A Bud retractor was placed and the bowel was identified much like it was in the laparoscopic portion of the procedure. There was a dense large mass identified and at this time the bowel was freed from it as well as omentum using a Thunderbeat and blunt dissection as well as Metzenbaum scissors. The abscess cavity was noted in the center portion with a very thick wall around the mesentery. The cavity was opened and cultures taken. At this time, there was a loop of bowel that was densely adhered with inflammatory tissue and thickening around the area what was seen on CT be prior likely the mural abscess. Once this bowel was excised, it was teased away from the thick capsule wall, it was noted to be the very edematous with dense tissue and some weakening in the middle likely to be very possible for perforation and therefore this area was to be resected. The abscess cavity was excised in whole and sent to pathology for review. The remaining mesentery was inspected and noted to be normal. The remainder of the bowel was inspected as well the stomach and colon and they were noted to be otherwise normal. Proximal and distal resection point of small bowel to be resected was identified. There is approximately 5 to 6 inch area of bowel was to be resected. A incision was made in mesentery proximally and distally and the bowel was stapled off proximally distally using a linear 55 mm JEANNE stapler. Following this, mesentery was excised in a V fashion using the Thunderbeat. The specimen was sent to pathology for review. At this time, [id number] stapled anastomosis was performed by making enterotomy in and both the proximal distal end and firing it with linear stapler between the two. A good wiping patent anastomosis was identified without bleeding. The remaining enterotomy defect was closed using a linear stapler. The anastomosis was patent and otherwise well formed. The mesentery was closed using a 3-0 silk pop-off sutures and the staple line was imbricated using 3-0 Lambert pop-off sutures. The abdomen was then irrigated with copious amounts of warm sterile normal saline. Once this was complete, no other abnormalities were found. Decision was made to end the procedure. The midline fascia was closed using a #0 looped PDS suture. Following this, the midline incision was closed using surgical berto and the laparoscopic 5 mm port sites were closed using 4-0 Monocryl subcuticular interrupted sutures. Dressings were applied. The patient procedure well was extubated taken to postanesthetic care unit in stable condition. Constantin Monzon M.D. DR: Lynn JOB#: [id number] CC: DASHA
[2017-12-30 08:00] VITALS: BP 140/92
[2017-12-30] MEDS: Heparin 5000 units/ml inj SUBQ SCH ×2 (08:32→20:07)
[2017-12-30] MEDS: Pantoprazole Inj IV SCH (08:33)
[2017-12-30] MEDS: HYDROmorphone 1mg/ml Carpuject IVP PRN ×5 (08:34→22:33)
--- NOTE | 2017-12-30 11:04 | Infectious Diseases Prog Note ---
Assessment/Plan Assessment/Plan ASSESSMENT: The patient is a 32-year-old male with multiple medical problems as listed above who has: 1. Abdominal pain. -abd US: no cholelithiasis or cholecystitis -Abx xray: Nonobstructive bowel gas pattern. 2. Low grade fever, improving 3. Leukocytosis, persistent 4. intra-abdominal abscess/enteritis.- r/o chron's disease given significant inflammation on ileocecal area intraoperatively -SP Diagnostic laparoscopy, Laparoscopic lysis of adhesions, Exploratory laparotomy, Small bowel resection, Evacuation of mesenteric abscess 12/29 -OR findings: Large intra-abdominal phlegmon and intra-abdominal abscess around the mesentery with communication to the wall of the small bowel and significant inflammatory tissues. -OR cx pending, biopsy -CT abd/p w12/28 : Irregular reticular opacity in the mesenteric root appears unchanged from 12/23/2017. However, there is been interim development of a 3 x 1.9 cm fluid collection which appears to be within the wall of an adjacent thick-walled small bowel loop. Suspect findings represent focal enteritis, with development of an intramural abscess and inflammation of the adjacent mesenteric root fat. Incidental findings as noted, including minimal lingular subsegmental atelectasis, left lower lobe subpleural probable postinflammatory lesion, tiny fat-containing umbilical hernia -CT abd/p w12/23: There is a somewhat ill defined 3.2 x 4.2 cm masslike area with surrounding infiltration of the fat within the mesentery in the midline just above the level of the umbilicus. Some small adjacent lymph nodes are noted. This appears more prominent compared to the prior exam and may be related to an acute infectious/inflammatory process such as enteritis or mesenteric panniculitis. A metastatic process or neoplastic process such as lymphoma cannot be excluded. Follow-up exam after treatment is recommended to ensure resolution. 5. CONS bacteremia, likely contaminant -repeat Bcx 12/25 NTD -Recent perforated appendix c/w RLQ abscess 10/2017, s/p I+D and abx tx -s/p emergent open appendectomy , I+D abscess and partial omentectomy 10/29; cx Chase S E.coli, Group C Strep; BACTEROIDES THETAIOTAOMICRON and FUSOBACTERIUM NECROPHORUM (both S to Unasyn and CLinda) -Repeat CT 11/04- residual fluid collection RLQ and s/p IR guided drainage -Treated with Zosyn x 6 days> Levaquin and Flagyl x 17 days (end date due to ) - History of colitis (possible Clostridium difficile) 11/2017, s/p Rx ( did not completed entire treatment as patient didnt refilled Rx upon discharge) 11/2017: -CT abd/p w/: Enterocolitis. No abscess. Thickening of the wall of multiple loops of small bowel which are also slightly distended and fluid- filled. This is most likely due to enteritis that is nonspecific. There is liquefied stool in the colon as well which shows mild thickening of the wall. - History of asthma. PLAN: 1.Continue Meropenem abx d #7 for ESBL coverage given worsening fluid collection and exposure to antibiotics (this admission and prior admissions) Continue empiric IV Vancomycin #6 for enterococcal coverage -f/u OR cx and narrow accordingly -f/u tissue biopsy -if worsening sepsis, may switch IV Vanco to Dapto and +/- Micafungin -12/29 SP Zosyn #6 -12/23 SP Cefepime and Flagyl x1 2. Monitor CBC. 3. Monitor BMP. 4. Monitor cultures (blood). 5. Surgery f/u 6. monitor for development of diarrhea Dsicussed with Dr Monzon.. Subjective Allergies: Coded Allergies: No Known Allergies (Unverified , 04/25/16) Subjective afebrile in >48 hrs leukocytosis persisent new abscess on repeat CT plan for surgiacl exploration repeat Bc NTD Objective Vital Signs Last 24 Hour Vital Signs Date Time Temp Pulse Resp B/P (MAP) Pulse Ox O2 Delivery O2 Flow Rate FiO2 12/30/17 09:04 97.8 12/30/17 08:34 97.8 12/30/17 08:20 Nasal Cannula 3.0 12/30/17 08:00 97.8 81 19 140/92 (108) 98 97.8 81 12/30/17 04:29 98.0 76 20 157/87 (110) 98 98.0 76 12/30/17 00:00 97.1 60 20 158/93 (114) 98 97.1 60 12/29/17 21:30 96.5 74 20 141/84 (103) 99 96.5 12/29/17 21:15 97.5 79 17 154/99 99 Nasal Cannula 3 97.5 12/29/17 21:12 72 155/100 12/29/17 21:01 89 166/102 12/29/17 21:00 73 17 155/100 100 Nasal Cannula 3 12/29/17 21:00 Nasal Cannula 3.0 12/29/17 20:45 71 16 176/101 100 Nasal Cannula 3 12/29/17 20:36 98.3 12/29/17 20:30 92 175/102 12/29/17 20:30 76 20 172/105 100 Nasal Cannula 3 12/29/17 20:25 81 18 185/102 99 Nasal Cannula 3 12/29/17 20:15 85 16 172/99 100 Nasal Cannula 3 12/29/17 20:10 99 16 170/96 100 Nasal Cannula 3 12/29/17 20:00 99 15 179/99 100 Nasal Cannula 3 12/29/17 19:55 96 19 173/97 100 Simple Mask 6 12/29/17 19:50 99 20 173/98 100 Simple Mask 6 12/29/17 19:50 208.8 92 18 99 12/29/17 19:48 97.2 99 16 155/100 100 Simple Mask 6 97.2 12/29/17 19:48 207.0 96 16 100 12/29/17 12:00 99.0 73 20 123/70 (87) 99 99.0 Height (Feet): 5 Height (Inches): 8.00 Weight (Pounds): 206 Objective HEENT: No pallor. No icterus. NECK: No lymphadenopathy. CHEST: Clear. HEART: S1 and S2. ABDOMEN: Soft. The patient has mild to moderate mid abdominal pain. NEUROLOGIC: Awake and alert. SKIN: No rash. Wound has healed. Current Medications Medications (Trade) Dose Ordered Sig/Kelsea Route PRN Reason Start Time Stop Time Status Last Admin Dose Admin Acetaminophen (Tylenol) 650 mg Q4H PRN ORAL fever 12/23/17 17:30 01/22/18 17:29 Al Hydroxide/Mg Hydroxide (Mylanta II) 30 ml Q6H PRN ORAL dyspepsia 12/23/17 17:30 01/22/18 17:29 Al Hydroxide/Mg Hydroxide (Mylanta) 15 ml Q6H PRN ORAL DYSPEPSIA 12/29/17 20:00 01/28/18 19:59 Cetylpyridinium Chloride (Cepacol) 1 lozg Q2H PRN SHARONA THROAT IRRITATION 12/26/17 10:45 01/25/18 10:44 Dextrose (Dextrose 50%) 25 ml STAT PRN IV Hypoglycemia 12/23/17 17:30 01/22/18 17:29 Dextrose (Dextrose 50%) 50 ml STAT PRN IV Hypoglycemia 12/23/17 17:45 01/22/18 17:44 Dextrose/Sodium Chloride 1,000 ml @ 125 mls/hr Q8H IV 12/29/17 17:25 01/28/18 17:24 12/30/17 01:32 Diphenhydramine HCl (Benadryl) 12.5 mg Q6H PRN IVP Itching/Pruritis 12/29/17 20:00 01/28/18 19:59 Diphenhydramine HCl (Benadryl) 25 mg Q6H PRN ORAL Itching/Pruritis 12/23/17 17:30 01/22/18 17:29 Guaifenesin (Robitussin) 200 mg Q4H PRN ORAL For Cough 12/25/17 16:05 01/24/18 16:04 Heparin Sodium (Porcine) (Heparin 5000 units/ml) 5,000 units EVERY 12 HOURS SUBQ 12/23/17 21:00 01/22/18 20:59 Hydromorphone HCl (Dilaudid) 0.5 mg Q3H PRN IVP Mild Pain (Pain Scale 1-3) 12/29/17 20:00 01/05/18 19:59 Hydromorphone HCl (Dilaudid) 1 mg Q3H PRN IVP Moderate Pain (Pain Scale 4-6) 12/29/17 20:00 01/05/18 19:59 12/30/17 08:34 Hydromorphone HCl (Dilaudid) 2 mg Q3H PRN IVP Severe Pain (Pain Scale 7-10) 12/29/17 20:00 01/05/18 19:59 12/30/17 02:48 Ketorolac Tromethamine (Toradol 30mg) 30 mg Q6H PRN IV For Pain 12/29/17 20:00 01/03/18 19:59 UNV Lorazepam (Ativan 2mg/ml 1ml) 1 mg Q4H PRN IV agitation 12/23/17 17:30 12/30/17 17:29 12/29/17 01:05 Magnesium Hydroxide (Mom) 30 ml BIDPRN PRN ORAL Constipation 12/29/17 20:00 01/28/18 19:59 Meropenem 1 gm/ Sodium Chloride 55 ml @ 110 mls/hr Q8HR IVPB 12/29/17 17:00 01/03/18 16:59 12/30/17 05:11 Metoclopramide HCl (Reglan) 10 mg Q6H PRN IVP Nausea & Vomiting 12/29/17 20:00 01/28/18 19:59 UNV Nitroglycerin (Ntg) 0.4 mg Q5M X 3 DOSES PRN SL Prn Chest Pain 12/23/17 17:30 01/22/18 17:29 Ondansetron HCl (Zofran) 4 mg Q6H PRN IVP Nausea & Vomiting 12/29/17 20:15 01/28/18 19:59 12/30/17 08:36 Pantoprazole (Protonix) 40 mg DAILY IV 12/24/17 09:00 01/23/18 08:59 12/30/17 08:33 Polyethylene Glycol (Miralax) 17 gm HSPRN PRN ORAL Constipation 12/23/17 21:00 01/22/18 20:59 Promethazine HCl (Phenergan) 12.5 mg Q6H PRN IM refractory nausea and vomiting 12/23/17 18:00 01/22/18 17:59 Temazepam (Restoril) 7.5 mg DAILYPRN PRN ORAL Insomnia 12/29/17 20:00 01/05/18 19:59 Vancomycin HCl (Vanco rx to dose) 1 ea DAILY PRN MISC Per rx protocol 12/25/17 12:45 01/24/18 12:44 Vancomycin HCl 1 gm/Dextrose 275 ml @ 183.708 mls/hr Q8HR IVPB 12/25/17 22:00 01/03/18 21:59 12/30/17 05:53 Manuela Alonzo M.D. Dec 30, 2017 11:04
--- NOTE | 2017-12-30 11:12 | GI Progress Note ---
Assessment/Plan Problems: (1) Diarrhea ICD Codes: R19.7 - Diarrhea, unspecified SNOMED: 46248191 (2) Constipation ICD Codes: K59.00 - Constipation, unspecified SNOMED: 87194754 (3) Abdominal pain ICD Codes: R10.9 - Unspecified abdominal pain SNOMED: 79952460 Qualifiers: Qualified Codes: R10.32 - Left lower quadrant pain (4) Mesenteric mass ICD Codes: K63.9 - Disease of intestine, unspecified SNOMED: 256916584 (5) Leukocytosis ICD Codes: D72.829 - Elevated white blood cell count, unspecified SNOMED: 144738442, 678415265 Qualifiers: Qualified Codes: D72.829 - Elevated white blood cell count, unspecified (6) Colitis ICD Codes: K52.9 - Noninfective gastroenteritis and colitis, unspecified SNOMED: 54138641 (7) Anemia ICD Codes: D64.9 - Anemia, unspecified SNOMED: 392246945 (8) Status post appendectomy ICD Codes: Z90.49 - Acquired absence of other specified parts of digestive tract SNOMED: 172072678, 86467900, 00866015 Status: unchanged Status Narrative Discussed with Dr. Goddard. Assessment/Plan Assessment - abdominal pain - s/p recent perforated appendicitis and post op abscess - 4 cm mesenteric mass - elevated lipase >> normal now CTAP reviewed >> interim development of a 3 x 1.9 cm fluid collection which appears to be within the wall of an adjacent thick-walled small bowel loop. Recommendations - Abdominal washout per surgery - Abx per ID - IR drainage vs surgical Rx vs non-operative abx management per surgical consult - po diet - Cepacol prn - pain mgmt - fu labs Subjective Gastrointestinal/Abdominal: Reports: abdominal pain Objective Last 24 Hour Vital Signs Date Time Temp Pulse Resp B/P (MAP) Pulse Ox O2 Delivery O2 Flow Rate FiO2 12/30/17 09:04 97.8 12/30/17 08:34 97.8 12/30/17 08:20 Nasal Cannula 3.0 12/30/17 08:00 97.8 81 19 140/92 (108) 98 97.8 81 12/30/17 04:29 98.0 76 20 157/87 (110) 98 98.0 76 12/30/17 00:00 97.1 60 20 158/93 (114) 98 97.1 60 12/29/17 21:30 96.5 74 20 141/84 (103) 99 96.5 12/29/17 21:15 97.5 79 17 154/99 99 Nasal Cannula 3 97.5 12/29/17 21:12 72 155/100 12/29/17 21:01 89 166/102 12/29/17 21:00 73 17 155/100 100 Nasal Cannula 3 12/29/17 21:00 Nasal Cannula 3.0 12/29/17 20:45 71 16 176/101 100 Nasal Cannula 3 12/29/17 20:36 98.3 12/29/17 20:30 92 175/102 12/29/17 20:30 76 20 172/105 100 Nasal Cannula 3 12/29/17 20:25 81 18 185/102 99 Nasal Cannula 3 12/29/17 20:15 85 16 172/99 100 Nasal Cannula 3 12/29/17 20:10 99 16 170/96 100 Nasal Cannula 3 12/29/17 20:00 99 15 179/99 100 Nasal Cannula 3 12/29/17 19:55 96 19 173/97 100 Simple Mask 6 12/29/17 19:50 99 20 173/98 100 Simple Mask 6 12/29/17 19:50 208.8 92 18 99 12/29/17 19:48 97.2 99 16 155/100 100 Simple Mask 6 97.2 12/29/17 19:48 207.0 96 16 100 12/29/17 12:00 99.0 73 20 123/70 (87) 99 99.0 Intake and Output 12/29/17 12/30/17 19:00 07:00 Intake Total 575.0 ml 758 ml Output Total 1150 ml Balance 575.0 ml -392 ml Intake Oral 240 ml 0 ml IV Total 335.0 ml 758 ml Output Urine Total 1150 ml # Voids 3 Height (Feet): 5 Height (Inches): 8.00 Weight (Pounds): 206 General Appearance: WD/WN, no apparent distress, alert Cardiovascular: normal rate Respiratory/Chest: normal breath sounds, no respiratory distress Abdominal Exam: normal bowel sounds, non tender, soft Extremities: normal range of motion, non-tender Mayte Lizarraga SENIOR PROJECT LEADER/TEAM LEAD Dec 30, 2017 11:12
[2017-12-30 12:00] VITALS: BP 149/83
--- NOTE | 2017-12-30 12:12 | General Progress Note ---
Assessment/Plan Problem List: (1) UTI (urinary tract infection) ICD Codes: N39.0 - Urinary tract infection, site not specified SNOMED: 62625142 (2) Anemia ICD Codes: D64.9 - Anemia, unspecified SNOMED: 475975918 (3) Leukocytosis ICD Codes: D72.829 - Elevated white blood cell count, unspecified SNOMED: 439037737, 479788096 Qualifiers: Qualified Codes: D72.829 - Elevated white blood cell count, unspecified (4) Abdominal pain ICD Codes: R10.9 - Unspecified abdominal pain SNOMED: 14162083 Qualifiers: Qualified Codes: R10.32 - Left lower quadrant pain (5) H/O appendicitis ICD Codes: Z87.19 - Personal history of other diseases of the digestive system SNOMED: 232480662 Assessment/Plan gi sx f/u abx pain control adv diet per gi cbc bmp am Subjective Constitutional: Reports: weakness Allergies: Coded Allergies: No Known Allergies (Unverified , 04/25/16) All Systems: reviewed and negative except above Subjective sleepy in bed s/p abd sx Objective Last 24 Hour Vital Signs Date Time Temp Pulse Resp B/P (MAP) Pulse Ox O2 Delivery O2 Flow Rate FiO2 12/30/17 09:04 97.8 12/30/17 08:34 97.8 12/30/17 08:20 Nasal Cannula 3.0 12/30/17 08:00 97.8 81 19 140/92 (108) 98 97.8 81 12/30/17 04:29 98.0 76 20 157/87 (110) 98 98.0 76 12/30/17 00:00 97.1 60 20 158/93 (114) 98 97.1 60 12/29/17 21:30 96.5 74 20 141/84 (103) 99 96.5 12/29/17 21:15 97.5 79 17 154/99 99 Nasal Cannula 3 97.5 12/29/17 21:12 72 155/100 12/29/17 21:01 89 166/102 12/29/17 21:00 73 17 155/100 100 Nasal Cannula 3 12/29/17 21:00 Nasal Cannula 3.0 12/29/17 20:45 71 16 176/101 100 Nasal Cannula 3 12/29/17 20:36 98.3 7/19/18 20:30 92 175/102 12/29/17 20:30 76 20 172/105 100 Nasal Cannula 3 12/29/17 20:25 81 18 185/102 99 Nasal Cannula 3 12/29/17 20:15 85 16 172/99 100 Nasal Cannula 3 12/29/17 20:10 99 16 170/96 100 Nasal Cannula 3 12/29/17 20:00 99 15 179/99 100 Nasal Cannula 3 12/29/17 19:55 96 19 173/97 100 Simple Mask 6 12/29/17 19:50 99 20 173/98 100 Simple Mask 6 12/29/17 19:50 208.8 92 18 99 12/29/17 19:48 97.2 99 16 155/100 100 Simple Mask 6 97.2 12/29/17 19:48 207.0 96 16 100 Intake and Output 12/29/17 12/30/17 18:59 06:59 Intake Total 650.0 ml 758 ml Output Total 1150 ml Balance 650.0 ml -392 ml Intake Oral 240 ml 0 ml IV Total 410.0 ml 758 ml Output Urine Total 1150 ml # Voids 3 Height (Feet): 5 Height (Inches): 8.00 Weight (Pounds): 206 General Appearance: lethargic EENT: normal ENT inspection Neck: normal alignment Cardiovascular: normal peripheral pulses, normal rate, regular rhythm Respiratory/Chest: chest wall non-tender, lungs clear, normal breath sounds Abdomen: soft, hypoactive bowel sounds, distended Extremities: normal inspection Edema: no edema noted Arm (L), no edema noted Arm (R), no edema noted Leg (L), no edema noted Leg (R), no edema noted Pedal (L), no edema noted Pedal (R), no edema noted Generalized Neurologic: motor weakness Skin: normal pigmentation, warm/dry Franklyn Neves DO Dec 30, 2017 12:12
--- NOTE | 2017-12-30 14:01 | Pulmonology Progress Note ---
Assessment/Plan Problems: (1) Colitis (2) Mesenteric mass (3) Abdominal pain (4) Leukocytosis (5) Status post appendectomy Assessment/Plan f/u by surgery all reviewed dvt prophylaxis symptomatic treatment Subjective ROS Limited/Unobtainable: No Constitutional: Reports: no symptoms HEENT: Repors: no symptoms Respiratory: Reports: no symptoms Allergies: Coded Allergies: No Known Allergies (Unverified , 04/25/16) Objective Last 24 Hour Vital Signs Date Time Temp Pulse Resp B/P (MAP) Pulse Ox O2 Delivery O2 Flow Rate FiO2 12/30/17 13:03 97.8 12/30/17 12:33 97.8 12/30/17 12:00 97.8 61 22 149/83 (105) 98 97.8 12/30/17 08:34 97.8 12/30/17 08:20 Nasal Cannula 3.0 12/30/17 08:00 97.8 81 19 140/92 (108) 98 97.8 81 12/30/17 04:29 98.0 76 20 157/87 (110) 98 98.0 76 12/30/17 00:00 97.1 60 20 158/93 (114) 98 97.1 60 12/29/17 21:30 96.5 74 20 141/84 (103) 99 96.5 12/29/17 21:15 97.5 79 17 154/99 99 Nasal Cannula 3 97.5 12/29/17 21:12 72 155/100 12/29/17 21:01 89 166/102 12/29/17 21:00 73 17 155/100 100 Nasal Cannula 3 12/29/17 21:00 Nasal Cannula 3.0 12/29/17 20:45 71 16 176/101 100 Nasal Cannula 3 12/29/17 20:36 98.3 12/29/17 20:30 92 175/102 12/29/17 20:30 76 20 172/105 100 Nasal Cannula 3 12/29/17 20:25 81 18 185/102 99 Nasal Cannula 3 12/29/17 20:15 85 16 172/99 100 Nasal Cannula 3 12/29/17 20:10 99 16 170/96 100 Nasal Cannula 3 12/29/17 20:00 99 15 179/99 100 Nasal Cannula 3 12/29/17 19:55 96 19 173/97 100 Simple Mask 6 12/29/17 19:50 99 20 173/98 100 Simple Mask 6 12/29/17 19:50 208.8 92 18 99 12/29/17 19:48 97.2 99 16 155/100 100 Simple Mask 6 97.2 12/29/17 19:48 207.0 96 16 100 Intake and Output 12/29/17 12/30/17 19:00 07:00 Intake Total 575.0 ml 758 ml Output Total 1150 ml Balance 575.0 ml -392 ml Intake Oral 240 ml 0 ml IV Total 335.0 ml 758 ml Output Urine Total 1150 ml # Voids 3 Objective General Appearance: WN/WD HEENT: normocephalic Respiratory/Chest: chest wall non-tender, lungs clear Cardiovascular: normal peripheral pulses, normal rate Abdomen: normal bowel sounds, soft, non tender Genitourinary: normal external genitalia Extremities: no clubbing Microbiology Date/Time Source Procedure Growth Status 12/29/17 20:45 Abdomen Gram Stain - Final Resulted 12/29/17 20:45 Abdomen Aerobic Culture Pending Resulted 12/29/17 20:45 Abdomen Anaerobic Culture Pending Resulted Current Medications Medications (Trade) Dose Ordered Sig/Kelsea Route PRN Reason Start Time Stop Time Status Last Admin Dose Admin Acetaminophen (Tylenol) 650 mg Q4H PRN ORAL fever 12/23/17 17:30 01/22/18 17:29 Al Hydroxide/Mg Hydroxide (Mylanta II) 30 ml Q6H PRN ORAL dyspepsia 12/23/17 17:30 01/22/18 17:29 Al Hydroxide/Mg Hydroxide (Mylanta) 15 ml Q6H PRN ORAL DYSPEPSIA 12/29/17 20:00 01/28/18 19:59 Cetylpyridinium Chloride (Cepacol) 1 lozg Q2H PRN SHARONA THROAT IRRITATION 12/26/17 10:45 01/25/18 10:44 Dextrose (Dextrose 50%) 25 ml STAT PRN IV Hypoglycemia 12/23/17 17:30 01/22/18 17:29 Dextrose (Dextrose 50%) 50 ml STAT PRN IV Hypoglycemia 12/23/17 17:45 01/22/18 17:44 Dextrose/Sodium Chloride 1,000 ml @ 125 mls/hr Q8H IV 12/29/17 17:25 01/28/18 17:24 12/30/17 01:32 Diphenhydramine HCl (Benadryl) 12.5 mg Q6H PRN IVP Itching/Pruritis 12/29/17 20:00 01/28/18 19:59 Diphenhydramine HCl (Benadryl) 25 mg Q6H PRN ORAL Itching/Pruritis 12/23/17 17:30 01/22/18 17:29 Guaifenesin (Robitussin) 200 mg Q4H PRN ORAL For Cough 12/25/17 16:05 01/24/18 16:04 Heparin Sodium (Porcine) (Heparin 5000 units/ml) 5,000 units EVERY 12 HOURS SUBQ 12/23/17 21:00 01/22/18 20:59 Hydromorphone HCl (Dilaudid) 0.5 mg Q3H PRN IVP Mild Pain (Pain Scale 1-3) 12/29/17 20:00 01/05/18 19:59 Hydromorphone HCl (Dilaudid) 1 mg Q3H PRN IVP Moderate Pain (Pain Scale 4-6) 12/29/17 20:00 01/05/18 19:59 12/30/17 12:33 Hydromorphone HCl (Dilaudid) 2 mg Q3H PRN IVP Severe Pain (Pain Scale 7-10) 12/29/17 20:00 01/05/18 19:59 12/30/17 02:48 Ketorolac Tromethamine (Toradol 30mg) 30 mg Q6H PRN IV For Pain 12/29/17 20:00 01/03/18 19:59 UNV Lorazepam (Ativan 2mg/ml 1ml) 1 mg Q4H PRN IV agitation 12/23/17 17:30 12/30/17 17:29 12/29/17 01:05 Magnesium Hydroxide (Mom) 30 ml BIDPRN PRN ORAL Constipation 12/29/17 20:00 01/28/18 19:59 Meropenem 1 gm/ Sodium Chloride 55 ml @ 110 mls/hr Q8HR IVPB 12/29/17 17:00 01/03/18 16:59 12/30/17 05:11 Nitroglycerin (Ntg) 0.4 mg Q5M X 3 DOSES PRN SL Prn Chest Pain 12/23/17 17:30 01/22/18 17:29 Ondansetron HCl (Zofran) 4 mg Q6H PRN IVP Nausea & Vomiting 12/29/17 20:15 01/28/18 19:59 12/30/17 08:36 Pantoprazole (Protonix) 40 mg DAILY IV 12/24/17 09:00 01/23/18 08:59 12/30/17 08:33 Polyethylene Glycol (Miralax) 17 gm HSPRN PRN ORAL Constipation 12/23/17 21:00 01/22/18 20:59 Temazepam (Restoril) 7.5 mg DAILYPRN PRN ORAL Insomnia 12/29/17 20:00 01/05/18 19:59 Vancomycin HCl (Vanco rx to dose) 1 ea DAILY PRN MISC Per rx protocol 12/25/17 12:45 01/24/18 12:44 Vancomycin HCl 1 gm/Dextrose 275 ml @ 183.708 mls/hr Q8HR IVPB 12/25/17 22:00 01/03/18 21:59 12/30/17 12:33 Jae Benavides MD Dec 30, 2017 14:01
--- NOTE | 2017-12-30 14:24 | General Progress Note ---
Assessment/Plan Assessment/Plan (1) Abdominal pain (2) Intraabdominal abscess (3) H/o appendectomy due to appendicitis (4) S/p Exploratory laparotomy with small bowel resection and evacuation of mesenteric abscess We will changed Dilaudid to 1mg IV Q2H PRN severe pain and discontinue Dilaudid .5-2mg IV. D/w Dr. Jacobs and he concurred. Subjective Date patient seen: Dec 30, 2017 Time patient seen: 11:50 - pm Allergies: Coded Allergies: No Known Allergies (Unverified , 04/25/16) Subjective REVIEW OF SYSTEMS: Denies rash, fever, chills, sweating, dizziness, drowsiness, blurred vision, sore throat, or change in weight. No shortness of breath or chest pain. No nausea, vomiting, diarrhea, or blood in the stool or urine. No bowel or bladder incontinence. No dysuria. He is complaining of abdominal pain. SUBJECTIVE: Patient is in bed and is s/p exploratory laparotomy due to mesenteric abscess removal. He was started on Dilaudid 0.5-1-2mg IV Q3H PRN [id number] pain. I d/w nurse and patient that Dilaudid 1mg has helped reduce his pain but does not last more than 2 hrs as well as the Dilaudid 2mg causing him to be overly sedated. Objective Last 24 Hour Vital Signs Date Time Temp Pulse Resp B/P (MAP) Pulse Ox O2 Delivery O2 Flow Rate FiO2 12/30/17 13:03 97.8 12/30/17 12:33 97.8 12/30/17 12:00 97.8 61 22 149/83 (105) 98 97.8 12/30/17 08:34 97.8 12/30/17 08:20 Nasal Cannula 3.0 12/30/17 08:00 97.8 81 19 140/92 (108) 98 97.8 81 12/30/17 04:29 98.0 76 20 157/87 (110) 98 98.0 76 12/30/17 00:00 97.1 60 20 158/93 (114) 98 97.1 60 12/29/17 21:30 96.5 74 20 141/84 (103) 99 96.5 12/29/17 21:15 97.5 79 17 154/99 99 Nasal Cannula 3 97.5 12/29/17 21:12 72 155/100 12/29/17 21:01 89 166/102 12/29/17 21:00 73 17 155/100 100 Nasal Cannula 3 12/29/17 21:00 Nasal Cannula 3.0 12/29/17 20:45 71 16 176/101 100 Nasal Cannula 3 12/29/17 20:36 98.3 12/29/17 20:30 92 175/102 12/29/17 20:30 76 20 172/105 100 Nasal Cannula 3 12/29/17 20:25 81 18 185/102 99 Nasal Cannula 3 12/29/17 20:15 85 16 172/99 100 Nasal Cannula 3 12/29/17 20:10 99 16 170/96 100 Nasal Cannula 3 12/29/17 20:00 99 15 179/99 100 Nasal Cannula 3 12/29/17 19:55 96 19 173/97 100 Simple Mask 6 12/29/17 19:50 99 20 173/98 100 Simple Mask 6 12/29/17 19:50 208.8 92 18 99 12/29/17 19:48 97.2 99 16 155/100 100 Simple Mask 6 97.2 12/29/17 19:48 207.0 96 16 100 Intake and Output 12/29/17 12/30/17 19:00 07:00 Intake Total 575.0 ml 758 ml Output Total 1150 ml Balance 575.0 ml -392 ml Intake Oral 240 ml 0 ml IV Total 335.0 ml 758 ml Output Urine Total 1150 ml # Voids 3 Height (Feet): 5 Height (Inches): 8.00 Weight (Pounds): 206 Objective GENERAL: Alert, awake, oriented x3. LUNGS: Decreased breath sounds bilaterally. HEART: S1 S2 Regular. ABDOMEN: Bandages applied tenderness to palpation. EXTREMITIES: No cyanosis. No clubbing. No edema. NEUROLOGICAL: No changes. Alon Casarez Dec 30, 2017 14:24
[2017-12-30 16:00] VITALS: BP 149/84
[2017-12-30] MEDS ORDERED: Ketorolac 30mg Inj IV PRN (16:00)
--- NOTE | 2017-12-30 16:26 | General Surgery Progress Note ---
General Surgery-Progress Note Subjective Procedure Performed diagnostic laparoscopy laparoscopic lysis of adhesions exploratory laparotomy small bowel resection evacuation of mesenteric abscess Additional Comments refused labs this AM. pain. no n/v/f/c. Objective Last 24 Hour Vital Signs Date Time Temp Pulse Resp B/P (MAP) Pulse Ox O2 Delivery O2 Flow Rate FiO2 12/30/17 16:00 98.0 71 20 149/84 (105) 97 98.0 12/30/17 13:03 97.8 12/30/17 12:33 97.8 12/30/17 12:00 97.8 61 22 149/83 (105) 98 97.8 12/30/17 08:34 97.8 12/30/17 08:20 Nasal Cannula 3.0 12/30/17 08:00 97.8 81 19 140/92 (108) 98 97.8 81 12/30/17 04:29 98.0 76 20 157/87 (110) 98 98.0 76 12/30/17 00:00 97.1 60 20 158/93 (114) 98 97.1 60 12/29/17 21:30 96.5 74 20 141/84 (103) 99 96.5 12/29/17 21:15 97.5 79 17 154/99 99 Nasal Cannula 3 97.5 12/29/17 21:12 72 155/100 12/29/17 21:01 89 166/102 12/29/17 21:00 73 17 155/100 100 Nasal Cannula 3 12/29/17 21:00 Nasal Cannula 3.0 12/29/17 20:45 71 16 176/101 100 Nasal Cannula 3 12/29/17 20:36 98.3 12/29/17 20:30 92 175/102 18 20:30 76 20 172/105 100 Nasal Cannula 3 18 20:25 81 18 185/102 99 Nasal Cannula 3 12/29/17 20:15 85 16 172/99 100 Nasal Cannula 3 12/29/17 20:10 99 16 170/96 100 Nasal Cannula 3 12/29/17 20:00 99 15 179/99 100 Nasal Cannula 3 12/29/17 19:55 96 19 173/97 100 Simple Mask 6 12/29/17 19:50 99 20 173/98 100 Simple Mask 6 12/29/17 19:50 208.8 92 18 99 12/29/17 19:48 97.2 99 16 155/100 100 Simple Mask 6 97.2 12/29/17 19:48 207.0 96 16 100 I&O Intake and Output 12/29/17 12/30/17 19:00 07:00 Intake Total 575.0 ml 758 ml Output Total 1150 ml Balance 575.0 ml -392 ml Intake Oral 240 ml 0 ml IV Total 335.0 ml 758 ml Output Urine Total 1150 ml # Voids 3 Dressing: dry Wound: clean Drains: none Cardiovascular: RSR Respiratory: clear Abdomen: soft, distended, tenderness, absent bowel sounds Extremities: no cyanosis Plan Problems: (1) Abdominal pain Assessment & Plan: 3.2 x 4.2 cm masslike area with surrounding infiltration of the fat within the mesentery in the midline just above the level of the umbilicus. Some small adjacent lymph nodes are noted. This appears more prominent compared to the prior exam and may be related to an acute infectious/ inflammatory process such as enteritis or mesenteric panniculitis. No acute surgical intervention planned. will discuss with radiology about case. likely related to post surgical infectious process and patient did not fill Abx upon discharge for appropriate Abx course IV Abx as per ID will monitor exam okay for diet. Repeat CT with new findings as per radiology read. discussed with radiologist. will discuss with patient possible surgery if desired s/p diag lap, SUPRIYA, ex-lap, sb resection, washout, closure pain as anticipated post op not in greatest mood now keep npo iv fluids iv abx d/c mata activity as tolerated rx as written Constantin Monzon Dec 30, 2017 16:26
[2017-12-30 20:54] VITALS: BP 140/81
[2017-12-31] VITALS: BP 143/79
[2017-12-31] MEDS: D5 1/2NS 1,000 ML IV SCH ×3 (01:25→14:16)
[2017-12-31] MEDS: HYDROmorphone 1mg/ml Carpuject IVP PRN ×10 (02:05→22:29)
[2017-12-31 04:42] VITALS: BP 149/89
[2017-12-31] MEDS: Vancomycin 1gm/D5W 275ml IVPB SCH ×8 (06:00→22:07)
[2017-12-31] MEDS: Meropenem 1 GM in NS 55 ML IVPB SCH ×3 (06:02→21:05)
--- NOTE | 2017-12-31 07:06 | General Progress Note ---
Assessment/Plan Problem List: (1) UTI (urinary tract infection) ICD Codes: N39.0 - Urinary tract infection, site not specified SNOMED: 07677168 (2) Anemia ICD Codes: D64.9 - Anemia, unspecified SNOMED: 692546145 (3) Leukocytosis ICD Codes: D72.829 - Elevated white blood cell count, unspecified SNOMED: 470921708, 472589333 Qualifiers: Qualified Codes: D72.829 - Elevated white blood cell count, unspecified (4) Abdominal pain ICD Codes: R10.9 - Unspecified abdominal pain SNOMED: 53063312 Qualifiers: Qualified Codes: R10.32 - Left lower quadrant pain (5) H/O appendicitis ICD Codes: Z87.19 - Personal history of other diseases of the digestive system SNOMED: 402141882 Status: unchanged Assessment/Plan gi sx f/u abx pain control adv diet per gi cbc bmp am Subjective Constitutional: Reports: weakness Allergies: Coded Allergies: No Known Allergies (Unverified , 04/25/16) All Systems: reviewed and negative except above Subjective sleepy in bed s/p abd sx Objective Last 24 Hour Vital Signs Date Time Temp Pulse Resp B/P (MAP) Pulse Ox O2 Delivery O2 Flow Rate FiO2 12/31/17 06:35 98.4 12/31/17 05:02 98.4 12/31/17 04:42 98.4 84 20 149/89 (109) 96 98.4 12/31/17 04:32 98.4 12/31/17 02:05 98.4 12/31/17 00:00 98.4 79 19 143/79 (100) 97 98.4 12/30/17 22:33 97.9 12/30/17 20:54 97.9 73 18 140/81 (100) 96 97.9 12/30/17 20:00 Room Air 12/30/17 19:53 98.0 12/30/17 16:23 98.0 12/30/17 16:00 98.0 71 20 149/84 (105) 97 98.0 12/30/17 13:03 97.8 12/30/17 12:33 97.8 12/30/17 12:00 97.8 61 22 149/83 (105) 98 97.8 12/30/17 08:34 97.8 12/30/17 08:20 Nasal Cannula 3.0 12/30/17 08:00 97.8 81 19 140/92 (108) 98 97.8 81 Intake and Output 12/30/17 12/31/17 19:00 07:00 Intake Total 955.000 ml Balance 955.000 ml IV Total 955.000 ml # Voids 3 Height (Feet): 5 Height (Inches): 8.00 Weight (Pounds): 206 General Appearance: lethargic EENT: normal ENT inspection Neck: normal alignment Cardiovascular: normal peripheral pulses, normal rate, regular rhythm Respiratory/Chest: chest wall non-tender, lungs clear, normal breath sounds Abdomen: soft, hypoactive bowel sounds, distended Extremities: normal range of motion, non-tender, normal inspection Edema: no edema noted Arm (L), no edema noted Arm (R), no edema noted Leg (L), no edema noted Leg (R), no edema noted Pedal (L), no edema noted Pedal (R), no edema noted Generalized Neurologic: motor weakness Skin: normal pigmentation, warm/dry Franklyn Neves DO Dec 31, 2017 07:06
[2017-12-31 08:00] VITALS: BP 149/94
[2017-12-31 08:08] LABS: BASOPHILS % (AUTO) 1.4 % (0.0-2.0); EOSINOPHILS % (AUTO) 0.4 % (0.0-3.0); HEMATOCRIT 37.3 % (42.0-52.0); HEMOGLOBIN 12.4 G/DL (14.2-18.0); LYMPHOCYTES % (AUTO) 14.8 % (20.0-45.0); MEAN CORPUSCULAR VOLUME 81 FL (80-99); MONOCYTES % (AUTO) 12.1 % (1.0-10.0); NEUTROPHILS % (AUTO) 71.4 % (45.0-75.0); PLATELET COUNT 290 K/UL (150-450); RED BLOOD COUNT 4.61 M/UL (4.70-6.10); RED CELL DISTRIBUTION WIDTH 11.9 % (11.6-14.8); WHITE BLOOD COUNT 13.6 K/UL (4.8-10.8)
--- NOTE | 2017-12-31 08:24 | General Progress Note ---
Assessment/Plan Problem List: (1) Mesenteric mass ICD Codes: K63.9 - Disease of intestine, unspecified SNOMED: 423683661 (2) Abdominal pain ICD Codes: R10.9 - Unspecified abdominal pain SNOMED: 85598757 Qualifiers: Qualified Codes: R10.32 - Left lower quadrant pain (3) Anemia ICD Codes: D64.9 - Anemia, unspecified SNOMED: 985139431 (4) UTI (urinary tract infection) ICD Codes: N39.0 - Urinary tract infection, site not specified SNOMED: 42159161 (5) Status post appendectomy ICD Codes: Z90.49 - Acquired absence of other specified parts of digestive tract SNOMED: 691968894, 55782335, 20939723 Assessment/Plan s/p repeat surg and abscess drainage on 12/29 npo ivf pain control abx fu surg recs Subjective ROS Limited/Unobtainable: Yes Allergies: Coded Allergies: No Known Allergies (Unverified , 04/25/16) Objective Last 24 Hour Vital Signs Date Time Temp Pulse Resp B/P (MAP) Pulse Ox O2 Delivery O2 Flow Rate FiO2 12/31/17 07:05 98.4 12/31/17 06:35 98.4 12/31/17 04:42 98.4 84 20 149/89 (109) 96 98.4 12/31/17 04:32 98.4 12/31/17 02:05 98.4 12/31/17 00:00 98.4 79 19 143/79 (100) 97 98.4 12/30/17 22:33 97.9 12/30/17 20:54 97.9 73 18 140/81 (100) 96 97.9 12/30/17 20:00 Room Air 12/30/17 19:53 98.0 12/30/17 16:23 98.0 12/30/17 16:00 98.0 71 20 149/84 (105) 97 98.0 12/30/17 13:03 97.8 12/30/17 12:33 97.8 12/30/17 12:00 97.8 61 22 149/83 (105) 98 97.8 12/30/17 08:34 97.8 Intake and Output 12/30/17 12/31/17 19:00 07:00 Intake Total 1010.000 ml Balance 1010.000 ml IV Total 1010.000 ml # Voids 3 Laboratory Tests 12/31/17 07:13: White Blood Count 13.6H, Red Blood Count 4.61L, Hemoglobin 12.4L, Hematocrit 37.3L, Mean Corpuscular Volume 81, Mean Corpuscular Hemoglobin 26.9L, Mean Corpuscular Hemoglobin Concent 33.3, Red Cell Distribution Width 11.9, Platelet Count 290, Mean Platelet Volume 6.2L, Neutrophils (%) (Auto) 71.4, Lymphocytes ( %) (Auto) 14.8L, Monocytes (%) (Auto) 12.1H, Eosinophils (%) (Auto) 0.4, Basophils (%) (Auto) 1.4, Sodium Level [Pending], Potassium Level [Pending], Chloride Level [Pending], Carbon Dioxide Level [Pending], Blood Urea Nitrogen [ Pending], Creatinine [Pending], Estimat Glomerular Filtration Rate [Pending], Glucose Level [Pending], Calcium Level [Pending] Height (Feet): 5 Height (Inches): 8.00 Weight (Pounds): 206 General Appearance: alert EENT: normal ENT inspection Neck: supple Cardiovascular: normal rate Respiratory/Chest: decreased breath sounds Abdomen: hypoactive bowel sounds, tender Extremities: non-tender Pillo Goddard MD Dec 31, 2017 08:24
[2017-12-31 08:26] LABS: ANION GAP 6 mmol/L (5-15); BLOOD UREA NITROGEN 9 mg/dL (7-18); CALCIUM 9.4 MG/DL (8.5-10.1); CARBON DIOXIDE 29 MMOL/L (21-32); CHLORIDE 99 MMOL/L (98-107); CREATININE 1.1 MG/DL (0.55-1.30); POTASSIUM 3.8 MMOL/L (3.5-5.1); SODIUM 134 MMOL/L (136-145)
[2017-12-31] MEDS: Heparin 5000 units/ml inj SUBQ SCH ×2 (09:00→20:03)
[2017-12-31] MEDS: Pantoprazole Inj IV SCH (09:06)
--- NOTE | 2017-12-31 10:39 | Infectious Diseases Prog Note ---
Assessment/Plan Assessment/Plan ASSESSMENT: The patient is a 32-year-old male with multiple medical problems as listed above who has: Abdominal pain. -abd US: no cholelithiasis or cholecystitis -Abx xray: Nonobstructive bowel gas pattern. Low grade fever, improving Leukocytosis, persistent intra-abdominal abscess/enteritis.- r/o chron's disease given significant inflammation on ileocecal area intraoperatively -12/29 SP Diagnostic laparoscopy, Laparoscopic lysis of adhesions, Exploratory laparotomy, Small bowel resection, Evacuation of mesenteric abscess -OR findings: Large intra-abdominal phlegmon and intra-abdominal abscess around the mesentery with communication to the wall of the small bowel and significant inflammatory tissues. -OR cx pending, biopsy -CT abd/p w/ 12/28 : Irregular reticular opacity in the mesenteric root appears unchanged from 12/23/2017. However, there is been interim development of a 3 x 1.9 cm fluid collection which appears to be within the wall of an adjacent thick-walled small bowel loop. Suspect findings represent focal enteritis, with development of an intramural abscess and inflammation of the adjacent mesenteric root fat. Incidental findings as noted, including minimal lingular subsegmental atelectasis, left lower lobe subpleural probable postinflammatory lesion, tiny fat-containing umbilical hernia -CT abd/p w/ 12/23: There is a somewhat ill defined 3.2 x 4.2 cm masslike area with surrounding infiltration of the fat within the mesentery in the midline just above the level of the umbilicus. Some small adjacent lymph nodes are noted. This appears more prominent compared to the prior exam and may be related to an acute infectious/inflammatory process such as enteritis or mesenteric panniculitis. A metastatic process or neoplastic process such as lymphoma cannot be excluded. Follow-up exam after treatment is recommended to ensure resolution. CONS bacteremia, likely contaminant -repeat Bcx 12/25 NTD -Recent perforated appendix c/w RLQ abscess 10/2017, s/p I+D and abx tx -s/p emergent open appendectomy , I+D abscess and partial omentectomy 10/29; cx Chase S E.coli, Group C Strep; BACTEROIDES THETAIOTAOMICRON and FUSOBACTERIUM NECROPHORUM (both S to Unasyn and CLinda) -Repeat CT 11/04- residual fluid collection RLQ and s/p IR guided drainage -Treated with Zosyn x 6 days> Levaquin and Flagyl x 17 days (end date due to ) - History of colitis (possible Clostridium difficile) 11/2017, s/p Rx ( did not completed entire treatment as patient didnt refilled Rx upon discharge) 11/2017: -CT abd/p w/: Enterocolitis. No abscess. Thickening of the wall of multiple loops of small bowel which are also slightly distended and fluid- filled. This is most likely due to enteritis that is nonspecific. There is liquefied stool in the colon as well which shows mild thickening of the wall. - History of asthma. PLAN: Continue Meropenem d# 3 (abx d # 8 ) for ESBL coverage given worsening fluid collection and exposure to antibiotics (this admission and prior admissions) Continue empiric IV Vancomycin # 7 for enterococcal coverage -f/u OR cx and narrow accordingly -f/u tissue biopsy -if worsening sepsis, may switch IV Vanco to Dapto and +/- Micafungin -12/29 SP Zosyn #6 -12/23 SP Cefepime and Flagyl x1 Monitor CBC. Monitor BMP. Monitor cultures (blood). Surgery f/u monitor for development of diarrhea Subjective Constitutional: Denies: no symptoms, fever, chills, fatigue, anorexia, drenching sweats, other Allergies: Coded Allergies: No Known Allergies (Unverified , 04/25/16) Objective Vital Signs Last 24 Hour Vital Signs Date Time Temp Pulse Resp B/P (MAP) Pulse Ox O2 Delivery O2 Flow Rate FiO2 12/31/17 09:06 99.5 12/31/17 09:00 Room Air 12/31/17 08:00 99.5 90 20 149/94 (112) 95 99.5 12/31/17 07:05 98.4 12/31/17 06:35 98.4 12/31/17 04:42 98.4 84 20 149/89 (109) 96 98.4 12/31/17 04:32 98.4 12/31/17 02:05 98.4 12/31/17 00:00 98.4 79 19 143/79 (100) 97 98.4 12/30/17 22:33 97.9 12/30/17 20:54 97.9 73 18 140/81 (100) 96 97.9 12/30/17 20:00 Room Air 12/30/17 19:53 98.0 12/30/17 16:23 98.0 12/30/17 16:00 98.0 71 20 149/84 (105) 97 98.0 12/30/17 13:03 97.8 12/30/17 12:33 97.8 12/30/17 12:00 97.8 61 22 149/83 (105) 98 97.8 Height (Feet): 5 Height (Inches): 8.00 Weight (Pounds): 206 HEENT: anicteric Respiratory/Chest: no respiratory distress Cardiovascular: normal peripheral pulses Abdomen: soft, non tender Microbiology Date/Time Source Procedure Growth Status 12/29/17 20:45 Abdomen Gram Stain - Final Resulted 12/29/17 20:45 Abdomen Aerobic Culture - Preliminary NO GROWTH AFTER 24 HOURS Resulted 12/29/17 20:45 Abdomen Anaerobic Culture - Preliminary NO GROWTH AFTER 24 HOURS Resulted Laboratory Tests Test 12/31/17 07:13 White Blood Count 13.6 K/UL (4.8-10.8) H Red Blood Count 4.61 M/UL (4.70-6.10) L Hemoglobin 12.4 G/DL (14.2-18.0) L Hematocrit 37.3 % (42.0-52.0) L Mean Corpuscular Volume 81 FL (80-99) Mean Corpuscular Hemoglobin 26.9 PG (27.0-31.0) L Mean Corpuscular Hemoglobin Concent 33.3 G/DL (32.0-36.0) Red Cell Distribution Width 11.9 % (11.6-14.8) Platelet Count 290 K/UL (150-450) Mean Platelet Volume 6.2 FL (6.5-10.1) L Neutrophils (%) (Auto) 71.4 % (45.0-75.0) Lymphocytes (%) (Auto) 14.8 % (20.0-45.0) L Monocytes (%) (Auto) 12.1 % (1.0-10.0) H Eosinophils (%) (Auto) 0.4 % (0.0-3.0) Basophils (%) (Auto) 1.4 % (0.0-2.0) Sodium Level 134 MMOL/L (136-145) L Potassium Level 3.8 MMOL/L (3.5-5.1) Chloride Level 99 MMOL/L (98-107) Carbon Dioxide Level 29 MMOL/L (21-32) Anion Gap 6 mmol/L (5-15) Blood Urea Nitrogen 9 mg/dL (7-18) Creatinine 1.1 MG/DL (0.55-1.30) Estimat Glomerular Filtration Rate > 60 mL/min (>60) Glucose Level 111 MG/DL (74-106) H Calcium Level 9.4 MG/DL (8.5-10.1) Current Medications Medications (Trade) Dose Ordered Sig/Kelsea Route PRN Reason Start Time Stop Time Status Last Admin Dose Admin Acetaminophen (Tylenol) 650 mg Q4H PRN ORAL fever 12/23/17 17:30 01/22/18 17:29 12/31/17 09:06 Al Hydroxide/Mg Hydroxide (Mylanta) 15 ml Q6H PRN ORAL DYSPEPSIA 12/29/17 20:00 01/28/18 19:59 Cetylpyridinium Chloride (Cepacol) 1 lozg Q2H PRN SHARONA THROAT IRRITATION 12/26/17 10:45 01/25/18 10:44 Dextrose (Dextrose 50%) 25 ml STAT PRN IV Hypoglycemia 12/23/17 17:30 01/22/18 17:29 Dextrose (Dextrose 50%) 50 ml STAT PRN IV Hypoglycemia 12/23/17 17:45 01/22/18 17:44 Dextrose/Sodium Chloride 1,000 ml @ 125 mls/hr Q8H IV 12/29/17 17:25 01/28/18 17:24 12/31/17 06:02 Diphenhydramine HCl (Benadryl) 12.5 mg Q6H PRN IVP Itching/Pruritis 12/29/17 20:00 01/28/18 19:59 Guaifenesin (Robitussin) 200 mg Q4H PRN ORAL For Cough 12/25/17 16:05 01/24/18 16:04 Heparin Sodium (Porcine) (Heparin 5000 units/ml) 5,000 units EVERY 12 HOURS SUBQ 12/23/17 21:00 01/22/18 20:59 Hydromorphone HCl (Dilaudid) 1 mg Q2H PRN IVP Severe Pain (Pain Scale 7-10) 12/30/17 16:00 01/05/18 15:59 12/31/17 09:06 Ketorolac Tromethamine (Toradol 30mg) 30 mg Q6H PRN IV Moderate Pain (Pain Scale 4-6) 12/30/17 16:00 01/10/18 15:59 Meropenem 1 gm/ Sodium Chloride 55 ml @ 110 mls/hr Q8HR IVPB 12/29/17 17:00 01/03/18 16:59 12/31/17 06:02 Nitroglycerin (Ntg) 0.4 mg Q5M X 3 DOSES PRN SL Prn Chest Pain 12/23/17 17:30 01/22/18 17:29 Ondansetron HCl (Zofran) 4 mg Q6H PRN IVP Nausea & Vomiting 12/29/17 20:15 01/28/18 19:59 12/30/17 16:24 Pantoprazole (Protonix) 40 mg DAILY IV 12/24/17 09:00 01/23/18 08:59 12/31/17 09:06 Temazepam (Restoril) 7.5 mg DAILYPRN PRN ORAL Insomnia 12/29/17 20:00 01/05/18 19:59 Vancomycin HCl (Vanco rx to dose) 1 ea DAILY PRN MISC Per rx protocol 12/25/17 12:45 01/24/18 12:44 Vancomycin HCl 1 gm/Dextrose 275 ml @ 183.708 mls/hr Q8HR IVPB 12/25/17 22:00 01/03/18 21:59 12/30/17 22:29 Jay Vogel MD Dec 31, 2017 10:39
--- NOTE | 2017-12-31 11:22 | General Surgery Progress Note ---
General Surgery-Progress Note Subjective Procedure Performed diagnostic laparoscopy laparoscopic lysis of adhesions exploratory laparotomy small bowel resection evacuation of mesenteric abscess Symptoms: improved Additional Comments pain improved. no n/v/f/c. ambulatory. no flatus or BM yet Objective Last 24 Hour Vital Signs Date Time Temp Pulse Resp B/P (MAP) Pulse Ox O2 Delivery O2 Flow Rate FiO2 12/31/17 09:06 99.5 12/31/17 09:00 Room Air 12/31/17 08:00 99.5 90 20 149/94 (112) 95 99.5 12/31/17 07:05 98.4 12/31/17 06:35 98.4 12/31/17 04:42 98.4 84 20 149/89 (109) 96 98.4 12/31/17 04:32 98.4 12/31/17 02:05 98.4 12/31/17 00:00 98.4 79 19 143/79 (100) 97 98.4 12/30/17 22:33 97.9 12/30/17 20:54 97.9 73 18 140/81 (100) 96 97.9 12/30/17 20:00 Room Air 12/30/17 19:53 98.0 12/30/17 16:23 98.0 12/30/17 16:00 98.0 71 20 149/84 (105) 97 98.0 12/30/17 13:03 97.8 12/30/17 12:33 97.8 12/30/17 12:00 97.8 61 22 149/83 (105) 98 97.8 I&O Intake and Output 12/30/17 12/31/17 19:00 07:00 Intake Total 1010.000 ml Balance 1010.000 ml IV Total 1010.000 ml # Voids 3 Wound: clean, dry, intact Drains: none Cardiovascular: RSR Respiratory: clear Abdomen: soft, distended, tenderness, absent bowel sounds Extremities: no edema, no tenderness, no cyanosis Laboratory Tests Test 12/31/17 07:13 White Blood Count 13.6 K/UL (4.8-10.8) H Red Blood Count 4.61 M/UL (4.70-6.10) L Hemoglobin 12.4 G/DL (14.2-18.0) L Hematocrit 37.3 % (42.0-52.0) L Mean Corpuscular Volume 81 FL (80-99) Mean Corpuscular Hemoglobin 26.9 PG (27.0-31.0) L Mean Corpuscular Hemoglobin Concent 33.3 G/DL (32.0-36.0) Red Cell Distribution Width 11.9 % (11.6-14.8) Platelet Count 290 K/UL (150-450) Mean Platelet Volume 6.2 FL (6.5-10.1) L Neutrophils (%) (Auto) 71.4 % (45.0-75.0) Lymphocytes (%) (Auto) 14.8 % (20.0-45.0) L Monocytes (%) (Auto) 12.1 % (1.0-10.0) H Eosinophils (%) (Auto) 0.4 % (0.0-3.0) Basophils (%) (Auto) 1.4 % (0.0-2.0) Sodium Level 134 MMOL/L (136-145) L Potassium Level 3.8 MMOL/L (3.5-5.1) Chloride Level 99 MMOL/L (98-107) Carbon Dioxide Level 29 MMOL/L (21-32) Anion Gap 6 mmol/L (5-15) Blood Urea Nitrogen 9 mg/dL (7-18) Creatinine 1.1 MG/DL (0.55-1.30) Estimat Glomerular Filtration Rate > 60 mL/min (>60) Glucose Level 111 MG/DL (74-106) H Calcium Level 9.4 MG/DL (8.5-10.1) Plan Problems: (1) Abdominal pain Assessment & Plan: 3.2 x 4.2 cm masslike area with surrounding infiltration of the fat within the mesentery in the midline just above the level of the umbilicus. Some small adjacent lymph nodes are noted. This appears more prominent compared to the prior exam and may be related to an acute infectious/ inflammatory process such as enteritis or mesenteric panniculitis. No acute surgical intervention planned. will discuss with radiology about case. likely related to post surgical infectious process and patient did not fill Abx upon discharge for appropriate Abx course IV Abx as per ID will monitor exam okay for diet. Repeat CT with new findings as per radiology read. discussed with radiologist. will discuss with patient possible surgery if desired s/p diag lap, SUPRIYA, ex-lap, sb resection, washout, closure improved today keep npo iv fluids iv abx activity as tolerated rx as written Constantin Monzon Dec 31, 2017 11:22
[2017-12-31 11:38] VITALS: BP 131/68
[2017-12-31 15:31] VITALS: BP 135/72
[2017-12-31] MEDS ORDERED: D5 1/2NS 1000ml IV ONE (17:49)
--- NOTE | 2017-12-31 18:25 | Pulmonology Progress Note ---
Assessment/Plan Problems: (1) Colitis (2) Mesenteric mass (3) Abdominal pain (4) Leukocytosis (5) Status post appendectomy Assessment/Plan post op care NPO IV fluids all reviewed dvt prophylaxis symptomatic treatment Subjective ROS Limited/Unobtainable: No Allergies: Coded Allergies: No Known Allergies (Unverified , 04/25/16) Objective Last 24 Hour Vital Signs Date Time Temp Pulse Resp B/P (MAP) Pulse Ox O2 Delivery O2 Flow Rate FiO2 12/31/17 15:31 99.1 83 20 135/72 (93) 96 99.1 12/31/17 11:38 99.3 81 20 131/68 (89) 98 99.3 12/31/17 10:05 99.3 12/31/17 09:06 99.5 12/31/17 09:00 Room Air 12/31/17 08:00 99.5 90 20 149/94 (112) 95 99.5 12/31/17 07:05 98.4 12/31/17 06:35 98.4 12/31/17 04:42 98.4 84 20 149/89 (109) 96 98.4 12/31/17 04:32 98.4 12/31/17 02:05 98.4 12/31/17 00:00 98.4 79 19 143/79 (100) 97 98.4 12/30/17 22:33 97.9 12/30/17 20:54 97.9 73 18 140/81 (100) 96 97.9 12/30/17 20:00 Room Air 12/30/17 19:53 98.0 Intake and Output 12/30/17 12/31/17 19:00 07:00 Intake Total 1010.000 ml Balance 1010.000 ml IV Total 1010.000 ml # Voids 3 Objective General Appearance: WN/WD HEENT: normocephalic Respiratory/Chest: chest wall non-tender, lungs clear Cardiovascular: normal peripheral pulses, normal rate Abdomen: normal bowel sounds, soft, non tender Genitourinary: normal external genitalia Extremities: no clubbing Microbiology Date/Time Source Procedure Growth Status 12/29/17 20:45 Abdomen Gram Stain - Final Resulted 12/29/17 20:45 Abdomen Aerobic Culture - Preliminary NO GROWTH AFTER 24 HOURS Resulted 12/29/17 20:45 Abdomen Anaerobic Culture - Preliminary NO GROWTH AFTER 24 HOURS Resulted Laboratory Tests 12/31/17 07:13: White Blood Count 13.6H, Red Blood Count 4.61L, Hemoglobin 12.4L, Hematocrit 37.3L, Mean Corpuscular Volume 81, Mean Corpuscular Hemoglobin 26.9L, Mean Corpuscular Hemoglobin Concent 33.3, Red Cell Distribution Width 11.9, Platelet Count 290, Mean Platelet Volume 6.2L, Neutrophils (%) (Auto) 71.4, Lymphocytes ( %) (Auto) 14.8L, Monocytes (%) (Auto) 12.1H, Eosinophils (%) (Auto) 0.4, Basophils (%) (Auto) 1.4, Sodium Level 134L, Potassium Level 3.8, Chloride Level 99, Carbon Dioxide Level 29, Anion Gap 6, Blood Urea Nitrogen 9, Creatinine 1.1, Estimat Glomerular Filtration Rate > 60, Glucose Level 111H, Calcium Level 9.4 Current Medications Medications (Trade) Dose Ordered Sig/Kelsea Route PRN Reason Start Time Stop Time Status Last Admin Dose Admin Acetaminophen (Tylenol) 650 mg Q4H PRN ORAL fever 12/23/17 17:30 01/22/18 17:29 12/31/17 09:06 Al Hydroxide/Mg Hydroxide (Mylanta) 15 ml Q6H PRN ORAL DYSPEPSIA 12/29/17 20:00 01/28/18 19:59 Cetylpyridinium Chloride (Cepacol) 1 lozg Q2H PRN SHARONA THROAT IRRITATION 12/26/17 10:45 01/25/18 10:44 Dextrose (Dextrose 50%) 25 ml STAT PRN IV Hypoglycemia 12/23/17 17:30 01/22/18 17:29 Dextrose (Dextrose 50%) 50 ml STAT PRN IV Hypoglycemia 12/23/17 17:45 01/22/18 17:44 Dextrose/Sodium Chloride 1,000 ml @ 125 mls/hr Q8H IV 12/29/17 17:25 01/28/18 17:24 12/31/17 14:16 Diphenhydramine HCl (Benadryl) 12.5 mg Q6H PRN IVP Itching/Pruritis 12/29/17 20:00 01/28/18 19:59 Guaifenesin (Robitussin) 200 mg Q4H PRN ORAL For Cough 12/25/17 16:05 01/24/18 16:04 Heparin Sodium (Porcine) (Heparin 5000 units/ml) 5,000 units EVERY 12 HOURS SUBQ 12/23/17 21:00 01/22/18 20:59 Hydromorphone HCl (Dilaudid) 1 mg Q2H PRN IVP Severe Pain (Pain Scale 7-10) 12/30/17 16:00 01/05/18 15:59 12/31/17 18:06 Ketorolac Tromethamine (Toradol 30mg) 30 mg Q6H PRN IV Moderate Pain (Pain Scale 4-6) 12/30/17 16:00 01/10/18 15:59 Meropenem 1 gm/ Sodium Chloride 55 ml @ 110 mls/hr Q8HR IVPB 12/29/17 17:00 01/03/18 16:59 12/31/17 13:29 Nitroglycerin (Ntg) 0.4 mg Q5M X 3 DOSES PRN SL Prn Chest Pain 12/23/17 17:30 01/22/18 17:29 Ondansetron HCl (Zofran) 4 mg Q6H PRN IVP Nausea & Vomiting 12/29/17 20:15 01/28/18 19:59 12/30/17 16:24 Pantoprazole (Protonix) 40 mg DAILY IV 12/24/17 09:00 01/23/18 08:59 12/31/17 09:06 Temazepam (Restoril) 7.5 mg DAILYPRN PRN ORAL Insomnia 12/29/17 20:00 01/05/18 19:59 Vancomycin HCl (Vanco rx to dose) 1 ea DAILY PRN MISC Per rx protocol 12/25/17 12:45 01/24/18 12:44 Vancomycin HCl 1 gm/Dextrose 275 ml @ 183.708 mls/hr Q8HR IVPB 12/25/17 22:00 01/03/18 21:59 12/31/17 14:16 Jae Benavides MD Dec 31, 2017 18:25
[2017-12-31 20:05] VITALS: BP 130/90
[2018-01-01] MEDS: HYDROmorphone 1mg/ml Carpuject IVP PRN ×3 (00:27→04:46)
[2018-01-01 00:44] VITALS: BP 125/77
[2018-01-01] MEDS: D5 1/2NS 1,000 ML IV SCH ×3 (01:25→16:21)
[2018-01-01 04:45] VITALS: BP 149/88
[2018-01-01] MEDS: Meropenem 1 GM in NS 55 ML IVPB SCH ×3 (05:15→20:30)
[2018-01-01 05:53] LABS: BASOPHILS % (AUTO) 1.1 % (0.0-2.0); EOSINOPHILS % (AUTO) 0.6 % (0.0-3.0); HEMATOCRIT 39.8 % (42.0-52.0); HEMOGLOBIN 12.7 G/DL (14.2-18.0); LYMPHOCYTES % (AUTO) 10.5 % (20.0-45.0); MEAN CORPUSCULAR VOLUME 80 FL (80-99); NEUTROPHILS % (AUTO) 79.8 % (45.0-75.0); PLATELET COUNT 341 K/UL (150-450); RED BLOOD COUNT 4.99 M/UL (4.70-6.10); RED CELL DISTRIBUTION WIDTH 11.9 % (11.6-14.8); WHITE BLOOD COUNT 14.9 K/UL (4.8-10.8)
[2018-01-01 06:24] LABS: ANION GAP 8 mmol/L (5-15); BLOOD UREA NITROGEN 8 mg/dL (7-18); CALCIUM 9.6 MG/DL (8.5-10.1); CARBON DIOXIDE 29 MMOL/L (21-32); CHLORIDE 96 MMOL/L (98-107); POTASSIUM 3.6 MMOL/L (3.5-5.1); SODIUM 133 MMOL/L (136-145)
--- NOTE | 2018-01-01 06:36 | General Progress Note ---
Assessment/Plan Problem List: (1) UTI (urinary tract infection) ICD Codes: N39.0 - Urinary tract infection, site not specified SNOMED: 89402246 (2) Anemia ICD Codes: D64.9 - Anemia, unspecified SNOMED: 439773912 (3) Leukocytosis ICD Codes: D72.829 - Elevated white blood cell count, unspecified SNOMED: 484788650, 226949872 Qualifiers: Qualified Codes: D72.829 - Elevated white blood cell count, unspecified (4) Abdominal pain ICD Codes: R10.9 - Unspecified abdominal pain SNOMED: 42328734 Qualifiers: Qualified Codes: R10.32 - Left lower quadrant pain (5) H/O appendicitis ICD Codes: Z87.19 - Personal history of other diseases of the digestive system SNOMED: 486248704 Status: stable, progressing Assessment/Plan gi sx f/u abx pain control adv diet per gi cbc bmp am Subjective Constitutional: Reports: weakness Allergies: Coded Allergies: No Known Allergies (Unverified , 04/25/16) All Systems: reviewed and negative except above Subjective sleepy in bed s/p abd sx Objective Last 24 Hour Vital Signs Date Time Temp Pulse Resp B/P (MAP) Pulse Ox O2 Delivery O2 Flow Rate FiO2 01/01/18 05:16 99.7 01/01/18 04:46 99.7 01/01/18 04:45 97.3 89 19 149/88 (108) 98 97.3 01/01/18 02:27 99.7 01/01/18 00:44 99.7 90 19 125/77 (93) 95 99.7 01/01/18 00:27 99.7 12/31/17 22:29 99.7 12/31/17 21:00 Room Air 12/31/17 20:23 99.7 12/31/17 20:05 99.7 87 19 130/90 (103) 99 99.7 12/31/17 15:31 99.1 83 20 135/72 (93) 96 99.1 12/31/17 11:38 99.3 81 20 131/68 (89) 98 99.3 12/31/17 11:00 Room Air 12/31/17 10:05 99.3 12/31/17 09:06 99.5 12/31/17 09:00 Room Air 12/31/17 08:00 99.5 90 20 149/94 (112) 95 99.5 Intake and Output 12/31/17 01/01/18 19:00 07:00 Intake Total 1330.000 ml 830.000 ml Output Total 550 ml Balance 780.000 ml 830.000 ml IV Total 1330.000 ml 830.000 ml Output Urine Total 550 ml Laboratory Tests 12/31/17 07:13: White Blood Count 13.6H, Red Blood Count 4.61L, Hemoglobin 12.4L, Hematocrit 37.3L, Mean Corpuscular Volume 81, Mean Corpuscular Hemoglobin 26.9L, Mean Corpuscular Hemoglobin Concent 33.3, Red Cell Distribution Width 11.9, Platelet Count 290, Mean Platelet Volume 6.2L, Neutrophils (%) (Auto) 71.4, Lymphocytes ( %) (Auto) 14.8L, Monocytes (%) (Auto) 12.1H, Eosinophils (%) (Auto) 0.4, Basophils (%) (Auto) 1.4, Sodium Level 134L, Potassium Level 3.8, Chloride Level 99, Carbon Dioxide Level 29, Anion Gap 6, Blood Urea Nitrogen 9, Creatinine 1.1, Estimat Glomerular Filtration Rate > 60, Glucose Level 111H, Calcium Level 9.4 01/01/18 05:05: White Blood Count 14.9H, Red Blood Count 4.99, Hemoglobin 12.7L, Hematocrit 39.8L, Mean Corpuscular Volume 80, Mean Corpuscular Hemoglobin 25.5L, Mean Corpuscular Hemoglobin Concent 32.0, Red Cell Distribution Width 11.9, Platelet Count 341, Mean Platelet Volume 5.9L, Neutrophils (%) (Auto) 79.8H, Lymphocytes (%) (Auto) 10.5L, Monocytes (%) (Auto) 8.0, Eosinophils (%) (Auto) 0.6, Basophils (%) (Auto) 1.1, Sodium Level 133L, Potassium Level 3.6, Chloride Level 96L, Carbon Dioxide Level 29, Anion Gap 8, Blood Urea Nitrogen 8, Creatinine 1.0, Estimat Glomerular Filtration Rate > 60, Glucose Level 132H, Calcium Level 9.6, Vancomycin Level Trough [Pending] Height (Feet): 5 Height (Inches): 8.00 Weight (Pounds): 206 General Appearance: lethargic EENT: normal ENT inspection Neck: normal alignment Cardiovascular: normal peripheral pulses, normal rate, regular rhythm Respiratory/Chest: chest wall non-tender, lungs clear, normal breath sounds Abdomen: soft, hypoactive bowel sounds Extremities: normal inspection Edema: no edema noted Arm (L), no edema noted Arm (R), no edema noted Leg (L), no edema noted Leg (R), no edema noted Pedal (L), no edema noted Pedal (R), no edema noted Generalized Neurologic: motor weakness Skin: normal pigmentation, warm/dry Franklyn Neves DO Jan 01, 2018 06:36
[2018-01-01] MEDS: Vancomycin 1gm/D5W 275ml IVPB SCH ×2 (07:36)
[2018-01-01 07:51] VITALS: BP 158/92
--- NOTE | 2018-01-01 08:14 | General Progress Note ---
Assessment/Plan Problem List: (1) Mesenteric mass ICD Codes: K63.9 - Disease of intestine, unspecified SNOMED: 982454911 (2) Abdominal pain ICD Codes: R10.9 - Unspecified abdominal pain SNOMED: 48502682 Qualifiers: Qualified Codes: R10.32 - Left lower quadrant pain (3) Anemia ICD Codes: D64.9 - Anemia, unspecified SNOMED: 170679990 (4) UTI (urinary tract infection) ICD Codes: N39.0 - Urinary tract infection, site not specified SNOMED: 95987403 (5) Status post appendectomy ICD Codes: Z90.49 - Acquired absence of other specified parts of digestive tract SNOMED: 267400724, 67087157, 93198113 Assessment/Plan s/p repeat surg and abscess drainage on 12/29 npo ivf pain control abx fu surg recs Subjective ROS Limited/Unobtainable: Yes Allergies: Coded Allergies: No Known Allergies (Unverified , 04/25/16) Objective Last 24 Hour Vital Signs Date Time Temp Pulse Resp B/P (MAP) Pulse Ox O2 Delivery O2 Flow Rate FiO2 01/01/18 07:51 97.2 92 20 158/92 (114) 96 97.2 01/01/18 05:16 99.7 01/01/18 04:46 99.7 01/01/18 04:45 97.3 89 19 149/88 (108) 98 97.3 01/01/18 02:27 99.7 01/01/18 00:44 99.7 90 19 125/77 (93) 95 99.7 01/01/18 00:27 99.7 12/31/17 22:29 99.7 12/31/17 21:00 Room Air 12/31/17 20:23 99.7 12/31/17 20:05 99.7 87 19 130/90 (103) 99 99.7 12/31/17 15:31 99.1 83 20 135/72 (93) 96 99.1 12/31/17 11:38 99.3 81 20 131/68 (89) 98 99.3 12/31/17 11:00 Room Air 12/31/17 10:05 99.3 12/31/17 09:06 99.5 12/31/17 09:00 Room Air Intake and Output 12/31/17 01/01/18 19:00 07:00 Intake Total 1330.000 ml 955.000 ml Output Total 550 ml 600 ml Balance 780.000 ml 355.000 ml IV Total 1330.000 ml 955.000 ml Output Urine Total 550 ml 600 ml Laboratory Tests 01/01/18 05:05: White Blood Count 14.9H, Red Blood Count 4.99, Hemoglobin 12.7L, Hematocrit 39.8L, Mean Corpuscular Volume 80, Mean Corpuscular Hemoglobin 25.5L, Mean Corpuscular Hemoglobin Concent 32.0, Red Cell Distribution Width 11.9, Platelet Count 341, Mean Platelet Volume 5.9L, Neutrophils (%) (Auto) 79.8H, Lymphocytes (%) (Auto) 10.5L, Monocytes (%) (Auto) 8.0, Eosinophils (%) (Auto) 0.6, Basophils (%) (Auto) 1.1, Sodium Level 133L, Potassium Level 3.6, Chloride Level 96L, Carbon Dioxide Level 29, Anion Gap 8, Blood Urea Nitrogen 8, Creatinine 1.0, Estimat Glomerular Filtration Rate > 60, Glucose Level 132H, Calcium Level 9.6, Vancomycin Level Trough 11.9 Height (Feet): 5 Height (Inches): 8.00 Weight (Pounds): 206 General Appearance: alert EENT: normal ENT inspection Neck: supple Cardiovascular: normal rate Respiratory/Chest: decreased breath sounds Abdomen: other - post surgical Extremities: non-tender Pillo Goddard MD Jan 01, 2018 08:14
[2018-01-01] MEDS: Vancomycin 1250mg/D5W 250ml IVPB SCH ×3 (08:53→23:15)
[2018-01-01] MEDS: Pantoprazole Inj IV SCH (08:54)
[2018-01-01] MEDS: Heparin 5000 units/ml inj SUBQ SCH ×2 (09:00→20:31)
[2018-01-01 11:20] VITALS: BP 137/88
--- NOTE | 2018-01-01 11:42 | General Surgery Progress Note ---
General Surgery-Progress Note Subjective Procedure Performed diagnostic laparoscopy laparoscopic lysis of adhesions exploratory laparotomy small bowel resection evacuation of mesenteric abscess Additional Comments nausea but no emesis. low grade fevers. leukocytosis. pain improved. ambulatory. took shower today Objective Last 24 Hour Vital Signs Date Time Temp Pulse Resp B/P (MAP) Pulse Ox O2 Delivery O2 Flow Rate FiO2 01/01/18 11:20 99.8 92 20 137/88 (104) 96 99.8 01/01/18 09:00 Room Air 01/01/18 07:51 97.2 92 20 158/92 (114) 96 97.2 01/01/18 05:16 99.7 01/01/18 04:46 99.7 01/01/18 04:45 97.3 89 19 149/88 (108) 98 97.3 01/01/18 02:27 99.7 01/01/18 00:44 99.7 90 19 125/77 (93) 95 99.7 01/01/18 00:27 99.7 12/31/17 22:29 99.7 12/31/17 21:00 Room Air 12/31/17 20:23 99.7 12/31/17 20:05 99.7 87 19 130/90 (103) 99 99.7 12/31/17 15:31 99.1 83 20 135/72 (93) 96 99.1 I&O Intake and Output 12/31/17 01/01/18 19:00 07:00 Intake Total 1330.000 ml 955.000 ml Output Total 550 ml 600 ml Balance 780.000 ml 355.000 ml IV Total 1330.000 ml 955.000 ml Output Urine Total 550 ml 600 ml Wound: clean, dry Drains: none Cardiovascular: RSR Respiratory: clear Abdomen: soft, distended, tenderness, present bowel sounds Extremities: no tenderness, no cyanosis Laboratory Tests Test 01/01/18 05:05 White Blood Count 14.9 K/UL (4.8-10.8) H Red Blood Count 4.99 M/UL (4.70-6.10) Hemoglobin 12.7 G/DL (14.2-18.0) L Hematocrit 39.8 % (42.0-52.0) L Mean Corpuscular Volume 80 FL (80-99) Mean Corpuscular Hemoglobin 25.5 PG (27.0-31.0) L Mean Corpuscular Hemoglobin Concent 32.0 G/DL (32.0-36.0) Red Cell Distribution Width 11.9 % (11.6-14.8) Platelet Count 341 K/UL (150-450) Mean Platelet Volume 5.9 FL (6.5-10.1) L Neutrophils (%) (Auto) 79.8 % (45.0-75.0) H Lymphocytes (%) (Auto) 10.5 % (20.0-45.0) L Monocytes (%) (Auto) 8.0 % (1.0-10.0) Eosinophils (%) (Auto) 0.6 % (0.0-3.0) Basophils (%) (Auto) 1.1 % (0.0-2.0) Sodium Level 133 MMOL/L (136-145) L Potassium Level 3.6 MMOL/L (3.5-5.1) Chloride Level 96 MMOL/L (98-107) L Carbon Dioxide Level 29 MMOL/L (21-32) Anion Gap 8 mmol/L (5-15) Blood Urea Nitrogen 8 mg/dL (7-18) Creatinine 1.0 MG/DL (0.55-1.30) Estimat Glomerular Filtration Rate > 60 mL/min (>60) Glucose Level 132 MG/DL (74-106) H Calcium Level 9.6 MG/DL (8.5-10.1) Vancomycin Level Trough 11.9 ug/mL (5.0-12.0) Plan Problems: (1) Abdominal pain Assessment & Plan: 3.2 x 4.2 cm masslike area with surrounding infiltration of the fat within the mesentery in the midline just above the level of the umbilicus. Some small adjacent lymph nodes are noted. This appears more prominent compared to the prior exam and may be related to an acute infectious/ inflammatory process such as enteritis or mesenteric panniculitis. No acute surgical intervention planned. will discuss with radiology about case. likely related to post surgical infectious process and patient did not fill Abx upon discharge for appropriate Abx course IV Abx as per ID will monitor exam okay for diet. Repeat CT with new findings as per radiology read. discussed with radiologist. will discuss with patient possible surgery if desired s/p diag lap, SUPRIYA, ex-lap, sb resection, washout, closure low grade fevers and leukocytosis. possible atelectasis. possible infectious. ileus. no flatus or BM yet. keep npo iv fluids iv abx activity as tolerated rx as written Constantin Monzon Jan 01, 2018 11:42
--- NOTE | 2018-01-01 12:25 | Pulmonology Progress Note ---
Assessment/Plan Problems: (1) Colitis (2) Mesenteric mass (3) Abdominal pain (4) Leukocytosis (5) Status post appendectomy Assessment/Plan post op care NPO IV fluids dvt prophylaxis symptomatic treatment Subjective ROS Limited/Unobtainable: No Allergies: Coded Allergies: No Known Allergies (Unverified , 04/25/16) Objective Last 24 Hour Vital Signs Date Time Temp Pulse Resp B/P (MAP) Pulse Ox O2 Delivery O2 Flow Rate FiO2 01/01/18 11:20 99.8 92 20 137/88 (104) 96 99.8 01/01/18 09:00 Room Air 01/01/18 07:51 97.2 92 20 158/92 (114) 96 97.2 01/01/18 05:16 99.7 01/01/18 04:46 99.7 01/01/18 04:45 97.3 89 19 149/88 (108) 98 97.3 01/01/18 02:27 99.7 01/01/18 00:44 99.7 90 19 125/77 (93) 95 99.7 01/01/18 00:27 99.7 12/31/17 22:29 99.7 12/31/17 21:00 Room Air 12/31/17 20:23 99.7 12/31/17 20:05 99.7 87 19 130/90 (103) 99 99.7 12/31/17 15:31 99.1 83 20 135/72 (93) 96 99.1 Intake and Output 12/31/17 01/01/18 19:00 07:00 Intake Total 1330.000 ml 955.000 ml Output Total 550 ml 600 ml Balance 780.000 ml 355.000 ml IV Total 1330.000 ml 955.000 ml Output Urine Total 550 ml 600 ml Objective General Appearance: WN/WD HEENT: normocephalic Respiratory/Chest: chest wall non-tender, lungs clear Cardiovascular: normal peripheral pulses, normal rate Abdomen: normal bowel sounds, soft, non tender Genitourinary: normal external genitalia Extremities: no clubbing Microbiology Date/Time Source Procedure Growth Status 12/29/17 20:45 Abdomen Gram Stain - Final Resulted 12/29/17 20:45 Abdomen Aerobic Culture - Preliminary NO GROWTH Resulted 12/29/17 20:45 Abdomen Anaerobic Culture - Preliminary NO GROWTH AFTER 48 HOURS Resulted Laboratory Tests 01/01/18 05:05: White Blood Count 14.9H, Red Blood Count 4.99, Hemoglobin 12.7L, Hematocrit 39.8L, Mean Corpuscular Volume 80, Mean Corpuscular Hemoglobin 25.5L, Mean Corpuscular Hemoglobin Concent 32.0, Red Cell Distribution Width 11.9, Platelet Count 341, Mean Platelet Volume 5.9L, Neutrophils (%) (Auto) 79.8H, Lymphocytes (%) (Auto) 10.5L, Monocytes (%) (Auto) 8.0, Eosinophils (%) (Auto) 0.6, Basophils (%) (Auto) 1.1, Sodium Level 133L, Potassium Level 3.6, Chloride Level 96L, Carbon Dioxide Level 29, Anion Gap 8, Blood Urea Nitrogen 8, Creatinine 1.0, Estimat Glomerular Filtration Rate > 60, Glucose Level 132H, Calcium Level 9.6, Vancomycin Level Trough 11.9 Current Medications Medications (Trade) Dose Ordered Sig/Kelsea Route PRN Reason Start Time Stop Time Status Last Admin Dose Admin Acetaminophen (Tylenol) 650 mg Q4H PRN ORAL fever 12/23/17 17:30 01/22/18 17:29 12/31/17 09:06 Al Hydroxide/Mg Hydroxide (Mylanta) 15 ml Q6H PRN ORAL DYSPEPSIA 12/29/17 20:00 01/28/18 19:59 Cetylpyridinium Chloride (Cepacol) 1 lozg Q2H PRN SHARONA THROAT IRRITATION 12/26/17 10:45 01/25/18 10:44 Dextrose (Dextrose 50%) 25 ml STAT PRN IV Hypoglycemia 12/23/17 17:30 01/22/18 17:29 Dextrose (Dextrose 50%) 50 ml STAT PRN IV Hypoglycemia 12/23/17 17:45 01/22/18 17:44 Dextrose/Sodium Chloride 1,000 ml @ 125 mls/hr Q8H IV 12/29/17 17:25 01/28/18 17:24 01/01/18 04:47 Diphenhydramine HCl (Benadryl) 12.5 mg Q6H PRN IVP Itching/Pruritis 12/29/17 20:00 01/28/18 19:59 Guaifenesin (Robitussin) 200 mg Q4H PRN ORAL For Cough 12/25/17 16:05 01/24/18 16:04 Heparin Sodium (Porcine) (Heparin 5000 units/ml) 5,000 units EVERY 12 HOURS SUBQ 12/23/17 21:00 01/22/18 20:59 Ketorolac Tromethamine (Toradol 30mg) 30 mg Q6H PRN IV Moderate Pain (Pain Scale 4-6) 12/30/17 16:00 01/10/18 15:59 Meropenem 1 gm/ Sodium Chloride 55 ml @ 110 mls/hr Q8HR IVPB 12/29/17 17:00 01/03/18 16:59 01/01/18 05:15 Metoclopramide HCl (Reglan) 10 mg Q6H PRN IVP Nausea & Vomiting 01/01/18 11:45 01/31/18 11:44 Morphine Sulfate (Morphine Sulfate) 4 mg Q4H PRN IVP For Pain 01/01/18 11:45 01/08/18 11:44 Nitroglycerin (Ntg) 0.4 mg Q5M X 3 DOSES PRN SL Prn Chest Pain 12/23/17 17:30 01/22/18 17:29 Pantoprazole (Protonix) 40 mg DAILY IV 12/24/17 09:00 01/23/18 08:59 01/01/18 08:54 Temazepam (Restoril) 7.5 mg DAILYPRN PRN ORAL Insomnia 12/29/17 20:00 01/05/18 19:59 Vancomycin HCl (Vanco rx to dose) 1 ea DAILY PRN MISC Per rx protocol 12/25/17 12:45 01/24/18 12:44 Vancomycin HCl/ Dextrose 250 ml @ 166.667 mls/hr Q8H IVPB 01/01/18 08:00 01/06/18 07:59 01/01/18 08:53 Jae Benavides MD Jan 01, 2018 12:25
[2018-01-01] MEDS: Metoclopramide 10mg/2ml Inj IVP PRN ×2 (12:41→18:53)
[2018-01-01] MEDS: Morphine Sulfate 4mg/ml Inj IVP PRN ×2 (12:41→18:57)
[2018-01-01 16:00] VITALS: BP 141/86
[2018-01-01 20:00] VITALS: BP 141/78
[2018-01-02] VITALS (7 sets, daily range): BP systolic 128–165; BP diastolic 71–93
[2018-01-02] MEDS: Meropenem 1 GM in NS 55 ML IVPB SCH ×3 (05:29→20:49)
[2018-01-02] MEDS: D5 1/2NS 1,000 ML IV SCH ×2 (05:30→08:42)
[2018-01-02 07:23] LABS: ANION GAP 8 mmol/L (5-15); BLOOD UREA NITROGEN 9 mg/dL (7-18); CALCIUM 9.3 MG/DL (8.5-10.1); CARBON DIOXIDE 30 MMOL/L (21-32); CHLORIDE 99 MMOL/L (98-107); POTASSIUM 3.6 MMOL/L (3.5-5.1); SODIUM 137 MMOL/L (136-145)
[2018-01-02 07:33] LABS: BASOPHILS % (AUTO) 1.5 % (0.0-2.0); EOSINOPHILS % (AUTO) 0.4 % (0.0-3.0); HEMATOCRIT 37.8 % (42.0-52.0); HEMOGLOBIN 12.2 G/DL (14.2-18.0); LYMPHOCYTES % (AUTO) 12.3 % (20.0-45.0); MEAN CORPUSCULAR VOLUME 81 FL (80-99); MONOCYTES % (AUTO) 8.7 % (1.0-10.0); NEUTROPHILS % (AUTO) 77.2 % (45.0-75.0); PLATELET COUNT 340 K/UL (150-450)
[2018-01-02] MEDS ORDERED: Miralax 17gm pkt ORAL PRN (08:15)
[2018-01-02] MEDS: Heparin 5000 units/ml inj SUBQ SCH ×2 (08:41→20:49)
[2018-01-02] MEDS: Pantoprazole Inj IV SCH (08:41)
--- NOTE | 2018-01-02 08:46 | General Progress Note ---
Assessment/Plan Assessment/Plan (1) Abdominal pain (2) Intraabdominal abscess (3) H/o appendectomy due to appendicitis (4) S/p Exploratory laparotomy with small bowel resection and evacuation of mesenteric abscess We will continue morphine. A RX for Tylenol #3 1 tab Q4-6H PRN pain, 20 tabs was sent to patients pharmacy of choice. D/w Dr. Jacobs and he concurred. Subjective Date patient seen: Jan 02, 2018 Time patient seen: 07:45 Allergies: Coded Allergies: No Known Allergies (Unverified , 04/25/16) Subjective REVIEW OF SYSTEMS: Denies rash, fever, chills, sweating, dizziness, drowsiness, blurred vision, sore throat, or change in weight. No shortness of breath or chest pain. No nausea, vomiting, diarrhea, or blood in the stool or urine. No bowel or bladder incontinence. No dysuria. He is complaining of abdominal pain. SUBJECTIVE: Patient is in bed and reports that he has passed gas and feeling better, Dilaudid was discontinued and started on morphine 4mg IV Q4H PRN pain. He is looking to be discharged home once cleared by surgeon. Objective Last 24 Hour Vital Signs Date Time Temp Pulse Resp B/P (MAP) Pulse Ox O2 Delivery O2 Flow Rate FiO2 01/02/18 04:00 98.2 65 17 135/78 (97) 100 98.2 01/02/18 01:16 100.0 01/02/18 00:17 100.4 01/02/18 00:00 100.4 76 18 139/71 (93) 100 100.4 01/01/18 21:00 Room Air 01/01/18 20:00 99.5 93 18 141/78 (99) 97 99.5 01/01/18 16:00 98.6 91 20 141/86 (104) 99 98.6 01/01/18 11:20 99.8 92 20 137/88 (104) 96 99.8 01/01/18 09:00 Room Air Intake and Output 01/01/18 01/02/18 19:00 07:00 Intake Total 1000.000 ml 1360.000 ml Output Total 500 ml 1200 ml Balance 500.000 ml 160.000 ml IV Total 1000.000 ml 1360.000 ml Output Urine Total 500 ml 1200 ml Laboratory Tests 01/02/18 06:55: White Blood Count 12.0H, Red Blood Count 4.70, Hemoglobin 12.2L, Hematocrit 37.8L, Mean Corpuscular Volume 81, Mean Corpuscular Hemoglobin 25.9L, Mean Corpuscular Hemoglobin Concent 32.2, Red Cell Distribution Width 12.0, Platelet Count 340, Mean Platelet Volume 5.8L, Neutrophils (%) (Auto) 77.2H, Lymphocytes (%) (Auto) 12.3L, Monocytes (%) (Auto) 8.7, Eosinophils (%) (Auto) 0.4, Basophils (%) (Auto) 1.5, Erythrocyte Sedimentation Rate [Pending], Sodium Level 137, Potassium Level 3.6, Chloride Level 99, Carbon Dioxide Level 30, Anion Gap 8, Blood Urea Nitrogen 9, Creatinine 1.0, Estimat Glomerular Filtration Rate > 60, Glucose Level 111H, Calcium Level 9.3, C-Reactive Protein , Quantitative 16.7H, Vancomycin Level Trough 17.4H Height (Feet): 5 Height (Inches): 8.00 Weight (Pounds): 206 Objective GENERAL: Alert, awake, oriented x3. LUNGS: Decreased breath sounds bilaterally. HEART: S1 S2 Regular. ABDOMEN: Bandages applied tenderness to palpation. EXTREMITIES: No cyanosis. No clubbing. No edema. NEUROLOGICAL: No changes. Alon Casarez Jan 02, 2018 08:46
[2018-01-02] MEDS: Vancomycin 1250mg/D5W 250ml IVPB SCH ×2 (09:18→16:28)
[2018-01-02] MEDS ORDERED: D5 1/2NS 1000ml IV ONE (10:15)
--- NOTE | 2018-01-02 11:29 | GI Progress Note ---
Assessment/Plan Problems: (1) Diarrhea ICD Codes: R19.7 - Diarrhea, unspecified SNOMED: 88038416 (2) Constipation ICD Codes: K59.00 - Constipation, unspecified SNOMED: 30198715 (3) Abdominal pain ICD Codes: R10.9 - Unspecified abdominal pain SNOMED: 12536151 Qualifiers: Qualified Codes: R10.32 - Left lower quadrant pain (4) Mesenteric mass ICD Codes: K63.9 - Disease of intestine, unspecified SNOMED: 308171447 (5) Leukocytosis ICD Codes: D72.829 - Elevated white blood cell count, unspecified SNOMED: 693624049, 929308154 Qualifiers: Qualified Codes: D72.829 - Elevated white blood cell count, unspecified (6) Colitis ICD Codes: K52.9 - Noninfective gastroenteritis and colitis, unspecified SNOMED: 84035123 (7) Anemia ICD Codes: D64.9 - Anemia, unspecified SNOMED: 652743968 (8) Status post appendectomy ICD Codes: Z90.49 - Acquired absence of other specified parts of digestive tract SNOMED: 394229822, 51487006, 32087896 Status: stable, progressing Status Narrative Discussed with Dr. Goddard. Assessment/Plan s/p repeat surg and abscess drainage on 12/29 diet per surgery pain control abx ppi fu surg recs fu labs The patient was seen and examined at bedside and all new and available data was reviewed in the patients chart. I agree with the above findings, impression and plan. (Patient seen earlier today. Signature stamp does not reflect patient encounter time.). - Pillo Goddard MD Subjective Gastrointestinal/Abdominal: Reports: no symptoms Objective Last 24 Hour Vital Signs Date Time Temp Pulse Resp B/P (MAP) Pulse Ox O2 Delivery O2 Flow Rate FiO2 01/02/18 08:00 Room Air 01/02/18 08:00 98.0 68 16 132/74 (93) 99 98.0 01/02/18 04:00 98.2 65 17 135/78 (97) 100 98.2 01/02/18 01:16 100.0 01/02/18 00:17 100.4 01/02/18 00:00 100.4 76 18 139/71 (93) 100 100.4 01/01/18 21:00 Room Air 01/01/18 20:00 99.5 93 18 141/78 (99) 97 99.5 01/01/18 16:00 98.6 91 20 141/86 (104) 99 98.6 Intake and Output 01/01/18 01/02/18 19:00 07:00 Intake Total 1000.000 ml 1360.000 ml Output Total 500 ml 1200 ml Balance 500.000 ml 160.000 ml IV Total 1000.000 ml 1360.000 ml Output Urine Total 500 ml 1200 ml Laboratory Tests Test 01/02/18 06:55 White Blood Count 12.0 K/UL (4.8-10.8) H Red Blood Count 4.70 M/UL (4.70-6.10) Hemoglobin 12.2 G/DL (14.2-18.0) L Hematocrit 37.8 % (42.0-52.0) L Mean Corpuscular Volume 81 FL (80-99) Mean Corpuscular Hemoglobin 25.9 PG (27.0-31.0) L Mean Corpuscular Hemoglobin Concent 32.2 G/DL (32.0-36.0) Red Cell Distribution Width 12.0 % (11.6-14.8) Platelet Count 340 K/UL (150-450) Mean Platelet Volume 5.8 FL (6.5-10.1) L Neutrophils (%) (Auto) 77.2 % (45.0-75.0) H Lymphocytes (%) (Auto) 12.3 % (20.0-45.0) L Monocytes (%) (Auto) 8.7 % (1.0-10.0) Eosinophils (%) (Auto) 0.4 % (0.0-3.0) Basophils (%) (Auto) 1.5 % (0.0-2.0) Erythrocyte Sedimentation Rate 61 MM/HR (0-15) H Sodium Level 137 MMOL/L (136-145) Potassium Level 3.6 MMOL/L (3.5-5.1) Chloride Level 99 MMOL/L (98-107) Carbon Dioxide Level 30 MMOL/L (21-32) Anion Gap 8 mmol/L (5-15) Blood Urea Nitrogen 9 mg/dL (7-18) Creatinine 1.0 MG/DL (0.55-1.30) Estimat Glomerular Filtration Rate > 60 mL/min (>60) Glucose Level 111 MG/DL (74-106) H Calcium Level 9.3 MG/DL (8.5-10.1) C-Reactive Protein, Quantitative 16.7 mg/dL (0.00-0.90) H Vancomycin Level Trough 17.4 ug/mL (5.0-12.0) H Height (Feet): 5 Height (Inches): 8.00 Weight (Pounds): 206 General Appearance: WD/WN, no apparent distress, alert Cardiovascular: normal rate Respiratory/Chest: normal breath sounds, no respiratory distress Abdominal Exam: normal bowel sounds, non tender, soft, incision site Extremities: normal range of motion, non-tender Mayte Lizarraga NP Jan 02, 2018 11:29
--- NOTE | 2018-01-02 13:56 | General Progress Note ---
Assessment/Plan Problem List: (1) UTI (urinary tract infection) ICD Codes: N39.0 - Urinary tract infection, site not specified SNOMED: 61498086 (2) Anemia ICD Codes: D64.9 - Anemia, unspecified SNOMED: 129938688 (3) Leukocytosis ICD Codes: D72.829 - Elevated white blood cell count, unspecified SNOMED: 357601742, 815628255 Qualifiers: Qualified Codes: D72.829 - Elevated white blood cell count, unspecified (4) Abdominal pain ICD Codes: R10.9 - Unspecified abdominal pain SNOMED: 12056825 Qualifiers: Qualified Codes: R10.32 - Left lower quadrant pain (5) H/O appendicitis ICD Codes: Z87.19 - Personal history of other diseases of the digestive system SNOMED: 192985991 Status: stable, progressing Assessment/Plan gi sx f/u abx pain control adv diet per gi cbc bmp am Subjective Constitutional: Reports: weakness Allergies: Coded Allergies: No Known Allergies (Unverified , 04/25/16) All Systems: reviewed and negative except above Subjective sleepy in bed s/p abd sx sl pass gas Objective Last 24 Hour Vital Signs Date Time Temp Pulse Resp B/P (MAP) Pulse Ox O2 Delivery O2 Flow Rate FiO2 01/02/18 12:04 96.9 01/02/18 12:00 96.9 79 20 133/78 (96) 98 96.9 01/02/18 11:34 98.0 01/02/18 08:00 Room Air 01/02/18 08:00 98.0 68 16 132/74 (93) 99 98.0 01/02/18 04:00 98.2 65 17 135/78 (97) 100 98.2 01/02/18 01:16 100.0 01/02/18 00:17 100.4 01/02/18 00:00 100.4 76 18 139/71 (93) 100 100.4 01/01/18 21:00 Room Air 01/01/18 20:00 99.5 93 18 141/78 (99) 97 99.5 01/01/18 16:00 98.6 91 20 141/86 (104) 99 98.6 Intake and Output 01/01/18 01/02/18 19:00 07:00 Intake Total 1000.000 ml 1360.000 ml Output Total 500 ml 1200 ml Balance 500.000 ml 160.000 ml IV Total 1000.000 ml 1360.000 ml Output Urine Total 500 ml 1200 ml Laboratory Tests 01/02/18 06:55: White Blood Count 12.0H, Red Blood Count 4.70, Hemoglobin 12.2L, Hematocrit 37.8L, Mean Corpuscular Volume 81, Mean Corpuscular Hemoglobin 25.9L, Mean Corpuscular Hemoglobin Concent 32.2, Red Cell Distribution Width 12.0, Platelet Count 340, Mean Platelet Volume 5.8L, Neutrophils (%) (Auto) 77.2H, Lymphocytes (%) (Auto) 12.3L, Monocytes (%) (Auto) 8.7, Eosinophils (%) (Auto) 0.4, Basophils (%) (Auto) 1.5, Erythrocyte Sedimentation Rate 61H, Sodium Level 137, Potassium Level 3.6, Chloride Level 99, Carbon Dioxide Level 30, Anion Gap 8, Blood Urea Nitrogen 9, Creatinine 1.0, Estimat Glomerular Filtration Rate > 60, Glucose Level 111H, Calcium Level 9.3, C-Reactive Protein, Quantitative 16.7H, Vancomycin Level Trough 17.4H Height (Feet): 5 Height (Inches): 8.00 Weight (Pounds): 206 General Appearance: alert EENT: normal ENT inspection Neck: normal alignment Cardiovascular: normal peripheral pulses, normal rate, regular rhythm Respiratory/Chest: chest wall non-tender, lungs clear, normal breath sounds Abdomen: soft, hypoactive bowel sounds Extremities: normal inspection Edema: no edema noted Arm (L), no edema noted Arm (R), no edema noted Leg (L), no edema noted Leg (R), no edema noted Pedal (L), no edema noted Pedal (R), no edema noted Generalized Neurologic: responsive, motor weakness Skin: normal pigmentation, warm/dry Franklyn Neves DO Jan 02, 2018 13:56
--- NOTE | 2018-01-02 14:01 | General Surgery Progress Note ---
General Surgery-Progress Note Subjective Procedure Performed diagnostic laparoscopy laparoscopic lysis of adhesions exploratory laparotomy small bowel resection evacuation of mesenteric abscess Additional Comments much better today. overall improved. passing flatus. hungry Objective Last 24 Hour Vital Signs Date Time Temp Pulse Resp B/P (MAP) Pulse Ox O2 Delivery O2 Flow Rate FiO2 01/02/18 12:04 96.9 01/02/18 12:00 96.9 79 20 133/78 (96) 98 96.9 01/02/18 11:34 98.0 01/02/18 08:00 Room Air 01/02/18 08:00 98.0 68 16 132/74 (93) 99 98.0 01/02/18 04:00 98.2 65 17 135/78 (97) 100 98.2 01/02/18 01:16 100.0 01/02/18 00:17 100.4 01/02/18 00:00 100.4 76 18 139/71 (93) 100 100.4 01/01/18 21:00 Room Air 01/01/18 20:00 99.5 93 18 141/78 (99) 97 99.5 01/01/18 16:00 98.6 91 20 141/86 (104) 99 98.6 I&O Intake and Output 01/01/18 01/02/18 19:00 07:00 Intake Total 1000.000 ml 1360.000 ml Output Total 500 ml 1200 ml Balance 500.000 ml 160.000 ml IV Total 1000.000 ml 1360.000 ml Output Urine Total 500 ml 1200 ml Wound: clean, dry Drains: none Cardiovascular: RSR Respiratory: clear Abdomen: soft, flat, non-tender, present bowel sounds Extremities: no cyanosis Laboratory Tests Test 01/02/18 06:55 White Blood Count 12.0 K/UL (4.8-10.8) H Red Blood Count 4.70 M/UL (4.70-6.10) Hemoglobin 12.2 G/DL (14.2-18.0) L Hematocrit 37.8 % (42.0-52.0) L Mean Corpuscular Volume 81 FL (80-99) Mean Corpuscular Hemoglobin 25.9 PG (27.0-31.0) L Mean Corpuscular Hemoglobin Concent 32.2 G/DL (32.0-36.0) Red Cell Distribution Width 12.0 % (11.6-14.8) Platelet Count 340 K/UL (150-450) Mean Platelet Volume 5.8 FL (6.5-10.1) L Neutrophils (%) (Auto) 77.2 % (45.0-75.0) H Lymphocytes (%) (Auto) 12.3 % (20.0-45.0) L Monocytes (%) (Auto) 8.7 % (1.0-10.0) Eosinophils (%) (Auto) 0.4 % (0.0-3.0) Basophils (%) (Auto) 1.5 % (0.0-2.0) Erythrocyte Sedimentation Rate 61 MM/HR (0-15) H Sodium Level 137 MMOL/L (136-145) Potassium Level 3.6 MMOL/L (3.5-5.1) Chloride Level 99 MMOL/L (98-107) Carbon Dioxide Level 30 MMOL/L (21-32) Anion Gap 8 mmol/L (5-15) Blood Urea Nitrogen 9 mg/dL (7-18) Creatinine 1.0 MG/DL (0.55-1.30) Estimat Glomerular Filtration Rate > 60 mL/min (>60) Glucose Level 111 MG/DL (74-106) H Calcium Level 9.3 MG/DL (8.5-10.1) C-Reactive Protein, Quantitative 16.7 mg/dL (0.00-0.90) H Vancomycin Level Trough 17.4 ug/mL (5.0-12.0) H Plan Problems: (1) Abdominal pain Assessment & Plan: 3.2 x 4.2 cm masslike area with surrounding infiltration of the fat within the mesentery in the midline just above the level of the umbilicus. Some small adjacent lymph nodes are noted. This appears more prominent compared to the prior exam and may be related to an acute infectious/ inflammatory process such as enteritis or mesenteric panniculitis. No acute surgical intervention planned. will discuss with radiology about case. likely related to post surgical infectious process and patient did not fill Abx upon discharge for appropriate Abx course IV Abx as per ID will monitor exam okay for diet. Repeat CT with new findings as per radiology read. discussed with radiologist. will discuss with patient possible surgery if desired s/p diag lap, SUPRIYA, ex-lap, sb resection, washout, closure leukocytosis improved. exam benign bowel function returning. cultures noted. clear liquids iv fluids iv abx activity as tolerated rx as written Constantin Monzon Jan 02, 2018 14:01
--- NOTE | 2018-01-02 14:37 | Pulmonology Progress Note ---
Assessment/Plan Problems: (1) Colitis (2) Mesenteric mass (3) Abdominal pain (4) Leukocytosis (5) Status post appendectomy Assessment/Plan all reviewed dvt prophylaxis symptomatic treatment Subjective ROS Limited/Unobtainable: No Allergies: Coded Allergies: No Known Allergies (Unverified , 04/25/16) Objective Last 24 Hour Vital Signs Date Time Temp Pulse Resp B/P (MAP) Pulse Ox O2 Delivery O2 Flow Rate FiO2 01/02/18 12:04 96.9 01/02/18 12:00 96.9 79 20 133/78 (96) 98 96.9 01/02/18 11:34 98.0 01/02/18 08:00 Room Air 01/02/18 08:00 98.0 68 16 132/74 (93) 99 98.0 01/02/18 04:00 98.2 65 17 135/78 (97) 100 98.2 01/02/18 01:16 100.0 01/02/18 00:17 100.4 01/02/18 00:00 100.4 76 18 139/71 (93) 100 100.4 01/01/18 21:00 Room Air 01/01/18 20:00 99.5 93 18 141/78 (99) 97 99.5 01/01/18 16:00 98.6 91 20 141/86 (104) 99 98.6 Intake and Output 01/01/18 01/02/18 19:00 07:00 Intake Total 1000.000 ml 1360.000 ml Output Total 500 ml 1200 ml Balance 500.000 ml 160.000 ml IV Total 1000.000 ml 1360.000 ml Output Urine Total 500 ml 1200 ml Objective General Appearance: WN/WD HEENT: normocephalic Respiratory/Chest: chest wall non-tender, lungs clear Cardiovascular: normal peripheral pulses, normal rate Abdomen: normal bowel sounds, soft, non tender Genitourinary: normal external genitalia Extremities: no clubbing Laboratory Tests 01/02/18 06:55: White Blood Count 12.0H, Red Blood Count 4.70, Hemoglobin 12.2L, Hematocrit 37.8L, Mean Corpuscular Volume 81, Mean Corpuscular Hemoglobin 25.9L, Mean Corpuscular Hemoglobin Concent 32.2, Red Cell Distribution Width 12.0, Platelet Count 340, Mean Platelet Volume 5.8L, Neutrophils (%) (Auto) 77.2H, Lymphocytes (%) (Auto) 12.3L, Monocytes (%) (Auto) 8.7, Eosinophils (%) (Auto) 0.4, Basophils (%) (Auto) 1.5, Erythrocyte Sedimentation Rate 61H, Sodium Level 137, Potassium Level 3.6, Chloride Level 99, Carbon Dioxide Level 30, Anion Gap 8, Blood Urea Nitrogen 9, Creatinine 1.0, Estimat Glomerular Filtration Rate > 60, Glucose Level 111H, Calcium Level 9.3, C-Reactive Protein, Quantitative 16.7H, Vancomycin Level Trough 17.4H Current Medications Medications (Trade) Dose Ordered Sig/Kelsea Route PRN Reason Start Time Stop Time Status Last Admin Dose Admin Acetaminophen (Tylenol) 650 mg Q4H PRN ORAL fever 12/23/17 17:30 01/22/18 17:29 01/02/18 00:17 Al Hydroxide/Mg Hydroxide (Mylanta) 15 ml Q6H PRN ORAL DYSPEPSIA 12/29/17 20:00 01/28/18 19:59 Cetylpyridinium Chloride (Cepacol) 1 lozg Q2H PRN SHARONA THROAT IRRITATION 12/26/17 10:45 01/25/18 10:44 Dextrose (Dextrose 50%) 25 ml STAT PRN IV Hypoglycemia 12/23/17 17:30 01/22/18 17:29 Dextrose (Dextrose 50%) 50 ml STAT PRN IV Hypoglycemia 12/23/17 17:45 01/22/18 17:44 Diphenhydramine HCl (Benadryl) 12.5 mg Q6H PRN IVP Itching/Pruritis 12/29/17 20:00 01/28/18 19:59 Guaifenesin (Robitussin) 200 mg Q4H PRN ORAL For Cough 12/25/17 16:05 01/24/18 16:04 Heparin Sodium (Porcine) (Heparin 5000 units/ml) 5,000 units EVERY 12 HOURS SUBQ 12/23/17 21:00 01/22/18 20:59 01/01/18 20:31 Ketorolac Tromethamine (Toradol 30mg) 30 mg Q6H PRN IV Moderate Pain (Pain Scale 4-6) 12/30/17 16:00 01/10/18 15:59 01/02/18 11:34 Meropenem 1 gm/ Sodium Chloride 55 ml @ 110 mls/hr Q8HR IVPB 12/29/17 17:00 01/03/18 16:59 01/02/18 13:12 Metoclopramide HCl (Reglan) 10 mg Q6H PRN IVP Nausea & Vomiting 01/01/18 11:45 01/31/18 11:44 01/01/18 18:53 Morphine Sulfate (Morphine Sulfate) 4 mg Q4H PRN IVP For Pain 01/01/18 11:45 01/08/18 11:44 01/01/18 18:57 Nitroglycerin (Ntg) 0.4 mg Q5M X 3 DOSES PRN SL Prn Chest Pain 12/23/17 17:30 01/22/18 17:29 Polyethylene Glycol (Miralax) 17 gm DAILYPRN PRN ORAL Constipation 01/02/18 08:15 02/01/18 08:14 Temazepam (Restoril) 7.5 mg DAILYPRN PRN ORAL Insomnia 12/29/17 20:00 01/05/18 19:59 Vancomycin HCl (Vanco rx to dose) 1 ea DAILY PRN MISC Per rx protocol 12/25/17 12:45 01/24/18 12:44 Vancomycin HCl/ Dextrose 250 ml @ 166.667 mls/hr Q8H IVPB 01/01/18 08:00 01/06/18 07:59 01/02/18 09:18 Jae Benavides MD Jan 02, 2018 14:37
--- NOTE | 2018-01-02 15:38 | Diagnostic Imaging Report ---
Indication: Abdominal distention Technique: XRAY Abdomen 1v Comparison: 12/23/2017 Findings: There is been interval abdominal surgery. Multiple midline surgical berto noted. Bowel gas pattern is nonspecific with some mildly prominent small bowel loops in the left upper quadrant. No differential air-fluid levels identified. No colonic distention. No acute osseous abnormality. Imaged lung bases are grossly clear. IMPRESSION: Interval abdominal surgery. Some nonspecific mildly prominent loops of small bowel noted in the left abdomen, possibly early ileus. Clinical correlation/follow-up recommended.
--- NOTE | 2018-01-02 20:16 | Infectious Diseases Prog Note ---
Assessment/Plan Assessment/Plan ASSESSMENT: The patient is a 32-year-old male with multiple medical problems as listed above who has: Abdominal pain. -abd US: no cholelithiasis or cholecystitis -Abx xray: Nonobstructive bowel gas pattern. Low grade fever, recurrent Leukocytosis, persistent intra-abdominal abscess/enteritis.- r/o chron's disease given significant inflammation on ileocecal area intraoperatively -12/29 SP Diagnostic laparoscopy, Laparoscopic lysis of adhesions, Exploratory laparotomy, Small bowel resection, Evacuation of mesenteric abscess -OR findings: Large intra-abdominal phlegmon and intra-abdominal abscess around the mesentery with communication to the wall of the small bowel and significant inflammatory tissues. -OR cx CONS, GPC biopsy p -CT abd/p w/ 12/28 : Irregular reticular opacity in the mesenteric root appears unchanged from 12/23/2017. However, there is been interim development of a 3 x 1.9 cm fluid collection which appears to be within the wall of an adjacent thick-walled small bowel loop. Suspect findings represent focal enteritis, with development of an intramural abscess and inflammation of the adjacent mesenteric root fat. Incidental findings as noted, including minimal lingular subsegmental atelectasis, left lower lobe subpleural probable postinflammatory lesion, tiny fat-containing umbilical hernia -CT abd/p w/ 12/23: There is a somewhat ill defined 3.2 x 4.2 cm masslike area with surrounding infiltration of the fat within the mesentery in the midline just above the level of the umbilicus. Some small adjacent lymph nodes are noted. This appears more prominent compared to the prior exam and may be related to an acute infectious/inflammatory process such as enteritis or mesenteric panniculitis. A metastatic process or neoplastic process such as lymphoma cannot be excluded. Follow-up exam after treatment is recommended to ensure resolution. CONS bacteremia, likely contaminant -repeat Bcx 12/25 NTD -Recent perforated appendix c/w RLQ abscess 10/2017, s/p I+D and abx tx -s/p emergent open appendectomy , I+D abscess and partial omentectomy 10/29; cx Chase S E.coli, Group C Strep; BACTEROIDES THETAIOTAOMICRON and FUSOBACTERIUM NECROPHORUM (both S to Unasyn and CLinda) -Repeat CT 11/04- residual fluid collection RLQ and s/p IR guided drainage -Treated with Zosyn x 6 days> Levaquin and Flagyl x 17 days (end date due to ) - History of colitis (possible Clostridium difficile) 11/2017, s/p Rx ( did not completed entire treatment as patient didnt refilled Rx upon discharge) 11/2017: -CT abd/p w/: Enterocolitis. No abscess. Thickening of the wall of multiple loops of small bowel which are also slightly distended and fluid- filled. This is most likely due to enteritis that is nonspecific. There is liquefied stool in the colon as well which shows mild thickening of the wall. - History of asthma. PLAN: Continue Meropenem d# 5 (abx d # 10) for ESBL coverage given worsening fluid collection and exposure to antibiotics (this admission and prior admissions) Switch empiric IV Vancomycin # 9 to IV Dapto for VRE coverage pending ID GPC and given persistent WBC and int low grade fever -Add IV Micafungin -f/u OR cx and narrow accordingly -f/u tissue biopsy -12/29 SP Zosyn #6 -12/23 SP Cefepime and Flagyl x1 Monitor CBC. Monitor BMP. Monitor cultures (blood). Surgery f/u monitor for development of diarrhea CPK, CXR am if T>100.4, please obtain 2 sets of Bcx Subjective Allergies: Coded Allergies: No Known Allergies (Unverified , 04/25/16) Subjective Tm 100.4 WBC 12 Bcx neg Objective Vital Signs Last 24 Hour Vital Signs Date Time Temp Pulse Resp B/P (MAP) Pulse Ox O2 Delivery O2 Flow Rate FiO2 01/02/18 16:59 135/86 (102) 01/02/18 16:00 97.2 87 18 165/93 (117) 99 97.2 01/02/18 12:04 96.9 01/02/18 12:00 96.9 79 20 133/78 (96) 98 96.9 01/02/18 11:34 98.0 01/02/18 08:00 Room Air 01/02/18 08:00 98.0 68 16 132/74 (93) 99 98.0 01/02/18 04:00 98.2 65 17 135/78 (97) 100 98.2 01/02/18 01:16 100.0 01/02/18 00:17 100.4 7/23/18 00:00 100.4 76 18 139/71 (93) 100 100.4 01/01/18 21:00 Room Air Height (Feet): 5 Height (Inches): 8.00 Weight (Pounds): 206 Objective HEENT: No pallor. No icterus. NECK: No lymphadenopathy. CHEST: Clear. HEART: S1 and S2. ABDOMEN: Soft. The patient has mild to moderate mid abdominal pain. NEUROLOGIC: Awake and alert. SKIN: No rash. Wound has healed. Laboratory Tests Test 01/02/18 06:55 White Blood Count 12.0 K/UL (4.8-10.8) H Red Blood Count 4.70 M/UL (4.70-6.10) Hemoglobin 12.2 G/DL (14.2-18.0) L Hematocrit 37.8 % (42.0-52.0) L Mean Corpuscular Volume 81 FL (80-99) Mean Corpuscular Hemoglobin 25.9 PG (27.0-31.0) L Mean Corpuscular Hemoglobin Concent 32.2 G/DL (32.0-36.0) Red Cell Distribution Width 12.0 % (11.6-14.8) Platelet Count 340 K/UL (150-450) Mean Platelet Volume 5.8 FL (6.5-10.1) L Neutrophils (%) (Auto) 77.2 % (45.0-75.0) H Lymphocytes (%) (Auto) 12.3 % (20.0-45.0) L Monocytes (%) (Auto) 8.7 % (1.0-10.0) Eosinophils (%) (Auto) 0.4 % (0.0-3.0) Basophils (%) (Auto) 1.5 % (0.0-2.0) Erythrocyte Sedimentation Rate 61 MM/HR (0-15) H Sodium Level 137 MMOL/L (136-145) Potassium Level 3.6 MMOL/L (3.5-5.1) Chloride Level 99 MMOL/L (98-107) Carbon Dioxide Level 30 MMOL/L (21-32) Anion Gap 8 mmol/L (5-15) Blood Urea Nitrogen 9 mg/dL (7-18) Creatinine 1.0 MG/DL (0.55-1.30) Estimat Glomerular Filtration Rate > 60 mL/min (>60) Glucose Level 111 MG/DL (74-106) H Calcium Level 9.3 MG/DL (8.5-10.1) C-Reactive Protein, Quantitative 16.7 mg/dL (0.00-0.90) H Vancomycin Level Trough 17.4 ug/mL (5.0-12.0) H Current Medications Medications (Trade) Dose Ordered Sig/Kelsea Route PRN Reason Start Time Stop Time Status Last Admin Dose Admin Acetaminophen (Tylenol) 650 mg Q4H PRN ORAL fever 12/23/17 17:30 01/22/18 17:29 01/02/18 00:17 Al Hydroxide/Mg Hydroxide (Mylanta) 15 ml Q6H PRN ORAL DYSPEPSIA 12/29/17 20:00 01/28/18 19:59 Cetylpyridinium Chloride (Cepacol) 1 lozg Q2H PRN SHARONA THROAT IRRITATION 12/26/17 10:45 01/25/18 10:44 Dextrose (Dextrose 50%) 25 ml STAT PRN IV Hypoglycemia 12/23/17 17:30 01/22/18 17:29 Dextrose (Dextrose 50%) 50 ml STAT PRN IV Hypoglycemia 12/23/17 17:45 01/22/18 17:44 Diphenhydramine HCl (Benadryl) 12.5 mg Q6H PRN IVP Itching/Pruritis 12/29/17 20:00 01/28/18 19:59 Guaifenesin (Robitussin) 200 mg Q4H PRN ORAL For Cough 12/25/17 16:05 01/24/18 16:04 Heparin Sodium (Porcine) (Heparin 5000 units/ml) 5,000 units EVERY 12 HOURS SUBQ 12/23/17 21:00 01/22/18 20:59 01/01/18 20:31 Ketorolac Tromethamine (Toradol 30mg) 30 mg Q6H PRN IV Moderate Pain (Pain Scale 4-6) 12/30/17 16:00 01/10/18 15:59 01/02/18 11:34 Meropenem 1 gm/ Sodium Chloride 55 ml @ 110 mls/hr Q8HR IVPB 12/29/17 17:00 01/03/18 16:59 01/02/18 13:12 Metoclopramide HCl (Reglan) 10 mg Q6H PRN IVP Nausea & Vomiting 01/01/18 11:45 01/31/18 11:44 01/01/18 18:53 Morphine Sulfate (Morphine Sulfate) 4 mg Q4H PRN IVP For Pain 01/01/18 11:45 01/08/18 11:44 01/01/18 18:57 Nitroglycerin (Ntg) 0.4 mg Q5M X 3 DOSES PRN SL Prn Chest Pain 12/23/17 17:30 01/22/18 17:29 Polyethylene Glycol (Miralax) 17 gm DAILYPRN PRN ORAL Constipation 01/02/18 08:15 02/01/18 08:14 Temazepam (Restoril) 7.5 mg DAILYPRN PRN ORAL Insomnia 12/29/17 20:00 01/05/18 19:59 Vancomycin HCl (Vanco rx to dose) 1 ea DAILY PRN MISC Per rx protocol 12/25/17 12:45 01/24/18 12:44 Vancomycin HCl/ Dextrose 250 ml @ 166.667 mls/hr Q8H IVPB 01/01/18 08:00 01/06/18 07:59 01/02/18 16:28 Manuela Alonzo M.D. Jan 02, 2018 20:16
[2018-01-02] MEDS ORDERED: DAPTOmycin 550 MG in NS 55 ML IV SCH (22:00)
[2018-01-02] MEDS ORDERED: Micafungin 100 MG in NS 110 ML IVPB SCH (23:00)
[2018-01-03] MEDS: Morphine Sulfate 4mg/ml Inj IVP PRN (01:53)
[2018-01-03] MEDS: Meropenem 1 GM in NS 55 ML IVPB SCH ×2 (06:00→14:51)
[2018-01-03 07:44] LABS: BASOPHILS % (AUTO) 1.7 % (0.0-2.0); EOSINOPHILS % (AUTO) 1.1 % (0.0-3.0); HEMATOCRIT 35.6 % (42.0-52.0); HEMOGLOBIN 11.3 G/DL (14.2-18.0); LYMPHOCYTES % (AUTO) 18.4 % (20.0-45.0); MEAN CORPUSCULAR VOLUME 80 FL (80-99); MONOCYTES % (AUTO) 10.1 % (1.0-10.0); NEUTROPHILS % (AUTO) 68.7 % (45.0-75.0); PLATELET COUNT 369 K/UL (150-450); RED BLOOD COUNT 4.43 M/UL (4.70-6.10); RED CELL DISTRIBUTION WIDTH 11.7 % (11.6-14.8); WHITE BLOOD COUNT 11.8 K/UL (4.8-10.8)
[2018-01-03 07:58] LABS: ANION GAP 6 mmol/L (5-15); BLOOD UREA NITROGEN 10 mg/dL (7-18); CALCIUM 9.2 MG/DL (8.5-10.1); CARBON DIOXIDE 30 MMOL/L (21-32); CHLORIDE 100 MMOL/L (98-107); POTASSIUM 3.3 MMOL/L (3.5-5.1); SODIUM 136 MMOL/L (136-145)
[2018-01-03 08:00] VITALS: BP 141/82
[2018-01-03 08:04] LABS: ALANINE AMINOTRANSFERASE 8 U/L (12-78); ALBUMIN 2.8 G/DL (3.4-5.0); ALKALINE PHOSPHATASE 58 U/L (46-116); ASPARTATE AMINO TRANSFERASE 17 U/L (15-37); BILIRUBIN,DIRECT 0.2 MG/DL (0.0-0.3); BILIRUBIN,TOTAL 0.4 MG/DL (0.2-1.0); CREATINE KINASE 51 U/L (26-308)
[2018-01-03] MEDS: Heparin 5000 units/ml inj SUBQ SCH ×2 (08:52→20:16)
[2018-01-03 12:00] VITALS: BP 130/74
--- NOTE | 2018-01-03 12:26 | Diagnostic Imaging Report ---
Indication: Chest pain Technique: One view of the chest Comparison: 10/28/2017 Findings: Lungs and pleural spaces are clear. Heart size is normal. There is no significant interim change Impression: No acute process
--- NOTE | 2018-01-03 13:17 | General Surgery Progress Note ---
General Surgery-Progress Note Subjective Procedure Performed diagnostic laparoscopy laparoscopic lysis of adhesions exploratory laparotomy small bowel resection evacuation of mesenteric abscess Symptoms: improved, tolerating diet, passing flatus Objective Last 24 Hour Vital Signs Date Time Temp Pulse Resp B/P (MAP) Pulse Ox O2 Delivery O2 Flow Rate FiO2 01/03/18 12:00 98.4 67 19 130/74 (92) 98 98.4 01/03/18 09:00 Room Air 01/03/18 08:00 99.0 78 19 141/82 (101) 98 99.0 01/03/18 04:00 98.3 98.3 01/03/18 00:00 99.5 99.5 01/02/18 22:26 100.0 01/02/18 21:27 100.1 01/02/18 21:00 Room Air 01/02/18 20:00 98.0 99 17 128/79 (95) 98 98.0 01/02/18 16:59 135/86 (102) 01/02/18 16:00 97.2 87 18 165/93 (117) 99 97.2 I&O Intake and Output 01/02/18 01/03/18 19:00 07:00 Intake Total 500 ml 400 ml Output Total 400 ml 350 ml Balance 100 ml 50 ml Intake Oral 500 ml 400 ml Output Urine Total 400 ml 350 ml Wound: clean, dry Drains: none Cardiovascular: RSR Respiratory: clear Abdomen: soft, flat, non-tender, present bowel sounds Extremities: no cyanosis Laboratory Tests Test 01/03/18 07:00 White Blood Count 11.8 K/UL (4.8-10.8) H Red Blood Count 4.43 M/UL (4.70-6.10) L Hemoglobin 11.3 G/DL (14.2-18.0) L Hematocrit 35.6 % (42.0-52.0) L Mean Corpuscular Volume 80 FL (80-99) Mean Corpuscular Hemoglobin 25.6 PG (27.0-31.0) L Mean Corpuscular Hemoglobin Concent 31.8 G/DL (32.0-36.0) L Red Cell Distribution Width 11.7 % (11.6-14.8) Platelet Count 369 K/UL (150-450) Mean Platelet Volume 5.7 FL (6.5-10.1) L Neutrophils (%) (Auto) 68.7 % (45.0-75.0) Lymphocytes (%) (Auto) 18.4 % (20.0-45.0) L Monocytes (%) (Auto) 10.1 % (1.0-10.0) H Eosinophils (%) (Auto) 1.1 % (0.0-3.0) Basophils (%) (Auto) 1.7 % (0.0-2.0) Sodium Level 136 MMOL/L (136-145) Potassium Level 3.3 MMOL/L (3.5-5.1) L Chloride Level 100 MMOL/L (98-107) Carbon Dioxide Level 30 MMOL/L (21-32) Anion Gap 6 mmol/L (5-15) Blood Urea Nitrogen 10 mg/dL (7-18) Creatinine 1.0 MG/DL (0.55-1.30) Estimat Glomerular Filtration Rate > 60 mL/min (>60) Glucose Level 114 MG/DL (74-106) H Calcium Level 9.2 MG/DL (8.5-10.1) Total Bilirubin 0.4 MG/DL (0.2-1.0) Direct Bilirubin 0.2 MG/DL (0.0-0.3) Aspartate Amino Transf (AST/SGOT) 17 U/L (15-37) Alanine Aminotransferase (ALT/SGPT) 8 U/L (12-78) L Alkaline Phosphatase 58 U/L (46-116) Total Creatine Kinase 51 U/L (26-308) Total Protein 6.8 G/DL (6.4-8.2) Albumin 2.8 G/DL (3.4-5.0) L Plan Problems: (1) Abdominal pain Assessment & Plan: 3.2 x 4.2 cm masslike area with surrounding infiltration of the fat within the mesentery in the midline just above the level of the umbilicus. Some small adjacent lymph nodes are noted. This appears more prominent compared to the prior exam and may be related to an acute infectious/ inflammatory process such as enteritis or mesenteric panniculitis. No acute surgical intervention planned. will discuss with radiology about case. likely related to post surgical infectious process and patient did not fill Abx upon discharge for appropriate Abx course IV Abx as per ID will monitor exam okay for diet. Repeat CT with new findings as per radiology read. discussed with radiologist. will discuss with patient possible surgery if desired s/p diag lap, SUPRIYA, ex-lap, sb resection, washout, closure leukocytosis improved. exam benign bowel function returning. cultures noted. diet as tolerated iv abx activity as tolerated rx as written discharge planning for tomorrow possible Constantin Monzon Jan 03, 2018 13:17
[2018-01-03] MEDS ORDERED: Norco 5mg/325mg tab ORAL PRN (14:00)
[2018-01-03] MEDS ORDERED: Morphine Sulfate 4mg/ml Inj IVP PRN (14:00)
--- NOTE | 2018-01-03 14:11 | Pulmonology Progress Note ---
Assessment/Plan Problems: (1) Colitis (2) Mesenteric mass (3) Abdominal pain (4) Leukocytosis (5) Status post appendectomy Assessment/Plan advance diet post op care NPO IV fluids dvt prophylaxis symptomatic treatment Subjective ROS Limited/Unobtainable: No Allergies: Coded Allergies: No Known Allergies (Unverified , 04/25/16) Objective Last 24 Hour Vital Signs Date Time Temp Pulse Resp B/P (MAP) Pulse Ox O2 Delivery O2 Flow Rate FiO2 01/03/18 12:00 98.4 67 19 130/74 (92) 98 98.4 01/03/18 09:00 Room Air 01/03/18 08:00 99.0 78 19 141/82 (101) 98 99.0 01/03/18 04:00 98.3 98.3 01/03/18 00:00 99.5 99.5 01/02/18 22:26 100.0 01/02/18 21:27 100.1 01/02/18 21:00 Room Air 01/02/18 20:00 98.0 99 17 128/79 (95) 98 98.0 01/02/18 16:59 135/86 (102) 01/02/18 16:00 97.2 87 18 165/93 (117) 99 97.2 Intake and Output 01/02/18 01/03/18 19:00 07:00 Intake Total 500 ml 400 ml Output Total 400 ml 350 ml Balance 100 ml 50 ml Intake Oral 500 ml 400 ml Output Urine Total 400 ml 350 ml Objective General Appearance: WN/WD HEENT: normocephalic Respiratory/Chest: chest wall non-tender, lungs clear Cardiovascular: normal peripheral pulses, normal rate Abdomen: normal bowel sounds, soft, non tender Genitourinary: normal external genitalia Extremities: no clubbing Laboratory Tests 01/03/18 07:00: White Blood Count 11.8H, Red Blood Count 4.43L, Hemoglobin 11.3L, Hematocrit 35.6L, Mean Corpuscular Volume 80, Mean Corpuscular Hemoglobin 25.6L, Mean Corpuscular Hemoglobin Concent 31.8L, Red Cell Distribution Width 11.7, Platelet Count 369, Mean Platelet Volume 5.7L, Neutrophils (%) (Auto) 68.7, Lymphocytes (%) (Auto) 18.4L, Monocytes (%) (Auto) 10.1H, Eosinophils (%) (Auto ) 1.1, Basophils (%) (Auto) 1.7, Sodium Level 136, Potassium Level 3.3L, Chloride Level 100, Carbon Dioxide Level 30, Anion Gap 6, Blood Urea Nitrogen 10 , Creatinine 1.0, Estimat Glomerular Filtration Rate > 60, Glucose Level 114H, Calcium Level 9.2, Total Bilirubin 0.4, Direct Bilirubin 0.2, Aspartate Amino Transf (AST/SGOT) 17, Alanine Aminotransferase (ALT/SGPT) 8L, Alkaline Phosphatase 58, Total Creatine Kinase 51, Total Protein 6.8, Albumin 2.8L Current Medications Medications (Trade) Dose Ordered Sig/Kelsea Route PRN Reason Start Time Stop Time Status Last Admin Dose Admin Acetaminophen (Tylenol) 650 mg Q4H PRN ORAL fever 12/23/17 17:30 01/22/18 17:29 01/02/18 21:27 Acetaminophen/ Hydrocodone Bitart ([place] 5/325) 1 tab Q4H PRN ORAL Moderate Pain (Pain Scale 4-6) 01/03/18 14:00 01/10/18 13:59 Al Hydroxide/Mg Hydroxide (Mylanta) 15 ml Q6H PRN ORAL DYSPEPSIA 12/29/17 20:00 01/28/18 19:59 Cetylpyridinium Chloride (Cepacol) 1 lozg Q2H PRN SHARONA THROAT IRRITATION 12/26/17 10:45 01/25/18 10:44 Daptomycin 550 mg/ Sodium Chloride 55 ml @ 100 mls/hr Q24H IV 01/02/18 22:00 01/09/18 21:59 01/02/18 22:29 Dextrose (Dextrose 50%) 25 ml STAT PRN IV Hypoglycemia 12/23/17 17:30 01/22/18 17:29 Dextrose (Dextrose 50%) 50 ml STAT PRN IV Hypoglycemia 12/23/17 17:45 01/22/18 17:44 Diphenhydramine HCl (Benadryl) 12.5 mg Q6H PRN IVP Itching/Pruritis 12/29/17 20:00 01/28/18 19:59 Guaifenesin (Robitussin) 200 mg Q4H PRN ORAL For Cough 12/25/17 16:05 01/24/18 16:04 Heparin Sodium (Porcine) (Heparin 5000 units/ml) 5,000 units EVERY 12 HOURS SUBQ 12/23/17 21:00 01/22/18 20:59 01/01/18 20:31 Ibuprofen (Motrin) 600 mg Q6H PRN ORAL Mild Pain (Pain Scale 1-3) 01/03/18 14:00 02/02/18 13:59 Meropenem 1 gm/ Sodium Chloride 55 ml @ 110 mls/hr Q8HR IVPB 12/29/17 17:00 01/03/18 16:59 01/03/18 06:00 Metoclopramide HCl (Reglan) 10 mg Q6H PRN IVP Nausea & Vomiting 01/01/18 11:45 01/31/18 11:44 01/01/18 18:53 Micafungin Sodium 100 mg/Sodium Chloride 110 ml @ 110 mls/hr Q24H IVPB 01/02/18 23:00 01/09/18 22:59 01/02/18 22:21 Morphine Sulfate (Morphine Sulfate) 4 mg Q4H PRN IVP Severe Pain (Pain Scale 7-10) 01/03/18 14:00 01/10/18 13:59 Nitroglycerin (Ntg) 0.4 mg Q5M X 3 DOSES PRN SL Prn Chest Pain 12/23/17 17:30 01/22/18 17:29 Polyethylene Glycol (Miralax) 17 gm DAILYPRN PRN ORAL Constipation 01/02/18 08:15 02/01/18 08:14 Temazepam (Restoril) 7.5 mg DAILYPRN PRN ORAL Insomnia 12/29/17 20:00 01/05/18 19:59 Jae Benavides MD Jan 03, 2018 14:11
--- NOTE | 2018-01-03 14:32 | GI Progress Note ---
Assessment/Plan Problems: (1) Diarrhea ICD Codes: R19.7 - Diarrhea, unspecified SNOMED: 99627018 (2) Constipation ICD Codes: K59.00 - Constipation, unspecified SNOMED: 28658207 (3) Abdominal pain ICD Codes: R10.9 - Unspecified abdominal pain SNOMED: 36531293 Qualifiers: Qualified Codes: R10.32 - Left lower quadrant pain (4) Mesenteric mass ICD Codes: K63.9 - Disease of intestine, unspecified SNOMED: 882453570 (5) Leukocytosis ICD Codes: D72.829 - Elevated white blood cell count, unspecified SNOMED: 570044791, 166565467 Qualifiers: Qualified Codes: D72.829 - Elevated white blood cell count, unspecified (6) Colitis ICD Codes: K52.9 - Noninfective gastroenteritis and colitis, unspecified SNOMED: 53160374 (7) Anemia ICD Codes: D64.9 - Anemia, unspecified SNOMED: 839284799 (8) Status post appendectomy ICD Codes: Z90.49 - Acquired absence of other specified parts of digestive tract SNOMED: 726181766, 16686258, 19749814 Status: progressing Status Narrative Discussed with Dr. Goddard. Assessment/Plan s/p repeat surg and abscess drainage on 12/29 diet per surgery pain control abx ppi fu surg recs fu labs The patient was seen and examined at bedside and all new and available data was reviewed in the patients chart. I agree with the above findings, impression and plan. (Patient seen earlier today. Signature stamp does not reflect patient encounter time.). - Pillo Goddard MD Subjective Gastrointestinal/Abdominal: Reports: no symptoms Subjective abdominal pain improved Objective Last 24 Hour Vital Signs Date Time Temp Pulse Resp B/P (MAP) Pulse Ox O2 Delivery O2 Flow Rate FiO2 01/03/18 12:00 98.4 67 19 130/74 (92) 98 98.4 01/03/18 09:00 Room Air 01/03/18 08:00 99.0 78 19 141/82 (101) 98 99.0 01/03/18 04:00 98.3 98.3 01/03/18 00:00 99.5 99.5 01/02/18 22:26 100.0 01/02/18 21:27 100.1 01/02/18 21:00 Room Air 01/02/18 20:00 98.0 99 17 128/79 (95) 98 98.0 01/02/18 16:59 135/86 (102) 01/02/18 16:00 97.2 87 18 165/93 (117) 99 97.2 Intake and Output 01/02/18 01/03/18 19:00 07:00 Intake Total 500 ml 400 ml Output Total 400 ml 350 ml Balance 100 ml 50 ml Intake Oral 500 ml 400 ml Output Urine Total 400 ml 350 ml Laboratory Tests Test 01/03/18 07:00 White Blood Count 11.8 K/UL (4.8-10.8) H Red Blood Count 4.43 M/UL (4.70-6.10) L Hemoglobin 11.3 G/DL (14.2-18.0) L Hematocrit 35.6 % (42.0-52.0) L Mean Corpuscular Volume 80 FL (80-99) Mean Corpuscular Hemoglobin 25.6 PG (27.0-31.0) L Mean Corpuscular Hemoglobin Concent 31.8 G/DL (32.0-36.0) L Red Cell Distribution Width 11.7 % (11.6-14.8) Platelet Count 369 K/UL (150-450) Mean Platelet Volume 5.7 FL (6.5-10.1) L Neutrophils (%) (Auto) 68.7 % (45.0-75.0) Lymphocytes (%) (Auto) 18.4 % (20.0-45.0) L Monocytes (%) (Auto) 10.1 % (1.0-10.0) H Eosinophils (%) (Auto) 1.1 % (0.0-3.0) Basophils (%) (Auto) 1.7 % (0.0-2.0) Sodium Level 136 MMOL/L (136-145) Potassium Level 3.3 MMOL/L (3.5-5.1) L Chloride Level 100 MMOL/L (98-107) Carbon Dioxide Level 30 MMOL/L (21-32) Anion Gap 6 mmol/L (5-15) Blood Urea Nitrogen 10 mg/dL (7-18) Creatinine 1.0 MG/DL (0.55-1.30) Estimat Glomerular Filtration Rate > 60 mL/min (>60) Glucose Level 114 MG/DL (74-106) H Calcium Level 9.2 MG/DL (8.5-10.1) Total Bilirubin 0.4 MG/DL (0.2-1.0) Direct Bilirubin 0.2 MG/DL (0.0-0.3) Aspartate Amino Transf (AST/SGOT) 17 U/L (15-37) Alanine Aminotransferase (ALT/SGPT) 8 U/L (12-78) L Alkaline Phosphatase 58 U/L (46-116) Total Creatine Kinase 51 U/L (26-308) Total Protein 6.8 G/DL (6.4-8.2) Albumin 2.8 G/DL (3.4-5.0) L Height (Feet): 5 Height (Inches): 8.00 Weight (Pounds): 206 General Appearance: WD/WN, no apparent distress, alert Cardiovascular: normal rate Respiratory/Chest: normal breath sounds, no respiratory distress Abdominal Exam: normal bowel sounds, non tender, soft, incision site Extremities: normal range of motion, non-tender Mayte Lizarraga READING INTERVENTIONIST Jan 03, 2018 14:32
--- NOTE | 2018-01-03 15:40 | General Progress Note ---
Assessment/Plan Problem List: (1) UTI (urinary tract infection) ICD Codes: N39.0 - Urinary tract infection, site not specified SNOMED: 44564132 (2) Anemia ICD Codes: D64.9 - Anemia, unspecified SNOMED: 665247417 (3) Leukocytosis ICD Codes: D72.829 - Elevated white blood cell count, unspecified SNOMED: 781103524, 729265853 Qualifiers: Qualified Codes: D72.829 - Elevated white blood cell count, unspecified (4) Abdominal pain ICD Codes: R10.9 - Unspecified abdominal pain SNOMED: 75748936 Qualifiers: Qualified Codes: R10.32 - Left lower quadrant pain (5) H/O appendicitis ICD Codes: Z87.19 - Personal history of other diseases of the digestive system SNOMED: 247366864 Status: stable, progressing Assessment/Plan gi sx f/u abx pain control adv diet per gi cbc bmp am dc plan Subjective Constitutional: Reports: weakness Allergies: Coded Allergies: No Known Allergies (Unverified , 04/25/16) All Systems: reviewed and negative except above Subjective sleepy in bed s/p abd sx sl pass gas Objective Last 24 Hour Vital Signs Date Time Temp Pulse Resp B/P (MAP) Pulse Ox O2 Delivery O2 Flow Rate FiO2 01/03/18 12:00 98.4 67 19 130/74 (92) 98 98.4 01/03/18 09:00 Room Air 01/03/18 08:00 99.0 78 19 141/82 (101) 98 99.0 01/03/18 04:00 98.3 98.3 01/03/18 00:00 99.5 99.5 01/02/18 22:26 100.0 01/02/18 21:27 100.1 01/02/18 21:00 Room Air 01/02/18 20:00 98.0 99 17 128/79 (95) 98 98.0 01/02/18 16:59 135/86 (102) 01/02/18 16:00 97.2 87 18 165/93 (117) 99 97.2 Intake and Output 01/02/18 01/03/18 19:00 07:00 Intake Total 500 ml 400 ml Output Total 400 ml 350 ml Balance 100 ml 50 ml Intake Oral 500 ml 400 ml Output Urine Total 400 ml 350 ml Laboratory Tests 01/03/18 07:00: White Blood Count 11.8H, Red Blood Count 4.43L, Hemoglobin 11.3L, Hematocrit 35.6L, Mean Corpuscular Volume 80, Mean Corpuscular Hemoglobin 25.6L, Mean Corpuscular Hemoglobin Concent 31.8L, Red Cell Distribution Width 11.7, Platelet Count 369, Mean Platelet Volume 5.7L, Neutrophils (%) (Auto) 68.7, Lymphocytes (%) (Auto) 18.4L, Monocytes (%) (Auto) 10.1H, Eosinophils (%) (Auto ) 1.1, Basophils (%) (Auto) 1.7, Sodium Level 136, Potassium Level 3.3L, Chloride Level 100, Carbon Dioxide Level 30, Anion Gap 6, Blood Urea Nitrogen 10 , Creatinine 1.0, Estimat Glomerular Filtration Rate > 60, Glucose Level 114H, Calcium Level 9.2, Total Bilirubin 0.4, Direct Bilirubin 0.2, Aspartate Amino Transf (AST/SGOT) 17, Alanine Aminotransferase (ALT/SGPT) 8L, Alkaline Phosphatase 58, Total Creatine Kinase 51, Total Protein 6.8, Albumin 2.8L Height (Feet): 5 Height (Inches): 8.00 Weight (Pounds): 206 General Appearance: alert EENT: normal ENT inspection Neck: normal alignment Cardiovascular: normal peripheral pulses, normal rate, regular rhythm Respiratory/Chest: chest wall non-tender, lungs clear, normal breath sounds Abdomen: soft, hypoactive bowel sounds Extremities: normal inspection Edema: no edema noted Arm (L), no edema noted Arm (R), no edema noted Leg (L), no edema noted Leg (R), no edema noted Pedal (L), no edema noted Pedal (R), no edema noted Generalized Neurologic: motor weakness Skin: normal pigmentation, warm/dry Franklyn Neves DO Jan 03, 2018 15:39
[2018-01-03 15:59] VITALS: BP 139/78
--- NOTE | 2018-01-03 16:20 | Infectious Diseases Prog Note ---
Assessment/Plan Assessment/Plan ASSESSMENT: The patient is a 32-year-old male with multiple medical problems as listed above who has: Abdominal pain; improving -abd US: no cholelithiasis or cholecystitis -Abx xray: Nonobstructive bowel gas pattern. Low grade fever, recurrent Leukocytosis, persistent intra-abdominal abscess/enteritis.- -12/29 SP Diagnostic laparoscopy, Laparoscopic lysis of adhesions, Exploratory laparotomy, Small bowel resection, Evacuation of mesenteric abscess -OR findings: Large intra-abdominal phlegmon and intra-abdominal abscess around the mesentery with communication to the wall of the small bowel and significant inflammatory tissues. -OR cx CONS, E. avium (S amp, vanco) biopsy acute on chronic inflammation, abscess formation, small bowel with transmural inflammation, no dysplasia or malignancy. -CT abd/p w/ 12/28 : Irregular reticular opacity in the mesenteric root appears unchanged from 12/23/2017. However, there is been interim development of a 3 x 1.9 cm fluid collection which appears to be within the wall of an adjacent thick-walled small bowel loop. Suspect findings represent focal enteritis, with development of an intramural abscess and inflammation of the adjacent mesenteric root fat. Incidental findings as noted, including minimal lingular subsegmental atelectasis, left lower lobe subpleural probable postinflammatory lesion, tiny fat-containing umbilical hernia -CT abd/p w/ 12/23: There is a somewhat ill defined 3.2 x 4.2 cm masslike area with surrounding infiltration of the fat within the mesentery in the midline just above the level of the umbilicus. Some small adjacent lymph nodes are noted. This appears more prominent compared to the prior exam and may be related to an acute infectious/inflammatory process such as enteritis or mesenteric panniculitis. A metastatic process or neoplastic process such as lymphoma cannot be excluded. Follow-up exam after treatment is recommended to ensure resolution. CONS bacteremia, likely contaminant -repeat Bcx 12/25 NTD -Recent perforated appendix c/w RLQ abscess 10/2017, s/p I+D and abx tx -s/p emergent open appendectomy , I+D abscess and partial omentectomy 10/29; cx Chase S E.coli, Group C Strep; BACTEROIDES THETAIOTAOMICRON and FUSOBACTERIUM NECROPHORUM (both S to Unasyn and CLinda) -Repeat CT 11/04- residual fluid collection RLQ and s/p IR guided drainage -Treated with Zosyn x 6 days> Levaquin and Flagyl x 17 days (end date due to ) - History of colitis (possible Clostridium difficile) 11/2017, s/p Rx ( did not completed entire treatment as patient didnt refilled Rx upon discharge) 11/2017: -CT abd/p w/: Enterocolitis. No abscess. Thickening of the wall of multiple loops of small bowel which are also slightly distended and fluid- filled. This is most likely due to enteritis that is nonspecific. There is liquefied stool in the colon as well which shows mild thickening of the wall. - History of asthma. PLAN: -Switch Meropenem d# 6 (abx d # 11) to PO Augmentin based on OR cultures; will treat for 10 days from surgery; end date 01/07/18 -d/c IV Dapto #2 (abx d#10) -Switch IV Micafungin #2/5 to PO Fluconazole 200mg daily -01/02 SP IV Vancomycin #9 -12/29 SP Zosyn #6 -12/23 SP Cefepime and Flagyl x1 Monitor CBC. Monitor BMP. Monitor cultures (blood). Surgery f/u monitor for development of diarrhea f/u v. duplex Subjective Allergies: Coded Allergies: No Known Allergies (Unverified , 04/25/16) Subjective afebrile in >12hrs wbc improving patient requesting switch from IV to PO abx Objective Vital Signs Last 24 Hour Vital Signs Date Time Temp Pulse Resp B/P (MAP) Pulse Ox O2 Delivery O2 Flow Rate FiO2 01/03/18 15:59 98.4 70 19 139/78 (98) 98 98.4 01/03/18 12:00 98.4 67 19 130/74 (92) 98 98.4 01/03/18 09:00 Room Air 01/03/18 08:00 99.0 78 19 141/82 (101) 98 99.0 01/03/18 04:00 98.3 98.3 01/03/18 00:00 99.5 99.5 01/02/18 22:26 100.0 01/02/18 21:27 100.1 01/02/18 21:00 Room Air 01/02/18 20:00 98.0 99 17 128/79 (95) 98 98.0 01/02/18 16:59 135/86 (102) Height (Feet): 5 Height (Inches): 8.00 Weight (Pounds): 206 Objective HEENT: No pallor. No icterus. NECK: No lymphadenopathy. CHEST: Clear. HEART: S1 and S2. ABDOMEN: Soft. The patient has mild to moderate mid abdominal pain. NEUROLOGIC: Awake and alert. SKIN: No rash. Wound has healed. Laboratory Tests Test 01/03/18 07:00 White Blood Count 11.8 K/UL (4.8-10.8) H Red Blood Count 4.43 M/UL (4.70-6.10) L Hemoglobin 11.3 G/DL (14.2-18.0) L Hematocrit 35.6 % (42.0-52.0) L Mean Corpuscular Volume 80 FL (80-99) Mean Corpuscular Hemoglobin 25.6 PG (27.0-31.0) L Mean Corpuscular Hemoglobin Concent 31.8 G/DL (32.0-36.0) L Red Cell Distribution Width 11.7 % (11.6-14.8) Platelet Count 369 K/UL (150-450) Mean Platelet Volume 5.7 FL (6.5-10.1) L Neutrophils (%) (Auto) 68.7 % (45.0-75.0) Lymphocytes (%) (Auto) 18.4 % (20.0-45.0) L Monocytes (%) (Auto) 10.1 % (1.0-10.0) H Eosinophils (%) (Auto) 1.1 % (0.0-3.0) Basophils (%) (Auto) 1.7 % (0.0-2.0) Sodium Level 136 MMOL/L (136-145) Potassium Level 3.3 MMOL/L (3.5-5.1) L Chloride Level 100 MMOL/L (98-107) Carbon Dioxide Level 30 MMOL/L (21-32) Anion Gap 6 mmol/L (5-15) Blood Urea Nitrogen 10 mg/dL (7-18) Creatinine 1.0 MG/DL (0.55-1.30) Estimat Glomerular Filtration Rate > 60 mL/min (>60) Glucose Level 114 MG/DL (74-106) H Calcium Level 9.2 MG/DL (8.5-10.1) Total Bilirubin 0.4 MG/DL (0.2-1.0) Direct Bilirubin 0.2 MG/DL (0.0-0.3) Aspartate Amino Transf (AST/SGOT) 17 U/L (15-37) Alanine Aminotransferase (ALT/SGPT) 8 U/L (12-78) L Alkaline Phosphatase 58 U/L (46-116) Total Creatine Kinase 51 U/L (26-308) Total Protein 6.8 G/DL (6.4-8.2) Albumin 2.8 G/DL (3.4-5.0) L Current Medications Medications (Trade) Dose Ordered Sig/Kelsea Route PRN Reason Start Time Stop Time Status Last Admin Dose Admin Acetaminophen (Tylenol) 650 mg Q4H PRN ORAL fever 12/23/17 17:30 01/22/18 17:29 01/02/18 21:27 Acetaminophen/ Hydrocodone Bitart ([place] 5/325) 1 tab Q4H PRN ORAL Moderate Pain (Pain Scale 4-6) 01/03/18 14:00 01/10/18 13:59 Al Hydroxide/Mg Hydroxide (Mylanta) 15 ml Q6H PRN ORAL DYSPEPSIA 12/29/17 20:00 01/28/18 19:59 Cetylpyridinium Chloride (Cepacol) 1 lozg Q2H PRN SHARONA THROAT IRRITATION 12/26/17 10:45 01/25/18 10:44 Daptomycin 550 mg/ Sodium Chloride 55 ml @ 100 mls/hr Q24H IV 01/02/18 22:00 01/09/18 21:59 01/02/18 22:29 Dextrose (Dextrose 50%) 25 ml STAT PRN IV Hypoglycemia 12/23/17 17:30 01/22/18 17:29 Dextrose (Dextrose 50%) 50 ml STAT PRN IV Hypoglycemia 12/23/17 17:45 01/22/18 17:44 Diphenhydramine HCl (Benadryl) 12.5 mg Q6H PRN IVP Itching/Pruritis 12/29/17 20:00 01/28/18 19:59 Guaifenesin (Robitussin) 200 mg Q4H PRN ORAL For Cough 12/25/17 16:05 01/24/18 16:04 Heparin Sodium (Porcine) (Heparin 5000 units/ml) 5,000 units EVERY 12 HOURS SUBQ 12/23/17 21:00 01/22/18 20:59 01/01/18 20:31 Ibuprofen (Motrin) 600 mg Q6H PRN ORAL Mild Pain (Pain Scale 1-3) 01/03/18 14:00 02/02/18 13:59 Meropenem 1 gm/ Sodium Chloride 55 ml @ 110 mls/hr Q8HR IVPB 12/29/17 17:00 01/03/18 16:59 01/03/18 14:51 Metoclopramide HCl (Reglan) 10 mg Q6H PRN IVP Nausea & Vomiting 01/01/18 11:45 01/31/18 11:44 01/01/18 18:53 Micafungin Sodium 100 mg/Sodium Chloride 110 ml @ 110 mls/hr Q24H IVPB 01/02/18 23:00 01/09/18 22:59 01/02/18 22:21 Morphine Sulfate (Morphine Sulfate) 4 mg Q4H PRN IVP Severe Pain (Pain Scale 7-10) 01/03/18 14:00 01/10/18 13:59 Nitroglycerin (Ntg) 0.4 mg Q5M X 3 DOSES PRN SL Prn Chest Pain 12/23/17 17:30 01/22/18 17:29 Polyethylene Glycol (Miralax) 17 gm DAILYPRN PRN ORAL Constipation 01/02/18 08:15 02/01/18 08:14 01/03/18 15:51 Temazepam (Restoril) 7.5 mg DAILYPRN PRN ORAL Insomnia 12/29/17 20:00 01/05/18 19:59 Manuela Alonzo M.D. Jan 03, 2018 16:20
[2018-01-03 20:00] VITALS: BP 151/82
[2018-01-03] MEDS: Augmentin 875mg Tab ORAL SCH (21:22)
[2018-01-03] MEDS: Fluconazole 100mg tab ORAL SCH (21:22)
[2018-01-04] VITALS: BP 138/74
[2018-01-04 04:00] VITALS: BP 136/83
[2018-01-04 06:32] LABS: BASOPHILS % (AUTO) 1.2 % (0.0-2.0); EOSINOPHILS % (AUTO) 1.9 % (0.0-3.0); HEMATOCRIT 35.8 % (42.0-52.0); HEMOGLOBIN 11.7 G/DL (14.2-18.0); LYMPHOCYTES % (AUTO) 23.4 % (20.0-45.0); MEAN CORPUSCULAR VOLUME 80 FL (80-99); MONOCYTES % (AUTO) 10.3 % (1.0-10.0); NEUTROPHILS % (AUTO) 63.2 % (45.0-75.0); PLATELET COUNT 407 K/UL (150-450); RED BLOOD COUNT 4.48 M/UL (4.70-6.10); RED CELL DISTRIBUTION WIDTH 11.3 % (11.6-14.8); WHITE BLOOD COUNT 11.2 K/UL (4.8-10.8)
[2018-01-04 07:00] LABS: ALANINE AMINOTRANSFERASE 21 U/L (12-78); ALBUMIN/GLOBULIN RATIO 0.6 (1.0-2.7); ALKALINE PHOSPHATASE 58 U/L (46-116); ANION GAP 9 mmol/L (5-15); ASPARTATE AMINO TRANSFERASE 17 U/L (15-37); BILIRUBIN,TOTAL 0.4 MG/DL (0.2-1.0); BLOOD UREA NITROGEN 10 mg/dL (7-18); CALCIUM 9.7 MG/DL (8.5-10.1); CARBON DIOXIDE 30 MMOL/L (21-32); CHLORIDE 99 MMOL/L (98-107); PHOSPHORUS 3.7 MG/DL (2.5-4.9); POTASSIUM 3.7 MMOL/L (3.5-5.1); SODIUM 138 MMOL/L (136-145)
[2018-01-04 08:24] VITALS: BP 140/70
[2018-01-04] MEDS: Augmentin 875mg Tab ORAL SCH (08:27)
[2018-01-04] MEDS: Heparin 5000 units/ml inj SUBQ SCH (08:28)
[2018-01-04] MEDS: Fluconazole 100mg tab ORAL SCH (08:28)
[2018-01-04 11:55] VITALS: BP 140/86
--- NOTE | 2018-01-04 13:28 | General Surgery Progress Note ---
General Surgery-Progress Note Subjective Procedure Performed diagnostic laparoscopy laparoscopic lysis of adhesions exploratory laparotomy small bowel resection evacuation of mesenteric abscess Symptoms: improved, tolerating diet, passing flatus, BM Additional Comments had BM. ready to go home Objective Last 24 Hour Vital Signs Date Time Temp Pulse Resp B/P (MAP) Pulse Ox O2 Delivery O2 Flow Rate FiO2 01/04/18 11:55 97.9 60 20 140/86 (104) 99 97.9 01/04/18 08:24 97.8 72 20 140/70 (93) 99 97.8 01/04/18 07:31 Room Air 01/04/18 04:00 99.1 70 21 136/83 (100) 99 99.1 01/04/18 00:00 98.4 81 20 138/74 (95) 99 98.4 01/03/18 21:00 Room Air 01/03/18 20:30 99.0 99.0 01/03/18 20:00 100.4 81 20 151/82 (105) 99 100.4 01/03/18 15:59 98.4 70 19 139/78 (98) 98 98.4 I&O Intake and Output 01/03/18 01/04/18 19:00 07:00 Intake Total 480 ml Balance 480 ml Intake Oral 480 ml # Voids 3 2 # Bowel Movements 2 Wound: clean, dry Drains: none Cardiovascular: RSR Respiratory: clear Abdomen: soft, flat, non-tender, present bowel sounds Extremities: no cyanosis Laboratory Tests Test 01/04/18 06:12 White Blood Count 11.2 K/UL (4.8-10.8) H Red Blood Count 4.48 M/UL (4.70-6.10) L Hemoglobin 11.7 G/DL (14.2-18.0) L Hematocrit 35.8 % (42.0-52.0) L Mean Corpuscular Volume 80 FL (80-99) Mean Corpuscular Hemoglobin 26.0 PG (27.0-31.0) L Mean Corpuscular Hemoglobin Concent 32.6 G/DL (32.0-36.0) Red Cell Distribution Width 11.3 % (11.6-14.8) L Platelet Count 407 K/UL (150-450) Mean Platelet Volume 5.6 FL (6.5-10.1) L Neutrophils (%) (Auto) 63.2 % (45.0-75.0) Lymphocytes (%) (Auto) 23.4 % (20.0-45.0) Monocytes (%) (Auto) 10.3 % (1.0-10.0) H Eosinophils (%) (Auto) 1.9 % (0.0-3.0) Basophils (%) (Auto) 1.2 % (0.0-2.0) Erythrocyte Sedimentation Rate 68 MM/HR (0-15) H Sodium Level 138 MMOL/L (136-145) Potassium Level 3.7 MMOL/L (3.5-5.1) Chloride Level 99 MMOL/L (98-107) Carbon Dioxide Level 30 MMOL/L (21-32) Anion Gap 9 mmol/L (5-15) Blood Urea Nitrogen 10 mg/dL (7-18) Creatinine 1.0 MG/DL (0.55-1.30) Estimat Glomerular Filtration Rate > 60 mL/min (>60) Glucose Level 95 MG/DL (74-106) Calcium Level 9.7 MG/DL (8.5-10.1) Phosphorus Level 3.7 MG/DL (2.5-4.9) Magnesium Level 2.1 MG/DL (1.8-2.4) Total Bilirubin 0.4 MG/DL (0.2-1.0) Aspartate Amino Transf (AST/SGOT) 17 U/L (15-37) Alanine Aminotransferase (ALT/SGPT) 21 U/L (12-78) Alkaline Phosphatase 58 U/L (46-116) C-Reactive Protein, Quantitative 7.6 mg/dL (0.00-0.90) H Total Protein 8.0 G/DL (6.4-8.2) Albumin 3.0 G/DL (3.4-5.0) L Globulin 5.0 g/dL Albumin/Globulin Ratio 0.6 (1.0-2.7) L Plan Problems: (1) Abdominal pain Assessment & Plan: 3.2 x 4.2 cm masslike area with surrounding infiltration of the fat within the mesentery in the midline just above the level of the umbilicus. Some small adjacent lymph nodes are noted. This appears more prominent compared to the prior exam and may be related to an acute infectious/ inflammatory process such as enteritis or mesenteric panniculitis. No acute surgical intervention planned. will discuss with radiology about case. likely related to post surgical infectious process and patient did not fill Abx upon discharge for appropriate Abx course IV Abx as per ID will monitor exam okay for diet. Repeat CT with new findings as per radiology read. discussed with radiologist. will discuss with patient possible surgery if desired s/p diag lap, SUPRIYA, ex-lap, sb resection, washout, closure leukocytosis improved. exam benign bowel function returning. cultures noted. diet as tolerated iv abx activity as tolerated rx as written discharge Constantin Monzon Jan 04, 2018 13:28
--- NOTE | 2018-01-04 13:33 | GI Progress Note ---
Assessment/Plan Problems: (1) Diarrhea ICD Codes: R19.7 - Diarrhea, unspecified SNOMED: 97309959 (2) Constipation ICD Codes: K59.00 - Constipation, unspecified SNOMED: 33530806 (3) Abdominal pain ICD Codes: R10.9 - Unspecified abdominal pain SNOMED: 53672717 Qualifiers: Qualified Codes: R10.32 - Left lower quadrant pain (4) Mesenteric mass ICD Codes: K63.9 - Disease of intestine, unspecified SNOMED: 472643071 (5) Leukocytosis ICD Codes: D72.829 - Elevated white blood cell count, unspecified SNOMED: 813964434, 576484953 Qualifiers: Qualified Codes: D72.829 - Elevated white blood cell count, unspecified (6) Colitis ICD Codes: K52.9 - Noninfective gastroenteritis and colitis, unspecified SNOMED: 32206121 (7) Anemia ICD Codes: D64.9 - Anemia, unspecified SNOMED: 980369835 (8) Status post appendectomy ICD Codes: Z90.49 - Acquired absence of other specified parts of digestive tract SNOMED: 233654327, 09830612, 02540521 Status: stable Status Narrative Discussed with Dr. Goddard. Assessment/Plan s/p repeat surg and abscess drainage on 12/29 okay for DC per GI standpoint diet per surgery pain control abx ppi fu surg recs fu labs The patient was seen and examined at bedside and all new and available data was reviewed in the patients chart. I agree with the above findings, impression and plan. (Patient seen earlier today. Signature stamp does not reflect patient encounter time.). - Pillo Goddard MD Subjective Subjective abdominal pain improved Objective Last 24 Hour Vital Signs Date Time Temp Pulse Resp B/P (MAP) Pulse Ox O2 Delivery O2 Flow Rate FiO2 01/04/18 11:55 97.9 60 20 140/86 (104) 99 97.9 01/04/18 08:24 97.8 72 20 140/70 (93) 99 97.8 01/04/18 07:31 Room Air 01/04/18 04:00 99.1 70 21 136/83 (100) 99 99.1 01/04/18 00:00 98.4 81 20 138/74 (95) 99 98.4 01/03/18 21:00 Room Air 01/03/18 20:30 99.0 99.0 01/03/18 20:00 100.4 81 20 151/82 (105) 99 100.4 01/03/18 15:59 98.4 70 19 139/78 (98) 98 98.4 Intake and Output 01/03/18 01/04/18 19:00 07:00 Intake Total 480 ml Balance 480 ml Intake Oral 480 ml # Voids 3 2 # Bowel Movements 2 Laboratory Tests Test 01/04/18 06:12 White Blood Count 11.2 K/UL (4.8-10.8) H Red Blood Count 4.48 M/UL (4.70-6.10) L Hemoglobin 11.7 G/DL (14.2-18.0) L Hematocrit 35.8 % (42.0-52.0) L Mean Corpuscular Volume 80 FL (80-99) Mean Corpuscular Hemoglobin 26.0 PG (27.0-31.0) L Mean Corpuscular Hemoglobin Concent 32.6 G/DL (32.0-36.0) Red Cell Distribution Width 11.3 % (11.6-14.8) L Platelet Count 407 K/UL (150-450) Mean Platelet Volume 5.6 FL (6.5-10.1) L Neutrophils (%) (Auto) 63.2 % (45.0-75.0) Lymphocytes (%) (Auto) 23.4 % (20.0-45.0) Monocytes (%) (Auto) 10.3 % (1.0-10.0) H Eosinophils (%) (Auto) 1.9 % (0.0-3.0) Basophils (%) (Auto) 1.2 % (0.0-2.0) Erythrocyte Sedimentation Rate 68 MM/HR (0-15) H Sodium Level 138 MMOL/L (136-145) Potassium Level 3.7 MMOL/L (3.5-5.1) Chloride Level 99 MMOL/L (98-107) Carbon Dioxide Level 30 MMOL/L (21-32) Anion Gap 9 mmol/L (5-15) Blood Urea Nitrogen 10 mg/dL (7-18) Creatinine 1.0 MG/DL (0.55-1.30) Estimat Glomerular Filtration Rate > 60 mL/min (>60) Glucose Level 95 MG/DL (74-106) Calcium Level 9.7 MG/DL (8.5-10.1) Phosphorus Level 3.7 MG/DL (2.5-4.9) Magnesium Level 2.1 MG/DL (1.8-2.4) Total Bilirubin 0.4 MG/DL (0.2-1.0) Aspartate Amino Transf (AST/SGOT) 17 U/L (15-37) Alanine Aminotransferase (ALT/SGPT) 21 U/L (12-78) Alkaline Phosphatase 58 U/L (46-116) C-Reactive Protein, Quantitative 7.6 mg/dL (0.00-0.90) H Total Protein 8.0 G/DL (6.4-8.2) Albumin 3.0 G/DL (3.4-5.0) L Globulin 5.0 g/dL Albumin/Globulin Ratio 0.6 (1.0-2.7) L Height (Feet): 5 Height (Inches): 8.00 Weight (Pounds): 206 General Appearance: WD/WN, no apparent distress, alert Cardiovascular: normal rate Respiratory/Chest: normal breath sounds, no respiratory distress Abdominal Exam: normal bowel sounds, non tender, soft, incision site Extremities: normal range of motion, non-tender Mayte Lizarraga NP Jan 04, 2018 13:32
[2018-01-04] MEDS ORDERED: AMOX TR-K CLV1 EAC2 ORAL (13:51)
[2018-01-04] MEDS ORDERED: DIFLUCAN200 MG ORAL (13:52)
--- NOTE | 2018-01-04 13:54 | Pulmonology Progress Note ---
Assessment/Plan Problems: (1) Colitis (2) Mesenteric mass (3) Abdominal pain (4) Leukocytosis (5) Status post appendectomy Assessment/Plan advance diet post op care on po Diflucan and augmentin dvt prophylaxis symptomatic treatment dc home with 4 more days of abx as recommended in ID's note Subjective ROS Limited/Unobtainable: No Allergies: Coded Allergies: No Known Allergies (Unverified , 04/25/16) Objective Last 24 Hour Vital Signs Date Time Temp Pulse Resp B/P (MAP) Pulse Ox O2 Delivery O2 Flow Rate FiO2 01/04/18 11:55 97.9 60 20 140/86 (104) 99 97.9 01/04/18 08:24 97.8 72 20 140/70 (93) 99 97.8 01/04/18 07:31 Room Air 01/04/18 04:00 99.1 70 21 136/83 (100) 99 99.1 01/04/18 00:00 98.4 81 20 138/74 (95) 99 98.4 01/03/18 21:00 Room Air 01/03/18 20:30 99.0 99.0 01/03/18 20:00 100.4 81 20 151/82 (105) 99 100.4 01/03/18 15:59 98.4 70 19 139/78 (98) 98 98.4 Intake and Output 01/03/18 01/04/18 19:00 07:00 Intake Total 480 ml Balance 480 ml Intake Oral 480 ml # Voids 3 2 # Bowel Movements 2 Objective General Appearance: WN/WD HEENT: normocephalic Respiratory/Chest: chest wall non-tender, lungs clear Cardiovascular: normal peripheral pulses, normal rate Abdomen: normal bowel sounds, soft, non tender Genitourinary: normal external genitalia Extremities: no clubbing Laboratory Tests 01/04/18 06:12: White Blood Count 11.2H, Red Blood Count 4.48L, Hemoglobin 11.7L, Hematocrit 35.8L, Mean Corpuscular Volume 80, Mean Corpuscular Hemoglobin 26.0L, Mean Corpuscular Hemoglobin Concent 32.6, Red Cell Distribution Width 11.3L, Platelet Count 407, Mean Platelet Volume 5.6L, Neutrophils (%) (Auto) 63.2, Lymphocytes (%) (Auto) 23.4, Monocytes (%) (Auto) 10.3H, Eosinophils (%) (Auto) 1.9, Basophils (%) (Auto) 1.2, Erythrocyte Sedimentation Rate 68H, Sodium Level 138, Potassium Level 3.7, Chloride Level 99, Carbon Dioxide Level 30, Anion Gap 9, Blood Urea Nitrogen 10, Creatinine 1.0, Estimat Glomerular Filtration Rate > 60, Glucose Level 95, Calcium Level 9.7, Phosphorus Level 3.7, Magnesium Level 2.1, Total Bilirubin 0.4, Aspartate Amino Transf (AST/SGOT) 17, Alanine Aminotransferase (ALT/SGPT) 21, Alkaline Phosphatase 58, C-Reactive Protein, Quantitative 7.6H, Total Protein 8.0, Albumin 3.0L, Globulin 5.0, Albumin/ Globulin Ratio 0.6L Current Medications Medications (Trade) Dose Ordered Sig/Kelsea Route PRN Reason Start Time Stop Time Status Last Admin Dose Admin Acetaminophen (Tylenol) 650 mg Q4H PRN ORAL fever 12/23/17 17:30 01/22/18 17:29 01/02/18 21:27 Acetaminophen/ Hydrocodone Bitart ([place] 5/325) 1 tab Q4H PRN ORAL Moderate Pain (Pain Scale 4-6) 01/03/18 14:00 01/10/18 13:59 Al Hydroxide/Mg Hydroxide (Mylanta) 15 ml Q6H PRN ORAL DYSPEPSIA 12/29/17 20:00 01/28/18 19:59 Amoxicillin/ Clavulanate Potassium (Augmentin) 875 mg EVERY 12 HOURS ORAL 01/03/18 22:00 01/10/18 21:59 01/04/18 08:27 Cetylpyridinium Chloride (Cepacol) 1 lozg Q2H PRN SHARONA THROAT IRRITATION 12/26/17 10:45 01/25/18 10:44 Dextrose (Dextrose 50%) 25 ml STAT PRN IV Hypoglycemia 12/23/17 17:30 01/22/18 17:29 Dextrose (Dextrose 50%) 50 ml STAT PRN IV Hypoglycemia 12/23/17 17:45 01/22/18 17:44 Diphenhydramine HCl (Benadryl) 12.5 mg Q6H PRN IVP Itching/Pruritis 12/29/17 20:00 01/28/18 19:59 Fluconazole (Diflucan) 200 mg DAILY ORAL 01/03/18 22:00 01/10/18 21:59 01/04/18 08:28 Guaifenesin (Robitussin) 200 mg Q4H PRN ORAL For Cough 12/25/17 16:05 01/24/18 16:04 Heparin Sodium (Porcine) (Heparin 5000 units/ml) 5,000 units EVERY 12 HOURS SUBQ 12/23/17 21:00 01/22/18 20:59 01/01/18 20:31 Ibuprofen (Motrin) 600 mg Q6H PRN ORAL Mild Pain (Pain Scale 1-3) 01/03/18 14:00 02/02/18 13:59 Metoclopramide HCl (Reglan) 10 mg Q6H PRN IVP Nausea & Vomiting 01/01/18 11:45 01/31/18 11:44 01/01/18 18:53 Morphine Sulfate (Morphine Sulfate) 4 mg Q4H PRN IVP Severe Pain (Pain Scale 7-10) 01/03/18 14:00 01/10/18 13:59 Nitroglycerin (Ntg) 0.4 mg Q5M X 3 DOSES PRN SL Prn Chest Pain 12/23/17 17:30 01/22/18 17:29 Nystatin (Nystatin) 1 applic THREE TIMES A DAY TOPIC 01/03/18 21:15 02/02/18 21:14 01/04/18 12:51 Polyethylene Glycol (Miralax) 17 gm DAILYPRN PRN ORAL Constipation 01/02/18 08:15 02/01/18 08:14 01/03/18 15:51 Temazepam (Restoril) 7.5 mg DAILYPRN PRN ORAL Insomnia 12/29/17 20:00 01/05/18 19:59 Jae Benavides MD Jan 04, 2018 13:54
--- NOTE | 2018-01-04 14:14 | General Progress Note ---
Assessment/Plan Problem List: (1) UTI (urinary tract infection) ICD Codes: N39.0 - Urinary tract infection, site not specified SNOMED: 65644931 (2) Anemia ICD Codes: D64.9 - Anemia, unspecified SNOMED: 882877508 (3) Leukocytosis ICD Codes: D72.829 - Elevated white blood cell count, unspecified SNOMED: 418173800, 632579668 Qualifiers: Qualified Codes: D72.829 - Elevated white blood cell count, unspecified (4) Abdominal pain ICD Codes: R10.9 - Unspecified abdominal pain SNOMED: 84999082 Qualifiers: Qualified Codes: R10.32 - Left lower quadrant pain (5) H/O appendicitis ICD Codes: Z87.19 - Personal history of other diseases of the digestive system SNOMED: 102912543 Status: stable, progressing Assessment/Plan gi sx f/u abx pain control adv diet per gi dc if clear Subjective Constitutional: Reports: weakness Allergies: Coded Allergies: No Known Allergies (Unverified , 04/25/16) All Systems: reviewed and negative except above Subjective ate ok wants to go home Objective Last 24 Hour Vital Signs Date Time Temp Pulse Resp B/P (MAP) Pulse Ox O2 Delivery O2 Flow Rate FiO2 01/04/18 11:55 97.9 60 20 140/86 (104) 99 97.9 01/04/18 08:24 97.8 72 20 140/70 (93) 99 97.8 01/04/18 07:31 Room Air 01/04/18 04:00 99.1 70 21 136/83 (100) 99 99.1 01/04/18 00:00 98.4 81 20 138/74 (95) 99 98.4 01/03/18 21:00 Room Air 01/03/18 20:30 99.0 99.0 01/03/18 20:00 100.4 81 20 151/82 (105) 99 100.4 01/03/18 15:59 98.4 70 19 139/78 (98) 98 98.4 Intake and Output 01/03/18 01/04/18 19:00 07:00 Intake Total 480 ml Balance 480 ml Intake Oral 480 ml # Voids 3 2 # Bowel Movements 2 Laboratory Tests 01/04/18 06:12: White Blood Count 11.2H, Red Blood Count 4.48L, Hemoglobin 11.7L, Hematocrit 35.8L, Mean Corpuscular Volume 80, Mean Corpuscular Hemoglobin 26.0L, Mean Corpuscular Hemoglobin Concent 32.6, Red Cell Distribution Width 11.3L, Platelet Count 407, Mean Platelet Volume 5.6L, Neutrophils (%) (Auto) 63.2, Lymphocytes (%) (Auto) 23.4, Monocytes (%) (Auto) 10.3H, Eosinophils (%) (Auto) 1.9, Basophils (%) (Auto) 1.2, Erythrocyte Sedimentation Rate 68H, Sodium Level 138, Potassium Level 3.7, Chloride Level 99, Carbon Dioxide Level 30, Anion Gap 9, Blood Urea Nitrogen 10, Creatinine 1.0, Estimat Glomerular Filtration Rate > 60, Glucose Level 95, Calcium Level 9.7, Phosphorus Level 3.7, Magnesium Level 2.1, Total Bilirubin 0.4, Aspartate Amino Transf (AST/SGOT) 17, Alanine Aminotransferase (ALT/SGPT) 21, Alkaline Phosphatase 58, C-Reactive Protein, Quantitative 7.6H, Total Protein 8.0, Albumin 3.0L, Globulin 5.0, Albumin/ Globulin Ratio 0.6L Height (Feet): 5 Height (Inches): 8.00 Weight (Pounds): 206 General Appearance: alert EENT: normal ENT inspection Neck: normal alignment Cardiovascular: normal peripheral pulses, normal rate, regular rhythm Respiratory/Chest: chest wall non-tender, lungs clear, normal breath sounds Abdomen: normal bowel sounds, non tender, soft Extremities: normal inspection Edema: no edema noted Arm (L), no edema noted Arm (R), no edema noted Leg (L), no edema noted Leg (R), no edema noted Pedal (L), no edema noted Pedal (R), no edema noted Generalized Neurologic: responsive, motor weakness Skin: normal pigmentation, warm/dry Franklyn Neves DO Jan 04, 2018 14:14
[2018-01-04] MEDS ORDERED: D5 1/2NS 1000ml IV ONE (14:34)
--- NOTE | 2018-01-05 12:43 | Diagnostic Imaging Report ---
APPROVED REPORT CPT Code: 74225 Present Symptoms Comments: BILATERAL LEGS PAIN. BILATERAL: Imaging reveals a patent deep venous system bilaterally. There is no evidence of thrombus within the femoral, popliteal or tibial segments. The greater saphenous veins are also within normal limits. Doppler indicates normal spontaneous flow within these segments.
--- NOTE | 2018-01-05 13:46 | Discharge Summary ---
Discharge Summary Discharge Summary _ DATE OF ADMISSION: 12/23/2017 DATE OF DISCHARGE: 01/04/2018 CONSULTANTS: Dr. Manuela Jacobs BRIEF HOSPITAL COURSE: Patient is a 32-year-old male, who presented to ED complaining of abdominal pain that has been ongoing for the past 3 days. He noted decrease in caliber and size of stools and had not passed gas for 2 days. He denied vomiting, or diarrhea. There was no documented fever at home. Pain was worse with sleeping and standing, pain was constant and is 7-10 on intensity. He had a prior appendectomy on October 29 for ruptured appendix. On November [address]-guided aspiration of a pelvic abscess. He was then treated with Levaquin and Flagyl. He was admitted again on November for colitis. He was discharged and was prescribed oral vancomycin, however, prescriptions were not filled due to cost. He was doing relatively well until 3 days prior. On arrival to ED, he had stable vital signs. KUB showed nonobstructive bowel gas pattern. CT of the abdomen and pelvis showed an ill-defined 3.2 x 4.2 cm masslike area with surrounding infiltration of fat within the mesentery in the midline above the umbilicus, appears more prominent compared to prior exam, may be related to acute infectious/inflammatory process. Blood work showed leukocytosis, WBC was 12. He was started on IV antibiotics. He was then admitted for further workup. Surgery was called to evaluate. CT findings seen likely related to postsurgical infectious process. No acute surgical intervention was needed. Patient was monitored. He was started on IV Zosyn, and IV vancomycin was eventually added. He was given pain management and was continued on morphine IV prn severe pain. Medication was later switched to Dilaudid. He was started on diet. He had elevated lipase, however normalized. Repeat CT was done on 12/28/2017 and showed irregular reticular opacity in the mesenteric root, unchanged. There was interim development of a 3 x 1.9 cm fluid collection within the wall of adjacent thick-walled small bowel loop, suspect findings of focal enteritis, with development of intramural abscess and inflammation of adjacent mesenteric fat. On 12/29/2017, he underwent diagnostic laparoscopy, with laparoscopic lysis of adhesions; exploratory laparotomy; small bowel resection and evacuation of mesenteric abscess. Intraoperative findings showed a large intra-abdominal phlegmon/abscess around the mesentery with communication to the wall of the small bowel. He tolerated procedure well. He was given meropenem for ESBL coverage and vancomycin for enterococcal coverage. Postoperatively, he was continued on NPO until return of bowel function. He developed low-grade fever, vancomycin was switched to daptomycin. IV micafungin was added. On 01/02/2018, he was passing flatus. He was started on clear liquid diet. He was encouraged activity as tolerated. Diet was advanced. He was tolerating diet. He remained afebrile. He had positive BM. Blood culture did not isolate any growth. Abdominal fluid culture with coagulase-negative staph and enterococcus. He was eventually cleared for discharge to continue oral antibiotics. FINAL DIAGNOSES: Abdominal pain secondary to Intra-abdominal abscess, status post diagnostic laparoscopy and exploratory laparotomy with small bowel resection and evacuation of mesenteric abscess on 12/29/2017 Recent perforated appendix, status post appendectomy Anemia Recent colitis, with incomplete treatment, patient didn't refill Rx upon discharge Coagulase-negative staph bacteremia, likely contaminant DISPOSITION: Patient was discharged home. DISCHARGE MEDICATIONS: Refer to Discharge Medication List. Continue Augmentin 875-125mg every 12 hours 4 days and Diflucan 200 mg daily for 4 days. DISCHARGE INSTRUCTIONS: Follow up with PCP in a week. I have been assigned to dictate discharge summary on this account, and I was not involved in the patient's management. Cris Jeffrey NP Jan 05, 2018 13:46
== END 2018-01-04 14:35 | disposition home or self-care (01) | DRG 230 ==
LOC: EMR 14:20 → EDBEDREQ 15:49 → 4W 15:56 → EDBEDREQ 16:38
PROC: 0DN84ZZ Release Small Intestine, Percutaneous Endoscopic Approach (ICD-10-PCS; principal; 2017-12-29 16:00)
PROC: 0DBV0ZZ Excision of Mesentery, Open Approach (ICD-10-PCS; principal; 2017-12-29 16:00)
PROC: 0DB80ZZ Excision of Small Intestine, Open Approach (ICD-10-PCS; principal; 2017-12-29 16:00)
PROC: 0HB7XZZ Excision of Abdomen Skin, External Approach (ICD-10-PCS; principal; 2017-12-29 16:00)
PROC: 0DJV4ZZ Inspection of Mesentery, Percutaneous Endoscopic Approach (ICD-10-PCS; principal; 2017-12-29 16:00)
PROC: 0DNW0ZZ Release Peritoneum, Open Approach (ICD-10-PCS; principal; 2017-12-29 16:00)
DX: K65.1 Peritoneal abscess (principal); D64.9 Anemia, unspecified; N39.0 Urinary tract infection, site not specified; K52.9 Noninfective gastroenteritis and colitis, unspecified; J45.909 Unspecified asthma, uncomplicated; Z53.31 Laparoscopic surgical procedure converted to open procedure; K66.0 Peritoneal adhesions (postprocedural) (postinfection)
CPT/HCPCS: 36415; 71045; 74018; 74177; 76700; 80048; 80053; 80076; 80202; 80307; 81003; 82150; 82550; 82962; 83690; 83735; 84100; 84132; 85025; 85610; 85651; 85730; 86140; 86850; 86900; 86901; 87040; 87070; 87075; 87181; 87205; 93970; 94003; 94150; 97803; 99285; J2405; J2765; J8499

== ENCOUNTER → 2019-11-13 | Emergency (ER) | payer MEDICAID ==
[~2019-11-13] VITALS: Ht 172.7 cm; Wt 108.9 kg
[~2019-11-13] MED LIST changes: +AMOX TR-K CLV1 EAC2 ORAL; +DIFLUCAN200 MG ORAL; +IBUPROFEN600 M1 ORAL
[2019-11-13 10:20] VITALS: BP 135/84
--- NOTE | 2019-11-13 10:27 | NUR ---
ED Nurse Note: Pt ambulated to ED from home d/t sore throat and cold sweats for 2 weeks. Pt is AOx4, calm and cooperative. Per triage, pt has been tested for covid with negative result few weeks ago. Placed on bed.
--- NOTE | 2019-11-13 10:31 | NUR ---
ED Nurse Note: ERMD at bedside.
--- NOTE | 2019-11-13 10:47 | NUR ---
ER DISCHARGE NOTE: Patient is cleared to be discharged per ERMD, pt is aox4, on room air, with stable vital signs. pt was given dc and prescription instructions, pt was able to verbalize understanding, pt id band and iv site removed without complications. Pt is able to ambulate with steady gait. Pt took all belongings.
[2019-11-13 10:48] VITALS: BP 124/87
--- NOTE | 2019-11-13 11:28 | Emergency Room Report ---
History of Present Illness General Chief Complaint: Sore Throat Source: Patient Present Illness HPI 34-year-old male presents with sore throat. He has had sore throat for the past week or so. Denies cough. Denies fever but does report sweats at night. Also complaining of left ear pain. Pain in the throat 7 out of 10 worse with swallowing nonradiating. Pharyngitis. 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 COVID-19 Screening: Negative COVID-19 COVID-19 Testing Source: Nasal Patient History Reviewed Nursing Documentation: PMH: Agreed; PSxH: Agreed Nursing Documentation-PMH Past Medical History: No Stated History Hx Cardiac Problems: No Hx Asthma: Yes Hx Cancer: No Hx Gastrointestinal Problems: Yes Hx Neurological Problems: No Review of Systems All Other Systems: negative except mentioned in HPI Physical Exam Vital Signs Date Time Temp Pulse Resp B/P (MAP) Pulse Ox O2 Delivery O2 Flow Rate FiO2 11/13/19 10:20 98.2 89 16 135/84 99 Room Air Sp02 EP Interpretation: reviewed, normal General Appearance: well appearing, no apparent distress Head: normocephalic, atraumatic Eyes: bilateral eye PERRL, bilateral eye EOMI ENT: hearing grossly normal, moist mucus membranes, other - Bilateral tonsillar exudates noted, left TM bulging right TM normal Neck: full range of motion, supple Respiratory: lungs clear, normal breath sounds, no rhonchi, no respiratory distress, no retraction, no wheezing Cardiovascular #1: normal peripheral pulses, regular rate, rhythm, no murmur Gastrointestinal: non tender, soft, non-distended, no guarding Neurologic: alert, oriented x3, no focal defects Skin: normal color, warm/dry Medical Decision Making Diagnostic Impression: Primary Impression: Pharyngitis ER Course Differential diagnosis included but not limited to strep pharyngitis, otitis media, viral pharyngitis, to name a few. On exam patient in no acute distress. He did have bilateral tonsillar exudates, absence of cough, believe he has streptococcal pharyngitis. Will treat with p.o. antibiotics, analgesics, have patient follow-up with PMD, return precautions given. Low suspicion for retropharyngeal abscess. Stable for discharge e Last Vital Signs Date Time Temp Pulse Resp B/P (MAP) Pulse Ox O2 Delivery O2 Flow Rate FiO2 11/13/19 10:48 98.0 85 18 124/87 11/13/19 10:24 99 Room Air Disposition: HOME, SELF-CARE Condition: Stable Scripts Ibuprofen* (MOTRIN*) 600 Mg Tablet 600 MG ORAL Q8H PRN for FOR PAIN, #30 TAB 0 Refills Prov: Eugenio Disla M.D. 11/13/19 Amoxicillin* (AMOXIL*) 500 Mg Capsule 500 MG ORAL TWICE A DAY, #20 CAP Prov: Eugenio Disla M.D. 11/13/19 Referrals: [facility] Patient Instructions: Pharyngitis, [id number] Additional Instructions: Patient is instructed to follow-up with her primary care doctor, primary care clinic or [facility] in 1 to 2 days. Patient instructed to return for any worsening symptoms or concerns. Disclaimer: Please note that this report is being documented using Spotted technology. This can lead to erroneous entry secondary to incorrect interpretation by the dictating instrument. Eugenio Disla M.D. Nov 13, 2019 11:28
== END | disposition home or self-care (01) ==
LOC: EMR 10:45
DX: J02.9 Acute pharyngitis, unspecified (principal)
CPT/HCPCS: 99282